=== PATIENT | male | born 1935 | race Caucasian/White ===

== ENCOUNTER 2019-01-17 06:20 | Inpatient (IN) ==
[2019-01-17 06:56] LABS: POC Blood Urea Nitrogen 79 mg/dl (8-23); POC CO2 18 mmol/L (22-30); POC Calcium, Ionized 1.11 mmol/L (1.16-1.32); POC Chloride 105 mmol/L (96-108); POC Creatinine 3.1 mg/dl (0.7-1.2); POC Glucose, Random 217 mg/dL (70-105); POC Sodium 134 mmol/L (133-145)
[2019-01-17] MEDS ORDERED: 0.9 % SODIUM CHLORIDE 500 ML IV ONE (07:19)
[2019-01-17] MEDS ORDERED: ACETAMINOPHEN 325 MG TABLET PO ONE (07:19)
[2019-01-17] MEDS ORDERED: methylPREDNISolone SOD SUCC 125 MG/2 ML VIAL IV ONE (07:22)
--- NOTE | 2019-01-17 07:27 | Emergency Department Note ---
Weakness HPI - General Chief complaint: Weakness Stated complaint: Generalized Weakness Time Seen by Provider: 01/17/19 07:07 Source: family Mode of arrival: wheelchair Limitations: no limitations - History of Present Illness MD Complaint: generalized weakness Onset (ago): day(s) Duration: constant Location: generalized Severity: moderate Improves with: rest Worsens with: movement Context: history of similar Associated symptoms: Reports: denies other symptoms, loss of appetite, myalgias, other (has fallen twice in the last 3 days.). Denies: fever/chills, headaches, nausea/vomiting, syncope - Related Data Home Medications Medication Instructions Recorded Confirmed Atenolol [Tenormin] 50 mg PO DAILY 01/18/17 11/26/18 Levothyroxine [Synthroid] 50 mcg PO DAILY 01/18/17 11/26/18 amLODIPine [Norvasc] 10 mg PO DAILY 01/18/17 11/26/18 cloNIDine HCL [Catapres] 0.1 mg PO DAILY 01/18/17 11/26/18 predniSONE [Prednisone] 10 mg PO DAILY 01/18/17 11/26/18 acetaminophen PO PRN 02/11/17 11/26/18 aspirin 81 mg tablet 81 mg PO QDAY 02/11/17 11/26/18 blood sugar diagnostic strips See Dose Instructions .ROUTE 02/11/17 11/26/18 .MEDSUPPLY hydrocodone 5 mg-acetaminophen 325 See Rx Instructions PO QDAY PRN 02/11/17 11/26/18 mg tablet tab pen needle, diabetic 32 gauge x See Dose Instructions .ROUTE 02/11/17 11/26/18 5/32" .MEDSUPPLY iron 18 mg tablet 18 mg PO QDAY 02/26/17 11/26/18 trandolapril 4 mg tablet 4 mg PO QDAY tab 06/04/17 11/26/18 insulin aspart U- 100 100 unit/mL 0.6 unit SUB-Q .COMPLEX ml 10/01/17 11/26/18 subcutaneous solution insulin glargine (U- 100) 100 8 unit SUB-Q HS ml 05/22/18 11/26/18 unit/mL subcutaneous solution [id number] tablet 1 tab PO QDAY 05/22/18 11/26/18 Previous Rx's Medication Instructions Recorded hydrochlorothiazide 25 mg tablet 25 mg PO QDAY #90 tab 05/25/18 magnesium 250 mg (as magnesium 250 mg PO QDAY #90 tab 12/22/18 oxide) tablet Allergies Allergy/AdvReac Type Severity Reaction Status Date / Time naproxen Allergy Unknown Skin Martino Verified 11/26/18 14:05 niacin Allergy Unknown Burning Verified 11/26/18 14:05 Skin Review of Systems Review of Systems: Patient denies headache. Does have chronic arthritis of. Has had a swelling in the right elbow with decreased range of motion, chronic arthritis which has worsened in the last week with development of increased swelling and erythema. Did fall on the right arm as well. Increased right elbow pain since then. The elbow has chronically been inflamed, he has had some chronic edema in the right upper extremity which has worsened just slightly. Also his left ankle seemed to be red and tender. This is also recent. He does see a shoe lay out planner, he is not sure whom it is. Lives by himself in [facility]. He called his [id number] yesterday and they went to pick him up last night. He's been eating less, having a difficult time taking care of himself. He normally drives a vehicle. Does his own shopping. Constitutional: Denies: fever Eyes: Denies: eye pain ENT ED: Denies: ear pain Cardiovascular: Denies: chest pain Past Medical History - Past Medical History Source: old records reviewed, obtained from family Medical history: Reports: arthritis, COPD, DM, hypertension Surgical history ED: Reports: non-contributory, orthopedic, other Family history: Reports: connective tissue disorde - Social History smoking status: Former smoker Alcohol use: Reports: Rarely Drug use: Reports: none Physical Exam Limitations: no limitations General appearance: alert, in no apparent distress, lethargic Head: atraumatic, normocephalic, normal inspection Eye: Present: normal appearance, PERRL, EOMI ENT: mucous membranes dry, TM's normal bilaterally, normal external ear exam, other (edentulous for upper and lower.) Neck: Present: normal inspection, trachea midline, other (decreased range of motion expected for age and condition of.). Absent: tenderness Chest: Present: normal inspection, symmetric chest wall rise. Absent: tenderness, rash, abscess Respiratory: Present: other (diminished breath sounds bilateral). Absent: respiratory distress Cardiovascular: Present: regular rate, normal rhythm, systolic murmur. Absent: JVD Abdominal: Present: soft, normal bowel sounds. Absent: distention, tenderness, guarding : Present: normal inspection Extremities: Present: joint swelling, other (2+ pitting edema to the right upper extremity from the level of the elbow on down. He has deformities of his fingers, 20 of range of motion of his elbow. Elbow feels warm to the touch.) Back: Present: normal inspection, full ROM. Absent: CVA tenderness (R), CVA tenderness (L), vertebral tenderness Neurological: Present: alert, oriented X3, CN II-XII intact. Absent: motor sensory deficit Psychiatric: Present: depressed, flat affect Skin: Present: warm, dry, erythema, pallor. Absent: cyanosis Course Vital Signs Temperature 98.3 F 01/17/19 06:20 Pulse Rate 78 01/17/19 06:20 Respiratory Rate 20 01/17/19 06:20 Blood Pressure 173/78 01/17/19 06:20 Pulse Oximetry (%) 99 01/17/19 06:20 Temperature 101.7 F H 01/17/19 08:07 Pulse Rate 57 L 01/17/19 08:51 Respiratory Rate 20 01/17/19 06:20 Blood Pressure 116/52 01/17/19 08:46 Pulse Oximetry (%) 92 01/17/19 08:51 Weakness - MDM Narrative Medical decision making narrative: Patient is being admitted at this point for generalized weakness, history of multiple falls the last several days. He has an acute flareup of arthritis in the right elbow, certainly elevated sedimentation rate and CRP, concern for osteo-in the right elbow. Spoke with Dr. Solares for hospital admission. He will consult with orthopedics Dr. Leo. In the meantime we will obtain CT scan of the right elbow. His x-rays of the ankle do not show any fracture. He also has arthritis flareup in his left ankle. This all could be flareup of his rheumatoid arthritis associated with dehydration. Chronic renal insufficiency, slightly worse by his dehydration. Generalized weakness secondary to the above diagnoses . - Lab Data Lab results reviewed: Yes I reviewed the patient's lab results. Result diagrams: 01/17/19 06:48 01/17/19 06:48 Lab Results 01/17/19 01/17/19 01/17/19 Range/Units 06:48 06:48 06:48 WBC 17.8 H (4.5-11.0) K/mcL RBC 3.25 L (4.50-5.90) M/mcL Hgb 10.0 L (13.5-16.5) g/dL Hct 31.2 L (41.0-55.0) % POC Hct 31.0 L (41.0-55.0) % MCV 95.8 (80.0-100.0) fL MCH 30.8 (26.0-34.0) pg MCHC 32.2 (31.0-36.0) g/dL RDW 16.2 H (11.5-14.5) % Plt Count 643 H (140-440) K/mcL MPV 9.7 (7.4-10.4) fL Gran % 93.1 H (38.0-78.0) % Lymph % (Auto) 4.5 L (15.5-49.0) % [place] % (Auto) 2.1 (1.0-12.0) % Eos % (Auto) 0.3 (0.0-7.0) % Baso % (Auto) 0 (0.0-2.0) % Gran # 16.6 H (1.8-8.0) K/mcL Lymph # (Auto) 0.8 L (1.5-4.8) K/mcL [place] # (Auto) 0.4 (0.1-0.9) K/mcL Eos # (Auto) 0 (0.0-0.7) K/mcL Baso # (Auto) 0 (0.0-0.3) K/mcL Differential Comment (()) ESR 112 H (0-15) mm/hr PT 14.4 (11.9-14.5) sec INR 1.1 (0.9-1.1) VBG Lactic Acid (0.5-2.0) mmol/L POC Sodium 134 (133-145) mmol/L Sodium (133-145) mmol/L POC Potassium 5.0 (3.3-5.1) mmol/L Potassium (3.3-5.1) mmol/L POC Chloride 105 (96-108) mmol/L Chloride (96-108) mmol/L Carbon Dioxide (22-30) mmol/L POC Total CO2 18 L (22-30) mmol/L Anion Gap (8-16) POC BUN 79 H (8-23) mg/dl BUN (8-23) mg/dl Creatinine (0.7-1.2) mg/dl POC Creatinine 3.1 H (0.7-1.2) mg/dl GFR Calculation Glucose (70-105) mg/dL POC Glucose 217 H (70-105) mg/dL Calcium (8.6-10.4) mg/dl POC WB Ioniz Calcium 1.11 L (1.16-1.32) mmol/L Total Bilirubin (0.0-1.0) mg/dL AST (0-37) U/l ALT (0-40) U/l Alkaline Phosphatase (39-117) U/L C-Reactive Protein (0.0-0.8) mg/dl Total Protein (5.9-8.4) gm/dL Albumin (3.2-5.2) gm/dL Globulin (2.2-3.7) gm/dL Albumin/Globulin Ratio (1.0-2.3) Urine Color Urine Appearance Urine pH (5.0-9.0) Ur Specific [place] (1.000-1.035) Urine Protein (NEG) mg/dL Urine Glucose (UA) (NEG) mg/dL Urine Ketones (NEG) mg/dL Urine Occult Blood (<0.03) mg/dL Urine Nitrate (NEG) Urine Bilirubin (NEG) mg/dL Urine Urobilinogen (NEG) mg/dL Ur Leukocyte Esterase (NEG) /uL Urine RBC (0-1) /hpf Urine WBC (0-4) /hpf Ur Squamous Epith Cells (0-4) /hpf Ur Transition Epith Cell (0-2) /hpf Urine Bacteria (0) /hpf Urine Mucus (0) /hpf Ur Culture Indicated? 01/17/19 01/17/19 01/17/19 Range/Units 06:48 07:09 07:54 WBC (4.5-11.0) K/mcL RBC (4.50-5.90) M/mcL Hgb (13.5-16.5) g/dL Hct (41.0-55.0) % POC Hct (41.0-55.0) % MCV (80.0-100.0) fL MCH (26.0-34.0) pg MCHC (31.0-36.0) g/dL RDW (11.5-14.5) % Plt Count (140-440) K/mcL MPV (7.4-10.4) fL Gran % (38.0-78.0) % Lymph % (Auto) (15.5-49.0) % [place] % (Auto) (1.0-12.0) % Eos % (Auto) (0.0-7.0) % Baso % (Auto) (0.0-2.0) % Gran # (1.8-8.0) K/mcL Lymph # (Auto) (1.5-4.8) K/mcL [place] # (Auto) (0.1-0.9) K/mcL Eos # (Auto) (0.0-0.7) K/mcL Baso # (Auto) (0.0-0.3) K/mcL Differential Comment (()) ESR (0-15) mm/hr PT (11.9-14.5) sec INR (0.9-1.1) VBG Lactic Acid 2.4 H (0.5-2.0) mmol/L POC Sodium (133-145) mmol/L Sodium 135 (133-145) mmol/L POC Potassium (3.3-5.1) mmol/L Potassium 5.0 (3.3-5.1) mmol/L POC Chloride (96-108) mmol/L Chloride 97 (96-108) mmol/L Carbon Dioxide 16 L (22-30) mmol/L POC Total CO2 (22-30) mmol/L Anion Gap 22.0 H (8-16) POC BUN (8-23) mg/dl BUN 82 H (8-23) mg/dl Creatinine 3.0 H (0.7-1.2) mg/dl POC Creatinine (0.7-1.2) mg/dl GFR Calculation 18 Glucose 218 H (70-105) mg/dL POC Glucose (70-105) mg/dL Calcium 8.8 (8.6-10.4) mg/dl POC WB Ioniz Calcium (1.16-1.32) mmol/L Total Bilirubin 0.3 (0.0-1.0) mg/dL AST 33 (0-37) U/l ALT 20 (0-40) U/l Alkaline Phosphatase 126 H (39-117) U/L C-Reactive Protein 43.4 H (0.0-0.8) mg/dl Total Protein 6.4 (5.9-8.4) gm/dL Albumin 2.9 L (3.2-5.2) gm/dL Globulin 3.5 (2.2-3.7) gm/dL Albumin/Globulin Ratio 0.8 L (1.0-2.3) Urine Color Yellow Urine Appearance Clear Urine pH 5.0 (5.0-9.0) Ur Specific [place] 1.016 (1.000-1.035) Urine Protein 30 A (NEG) mg/dL Urine Glucose (UA) Negative (NEG) mg/dL Urine Ketones Neg (NEG) mg/dL Urine Occult Blood Neg (<0.03) mg/dL Urine Nitrate Neg (NEG) Urine Bilirubin Neg (NEG) mg/dL Urine Urobilinogen Neg (NEG) mg/dL Ur Leukocyte Esterase Neg (NEG) /uL Urine RBC 1 (0-1) /hpf Urine WBC 3 (0-4) /hpf Ur Squamous Epith Cells 0 (0-4) /hpf Ur Transition Epith Cell < 1 (0-2) /hpf Urine Bacteria Few A (0) /hpf Urine Mucus Few (0) /hpf Ur Culture Indicated? No - Radiology Data Radiology results reviewed: Yes I reviewed the patient's radiology results. Disposition Pt seen by [facility]PA only: No Clinical Impression: Anemia in stage 4 chronic kidney disease, Joint pain, CKD (chronic kidney disease), stage IV, Degenerative joint disease, Acute arthritis, Dehydration Disposition: Xfer As Inpt ([facility]) Condition: Fair Referrals: Sandhya Francisco MD [Primary Care Provider] -
[2019-01-17] MEDS ORDERED: CELECOXIB 200 MG CAPSULE PO ONE (07:32)
[2019-01-17 07:42] LABS: Basophils # (Auto) 0 K/mcL (0.0-0.3); Basophils % (Auto) 0 % (0.0-2.0); Eosinophils # (Auto) 0 K/mcL (0.0-0.7); Eosinophils % (Auto) 0.3 % (0.0-7.0); Granulocytes % (Auto) 93.1 % (38.0-78.0); Hematocrit 31.2 % (41.0-55.0); Lymphocytes # (Auto) 0.8 K/mcL (1.5-4.8); Lymphocytes % (Auto) 4.5 % (15.5-49.0); Mean Cell Volume 95.8 fL (80.0-100.0); Mean Corpuscular HGB Conc 32.2 g/dL (31.0-36.0); Mean Platelet Volume 9.7 fL (7.4-10.4); Monocytes # (Auto) 0.4 K/mcL (0.1-0.9); Monocytes % (Auto) 2.1 % (1.0-12.0); Platelet Count 643 K/mcL (140-440); RBC 3.25 M/mcL (4.50-5.90); Red Cell Distribution Width 16.2 % (11.5-14.5); WBC 17.8 K/mcL (4.5-11.0)
[2019-01-17 08:02] LABS: INR 1.1 (0.9-1.1); Prothrombin Time 14.4 sec (11.9-14.5)
[2019-01-17 08:16] LABS: ALT/SGPT 20 U/l (0-40); AST/SGOT 33 U/l (0-37); Albumin 2.9 gm/dL (3.2-5.2); Albumin/Globulin Ratio 0.8 (1.0-2.3); Alkaline Phosphatase 126 U/L (39-117); Bilirubin,Total 0.3 mg/dL (0.0-1.0); Blood Urea Nitrogen 82 mg/dl (8-23); Calcium 8.8 mg/dl (8.6-10.4); Carbon Dioxide 16 mmol/L (22-30); Chloride 97 mmol/L (96-108); Globulin 3.5 gm/dL (2.2-3.7); Glomerular Filtration Rate 18; Glucose 218 mg/dL (70-105)
[2019-01-17 08:22] LABS: Erythrocyte Sedimentation Rate 112 mm/hr (0-15)
[2019-01-17 08:30] LABS: C-Reactive Protein 43.4 mg/dl (0.0-0.8)
[2019-01-17 08:43] LABS: Appearance,Urine CLEAR; Bacteria,Urine FEW /hpf (0); Bilirubin,Urine NEG (NEG); Color,Urine YELLOW; Culture Indicated,Urine NO; Glucose,Urine (UA) NEGATIVE (NEG); Ketones,Urine NEG (NEG); Leukocyte Esterase,Urine NEG /uL (NEG); Mucus,Urine FEW /hpf (0); Nitrate,Urine NEG (NEG); Protein,Urine 30 mg/dL (NEG); Specific Gravity,Urine 1.016 (1.000-1.035); Urine Blood NEG mg/dL (<0.03); Urine RBC 1 /hpf (0-1); Urine Squamous Epithelial Cell 0 /hpf (0-4); Urine Transitional Epi Cells < 1 /hpf (0-2); Urine WBC 3 /hpf (0-4); Urobilinogen,Urine NEG (NEG)
--- NOTE | 2019-01-17 11:37 | Internal Med History&Physical ---
Medical - H&P: [facility] Patient information: Note initiated : 01/17/19 at 11:32 am Service Date, if different from initiated Date: [] Patient: Bebeto Bunn a 83 y/o M admitted on for Generalized Weakness. Chief Complaint: [] Chief complaint: Falls and weakness History of present illness: Mr. Bunn is a 83 year old M with a history of chronic kidney disease, PMR/ ?RA on chronic prednisone who presents to the ER with onset of progressive weakness along with multiple falls that started 2 weeks ago. Patient since then has noticed increasing right elbow and left ankle pain and swelling along with redness. Patient has had progressive fatigue lethargic and unable to perform activities of daily living. He is accompanied to the ER due to increasing concerns within family about his gradual decline. His symptoms are associated with fever around 2 weeks ago at 101.8. He denies associated dysuria diarrhea but endorses to polyarthralgia and rash as involving left ankle and right elbow. He denies headache,, vision changes or unilateral weakness. He does endorse to falls to weakness and getting off balance. Initial work-up in the ER was consistent with elevated white count/inflammatory markers with CRP 43 and ESR 112, elevated white count 17.8, creatinine 3. CT scan right elbow was performed. Patient received a dose of Solu-Medrol At the time of evaluation patient is accompanied with multiple family members. He was able to endorse history as above. Family expressed concerns about his inability to take care of self. 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) Back pain (Chronic) Anxiety (Chronic) Limp (Chronic) Arthritis (Chronic) Joint pain (Chronic) Dizzy (Chronic) CKD (chronic kidney disease), stage IV (Chronic) Shingles (Chronic) Total body pain (Chronic) Hypothyroidism (Chronic) Hyperlipidemia (Chronic) Hypertension (Chronic) GERD (gastroesophageal reflux disease) (Chronic) Degenerative joint disease (Chronic) Osteoarthritis (Chronic) Encounter for long-term (current) use of other medications (Chronic) Hip pain, left (Chronic) Weight loss (Chronic) Polymyalgia rheumatica (Chronic) Anemia (Chronic) Arthralgia (Chronic) Fatigue (Chronic) Diabetes mellitus (Chronic) Surgical History History of elbow surgery (Chronic) right and left History of hip replacement (Chronic) Hx of toe surgery (Chronic) right great toe Family History Family/Other Colon cancer Stroke Social History marital status: occupational status: retired smoking status: Former smoker alcohol intake frequency: does not drink substance use type: does not use Medical - H&P: Meds Home Medications Medication Instructions Recorded Confirmed Type Atenolol [Tenormin] 50 mg PO BID 01/18/17 01/17/19 History Levothyroxine [Synthroid] 50 mcg PO DAILY 01/18/17 01/17/19 History amLODIPine [Norvasc] 10 mg PO DAILY 01/18/17 01/17/19 History cloNIDine HCL [Catapres] 0.1 mg PO BID 01/18/17 01/17/19 History predniSONE [Prednisone] 10 mg PO DAILY 01/18/17 01/17/19 History aspirin 81 mg tablet 81 mg PO QDAY 02/11/17 11/26/18 History blood sugar diagnostic strips See Dose Instructions .ROUTE 02/11/17 11/26/18 History .MEDSUPPLY pen needle, diabetic 32 gauge x See Dose Instructions .ROUTE 02/11/17 11/26/18 History 5/32" .MEDSUPPLY iron 18 mg tablet 18 mg PO QDAY 02/26/17 11/26/18 History trandolapril 4 mg tablet 4 mg PO BID tab 06/04/17 01/17/19 History insulin glargine (U- 100) 100 8 unit SUB-Q HS ml 05/22/18 01/17/19 History unit/mL subcutaneous solution srtdwkgvxejy-fdrksspw-vsnlpr tablet 1 tab PO QDAY 05/22/18 11/26/18 History hydrochlorothiazide 25 mg tablet 25 mg PO QDAY #90 tab 05/25/18 11/26/18 Rx magnesium 250 mg (as magnesium 250 mg PO QDAY #90 tab 12/22/18 01/17/19 Rx oxide) tablet Doxazosin [Cardura] 1 mg PO DAILY 01/17/19 01/17/19 History Insulin Aspart [Novolog] 100 unit SQ AC 01/17/19 01/17/19 History Oxaprozin [Daypro] 600 mg PO DAILY 01/17/19 01/17/19 History Allergies Allergy/AdvReac Type Severity Reaction Status Date / Time naproxen Allergy Unknown Skin Martino Verified 11/26/18 14:05 niacin Allergy Unknown Burning Verified 11/26/18 14:05 Skin Medical - H&P: Exam - Constitutional Vitals: Temp Pulse Resp BP Pulse Ox 98.0 F 53 L 18 134/54 95 01/17/19 09:16 01/17/19 10:31 01/17/19 10:31 01/17/19 10:31 01/17/19 10:31 General appearance: moderate distress Exam: Eye movement symmetrical Oral cavity dry No ear nose discharge head normocephalic Neck no lymphadenopathy S1-S2 regular rhythm Diminished breath sounds bases Abdomen soft nontender Lower extremity bilateral minimal edema with erythema and induration left ankle Right elbow swelling along with erythema and diminished range of motion Arthritic change small joints Skin otherwise no suspicious lesion Psych alert cooperative Neuro nonfocal Medical - H&P: Reslt - Labs CBC & Chem 7: 01/17/19 06:48 01/17/19 06:48 Labs: Short CBC 01/17/19 Range/Units 06:48 WBC 17.8 H (4.5-11.0) K/mcL Hgb 10.0 L (13.5-16.5) g/dL Hct 31.2 L (41.0-55.0) % Plt Count 643 H (140-440) K/mcL BMP 01/17/19 06:48 Sodium 135 Potassium 5.0 Chloride 97 Carbon Dioxide 16 L BUN 82 H Creatinine 3.0 H Glucose 218 H Calcium 8.8 Liver Function 01/17/19 Range/Units 06:48 Total Bilirubin 0.3 (0.0-1.0) mg/dL AST 33 (0-37) U/l ALT 20 (0-40) U/l Alkaline Phosphatase 126 H (39-117) U/L Albumin 2.9 L (3.2-5.2) gm/dL Urine 01/17/19 Range/Units 07:09 Urine Color Yellow Urine Appearance Clear Urine pH 5.0 (5.0-9.0) Ur Specific [place] 1.016 (1.000-1.035) Urine Protein 30 A (NEG) mg/dL Urine Glucose (UA) Negative (NEG) mg/dL Medical - H&P: A/P (1) Polyarthritis involving elbow Current visit: Yes Status: Acute * Acute arthritis rule out infectious versus inflammatory. Underlying history of PMR on chronic immunosuppression on prednisone. Orthopedic consult for right elbow effusion tap. Patient started on IV Solu-Medrol in ER. Start empiric antibiotic coverage. Pancultures, ID consult * Systemic inflammatory response syndrome-acute rheumatoid arthritis flare versus septic arthritis * History of chronic disease creatinine around 3. Avoid nephrotoxins and monitor renal function * Severe deconditioning with multiple falls and weakness-PT OT/nutrition support/case management according to SNF transfer * History of hypertension continue atenolol/clonidine * History rheumatoid arthritis continue prednisone at home dose * Hypothyroidism on thyroxine * DM type II continue basal prandial insulin * Full code * Prophylaxis heparin Plan * Inpatient admission * Start PO prednisone * Orthopedic/ID /rheumatology consult * Pre-existing well condition management as above * Arthrocentesis/antibiotic coverage
[2019-01-17] MEDS ORDERED: guaiFENesin/CODEINE 10 ML UDC PO PRN (11:54)
[2019-01-17] MEDS ORDERED: MAGNESIUM SULFATE 2 GM/50 ML BAG IV PRN (11:54)
[2019-01-17] MEDS ORDERED: VANCOMYCIN PER PHARMACY IV SCH (11:54)
[2019-01-17] MEDS ORDERED: MELATONIN 3 MG TABLET PO PRN (11:54)
[2019-01-17] MEDS ORDERED: ACETAMINOPHEN 1,000 MG/100 ML BOTTLE IV PRN (11:54)
[2019-01-17] MEDS ORDERED: ONDANSETRON 4 MG/2 ML VIAL IV PRN ×2 (11:54→23:00)
[2019-01-17] MEDS ORDERED: POTASSIUM CHLORIDE 20 MEQ PACKET PO PRN (11:54)
[2019-01-17] MEDS: 0.9 % SODIUM CHLORIDE 1,000 ML IV SCH ×2 (12:40→12:44)
[2019-01-17] MEDS: 0.9 % SODIUM CHLORIDE 10 ML SYRINGE IV SCH (12:45)
[2019-01-17] MEDS ORDERED: cefTRIAXone 2 GM in DEXTROSE 5% IN WATER 50 ML IV SCH (13:00)
--- NOTE | 2019-01-17 13:01 | XRay Report ---
CLINICAL INFORMATION: Trauma COMPARISON: None. FINDINGS: No fracture identified. There is minor spurring from the anterior talar neck. Small amount ossification of the Achilles and plantar tendon insertions on calcaneus appreciated. A few tiny metallic foreign bodies overlie the medial cuneiform - likely related to old trauma. Ankle mortise and talocalcaneal joints are normal in width and alignment without evidence of arthritis. Soft tissues are unremarkable. IMPRESSION: No fracture or other acute posttraumatic change. Minor chronic findings - as described Interpreted and Authenticated by: Ivan Garcia 01/17/19
--- NOTE | 2019-01-17 13:08 | XRay Report ---
CLINICAL INFORMATION: weakness COMPARISON: 08/01/2006 two-view chest x-ray FINDINGS: Heart size, mediastinum and pulmonary vessels are normal. There is minor bibasilar atelectasis. No effusion. Malunified old fractures of the posterior first through sixth ribs were not seen on the old 2006 chest x-ray. An old ununited fracture distal left clavicle with 1 cm superior displacement medial fragment is also new. IMPRESSION: No acute cardiac pulmonary disease - chronic findings as described Interpreted and Authenticated by: Ivan Garcia 01/17/19
--- NOTE | 2019-01-17 13:17 | XRay Report ---
CLINICAL INFORMATION: fall COMPARISON: None. FINDINGS: No fracture identified. There is marked elbow effusion with distention of the extrasynovial fat pads. Marked periarticular erosive changes seen within the humeral condyles, radial head and olecranon all supportive of septic arthritis. IMPRESSION: No evidence of fracture. Massive joint effusion with marked periarticular erosive changes compatible with septic arthritis. Follow-up fluoroscopic guided aspiration will be performed. Interpreted and Authenticated by: Ivan Garcia 01/17/19
--- NOTE | 2019-01-17 13:35 | Cat Scan Report ---
CLINICAL INFORMATION: elbow pain, redness and swelling COMPARISON: Plain films 01/17/2019 TECHNIQUE: 0.625 and helical slices were obtained from the mid humerus to the mid radius and ulna. Following reconstruction, 2.5 mm axial, sagittal core reformatted images were processed and reviewed in soft tissue and bone windows FINDINGS: A massive effusion in the elbow joint distends the capsule. There is marked erosive changes in the intra-articular humeral condyle, olecranon and radial head region findings most compatible with septic arthritis. There is no fracture no other a normalities. Moderate periarticular soft tissue swelling noted. IMPRESSION: Massive joint effusion with marked periarticular erosions patible with septic arthritis. Fluoroscopic guided aspiration to be performed. Interpreted and Authenticated by: Ivan Garcia 01/17/19
[2019-01-17] MEDS ORDERED: VANCOMYCIN 1,500 MG in 0.9 % SODIUM CHLORIDE 500 ML IV ONE (14:00)
[2019-01-17] MEDS: ACETAMINOPHEN 325 MG TABLET PO PRN (14:39)
--- NOTE | 2019-01-17 14:39 | XRay Report ---
CLINICAL INFORMATION: Right elbow, septic arthritis TECHNIQUE: Procedure and risks including possibility of bleeding and infection were explained to the patient. He understood and wished to proceed. With the patient seated and the right elbow on the fluoroscopy table,, the radiocapitellar region was fluoroscopically marked, prepped and locally anesthetized with 1% lidocaine using 25-gauge needle. An 18-gauge needle was placed under fluoroscopic guidance into the radiocapitellar portion of the elbow and approximately 10 cc of purulent fluid was aspirated and sent for Gram stain culture and sensitivity. The joint was then irrigated with 6 cc aliquots of normal saline. No apparent complication. IMPRESSION: Successful fluoroscopic guided aspiration of septic elbow joint yielding 10 cc of purulent fluid. Fluid was sent for Gram stain culture and sensitivity. No apparent complication. Interpreted and Authenticated by: Ivan Garcia 01/17/19
--- NOTE | 2019-01-17 14:42 | Consultation ---
DATE OF CONSULTATION: 01/17/2019 CONSULTATION NOTE DATE OF CONSULTATION: 01/17/2019 REASON FOR CONSULTATION: Rule out right septic elbow. PERSON CONSULTING: Dr. Omkar Golden. HISTORY OF PRESENT ILLNESS: The patient is an 83-year-old male who was brought in by the family to the ER today for frequent falls over the last 2 weeks along with progressive weakness. The patient reports that approximately 2 weeks ago, he had fallen with using a ladder and had resulted in an abrasion over his right lateral forearm and that subsequently his elbow became more painful. He has also had some fevers at home and some increasing pain of the left ankle that has actually improved over the last 2 days. Otherwise, he denies any shortness of breath or chest pain, any change in mental status and with good appetite. 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 PAST SURGICAL HISTORY: He has had prior surgery of his right and left elbow and reports on the right side he had a fistula developed and drained for a long time after the surgery. Total hip arthroplasty and surgery on his right great toe. ALLERGIES: NAPROXEN, NIACIN. MEDICATIONS: Atenolol, Synthroid, Norvasc, clonidine, prednisone, baby aspirin, insulin, hydrochlorothiazide, doxazosin, Daypro, iron. SOCIAL HISTORY: He is . He is a former smoker, but not currently using. His family is here locally. REVIEW OF SYSTEMS: Other than mentioned in HPI is negative. Ten-point is negative. PHYSICAL EXAMINATION: GENERAL: The patient is resting comfortably in bed, alert and oriented x3 in no acute distress. He is eating lunch. VITAL SIGNS: His heart rate is 57. His blood pressure is 135/60 with a pulse oximetry of 94% on room air. Respiratory rate is 12-20. Extremities: Examination his right upper extremity reveals he has a large eschar over the lateral forearm approximately 5 cm in length and 2 cm wide. There is no drainage around this lesion. It appears to be healing well; however, his elbow is significantly swollen approximately twice the size of contralateral side. He does have some erythema over the elbow joint itself extends from the medial aspect over posteriorly and around the lateral aspect of the joint itself. He has woody, pitting edema throughout this region down to the mid forearm. Do not appreciate any only notable fluctuance; however, his range of motion is approximately 20 to 30 degree arc and overall feels unstability. This is also painful. His hand is swollen as well. It appears to be from dependent edema; however, he can make a flat hand and a weak closed fist His wrist range of motion is without pain. Left ankle demonstrates minimal to no joint effusion. He has some erythema over the posterior aspect at the heel region, but none over the anterior aspect of his ankle. Passive range of motion is with minimal to no pain. Sensation, he has a dense neuropathy up to just below the level of the knee. Otherwise, the foot is warm and well perfused. LABORATORY DATA: He has a white count of 17.8 with a left shift, his hemoglobin is 10, hematocrit is 31 with platelet count of 643. His coags are normal. He has an elevated CRP of 43. His glucose is 218, his creatinine is 3. IMAGING: He has plain films of his right elbow and left ankle. Right elbow demonstrates near complete loss of the joint space and a joint effusion. There are no fractures noted. He also has a CT of his right elbow, this demonstrates the same. There is no loculated abscess in the subcutaneous tissue; however, has a large joint effusion and near complete destruction of the elbow joint itself. The right ankle, there are no fractures noted and still has well preserved joint. ASSESSMENT AND PLAN: Bebeto is an 83-year-old male with likely septic arthritis of his right elbow; however, difficult to aspirate. Will obtain a fluoro-guided joint aspirate by radiology and sent those off for cultures, Gram stain, cell count, differential, crystrals Did discuss with him that his joint his joint is severely arthritic with minimal joint space left which in a southern ute joint the goal of washing out septic arthritis is to preserve the cartilage. For him is would be more to decrease the bacteria load and allow for improved pain and resolution of symptoms. I do not think that his left ankle is infected as he has minimal pain and no pain with passive range of motion which has been improving over the last several days as well per him. This can be continued to be monitored for now. He did eat lunch as I was evaluating him. Thus, given the subacute nature of this, I would likely wait later on the afternoon to the evening for formal irrigation and debridement as long as these cultures come back consistent with this finding of infection, which I presume it will. DLW:stacia Job ID: [id number] Doc ID: [id number] Cristine Leo MD MTDD
[2019-01-17 15:51] LABS: Appearance,Synovial Fluid TURBID; Color,Synovial Fluid PINK; Nucleated Cells,Synovial Fld 37618 /cumm
[2019-01-17] MEDS: CEFEPIME 2 GM VIAL IV SCH (17:29)
[2019-01-17 17:44] LABS: Lymphocytes,Synovial Fluid 1 %; Neutrophils,Synovial Fluid 98 % (0-25); Other Cells,Synovial Fluid 1 %
[2019-01-17] MEDS ORDERED: DEXTROSE 31 GM ORAL.SUSP PO PRN (19:56)
[2019-01-17] MEDS ORDERED: DEXTROSE 50% 50 ML VIAL IV PRN (19:56)
[2019-01-17] MEDS ORDERED: INSULIN REGULAR, HUMAN 1 UNIT/0.01 ML UNIT ONE ×2 (20:08→23:46)
[2019-01-17] MEDS: INSULIN REGULAR, HUMAN 1 UNIT/0.01 ML UNIT IV ONE ×2 (20:11→20:12)
[2019-01-17] MEDS ORDERED: cloNIDine HCL 0.1 MG TABLET PO SCH (21:00)
[2019-01-17] MEDS ORDERED: LISINOPRIL 20 MG TABLET PO SCH (21:00)
[2019-01-17] MEDS ORDERED: ATENOLOL 50 MG TABLET PO SCH (21:00)
[2019-01-17] MEDS: INSULIN LISPRO 1 UNIT/0.01 ML UNIT SQ SCH (21:30)
[2019-01-17] MEDS ORDERED: ceFAZolin 2 GM in DEXTROSE 5% IN WATER 50 ML IV SCH (21:45)
[2019-01-17] MEDS ORDERED: ceFAZolin 1 GM VIAL ONE (22:10)
[2019-01-17] MEDS ORDERED: KETAMINE 100 MG/ML ML IV ONE (22:25)
[2019-01-17] MEDS ORDERED: GLYCOPYRROLATE 0.2 MG/ML VIAL IV ONE (22:25)
[2019-01-17] MEDS ORDERED: MIDAZOLAM 2 MG/2 ML VIAL IV ONE (22:25)
[2019-01-17] MEDS ORDERED: PROPOFOL 200 MG/20 ML VIAL IV ONE (22:25)
[2019-01-17] MEDS ORDERED: LIDOCAINE HCL/PF 100 MG/5 ML SYRINGE IV ONE (22:25)
[2019-01-17] MEDS ORDERED: ONDANSETRON 4 MG/2 ML VIAL IV ONE (22:25)
[2019-01-17] MEDS ORDERED: fentaNYL 100 MCG/2 ML VIAL IV ONE (22:25)
[2019-01-17] MEDS ORDERED: LACTATED RINGERS 1,000 ML IV SCH (23:00)
[2019-01-17] MEDS ORDERED: MEPERIDINE 25 MG/ML SYRINGE IV PRN (23:00)
[2019-01-17] MEDS ORDERED: fentaNYL 100 MCG/2 ML VIAL IV PRN (23:00)
[2019-01-17] MEDS ORDERED: IPRATROPIUM/ALBUTEROL 3 ML AMPUL.NEB NEB PRN (23:00)
[2019-01-17] MEDS ORDERED: VANCOMYCIN 1 GM VIAL TOPICAL SCH (23:20)
[2019-01-17] MEDS ORDERED: INSULIN REGULAR, HUMAN 1 UNIT/0.01 ML UNIT SQ ONE (23:40)
--- NOTE | 2019-01-17 23:41 | Brief Operative Note ---
Date of procedure: 01/17/19 Pre-op diagnosis: rigth septic elbow Post-op diagnosis: other (same with septic olecranon bursitis) Procedure: left elbow irrigation debridement, drainage of olecranon bursa, placement of drains. Grafts/Implants: Yes (1/4 didier drains x2) Anesthesia: GLMA Findings: mode purulence in the joint with near completion of the joint articular surface, pocket tracked posteriorly into olecranon bursa Complications: none Surgeon: Cristine Leo Estimated blood loss (cc): 5 Tourniquet Time (Minutes): 33 Specimens Removed/Pathology: other (elbow cultures along with bone biopsy of humerus) Condition: stable Disposition: ICU
[2019-01-18] MEDS: HEPARIN 5,000 UNIT/ML VIAL SQ SCH ×3 (01:25→20:52)
[2019-01-18] MEDS: SENNOSIDES/DOCUSATE SODIUM 1 TAB TABLET PO SCH ×2 (01:26→20:52)
[2019-01-18] MEDS: DOCUSATE SODIUM 100 MG CAPSULE PO SCH ×3 (01:26→20:51)
[2019-01-18] MEDS: 0.9 % SODIUM CHLORIDE 10 ML SYRINGE IV SCH ×5 (01:27→20:52)
[2019-01-18] MEDS: CYANOCOBALAMIN (VITAMIN B-12) 500 MCG TABLET PO SCH ×3 (01:27→20:51)
[2019-01-18] MEDS: INSULIN LISPRO 1 UNIT/0.01 ML UNIT SQ SCH ×5 (02:25→20:40)
[2019-01-18] MEDS ORDERED: HYDROmorphone 2 MG/ML VIAL IV PRN (02:38)
[2019-01-18] MEDS ORDERED: oxyCODONE HCL 5 MG TABLET PO ONE (02:49)
[2019-01-18 05:20] LABS: Hematocrit 24.9 % (41.0-55.0); Hemoglobin 7.9 g/dL (13.5-16.5); Mean Cell Volume 96.6 fL (80.0-100.0); Mean Corpuscular HGB Conc 31.9 g/dL (31.0-36.0); Mean Platelet Volume 9.6 fL (7.4-10.4); Platelet Count 588 K/mcL (140-440); RBC 2.57 M/mcL (4.50-5.90); Red Cell Distribution Width 16.6 % (11.5-14.5); WBC 21.3 K/mcL (4.5-11.0)
[2019-01-18 05:47] LABS: ALT/SGPT 11 U/l (0-40); AST/SGOT 13 U/l (0-37); Albumin 1.7 gm/dL (3.2-5.2); Albumin/Globulin Ratio 0.6 (1.0-2.3); Alkaline Phosphatase 81 U/L (39-117); Bilirubin,Direct < 0.2 mg/dL (0.0-0.3); Bilirubin,Total 0.2 mg/dL (0.0-1.0); Blood Urea Nitrogen 85 mg/dl (8-23); Calcium 7.4 mg/dl (8.6-10.4); Carbon Dioxide 19 mmol/L (22-30); Chloride 92 mmol/L (96-108); Globulin 2.8 gm/dL (2.2-3.7); Glomerular Filtration Rate 23; Glucose 272 mg/dL (70-105); Lactate Dehydrogenase 226 U/L (94-250); Phosphorous 5.8 mg/dL (2.7-4.5); Triglycerides 117 mg/dl (<150)
--- NOTE | 2019-01-18 07:20 | Orthopedic Progress Note ---
Subjective Patient information: Note initiated : 01/18/19 at 7:18 am Service Date, if different from initiated Date: [] Patient: Bebeto Bunn 83 y/o M admitted on 01/17/19 for Generalized Weakness. Chief Complaint: [] Interval history: No acute changes overnight. Reports some improvement in pain to the left ankle and right elbow. Objective Vital signs: Vital Signs Temp Pulse Pulse Pulse Resp BP BP 01/18/19 02:49 01/18/19 02:08 117/53 01/18/19 00:28 98.0 F 20 143/60 01/18/19 00:00 98.1 F 55 L 16 01/17/19 23:50 55 L 17 01/17/19 23:45 59 L 13 01/17/19 23:40 59 L 15 01/17/19 23:35 60 14 01/17/19 23:30 98.5 F 63 63 15 142/56 01/17/19 20:00 98.5 F 53 L 14 122/59 01/17/19 17:50 98.8 F 18 141/55 01/17/19 12:00 99.4 F H 18 118/52 01/17/19 11:54 99.4 F H 18 118/52 01/17/19 11:51 129/64 01/17/19 11:31 98.0 F 66 12 129/64 01/17/19 11:01 58 L 20 135/60 01/17/19 10:31 53 L 18 134/54 01/17/19 10:11 55 L 20 01/17/19 10:01 57 L 19 121/54 01/17/19 09:41 57 L 20 119/56 01/17/19 09:16 98.0 F 58 L 19 117/55 01/17/19 09:01 58 L 111/53 01/17/19 08:52 98.0 F 01/17/19 08:51 57 L 01/17/19 08:46 58 L 116/52 01/17/19 08:31 62 122/55 01/17/19 08:16 66 140/103 01/17/19 08:12 60 133/68 01/17/19 08:07 101.7 F H 01/17/19 07:26 101.7 F H 66 BP Pulse Ox 01/18/19 02:49 96 07/15/19 02:08 96 01/18/19 00:28 94 01/18/19 00:00 124/45 90 01/17/19 23:50 124/42 92 01/17/19 23:45 114/59 94 01/17/19 23:40 114/49 100 01/17/19 23:35 116/45 100 01/17/19 23:30 142/56 100 01/17/19 20:00 96 01/17/19 17:50 98 01/17/19 12:00 95 01/17/19 11:54 95 01/17/19 11:51 01/17/19 11:31 96 01/17/19 11:01 94 01/17/19 10:31 95 01/17/19 10:11 89 L 01/17/19 10:01 91 01/17/19 09:41 90 01/17/19 09:16 93 01/17/19 09:01 92 01/17/19 08:52 01/17/19 08:51 92 01/17/19 08:46 92 01/17/19 08:31 92 01/17/19 08:16 93 01/17/19 08:12 91 01/17/19 08:07 01/17/19 07:26 91 Intake and Output 01/17/19 01/18/19 01/18/19 21:59 05:59 13:59 Intake Total 783 1030 Output Total 600 10 175 Balance 183 1020 -175 Intake: IV 783 120 Sodium Chloride 0.9% 1,000 ml @ 283 0 50 mls/hr IV .Q20H [facility] Rx#: [id number] IV - Manual Only 910 Output: Void Amount 600 175 Estimated Blood Loss 10 Other: Urine Appearance Clear Clear Clear Urine Color Bright Yellow Bright Yellow Bright Yellow Urine Odor Normal Weight 146 lb 6.4 oz Intake & Output: Intake & Output 01/17/19 01/18/19 01/18/19 21:59 05:59 13:59 Intake Total 783 1030 Output Total 600 10 175 Balance 183 1020 -175 Weight 146 lb 6.4 oz Intake: IV 783 120 Sodium Chloride 0.9% 1,000 ml @ 283 0 50 mls/hr IV .Q20H [facility] Rx#: [id number] IV - Manual Only 910 Output: Void Amount 600 175 Estimated Blood Loss 10 Other: Urine Appearance Clear Clear Clear Urine Color Bright Yellow Bright Yellow Bright Yellow Urine Odor Normal Dressing: Yes splint in place Weight bearing status: non Additional Comments: left ankle: the erythema over posterior ankle improving. No significant pain with passive ROM of the ankle. skin intact, no significant swelling - Labs CBC & BMP: 01/18/19 03:30 01/18/19 03:30 Labs: Orthopedic Labs 01/17/19 06:48 PT 14.4 INR 1.1 01/18/19 01/17/19 03:30 06:48 Hgb 7.9 L 10.0 L Hct 24.9 L 31.2 L Assessment and Plan - Narrative A/P Narrative: POD 1 s/p right elbow I&D and drainage of olecranon bursa -- splint and dressing- leave in place for today, plan to change tomorrow. -- cx: bacteremia with gram pos cocci and elbow aspirate the same -- did biopsy distal humerus- pending ----- currently on IV abx --- would recommend ID consult -
[2019-01-18] MEDS: LEVOTHYROXINE 50 MCG TABLET PO SCH (07:58)
[2019-01-18 08:02] LABS: Anisocytosis 1+ (NONE SEEN); Band Neutrophils % 2 % (0-10); Monocytes % (Manual) 4 % (1-12); Platelet Estimate INCREASED (NORMAL); RBC Morphology ABNORM (NORMAL); Segmented Neutrophils % 94 % (38-78)
[2019-01-18] MEDS ORDERED: hydrALAZINE 20 MG/ML VIAL IV PRN (08:25)
--- NOTE | 2019-01-18 08:28 | Internal Med Progress Note ---
Medical - PN: Subj Patient information: Note initiated : 01/18/19 at 8:26 am Service Date, if different from initiated Date: [] Patient: Bebeto Bunn a 83 y/o M admitted on 01/17/19 for Generalized Weakness. Chief Complaint: [] Interval history: Mr. Bunn is a 83 year old M with a history of chronic kidney disease, PMR/ ?RA on chronic prednisone who presents to the ER with onset of progressive weakness along with multiple falls that started 2 weeks ago. Patient since then has noticed increasing right elbow and left ankle pain and swelling along with redness. Patient has had progressive fatigue lethargic and unable to perform activities of daily living. He is accompanied to the ER due to increasing co ncerns within family about his gradual decline. His symptoms are associated with fever around 2 weeks ago at 101.8. He denies associated dysuria diarrhea but endorses to polyarthralgia and rash as involving left ankle and right elbow. He denies headache,, vision changes or unilateral weakness. He does endorse to falls to weakness and getting off balance. Initial work-up in the ER was consistent with elevated white count/inflammatory markers with CRP 43 and ESR 112, elevated white count 17.8, creatinine 3. CT scan right elbow was performed. Patient received a dose of Solu-Medrol At the time of evaluation patient is accompanied with multiple family members. He was able to endorse history as above. Family expressed concerns about his inability to take care of self. 01/18 patient seen examined, labs reviewed no acute complaints overnight bradycardic, on beta teresa and clonidine, pt reports HR always low, no dizziness, cp or palpitations reported hold atenolol and clonidine for now and monitor. Right elbow, had pus on aspiration, taken to or yesterday, pt also has GPC bacteremia, which is isolated as strep, presently on vanco and cefepime, will review with ID and plan for deescalation of abx regime to [facility] echo to be done Low hb likely from post Pertinent ROS: Denies headache, dizziness Denies chest pain, palpitations Denies cough or shortness of breath Denies abdominal pain, nausea or vomiting. - Constitutional Vitals: Vital Signs Temp Pulse Resp BP Pulse Ox 97.3 F 55 L 18 114/60 99 01/18/19 07:49 01/18/19 00:00 01/18/19 07:49 01/18/19 07:49 01/18/19 07:49 Period Temp Pulse Resp BP Sys/Dupree Pulse Ox Last 24 Hr 97.3 F-99.4 F 53-66 12-20 111-143/42-64 89-100 Intake and Output 01/17/19 01/18/19 01/18/19 21:59 05:59 13:59 Intake Total 783 1030 Output Total 600 10 175 Balance 183 1020 -175 Weight 146 lb 6.4 oz Intake & Output: Intake & Output 01/17/19 01/18/19 01/18/19 21:59 05:59 13:59 Intake Total 783 1030 Output Total 600 10 175 Balance 183 1020 -175 Weight 146 lb 6.4 oz Intake: IV 783 120 Sodium Chloride 0.9% 1,000 ml @ 283 0 50 mls/hr IV .Q20H [facility] Rx#: [id number] IV - Manual Only 910 Output: Void Amount 600 175 Estimated Blood Loss 10 Other: Urine Appearance Clear Clear Clear Urine Color Bright Yellow Bright Yellow Bright Yellow Urine Odor Normal Exam: Constitutional; Afebrile, cooperative, alert, not in distress. Eyes- No icterus, , No periorbital swelling Ears- Ext ear normal, hearing normal to conversation. Neck- Midline trachea, supple Respiratory system: Air Entry equal on both sides, No crackles or wheezing, no rhonchi. CVS- Rate rhythm regular, S1,S2 heard, no gallop, no rub. 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 Medical - PN: Obj Da - Labs CBC & Chem 7: 01/18/19 03:30 01/18/19 03:30 Labs: Abnormal Lab Results 01/18/19 01/18/19 01/17/19 03:30 03:30 14:28 WBC 21.3 H RBC 2.57 L Hgb 7.9 L Hct 24.9 L POC Hct RDW 16.6 H Plt Count 588 H Gran % Lymph % (Auto) Gran # Lymph # (Auto) Seg Neutrophils % 94 H Platelet Estimate Increased A RBC Morphology Abnorm A Anisocytosis 1+ A ESR VBG Lactic Acid Sodium 128 L Chloride 92 L Carbon Dioxide 19 L POC Total CO2 Anion Gap 17.0 H POC BUN BUN 85 H Creatinine 2.5 H POC Creatinine Glucose 272 H POC Glucose Uric Acid 11.0 H Calcium 7.4 L POC WB Ioniz Calcium Phosphorus 5.8 H Alkaline Phosphatase C-Reactive Protein Total Protein 4.5 L Albumin 1.7 L Albumin/Globulin Ratio 0.6 L Urine Protein Urine Bacteria Synovial Neutrophils 98 H 01/17/19 01/17/19 01/17/19 07:54 07:09 06:48 WBC RBC Hgb Hct POC Hct RDW Plt Count Gran % Lymph % (Auto) Gran # Lymph # (Auto) Seg Neutrophils % Platelet Estimate RBC Morphology Anisocytosis ESR VBG Lactic Acid 2.4 H Sodium Chloride Carbon Dioxide 16 L POC Total CO2 Anion Gap 22.0 H POC BUN BUN 82 H Creatinine 3.0 H POC Creatinine Glucose 218 H POC Glucose Uric Acid Calcium POC WB Ioniz Calcium Phosphorus Alkaline Phosphatase 126 H C-Reactive Protein 43.4 H Total Protein Albumin 2.9 L Albumin/Globulin Ratio 0.8 L Urine Protein 30 A Urine Bacteria Few A Synovial Neutrophils 01/17/19 01/17/19 06:48 06:48 WBC 17.8 H RBC 3.25 L Hgb 10.0 L Hct 31.2 L POC Hct 31.0 L RDW 16.2 H Plt Count 643 H Gran % 93.1 H Lymph % (Auto) 4.5 L Gran # 16.6 H Lymph # (Auto) 0.8 L Seg Neutrophils % Platelet Estimate RBC Morphology Anisocytosis ESR 112 H VBG Lactic Acid Sodium Chloride Carbon Dioxide POC Total CO2 18 L Anion Gap POC BUN 79 H BUN Creatinine POC Creatinine 3.1 H Glucose POC Glucose 217 H Uric Acid Calcium POC WB Ioniz Calcium 1.11 L Phosphorus Alkaline Phosphatase C-Reactive Protein Total Protein Albumin Albumin/Globulin Ratio Urine Protein Urine Bacteria Synovial Neutrophils Meds: Medications Acetaminophen (Tylenol) 650 mg PO Q4-6HP PRN PRN Reason: PAIN/FEVER > 101 Last Admin: 01/17/19 14:39 Dose: 650 mg Documented by: Amlodipine Besylate (Norvasc) 10 mg PO DAILY [facility] Cefepime HCl (Maxipime) 2 gm IV Q24H [facility]; Protocol Last Admin: 01/17/19 17:29 Dose: 2 gm Documented by: Cyanocobalamin (Vitamin B-12) 1,000 mcg PO BID [facility] Stop: 01/22/19 09:01 Last Admin: 01/18/19 01:27 Dose: 1,000 mcg Documented by: Dextrose (Dextrose 50%) 0 ml IV UD PRN PRN Reason: Hypoglycemia Diagnostic Test (Pha) (Accu-Chek) 1 each FS ACHS [facility] Last Admin: 01/18/19 08:00 Dose: 1 each Documented by: Docusate Sodium (Colace) 100 mg PO BID [facility] Last Admin: 01/18/19 01:26 Dose: 100 mg Documented by: Doxazosin Mesylate (Cardura) 1 mg PO DAILY [facility] Folic Acid (Folic Acid) 1 mg PO DAILY [facility] Glucose (Insta-Glucose) 15 gm PO PRN PRN PRN Reason: Hypoglycemia Guaifenesin/Codeine Phosphate (Robitussin Ac) 10 ml PO Q4HP PRN PRN Reason: Cough Heparin Sodium (Porcine) (Heparin) 5,000 unit SQ Q12 [facility] Last Admin: 01/18/19 01:25 Dose: 5,000 unit Documented by: Hydralazine HCl (Apresoline) 10 mg IV Q4HP PRN PRN Reason: Hypertension Hydromorphone HCl (Dilaudid) 0.5 mg IV Q2HP PRN PRN Reason: PAIN LEVEL > 6 Magnesium Sulfate (Magnesium Sulfate) 2 gm in 50 mls @ 50 mls/hr IV UD PRN PRN Reason: MG = or < 1.7 Sodium Chloride (Sodium Chloride 0.9%) 1,000 mls @ 50 mls/hr IV .Q20H [facility] Stop: 01/19/19 23:53 Last Infusion: 01/18/19 00:30 Dose: 50 mls/hr Documented by: Sodium Chloride (Sodium Chloride 0.9%) 1,000 mls @ 20 mls/hr IV .Q24H [facility] Last Admin: 01/17/19 12:44 Dose: Not Given Documented by: Acetaminophen (Ofirmev) 1,000 mg in 100 mls @ 200 mls/hr IV Q6HP PRN PRN Reason: PAIN/FEVER > 101 Last Infusion: 01/18/19 01:52 Dose: Infused Documented by: Insulin Human Lispro (Humalog) 0 unit SQ [facility]; Protocol Last Admin: 01/18/19 08:02 Dose: 2 units Documented by: Iron Carb/Multivit/[employer] Professor/Folic Acid (Multivitamin W/Minerals) 1 tab PO DAILY [facility] Levothyroxine Sodium (Synthroid) 50 mcg PO QAMAC [facility] Last Admin: 01/18/19 07:58 Dose: 50 mcg Documented by: Melatonin (Melatonin 3mg Tablet) 3 mg PO HSP PRN PRN Reason: Insomnia Ondansetron HCl (Zofran) 4 mg IV Q4-6HP PRN PRN Reason: Nausea And Vomiting Oxycodone HCl (Roxicodone) 5 mg PO Q4HP PRN PRN Reason: PAIN LEVEL 3-6 Potassium Chloride (Klor-Con) 40 meq PO DAILYP PRN PRN Reason: K+ < 3.5 Prednisone (Prednisone) 10 mg PO [facility] Senna/Docusate Sodium (Senna Plus Tablet) 1 tab PO HS [facility] Last Admin: 01/18/19 01:26 Dose: 1 tab Documented by: Sodium Chloride (Saline Flush) 10 ml IV Q8 [facility] Last Admin: 01/18/19 05:29 Dose: 10 ml Documented by: Thiamine HCl (Vitamin B1) 100 mg PO DAILY [facility] Vancomycin HCl (Vancomycin Per Pharmacy) 1 order IV UD [facility]; Protocol Medical - PN: A/P - Time Spent With Patient Total time spent is greater than 50% in coordination of care (as documented) at patient's floor/unit and/or counseling patient: - Narrative A/P Narrative: A/P Septic Arthritis -Gram stain is GPC, chains and pairs, s/p washout 01/17, ortho following Streptococcus Bactermia -likely source elbow -IV antibiotics, -get echo, ID consult Rheumatoid arthritis/ PMR -on chronic immunosupressants, continue same for now, hemodynamically stable. Acute on Chronic REnal failure -Creat was 3.0 on admission, 2.5 today, likely around baseline, monitor Bracycardia -sinus, -hold beta teresa and clonidine, monitor, IV hydralazine prn, check thyroid status HTN -bp stable, hold atenonol and clonidine given low HR< monitor DM -SSI insulin for glucose control, anticipate improvement (pt got steroids which likely exacerbated hyperglycemia) Hypothyroidism -on synthroid, check tsh Deconditioning -Rehab, OT/PT DVT Hep sq Full code Carb consistent diet. Medical - PN: Qual - Stroke Symptom Onset Unknown: No - VTE Deep Vein Thrombosis/Pulmonary Embolism Present on Admission: No
[2019-01-18] MEDS: DOXAZOSIN 1 MG TABLET PO SCH (08:35)
[2019-01-18] MEDS: MULTIVIT,THER IRON,CA,FA & MIN 1 TABLET PO SCH (08:35)
[2019-01-18] MEDS: amLODIPine 10 MG TABLET PO SCH (08:36)
[2019-01-18] MEDS: THIAMINE 100 MG TABLET PO SCH (08:36)
[2019-01-18] MEDS: predniSONE 10 MG TABLET PO SCH (08:36)
[2019-01-18] MEDS: FOLIC ACID 1 MG TABLET PO SCH (08:36)
--- NOTE | 2019-01-18 08:50 | Operative Note ---
DATE OF OPERATION: 01/17/2019 PREOPERATIVE DIAGNOSIS: Right septic elbow. POSTOPERATIVE DIAGNOSES: 1. Right septic elbow. 2. Right septic olecranon bursitis. PROCEDURES PERFORMED: 1. Irrigation and debridement of right septic elbow. 2. Drainage of the right septic olecranon bursa. 3. Drain placement in both joint and bursa. SURGEON: Cristine Leo M.D. HEALTH EDUCATION ASSISTANT: None. ANESTHESIA: General via LMA. IV FLUIDS: 1 L lactated Ringer's. ESTIMATED BLOOD LOSS: Minimal. TOURNIQUET TIME: 33 minutes at 200 mmHg. ANTIBIOTICS: 2 grams Ancef with 500 mg of vancomycin powder into the wound. PATHOLOGY/LAB: Cultures of the right elbow along with bone biopsy of the distal humerus. INTRAOPERATIVE COMPLICATIONS: None apparent. IMPLANTS: Two quarter-inch Jose drains. INDICATIONS FOR PROCEDURE: The patient is an 83-year-old male who 2 weeks ago fell on a ladder resulting in a laceration of the lateral forearm and subsequently has developed increasing forearm pain, with increase falls and weakness. He was admitted to the hospital ICU for presumed infection. His blood cultures were positive for gram-positive cocci along with elbow aspiration positive for purulence. Given this we elected to proceed with irrigation and debridement of right septic elbow. He did have minimal motion or use and significant arthritic nature of that joint prior to this. DESCRIPTION OF PROCEDURE: The patient was seen in the preoperative holding area and site was verified and marked with the patient's input and he was taken back to the operating room where he underwent successful anesthesia via LMA. He was transferred supine to the operating room table. A padded tourniquet was placed about the proximal arm and placed on the arm board. His right upper extremity was prepped and draped in the usual sterile fashion. ChloraPrep prep and surgical time out was performed to verify patient identity, correct procedure being performed, correct extremity being operated on. Everybody was in agreement. We used gravity exsanguination and then tourniquet was inflated to 250 mmHg. Approximately 4 to 5 cm incision of a Jhonatan-type incision was made. Skin was sharply incised down to the extensor fascia. The Jhonatan interval was opened down to the joint and mode pus extruded from the joint. There was also a pocket that was posterior to this. This was tracked over the olecranon bursa. Thus, this was also developed and drained. The joint was opened. I did do a partial synovectomy and curetted the loose fragments from the joint. 3 liters of normal saline was irrigated through the joint along with the olecranon bursa area. At this point, we did create a semi-clean field and changed gloves. We placed 500 mg of vancomycin powder into the wounds. I placed a 1/4-inch [place] drain into the joint as well in the olecranon bursa so it can drain. The Jhonatan interval was closed with a 2-0 Monocryl in interrupted fashion, and then subcutaneous tissue closed with 4-0 Monocryl, and the skin was closed with 3-0 nylon leaving small portals for the Jose drain. The tourniquet was desufflated. The dressing was applied to include Xeroform, along with fluffs and Webril and a posterior splint with Flaquito wrap. The patient awoke from anesthesia and was transferred to PACU in stable condition. POSTOPERATIVE PLAN: The patient will be readmitted back to the floor and will continue IV antibiotics. DLBabs:joel Job ID: [id number] Doc ID: [id number] Cristine SKY
[2019-01-18] MEDS: CEFEPIME 2 GM VIAL IV SCH (09:30)
[2019-01-18 10:31] LABS: Thyroid Stimulating Hormone 1.38 uIU/ml (0.27-5.01)
[2019-01-18] MEDS: 0.9 % SODIUM CHLORIDE 1,000 ML IV SCH ×2 (12:29→17:29)
[2019-01-18] MEDS: oxyCODONE HCL 5 MG TABLET PO PRN (14:18)
--- NOTE | 2019-01-18 16:50 | Infectious Disease Consult ---
History of Present Illness Patient information: Note initiated : 01/18/19 at 4:16 pm Service Date, if different from initiated Date: [] Patient: Bebeto Bunn 83 y/o M admitted on 01/17/19 for Generalized Weakness. Chief Complaint: [] Consult date: 01/18/19 Requesting Physician: Omkar Golden Reason for Consult: Rt elbow septic arthritis with bacteremia Chief complaint: My elbow hurts and I had fever History of present illness: 83 year old man with PMHx of: - Stage 4 CKD - RA on chronic prednisone Patient was admitted on 01/17/19 with 2 week Hx of right elbow pain, redness and swelling. He also had weakness and fatigue accompanied with falls off and on around the time. He also endorsed having fever with chills around that time. He also hit his elbow during the falls. He was brought to hospital by his family members as he lives by himself in [place], [place]. ED: Vital signs notable for blood pressure of 173/78, temperature of 101.7 F, heart rate of 57 . WBC 17.8 , platelet count 643 , creatinine 3 , bicarb 16, CRP [address] elbow done showed: Massive joint effusion with marked periarticular erosions compatible with septic arthritis. Patient underwent blood cultures and aspiration of right elbow joint with joint fluid showing a cell count of 37,618 with 98% neutrophils. On 01/17/19 night, he underwent the following procedures: 1. Irrigation and debridement of right septic elbow. 2. Drainage of the right septic olecranon bursa. 3. Drain placement in both joint and bursa. Operative cultures were sent. Patient was started on IV vancomycin and IV ceftriaxone, which was expanded to IV vancomycin IV cefepime yesterday. At the time of visit today, patient has been afebrile, resting in his bed. He endorsed feeling better although still had elbow pain. He denied any nausea, vomiting, diarrhea. Patient confirmed the above history, denied any sick contacts. Does not have any pets Review of Systems All systems PM: reviewed and no additional remarkable complaints except as stated Past History Past family history: Patient lives by himself No sick contacts Past social history: Retired, former smoker, does not drink, does not inject any illicit drugs Medications and Allergies Home Medications Medication Instructions Recorded Confirmed Type Atenolol [Tenormin] 50 mg PO BID 01/18/17 01/17/19 History Levothyroxine [Synthroid] 50 mcg PO DAILY 01/18/17 01/17/19 History amLODIPine [Norvasc] 10 mg PO DAILY 01/18/17 01/17/19 History cloNIDine HCL [Catapres] 0.1 mg PO BID 01/18/17 01/17/19 History predniSONE [Prednisone] 10 mg PO DAILY 01/18/17 01/17/19 History aspirin 81 mg tablet 81 mg PO QDAY 02/11/17 01/17/19 History iron 18 mg tablet 18 mg PO QDAY 02/26/17 01/17/19 History insulin glargine (U- 100) 100 8 unit SUB-Q HS ml 05/22/18 01/17/19 History unit/mL subcutaneous solution eerktebvsmwt-zallstol-ezebad tablet 1 tab PO QDAY 05/22/18 01/17/19 History hydrochlorothiazide 25 mg tablet 25 mg PO QDAY #90 tab 05/25/18 01/17/19 Rx magnesium 250 mg (as magnesium 250 mg PO QDAY #90 tab 12/22/18 01/17/19 Rx oxide) tablet Doxazosin [Cardura] 1 mg PO DAILY 01/17/19 01/17/19 History Insulin Aspart [Novolog] 100 unit SQ AC 01/17/19 01/17/19 History LORazepam [Ativan] 0.5 mg PO BIDP PRN 01/17/19 01/17/19 History Oxaprozin [Daypro] 600 mg PO DAILY 01/17/19 01/17/19 History Allergies Allergy/AdvReac Type Severity Reaction Status Date / Time naproxen Allergy Mild Skin Martino Verified 01/17/19 12:11 niacin Allergy Mild Burning Verified 01/17/19 12:11 Skin Physical Examination Vital signs: Temp Pulse Resp BP Pulse Ox 36.7 C 53 L 16 111/58 96 01/18/19 16:00 01/18/19 00:20 01/18/19 16:00 01/18/19 16:00 01/18/19 16:00 General appearance: no acute distress Eyes pulmonary: nonicteric ENT: oropharynx moist, other (has some thrush) Auscultation: bilateral: clear (Has decreased breath sounds at bases) Cardiovascular: other (S1-S2 normal, has a 2 out of 6 systolic murmur over left second intercostal space) Gastrointestinal: normoactive bowel sounds, non-tender Right elbow is covered in dressing Results - Laboratory Findings CBC and BMP: 01/18/19 03:30 01/18/19 03:30 PT/INR, D-dimer PT 14.4 sec (11.9-14.5) 01/17/19 06:48 INR 1.1 (0.9-1.1) 01/17/19 06:48 Abnormal lab findings: Abnormal Labs 01/17/19 01/17/19 01/17/19 06:48 06:48 06:48 WBC 17.8 H RBC 3.25 L Hgb 10.0 L Hct 31.2 L POC Hct 31.0 L RDW 16.2 H Plt Count 643 H Gran % 93.1 H Lymph % (Auto) 4.5 L Gran # 16.6 H Lymph # (Auto) 0.8 L Seg Neutrophils % Platelet Estimate RBC Morphology Anisocytosis ESR 112 H VBG Lactic Acid Sodium Chloride Carbon Dioxide 16 L POC Total CO2 18 L Anion Gap 22.0 H POC BUN 79 H BUN 82 H Creatinine 3.0 H POC Creatinine 3.1 H Glucose 218 H POC Glucose 217 H Uric Acid Calcium POC WB Ioniz Calcium 1.11 L Phosphorus Alkaline Phosphatase 126 H C-Reactive Protein 43.4 H Total Protein Albumin 2.9 L Albumin/Globulin Ratio 0.8 L Urine Protein Urine Bacteria Synovial Neutrophils 01/17/19 01/17/19 01/17/19 07:09 07:54 14:28 WBC RBC Hgb Hct POC Hct RDW Plt Count Gran % Lymph % (Auto) Gran # Lymph # (Auto) Seg Neutrophils % Platelet Estimate RBC Morphology Anisocytosis ESR VBG Lactic Acid 2.4 H Sodium Chloride Carbon Dioxide POC Total CO2 Anion Gap POC BUN BUN Creatinine POC Creatinine Glucose POC Glucose Uric Acid Calcium POC WB Ioniz Calcium Phosphorus Alkaline Phosphatase C-Reactive Protein Total Protein Albumin Albumin/Globulin Ratio Urine Protein 30 A Urine Bacteria Few A Synovial Neutrophils 98 H 01/18/19 01/18/19 03:30 03:30 WBC 21.3 H RBC 2.57 L Hgb 7.9 L Hct 24.9 L POC Hct RDW 16.6 H Plt Count 588 H Gran % Lymph % (Auto) Gran # Lymph # (Auto) Seg Neutrophils % 94 H Platelet Estimate Increased A RBC Morphology Abnorm A Anisocytosis 1+ A ESR VBG Lactic Acid Sodium 128 L Chloride 92 L Carbon Dioxide 19 L POC Total CO2 Anion Gap 17.0 H POC BUN BUN 85 H Creatinine 2.5 H POC Creatinine Glucose 272 H POC Glucose Uric Acid 11.0 H Calcium 7.4 L POC WB Ioniz Calcium Phosphorus 5.8 H Alkaline Phosphatase C-Reactive Protein Total Protein 4.5 L Albumin 1.7 L Albumin/Globulin Ratio 0.6 L Urine Protein Urine Bacteria Synovial Neutrophils Microbiology: Microbiology 01/17/19 14:28 Synovial Fluid Gram Stain - Final 01/17/19 14:28 Synovial Fluid Body Fluid Culture - Preliminary Streptococcus (beta) gr. G 01/17/19 07:21 Urine - Clean Void Mid-Stream Urine Culture - Preliminary 01/17/19 07:54 Blood Blood Culture - Preliminary Streptococcus (beta) gr. G 01/18/19 00:41 Nose MRSA (PCR) - Final 01/17/19 08:02 Blood Blood Culture - Preliminary Gram positive cocci Assessment and Plan - Narrative A/P Narrative: A: 1. Rt elbow septic arthritis with Gp G Streptococcal bacteremia: - POD 1, s/p irrigation and debridement, Drainage of the right septic olecranon bursa - clinically improving - ESR 112, CRP 43.4 2. Sepsis: per SOFA score 3. Oral thrush Recommendations: - Stop IV Vanc and IV Cefepime - Start IV Ceftriaxone (first dose tomorrow) 2 gm q24 hrs [pt recieved Cefepime today] - Blood Cx every other day. Once neg for 48 hrs, consider PICC line placement with plan for minimum of 4 weeks of IV antibiotics - TTE report awaited. - await operative Cx - Nystatin swish and spit 2.5 ml qid for 7 days will follow Mohsen Calix MD Infectious diseases
[2019-01-18] MEDS: ACETAMINOPHEN 325 MG TABLET PO PRN (18:47)
[2019-01-18] MEDS: NYSTATIN 500,000 UNITS/5 ML ORAL.SUSP SSW SCH (20:51)
[2019-01-18] MEDS ORDERED: INSULIN GLARGINE, HUMAN 1 UNIT/0.01 ML SQ SCH (21:00)
[2019-01-19] MEDS: oxyCODONE HCL 5 MG TABLET PO PRN ×4 (00:32→20:37)
[2019-01-19] MEDS: 0.9 % SODIUM CHLORIDE 10 ML SYRINGE IV SCH ×3 (05:08→20:39)
[2019-01-19 05:28] LABS: Hematocrit 24.1 % (41.0-55.0); Hemoglobin 7.8 g/dL (13.5-16.5); Mean Cell Volume 95.4 fL (80.0-100.0); Mean Corpuscular HGB Conc 32.3 g/dL (31.0-36.0); Mean Platelet Volume 9.9 fL (7.4-10.4); Platelet Count 535 K/mcL (140-440); RBC 2.52 M/mcL (4.50-5.90); Red Cell Distribution Width 16.5 % (11.5-14.5); WBC 15.2 K/mcL (4.5-11.0)
[2019-01-19 06:06] LABS: ALT/SGPT 12 U/l (0-40); AST/SGOT 20 U/l (0-37); Albumin 2.1 gm/dL (3.2-5.2); Albumin/Globulin Ratio 0.6 (1.0-2.3); Alkaline Phosphatase 99 U/L (39-117); Bilirubin,Direct < 0.2 mg/dL (0.0-0.3); Bilirubin,Total < 0.2 mg/dL (0.0-1.0); Blood Urea Nitrogen 87 mg/dl (8-23); Carbon Dioxide 16 mmol/L (22-30); Chloride 103 mmol/L (96-108); Globulin 3.3 gm/dL (2.2-3.7); Glomerular Filtration Rate 21; Glucose 291 mg/dL (70-105); Lactate Dehydrogenase 260 U/L (94-250); Phosphorous 4.4 mg/dL (2.7-4.5); Triglycerides 271 mg/dl (<150); Uric Acid 10.5 mg/dL (2.5-8.0)
[2019-01-19 06:48] LABS: Anisocytosis 1+ (NONE SEEN); Band Neutrophils % 2 % (0-10); Lymphocytes % 3 % (15-49); Monocytes % (Manual) 6 % (1-12); Platelet Estimate INCREASED (NORMAL); RBC Morphology ABNORM (NORMAL); Segmented Neutrophils % 89 % (38-78)
[2019-01-19] MEDS: ACETAMINOPHEN 325 MG TABLET PO PRN (06:56)
[2019-01-19] MEDS: LEVOTHYROXINE 50 MCG TABLET PO SCH (07:21)
[2019-01-19] MEDS ORDERED: INSULIN LISPRO 1 UNIT/0.01 ML UNIT SQ SCH (07:31)
[2019-01-19] MEDS: DOCUSATE SODIUM 100 MG CAPSULE PO SCH ×2 (08:37→20:36)
[2019-01-19] MEDS: CYANOCOBALAMIN (VITAMIN B-12) 500 MCG TABLET PO SCH ×2 (08:37→20:36)
[2019-01-19] MEDS: MULTIVIT,THER IRON,CA,FA & MIN 1 TABLET PO SCH (08:37)
[2019-01-19] MEDS: THIAMINE 100 MG TABLET PO SCH (08:37)
[2019-01-19] MEDS: DOXAZOSIN 1 MG TABLET PO SCH (08:37)
[2019-01-19] MEDS: predniSONE 10 MG TABLET PO SCH (08:37)
[2019-01-19] MEDS: FOLIC ACID 1 MG TABLET PO SCH (08:37)
[2019-01-19] MEDS: amLODIPine 10 MG TABLET PO SCH (08:37)
[2019-01-19] MEDS: NYSTATIN 500,000 UNITS/5 ML ORAL.SUSP SSW SCH ×4 (08:37→20:34)
[2019-01-19] MEDS: HEPARIN 5,000 UNIT/ML VIAL SQ SCH ×2 (08:38→20:37)
[2019-01-19] MEDS ORDERED: cefTRIAXone 2 GM in DEXTROSE 5% IN WATER 50 ML IV SCH (09:00)
--- NOTE | 2019-01-19 09:55 | Internal Med Progress Note ---
Medical - PN: Subj Patient information: Note initiated : 01/19/19 at 9:51 am Service Date, if different from initiated Date: [] Patient: Bebeto Bunn a 83 y/o M admitted on 01/17/19 for Generalized Weakness. Chief Complaint: [] Interval history: Mr. Bunn is a 83 year old M with a history of chronic kidney disease, PMR/ ?RA on chronic prednisone who presents to the ER with onset of progressive weakness along with multiple falls that started 2 weeks ago. Patient since then has noticed increasing right elbow and left ankle pain and swelling along with redness. Patient has had progressive fatigue lethargic and unable to perform activities of daily living. He is accompanied to the ER due to increasing co ncerns within family about his gradual decline. His symptoms are associated with fever around 2 weeks ago at 101.8. He denies associated dysuria diarrhea but endorses to polyarthralgia and rash as involving left ankle and right elbow. He denies headache,, vision changes or unilateral weakness. He does endorse to falls to weakness and getting off balance. Initial work-up in the ER was consistent with elevated white count/inflammatory markers with CRP 43 and ESR 112, elevated white count 17.8, creatinine 3. CT scan right elbow was performed. Patient received a dose of Solu-Medrol At the time of evaluation patient is accompanied with multiple family members. He was able to endorse history as above. Family expressed concerns about his inability to take care of self. 01/18 patient seen examined, labs reviewed no acute complaints overnight bradycardic, on beta teresa and clonidine, pt reports HR always low, no dizziness, cp or palpitations reported hold atenolol and clonidine for now and monitor. Right elbow, had pus on aspiration, taken to or yesterday, pt also has GPC bacteremia, which is isolated as strep, presently on vanco and cefepime, will review with ID and plan for deescalation of abx regime to counts include [facility] echo to be done Low hb likely from post 01/19 Patient seen examined no acute issues, HR stable, but pt still in sinus bradycardia labs stable, K 5.2, hb stable Pt has no new complaints or concerns, tolerating po diet well. Pertinent ROS: Denies headache, dizziness Denies chest pain, palpitations Denies cough or shortness of breath Denies abdominal pain, nausea or vomiting. - Constitutional Vitals: Vital Signs Temp Pulse Resp BP Pulse Ox 99.0 F 47 L 18 104/58 91 01/19/19 09:03 01/18/19 18:30 01/19/19 09:03 01/19/19 09:03 01/19/19 09:03 Period Temp Pulse Resp BP Sys/Dupree Pulse Ox Last 24 Hr 97.4 F-99.9 F 47 16-20 97-120/53-60 91-99 Intake and Output 01/18/19 01/19/19 01/19/19 21:59 05:59 13:59 Intake Total 1177 220 300 Output Total 300 300 Balance 877 220 0 Weight 156 lb 11.2 oz Intake & Output: Intake & Output 01/18/19 01/19/19 01/19/19 21:59 05:59 13:59 Intake Total 1177 220 300 Output Total 300 300 Balance 877 220 0 Weight 156 lb 11.2 oz Intake: Nourishment/Supplement quantity 120 (ml) IV 717 Sodium Chloride 0.9% 1,000 ml @ 717 50 mls/hr IV .Q20H [facility] Rx#: [id number] Oral 340 220 300 Output: Void Amount 300 300 Other: Meal Dinner Breakfast Percent of Meal Consumed 100% 100% Feeding Ability Assist with Tray Set Up Assist with Tray Set Up Nourishment/Supplement name Nepro Urine Appearance Clear Urine Color Bright Yellow Dark Yellow Urine Odor Strong Exam: Constitutional; Afebrile, cooperative, alert, not in distress. Respiratory system: Air Entry equal on both sides, No crackles or wheezing, no rhonchi. CVS- Rate bradycardic rhythm regular, S1,S2 heard, no gallop, no rub. Abdomen- Soft nontender abdomen, no organomegaly, no tenderness, no guarding or rigidity, [employer]- AOOx3, moving all extremities, no gross focal deficit noted. Medical - PN: Obj Da - Labs CBC & Chem 7: 01/19/19 03:22 01/19/19 03:22 Labs: Abnormal Lab Results 01/19/19 01/19/19 01/19/19 03:22 03:22 03:22 WBC 15.2 H RBC 2.52 L Hgb 7.8 L Hct 24.1 L POC Hct RDW 16.5 H Plt Count 535 H Gran % Lymph % (Auto) Gran # Lymph # (Auto) Seg Neutrophils % 89 H Lymphocytes % 3 L Platelet Estimate Increased A RBC Morphology Abnorm A Anisocytosis 1+ A ESR VBG Lactic Acid Sodium Potassium 5.2 H Chloride Carbon Dioxide 16 L POC Total CO2 Anion Gap POC BUN BUN 87 H Creatinine 2.7 H POC Creatinine Glucose 291 H POC Glucose Uric Acid 10.5 H Calcium 8.0 L POC WB Ioniz Calcium Phosphorus Alkaline Phosphatase Lactate Dehydrogenase 260 H C-Reactive Protein 27.4 H Total Protein 5.4 L Albumin 2.1 L Albumin/Globulin Ratio 0.6 L Triglycerides 271 H Urine Protein Urine Bacteria Synovial Neutrophils 01/18/19 01/18/19 01/17/19 03:30 03:30 14:28 WBC 21.3 H RBC 2.57 L Hgb 7.9 L Hct 24.9 L POC Hct RDW 16.6 H Plt Count 588 H Gran % Lymph % (Auto) Gran # Lymph # (Auto) Seg Neutrophils % 94 H Lymphocytes % Platelet Estimate Increased A RBC Morphology Abnorm A Anisocytosis 1+ A ESR VBG Lactic Acid Sodium 128 L Potassium Chloride 92 L Carbon Dioxide 19 L POC Total CO2 Anion Gap 17.0 H POC BUN BUN 85 H Creatinine 2.5 H POC Creatinine Glucose 272 H POC Glucose Uric Acid 11.0 H Calcium 7.4 L POC WB Ioniz Calcium Phosphorus 5.8 H Alkaline Phosphatase Lactate Dehydrogenase C-Reactive Protein Total Protein 4.5 L Albumin 1.7 L Albumin/Globulin Ratio 0.6 L Triglycerides Urine Protein Urine Bacteria Synovial Neutrophils 98 H 01/17/19 01/17/19 01/17/19 07:54 07:09 06:48 WBC RBC Hgb Hct POC Hct RDW Plt Count Gran % Lymph % (Auto) Gran # Lymph # (Auto) Seg Neutrophils % Lymphocytes % Platelet Estimate RBC Morphology Anisocytosis ESR VBG Lactic Acid 2.4 H Sodium Potassium Chloride Carbon Dioxide 16 L POC Total CO2 Anion Gap 22.0 H POC BUN BUN 82 H Creatinine 3.0 H POC Creatinine Glucose 218 H POC Glucose Uric Acid Calcium POC WB Ioniz Calcium Phosphorus Alkaline Phosphatase 126 H Lactate Dehydrogenase C-Reactive Protein 43.4 H Total Protein Albumin 2.9 L Albumin/Globulin Ratio 0.8 L Triglycerides Urine Protein 30 A Urine Bacteria Few A Synovial Neutrophils 01/17/19 01/17/19 06:48 06:48 WBC 17.8 H RBC 3.25 L Hgb 10.0 L Hct 31.2 L POC Hct 31.0 L RDW 16.2 H Plt Count 643 H Gran % 93.1 H Lymph % (Auto) 4.5 L Gran # 16.6 H Lymph # (Auto) 0.8 L Seg Neutrophils % Lymphocytes % Platelet Estimate RBC Morphology Anisocytosis ESR 112 H VBG Lactic Acid Sodium Potassium Chloride Carbon Dioxide POC Total CO2 18 L Anion Gap POC BUN 79 H BUN Creatinine POC Creatinine 3.1 H Glucose POC Glucose 217 H Uric Acid Calcium POC WB Ioniz Calcium 1.11 L Phosphorus Alkaline Phosphatase Lactate Dehydrogenase C-Reactive Protein Total Protein Albumin Albumin/Globulin Ratio Triglycerides Urine Protein Urine Bacteria Synovial Neutrophils Meds: Medications Acetaminophen (Tylenol) 650 mg PO Q4-6HP PRN PRN Reason: PAIN/FEVER > 101 Last Admin: 01/19/19 06:56 Dose: 650 mg Documented by: Amlodipine Besylate (Norvasc) 10 mg PO DAILY [facility] Last Admin: 01/19/19 08:37 Dose: 10 mg Documented by: Cyanocobalamin (Vitamin B-12) 1,000 mcg PO BID [facility] Stop: 01/22/19 09:01 Last Admin: 01/19/19 08:37 Dose: 1,000 mcg Documented by: Dextrose (Dextrose 50%) 0 ml IV UD PRN PRN Reason: Hypoglycemia Diagnostic Test (Pha) (Accu-Chek) 1 each FS ACHS [facility] Last Admin: 01/19/19 08:00 Dose: 1 each Documented by: Docusate Sodium (Colace) 100 mg PO BID [facility] Last Admin: 01/19/19 08:37 Dose: 100 mg Documented by: Doxazosin Mesylate (Cardura) 1 mg PO DAILY [facility] Last Admin: 01/19/19 08:37 Dose: 1 mg Documented by: Folic Acid (Folic Acid) 1 mg PO DAILY [facility] Last Admin: 01/19/19 08:37 Dose: 1 mg Documented by: Glucose (Insta-Glucose) 15 gm PO PRN PRN PRN Reason: Hypoglycemia Guaifenesin/Codeine Phosphate (Robitussin Ac) 10 ml PO Q4HP PRN PRN Reason: Cough Heparin Sodium (Porcine) (Heparin) 5,000 unit SQ Q12 [facility] Last Admin: 01/19/19 08:38 Dose: 5,000 unit Documented by: Hydralazine HCl (Apresoline) 10 mg IV Q4HP PRN PRN Reason: Hypertension Hydromorphone HCl (Dilaudid) 0.5 mg IV Q2HP PRN PRN Reason: PAIN LEVEL > 6 Magnesium Sulfate (Magnesium Sulfate) 2 gm in 50 mls @ 50 mls/hr IV UD PRN PRN Reason: MG = or < 1.7 Sodium Chloride (Sodium Chloride 0.9%) 1,000 mls @ 50 mls/hr IV .Q20H [facility] Stop: 01/19/19 23:53 Last Admin: 01/18/19 17:29 Dose: 50 mls/hr Documented by: Sodium Chloride (Sodium Chloride 0.9%) 1,000 mls @ 20 mls/hr IV .Q24H [facility] Last Admin: 01/18/19 12:29 Dose: Not Given Documented by: Acetaminophen (Ofirmev) 1,000 mg in 100 mls @ 200 mls/hr IV Q6HP PRN PRN Reason: PAIN/FEVER > 101 Last Infusion: 01/18/19 01:52 Dose: Infused Documented by: Ceftriaxone Sodium 2 gm/ (Dextrose) 50 mls @ 100 mls/hr IV DAILY [facility]; Protocol Last Admin: 01/19/19 09:18 Dose: 100 mls/hr Documented by: Insulin Glargine (Lantus) 10 unit SQ HS [facility] Last Admin: 01/18/19 20:41 Dose: 10 units Documented by: Insulin Human Lispro (Humalog) 0 unit SQ ACHS [facility]; Protocol Last Admin: 01/19/19 08:38 Dose: 8 units Documented by: Iron Carb/Multivit/Tap Puller/Folic Acid (Multivitamin W/Minerals) 1 tab PO DAILY [facility] Last Admin: 01/19/19 08:37 Dose: 1 tab Documented by: Levothyroxine Sodium (Synthroid) 50 mcg PO QAMAC [facility] Last Admin: 01/19/19 07:21 Dose: 50 mcg Documented by: Melatonin (Melatonin 3mg Tablet) 3 mg PO HSP PRN PRN Reason: Insomnia Nystatin (Nystatin) 500,000 units SSW QID [facility] Last Admin: 01/19/19 08:37 Dose: 500,000 units Documented by: Ondansetron HCl (Zofran) 4 mg IV Q4-6HP PRN PRN Reason: Nausea And Vomiting Oxycodone HCl (Roxicodone) 5 mg PO Q4HP PRN PRN Reason: PAIN LEVEL 3-6 Last Admin: 01/19/19 06:56 Dose: 5 mg Documented by: Prednisone (Prednisone) 10 mg PO [facility] Last Admin: 01/19/19 08:37 Dose: 10 mg Documented by: Senna/Docusate Sodium (Senna Plus Tablet) 1 tab PO HS [facility] Last Admin: 01/18/19 20:52 Dose: 1 tab Documented by: Sodium Chloride (Saline Flush) 10 ml IV Q8 [facility] Last Admin: 01/19/19 05:08 Dose: 10 ml Documented by: Thiamine HCl (Vitamin B1) 100 mg PO DAILY [facility] Last Admin: 01/19/19 08:37 Dose: 100 mg Documented by: Medical - PN: A/P - Time Spent With Patient Total time spent is greater than 50% in coordination of care (as documented) at patient's floor/unit and/or counseling patient: - Narrative A/P Narrative: A/P Septic Arthritis -Group G streptococcus -on IV rocephin, ID following. Streptococcus Bactermia, group G streptococcus -likely source elbow -IV antibiotics, -echo result pending, -picc line once bactermia clears Rheumatoid arthritis/ PMR -on chronic immunosupressants, continue same for now, hemodynamically stable. Acute on Chronic REnal failure -Creat was 3.0 on admission, 2.7, bun is 87, bicarb 16, phos 4.4 Metabolic acidosis -likely from renal failure, bicarb 16 -start oral bicarbonate Hyperkalemia -mild K 5.2, monitor, Bicarb should help Bracycardia -sinus, -hold beta teresa and clonidine, monitor, IV hydralazine prn, chr issue it seems, -tsh wnl, HTN -bp stable, hold atenonol and clonidine given low HR< monitor DM -SSI insulin for glucose control, added lantus qhs 10 units anticipate improvement (pt got steroids which likely exacerbated hyperglycemia) Hypothyroidism -on synthroid, Deconditioning -Rehab, OT/PT DVT Hep sq Full code Carb consistent diet. Medical - PN: Qual - Stroke Symptom Onset Unknown: No - VTE Deep Vein Thrombosis/Pulmonary Embolism Present on Admission: No
[2019-01-19] MEDS ORDERED: SODIUM BICARBONATE 650 MG TABLET PO SCH (10:00)
[2019-01-19] MEDS ORDERED: guaiFENesin/CODEINE 10 ML UDC PO PRN (10:01)
[2019-01-19] MEDS ORDERED: hydrALAZINE 20 MG/ML VIAL IV PRN (10:01)
[2019-01-19] MEDS ORDERED: DEXTROSE 50% 50 ML VIAL IV PRN (10:01)
[2019-01-19] MEDS ORDERED: DEXTROSE 31 GM ORAL.SUSP PO PRN (10:01)
[2019-01-19] MEDS ORDERED: ACETAMINOPHEN 1,000 MG/100 ML BOTTLE IV PRN (10:01)
[2019-01-19] MEDS ORDERED: ONDANSETRON 4 MG/2 ML VIAL IV PRN (10:01)
[2019-01-19] MEDS ORDERED: MAGNESIUM SULFATE 2 GM/50 ML BAG IV PRN (10:01)
[2019-01-19] MEDS ORDERED: 0.9 % SODIUM CHLORIDE 1,000 ML IV SCH ×2 (10:01)
[2019-01-19] MEDS: 0.9 % SODIUM CHLORIDE 1,000 ML IV SCH (10:45)
[2019-01-19] MEDS: INSULIN LISPRO 1 UNIT/0.01 ML UNIT SQ SCH ×4 (10:46→20:52)
--- NOTE | 2019-01-19 12:03 | Orthopedic Progress Note ---
Subjective Patient information: Note initiated : 01/19/19 at 12:01 pm Service Date, if different from initiated Date: [] Patient: Bebeto Bunn 83 y/o M admitted on 01/17/19 for Generalized Weakness. Chief Complaint: [] Principal diagnosis: bacteremia, septic right elbow, septic olecranon bursitis Interval history: No acute issues in past 24 hrs, pain in elbow and and foot improving. Objective Vital signs: Vital Signs Temp Pulse Pulse Resp BP BP Pulse Ox 01/19/19 11:46 98.3 F 52 L 18 131/52 92 01/19/19 11:42 92 01/19/19 09:06 104/58 01/19/19 09:03 99.0 F 18 104/58 91 01/19/19 04:00 99.9 F H 20 120/53 93 01/19/19 03:30 99.1 F H 20 120/53 93 01/19/19 00:29 99.1 F H 20 120/60 92 01/18/19 18:40 98.9 F 20 97/54 94 01/18/19 18:30 47 L 94 01/18/19 16:09 111/58 92 01/18/19 16:00 98.1 F 16 111/58 96 01/18/19 12:20 113/57 95 01/18/19 12:16 97.4 F 18 113/57 98 Intake and Output 01/18/19 01/19/19 01/19/19 21:59 05:59 13:59 Intake Total 5766 349 1218 Output Total 300 300 Balance 877 220 776 Intake: Nourishment/Supplement quantity 120 (ml) IV 717 776 Sodium Chloride 0.9% 1,000 ml @ 717 776 50 mls/hr IV .Q20H [facility] Rx#: [id number] Oral 340 220 300 Output: Void Amount 300 300 Other: Meal Dinner Breakfast Percent of Meal Consumed 100% 100% Feeding Ability Assist with Tray Set Up Assist with Tray Set Up Nourishment/Supplement name Nepro Urine Appearance Clear Urine Color Bright Yellow Dark Yellow Urine Odor Strong Weight 156 lb 11.2 oz Intake & Output: Intake & Output 01/18/19 01/19/19 01/19/19 21:59 05:59 13:59 Intake Total 0300 696 6964 Output Total 300 300 Balance 877 220 776 Weight 156 lb 11.2 oz Intake: Nourishment/Supplement quantity 120 (ml) IV 717 776 Sodium Chloride 0.9% 1,000 ml @ 717 776 50 mls/hr IV .Q20H [facility] Rx#: [id number] Oral 340 220 300 Output: Void Amount 300 300 Other: Meal Dinner Breakfast Percent of Meal Consumed 100% 100% Feeding Ability Assist with Tray Set Up Assist with Tray Set Up Nourishment/Supplement name Nepro Urine Appearance Clear Urine Color Bright Yellow Dark Yellow Urine Odor Strong Incision clean and dry: No (draining primarily sanguinous fluid at this point, dressing saturated.) Dressing: Yes splint in place Weight bearing status: non Extremities exam IM: Yes Foot pink and warm - Labs CBC & BMP: 01/19/19 03:22 01/19/19 03:22 Labs: Orthopedic Labs 01/17/19 06:48 PT 14.4 INR 1.1 01/19/19 01/18/19 01/17/19 03:22 03:30 06:48 Hgb 7.8 L 7.9 L 10.0 L Hct 24.1 L 24.9 L 31.2 L Assessment and Plan - Narrative A/P Narrative: POD 2 s/p right elbow I&D and drainage of olecranon bursa -- splint and dressing - removed. has fair amount of drainage, didier still intact with current drainage sanguinous in nature. will likely d/c drain tomorrow. -- cx: blood and elbow aspirate strep b -- ID following
--- NOTE | 2019-01-19 13:18 | Surgical Pathology Report ---
HISTOLOGY SPECIMEN MICROSCOPIC DIAGNOSIS BONE, RIGHT DISTAL HUMERUS, BIOPSY: -- PORTIONS OF BONE AND FIBROVASCULAR TISSUE WITH NO DIAGNOSTIC ALTERATIONS. -- NO OSTEOMYELITIS IDENTIFIED. (RLF:tiffany) CLINICAL HISTORY Right elbow infection. PROCEDURAL IMPRESSION Rule out osteomyelitis. GROSS DESCRIPTION Received fresh labeled distal humerus bone biopsy, are three biswas tissue fragments from less than 0.1 to 0.4 cm. Entirely submitted - one cassette. No decalcification. (LANDONB:tiffany) Electronically Signed by: Sarah Neumann M.D.
--- NOTE | 2019-01-19 18:38 | Infectious Disease Prog Note ---
Subjective Patient information: Note initiated : 01/19/19 at 6:09 pm Service Date, if different from initiated Date: [] Patient: Bebeto Bunn 83 y/o M admitted on 01/17/19 for Generalized Weakness. Chief Complaint: [] Principal diagnosis: bacteremia, septic right elbow, septic olecranon bursitis Interval history: Pt feels better. No fever, chills, n/v, diarrhea. Endorses left elbow pain, able to move his fingers. Objective Objective Narrative: ao x 3, in nad no thrush chest cta s1 s2 normal, 2/6 systolic murmur at Lt 2nd ICS bs ++ n ttd 1+ edema in lower legs - Vital Signs Vital signs: Vital Signs Temp Pulse Pulse Resp BP BP BP 01/19/19 17:40 36.9 C 52 L 20 132/61 01/19/19 14:10 52 L 20 119/50 01/19/19 11:46 36.8 C 52 L 18 131/52 01/19/19 11:42 01/19/19 09:06 104/58 01/19/19 09:03 37.2 C 18 104/58 01/19/19 04:00 37.7 C H 20 120/53 01/19/19 03:30 37.3 C H 20 120/53 01/19/19 00:29 37.3 C H 20 120/60 01/18/19 18:40 37.2 C 20 97/54 01/18/19 18:30 47 L Pulse Ox 01/19/19 17:40 93 01/19/19 14:10 90 01/19/19 11:46 92 01/19/19 11:42 92 01/19/19 09:06 01/19/19 09:03 91 01/19/19 04:00 93 01/19/19 03:30 93 01/19/19 00:29 92 01/18/19 18:40 94 01/18/19 18:30 94 Intake and Output 01/19/19 01/19/19 01/19/19 05:59 13:59 21:59 Intake Total 220 1226 480 Output Total 300 550 Balance 220 926 -70 Intake: IV 926 Sodium Chloride 0.9% 1,000 ml @ 776 50 mls/hr IV .Q20H [facility] Rx#: [id number] Oral 220 300 480 Output: Void Amount 300 550 Other: Meal Breakfast Percent of Meal Consumed 100% Feeding Ability Assist with Tray Set Up Urine Appearance Clear Urine Color Dark Yellow Dark Yellow Urine Odor Normal Intake & Output: Intake & Output 01/19/19 01/19/19 01/19/19 05:59 13:59 21:59 Intake Total 220 1226 480 Output Total 300 550 Balance 220 926 -70 Intake: IV 926 Sodium Chloride 0.9% 1,000 ml @ 776 50 mls/hr IV .Q20H [facility] Rx#: [id number] Oral 220 300 480 Output: Void Amount 300 550 Other: Meal Breakfast Percent of Meal Consumed 100% Feeding Ability Assist with Tray Set Up Urine Appearance Clear Urine Color Dark Yellow Dark Yellow Urine Odor Normal - Lab 01/19/19 03:22 01/19/19 03:22 Most recent lab results Calcium 8.0 mg/dl (8.6-10.4) L 01/19/19 03:22 Phosphorus 4.4 mg/dL (2.7-4.5) 01/19/19 03:22 Magnesium 2.0 mg/dL (1.6-2.5) 01/19/19 03:22 Microbiology 01/17/19 23:02 Elbow - Right Anaerobic Culture - Preliminary 01/17/19 23:02 Elbow - Right Gram Stain - Final 01/17/19 23:02 Elbow - Right Wound Culture - Preliminary 01/17/19 14:28 Synovial Fluid Gram Stain - Final 01/17/19 14:28 Synovial Fluid Body Fluid Culture - Final Streptococcus (beta) gr. G 01/17/19 07:21 Urine - Clean Void Mid-Stream Urine Culture - Final 01/17/19 07:54 Blood Blood Culture - Final Streptococcus (beta) gr. G 01/18/19 09:11 Blood Blood Culture - Preliminary 01/18/19 09:06 Blood Blood Culture - Preliminary 01/18/19 00:41 Nose MRSA (PCR) - Final 01/17/19 08:02 Blood Blood Culture - Preliminary Gram positive cocci Medications Active Medications: Acetaminophen (Tylenol) 650 mg PO Q4-6HP PRN PRN Reason: PAIN/FEVER > 101 Amlodipine Besylate (Norvasc) 10 mg PO DAILY [facility] Cyanocobalamin (Vitamin B-12) 1,000 mcg PO BID [facility] Stop: 01/22/19 09:01 Dextrose (Dextrose 50%) 0 ml IV UD PRN PRN Reason: Hypoglycemia Diagnostic Test (Pha) (Accu-Chek) 1 each FS ACHS [facility] Last Admin: 01/19/19 17:49 Dose: 1 each Documented by: Admin: 01/19/19 12:51 Dose: 1 each Documented by: JAMES Docusate Sodium (Colace) 100 mg PO BID [facility] Doxazosin Mesylate (Cardura) 1 mg PO DAILY [facility] Folic Acid (Folic Acid) 1 mg PO DAILY [facility] Glucose (Insta-Glucose) 15 gm PO PRN PRN PRN Reason: Hypoglycemia Guaifenesin/Codeine Phosphate (Robitussin Ac) 10 ml PO Q4HP PRN PRN Reason: Cough Heparin Sodium (Porcine) (Heparin) 5,000 unit SQ Q12 [facility] Hydralazine HCl (Apresoline) 10 mg IV Q4HP PRN PRN Reason: Hypertension Hydromorphone HCl (Dilaudid) 0.5 mg IV Q2HP PRN PRN Reason: PAIN LEVEL > 6 Ceftriaxone Sodium 2 gm/ (Dextrose) 50 mls @ 100 mls/hr IV DAILY [facility]; Protocol Magnesium Sulfate (Magnesium Sulfate) 2 gm in 50 mls @ 50 mls/hr IV UD PRN PRN Reason: MG = or < 1.7 Acetaminophen (Ofirmev) 1,000 mg in 100 mls @ 200 mls/hr IV Q6HP PRN PRN Reason: PAIN/FEVER > 101 Last Infusion: 01/19/19 13:42 Dose: 0 mls/hr Documented by: Admin: 01/19/19 12:56 Dose: 200 mls/hr Documented by: JAMES Insulin Glargine (Lantus) 10 unit SQ HS [facility] Insulin Human Lispro (Humalog) 0 unit SQ ACHS [facility]; Protocol Last Admin: 01/19/19 17:50 Dose: 12 units Documented by: Admin: 01/19/19 12:56 Dose: 8 units Documented by: JAMES Iron Carb/Multivit/[employer] Room Service/Folic Acid (Multivitamin W/Minerals) 1 tab PO DAILY [facility] Levothyroxine Sodium (Synthroid) 50 mcg PO QAMAC [facility] Melatonin (Melatonin 3mg Tablet) 3 mg PO HSP PRN PRN Reason: Insomnia Nystatin (Nystatin) 500,000 units SSW QID [facility] Last Admin: 01/19/19 17:50 Dose: 500,000 units Documented by: [email or web address] Admin: 01/19/19 14:11 Dose: 500,000 units Documented by: [email or web address] Ondansetron HCl (Zofran) 4 mg IV Q4-6HP PRN PRN Reason: Nausea And Vomiting Oxycodone HCl (Roxicodone) 5 mg PO Q4HP PRN PRN Reason: PAIN LEVEL 3-6 Last Admin: 01/19/19 12:48 Dose: 5 mg Documented by: [email or web address] Prednisone (Prednisone) 10 mg PO [facility] Senna/Docusate Sodium (Senna Plus Tablet) 1 tab PO HS [facility] Sodium Bicarbonate (Sodium Bicarbonate) 1,300 mg PO BID [facility] Sodium Chloride (Saline Flush) 10 ml IV Q8 [facility] Last Admin: 01/19/19 14:12 Dose: 10 ml Documented by: [email or web address] Thiamine HCl (Vitamin B1) 100 mg PO DAILY [facility] Assessment and Plan - Narrative A/P Narrative: A: 1. Gp G Streptococcal Rt elbow septic arthritis and Gp G Streptococcal bacteremia: - POD 2, s/p irrigation and debridement, Drainage of the right septic olecranon bursa - clinically improving - ESR 112, CRP 43.4 - TTE neg for IE 2. Sepsis: per SOFA score 3. Oral thrush Recommendations: - Continue IV Ceftriaxone 2 gm q24 hrs - If blood Cx negative until today, consider PICC line placement tomorrow. - anticipate minimum of 4 weeks of IV antibiotics - Nystatin swish and spit 2.5 ml qid for 7 days, day 2/7 will follow Mohsen Calix MD Infectious diseases
[2019-01-19] MEDS: SODIUM BICARBONATE 650 MG TABLET PO SCH (20:36)
[2019-01-19] MEDS ORDERED: MELATONIN 3 MG TABLET PO PRN (21:00)
[2019-01-19] MEDS ORDERED: INSULIN GLARGINE, HUMAN 1 UNIT/0.01 ML SQ SCH (21:00)
[2019-01-19] MEDS ORDERED: SENNOSIDES/DOCUSATE SODIUM 1 TAB TABLET PO SCH (21:00)
[2019-01-19] MEDS: HYDROmorphone 2 MG/ML VIAL IV PRN (23:05)
[2019-01-20] MEDS: oxyCODONE HCL 5 MG TABLET PO PRN ×4 (02:01→21:07)
[2019-01-20] MEDS: 0.9 % SODIUM CHLORIDE 10 ML SYRINGE IV SCH ×3 (04:49→21:11)
[2019-01-20] MEDS: HYDROmorphone 2 MG/ML VIAL IV PRN (05:44)
[2019-01-20 05:50] LABS: Hematocrit 24.4 % (41.0-55.0); Mean Cell Volume 94.8 fL (80.0-100.0); Mean Corpuscular HGB Conc 32.7 g/dL (31.0-36.0); Platelet Count 565 K/mcL (140-440); RBC 2.58 M/mcL (4.50-5.90); Red Cell Distribution Width 15.9 % (11.5-14.5); WBC 11.6 K/mcL (4.5-11.0)
[2019-01-20 05:54] LABS: ALT/SGPT 15 U/l (0-40); AST/SGOT 30 U/l (0-37); Albumin 2.3 gm/dL (3.2-5.2); Albumin/Globulin Ratio 0.7 (1.0-2.3); Alkaline Phosphatase 100 U/L (39-117); Bilirubin,Direct < 0.2 mg/dL (0.0-0.3); Bilirubin,Total < 0.2 mg/dL (0.0-1.0); Blood Urea Nitrogen 86 mg/dl (8-23); Calcium 8.3 mg/dl (8.6-10.4); Carbon Dioxide 19 mmol/L (22-30); Chloride 104 mmol/L (96-108); Globulin 3.5 gm/dL (2.2-3.7); Glomerular Filtration Rate 23; Glucose 138 mg/dL (70-105); Lactate Dehydrogenase 272 U/L (94-250); Phosphorous 3.4 mg/dL (2.7-4.5); Triglycerides 188 mg/dl (<150); Uric Acid 10.4 mg/dL (2.5-8.0)
[2019-01-20 06:27] LABS: Band Neutrophils % 5 % (0-10); Lymphocytes % 3 % (15-49); Monocytes % (Manual) 12 % (1-12); Platelet Estimate NORMAL (NORMAL); RBC Morphology NORMAL (NORMAL); Segmented Neutrophils % 80 % (38-78)
[2019-01-20] MEDS: LEVOTHYROXINE 50 MCG TABLET PO SCH (07:34)
[2019-01-20] MEDS: INSULIN LISPRO 1 UNIT/0.01 ML UNIT SQ SCH ×4 (07:48→21:05)
[2019-01-20] MEDS: predniSONE 10 MG TABLET PO SCH (07:48)
[2019-01-20] MEDS ORDERED: cefTRIAXone 2 GM VIAL ONE (08:44)
[2019-01-20] MEDS: NYSTATIN 500,000 UNITS/5 ML ORAL.SUSP SSW SCH ×4 (08:49→21:04)
[2019-01-20] MEDS: amLODIPine 10 MG TABLET PO SCH (08:49)
[2019-01-20] MEDS: CYANOCOBALAMIN (VITAMIN B-12) 500 MCG TABLET PO SCH ×2 (08:49→21:09)
[2019-01-20] MEDS: THIAMINE 100 MG TABLET PO SCH (08:49)
[2019-01-20] MEDS: DOXAZOSIN 1 MG TABLET PO SCH (08:49)
[2019-01-20] MEDS: MULTIVIT,THER IRON,CA,FA & MIN 1 TABLET PO SCH (08:49)
[2019-01-20] MEDS: HEPARIN 5,000 UNIT/ML VIAL SQ SCH ×2 (08:49→21:06)
[2019-01-20] MEDS: DOCUSATE SODIUM 100 MG CAPSULE PO SCH ×2 (08:49→21:09)
[2019-01-20] MEDS: SODIUM BICARBONATE 650 MG TABLET PO SCH ×2 (08:49→21:08)
[2019-01-20] MEDS: FOLIC ACID 1 MG TABLET PO SCH (08:49)
[2019-01-20] MEDS: cefTRIAXone 2 GM in DEXTROSE 5% IN WATER 50 ML IV SCH (10:52)
[2019-01-20] MEDS ORDERED: POLYETHYLENE GLYCOL 3350 17 GM PACKET PO ONE (11:28)
--- NOTE | 2019-01-20 11:30 | Internal Med Progress Note ---
Medical - PN: Subj Patient information: Note initiated : 01/20/19 at 11:27 am Service Date, if different from initiated Date: [] Patient: Bebeto Bunn a 83 y/o M admitted on 01/17/19 for Generalized Weakness. Chief Complaint: [] Interval history: Mr. Bunn is a 83 year old M with a history of chronic kidney disease, PMR/ ?RA on chronic prednisone who presents to the ER with onset of progressive weakness along with multiple falls that started 2 weeks ago. Patient since then has noticed increasing right elbow and left ankle pain and swelling along with redness. Patient has had progressive fatigue lethargic and unable to perform activities of daily living. He is accompanied to the ER due to increasing c oncerns within family about his gradual decline. His symptoms are associated with fever around 2 weeks ago at 101.8. He denies associated dysuria diarrhea but endorses to polyarthralgia and rash as involving left ankle and right elbow. He denies headache,, vision changes or unilateral weakness. He does endorse to falls to weakness and getting off balance. Initial work-up in the ER was consistent with elevated white count/inflammatory markers with CRP 43 and ESR 112, elevated white count 17.8, creatinine 3. CT scan right elbow was performed. Patient received a dose of Solu-Medrol At the time of evaluation patient is accompanied with multiple family members. He was able to endorse history as above. Family expressed concerns about his inability to take care of self. 01/18 patient seen examined, labs reviewed no acute complaints overnight bradycardic, on beta teresa and clonidine, pt reports HR always low, no dizziness, cp or palpitations reported hold atenolol and clonidine for now and monitor. Right elbow, had pus on aspiration, taken to or yesterday, pt also has GPC bacte remia, which is isolated as strep, presently on vanco and cefepime, will review with ID and plan for deescalation of abx regime to [facility] echo to be done Low hb likely from post 01/19 Patient seen examined no acute issues, HR stable, but pt still in sinus bradycardia labs stable, K 5.2, hb stable Pt has no new complaints or concerns, tolerating po diet well. 01/20 Patient seen and examined, no acute overnight events patient is comfortable in bed. Does admit to having some constipation He denies any other acute issues. Labs stable hemoglobin stable creatinine is 2.5 potassium is 5.0 bicarbonate improved to 19 Pertinent ROS: Denies headache, dizziness Denies chest pain, palpitations Denies cough or shortness of breath Denies abdominal pain, nausea or vomiting. - Constitutional Vitals: Vital Signs Temp Pulse Resp BP Pulse Ox 98.3 F 58 L 16 121/66 94 01/20/19 07:00 01/20/19 07:00 01/20/19 07:00 01/20/19 07:00 01/20/19 07:00 Period Temp Pulse Resp BP Sys/Dupree Pulse Ox Last 24 Hr 98.3 F-98.6 F 52-59 16-20 119-132/50-66 90-95 Intake and Output 01/19/19 01/20/19 01/20/19 21:59 05:59 13:59 Intake Total 720 120 Output Total 900 650 400 Balance -180 -530 -400 Weight 160 lb 3.2 oz Intake & Output: Intake & Output 01/19/19 01/20/19 01/20/19 21:59 05:59 13:59 Intake Total 720 120 Output Total 900 650 400 Balance -180 -530 -400 Weight 160 lb 3.2 oz Intake: Oral 720 120 Output: Void Amount 900 650 400 Other: Urine Appearance Clear Clear Urine Color Bright Yellow Pale Urine Odor Normal Normal Exam: Constitutional; Afebrile, cooperative, alert, not in distress. Respiratory system: Air Entry equal on both sides, No crackles or wheezing, no rhonchi. CVS- Rate rhythm regular, S1,S2 heard, no gallop, no rub. Abdomen- Soft nontender abdomen, no organomegaly, no tenderness, no guarding or rigidity, [employer]- AOOx3, moving all extremities, no gross focal deficit noted. Medical - PN: Obj Da - Labs CBC & Chem 7: 01/20/19 04:21 01/20/19 04:21 Labs: Abnormal Lab Results 01/20/19 01/20/19 01/19/19 04:21 04:21 03:22 WBC 11.6 H RBC 2.58 L Hgb 8.0 L Hct 24.4 L RDW 15.9 H Plt Count 565 H Seg Neutrophils % 80 H Lymphocytes % 3 L Platelet Estimate RBC Morphology Anisocytosis Sodium Potassium Chloride Carbon Dioxide 19 L Anion Gap BUN 86 H Creatinine 2.5 H Glucose 138 H Uric Acid 10.4 H Calcium 8.3 L Phosphorus Lactate Dehydrogenase 272 H C-Reactive Protein 27.4 H Total Protein 5.8 L Albumin 2.3 L Albumin/Globulin Ratio 0.7 L Triglycerides 188 H Synovial Neutrophils 01/19/19 01/19/19 01/18/19 03:22 03:22 03:30 WBC 15.2 H RBC 2.52 L Hgb 7.8 L Hct 24.1 L RDW 16.5 H Plt Count 535 H Seg Neutrophils % 89 H Lymphocytes % 3 L Platelet Estimate Increased A RBC Morphology Abnorm A Anisocytosis 1+ A Sodium 128 L Potassium 5.2 H Chloride 92 L Carbon Dioxide 16 L 19 L Anion Gap 17.0 H BUN 87 H 85 H Creatinine 2.7 H 2.5 H Glucose 291 H 272 H Uric Acid 10.5 H 11.0 H Calcium 8.0 L 7.4 L Phosphorus 5.8 H Lactate Dehydrogenase 260 H C-Reactive Protein Total Protein 5.4 L 4.5 L Albumin 2.1 L 1.7 L Albumin/Globulin Ratio 0.6 L 0.6 L Triglycerides 271 H Synovial Neutrophils 01/18/19 01/17/19 03:30 14:28 WBC 21.3 H RBC 2.57 L Hgb 7.9 L Hct 24.9 L RDW 16.6 H Plt Count 588 H Seg Neutrophils % 94 H Lymphocytes % Platelet Estimate Increased A RBC Morphology Abnorm A Anisocytosis 1+ A Sodium Potassium Chloride Carbon Dioxide Anion Gap BUN Creatinine Glucose Uric Acid Calcium Phosphorus Lactate Dehydrogenase C-Reactive Protein Total Protein Albumin Albumin/Globulin Ratio Triglycerides Synovial Neutrophils 98 H Meds: Medications Acetaminophen (Tylenol) 650 mg PO Q4-6HP PRN PRN Reason: PAIN/FEVER > 101 Amlodipine Besylate (Norvasc) 10 mg PO DAILY [facility] Last Admin: 01/20/19 08:49 Dose: 10 mg Documented by: Cyanocobalamin (Vitamin B-12) 1,000 mcg PO BID [facility] Stop: 01/22/19 09:01 Last Admin: 01/20/19 08:49 Dose: 1,000 mcg Documented by: Dextrose (Dextrose 50%) 0 ml IV UD PRN PRN Reason: Hypoglycemia Diagnostic Test (Pha) (Accu-Chek) 1 each FS ACHS [facility] Last Admin: 01/20/19 11:00 Dose: 1 each Documented by: Docusate Sodium (Colace) 100 mg PO BID [facility] Last Admin: 01/20/19 08:49 Dose: 100 mg Documented by: Doxazosin Mesylate (Cardura) 1 mg PO DAILY [facility] Last Admin: 01/20/19 08:49 Dose: 1 mg Documented by: Folic Acid (Folic Acid) 1 mg PO DAILY [facility] Last Admin: 01/20/19 08:49 Dose: 1 mg Documented by: Glucose (Insta-Glucose) 15 gm PO PRN PRN PRN Reason: Hypoglycemia Guaifenesin/Codeine Phosphate (Robitussin Ac) 10 ml PO Q4HP PRN PRN Reason: Cough Heparin Sodium (Porcine) (Heparin) 5,000 unit SQ Q12 [facility] Last Admin: 01/20/19 08:49 Dose: 5,000 unit Documented by: Hydralazine HCl (Apresoline) 10 mg IV Q4HP PRN PRN Reason: Hypertension Hydromorphone HCl (Dilaudid) 0.5 mg IV Q2HP PRN PRN Reason: PAIN LEVEL > 6 Last Admin: 01/20/19 05:44 Dose: 0.5 mg Documented by: Ceftriaxone Sodium 2 gm/ (Dextrose) 50 mls @ 100 mls/hr IV DAILY [facility]; Protocol Last Admin: 01/20/19 10:52 Dose: 100 mls/hr Documented by: Magnesium Sulfate (Magnesium Sulfate) 2 gm in 50 mls @ 50 mls/hr IV UD PRN PRN Reason: MG = or < 1.7 Acetaminophen (Ofirmev) 1,000 mg in 100 mls @ 200 mls/hr IV Q6HP PRN PRN Reason: PAIN/FEVER > 101 Last Infusion: 01/19/19 13:42 Dose: Infused Documented by: Insulin Glargine (Lantus) 10 unit SQ HS [facility] Last Admin: 01/19/19 20:53 Dose: 10 unit Documented by: Insulin Human Lispro (Humalog) 0 unit SQ ACHS [facility]; Protocol Last Admin: 01/20/19 11:22 Dose: 8 units Documented by: Iron Carb/Multivit/Flooring Machine Feeder/Folic Acid (Multivitamin W/Minerals) 1 tab PO DAILY [facility] Last Admin: 01/20/19 08:49 Dose: 1 tab Documented by: Levothyroxine Sodium (Synthroid) 50 mcg PO QAMAC [facility] Last Admin: 01/20/19 07:34 Dose: 50 mcg Documented by: Melatonin (Melatonin 3mg Tablet) 3 mg PO HSP PRN PRN Reason: Insomnia Last Admin: 01/19/19 20:35 Dose: 3 mg Documented by: Nystatin (Nystatin) 500,000 units SSW QID [facility] Last Admin: 01/20/19 08:49 Dose: 500,000 units Documented by: Ondansetron HCl (Zofran) 4 mg IV Q4-6HP PRN PRN Reason: Nausea And Vomiting Oxycodone HCl (Roxicodone) 5 mg PO Q4HP PRN PRN Reason: PAIN LEVEL 3-6 Last Admin: 01/20/19 07:48 Dose: 5 mg Documented by: Prednisone (Prednisone) 10 mg PO [facility] Last Admin: 01/20/19 07:48 Dose: 10 mg Documented by: Senna/Docusate Sodium (Senna Plus Tablet) 1 tab PO HS [facility] Last Admin: 01/19/19 20:35 Dose: 1 tab Documented by: Sodium Bicarbonate (Sodium Bicarbonate) 1,300 mg PO BID [facility] Last Admin: 01/20/19 08:49 Dose: 1,300 mg Documented by: Sodium Chloride (Saline Flush) 10 ml IV Q8 [facility] Last Admin: 01/20/19 04:49 Dose: Not Given Documented by: Thiamine HCl (Vitamin B1) 100 mg PO DAILY [facility] Last Admin: 01/20/19 08:49 Dose: 100 mg Documented by: Medical - PN: A/P - Time Spent With Patient Total time spent is greater than 50% in coordination of care (as documented) at patient's floor/unit and/or counseling patient: - Narrative A/P Narrative: A/P Septic Arthritis -Group G streptococcus -on IV rocephin, s/p washout, drains still in place -ortho following. Streptococcus Bactermia, group G streptococcus -likely source elbow -echo result pending, -picc line once bactermia clears -total 4 weeks rocephin planned Rheumatoid arthritis/ PMR -on chronic immunosuppressants, continue same for now, hemodynamically stable. Acute on Chronic REnal failure -Creat 2.5, stable, Metabolic acidosis -likely from renal failure, bicarb 19 -start oral bicarbonate Hyperkalemia -mild K 5.0, monitor, Bicarb should help, stable. Bracycardia -sinus, -hold beta teresa and clonidine, monitor, IV hydralazine prn, chr issue it seems, -tsh wnl, constipation -increase dose of senna to 2 qhs, miralax x 1 today may be contributing to high K HTN -bp stable, hold atenonol and clonidine given low HR< monitor, will avoid its use for now given bp has remained stable DM -SSI insulin for glucose control, added lantus qhs 10 units anticipate improvement (pt got steroids which likely exacerbated hyperglycemia) Hypothyroidism -on synthroid, Deconditioning -Rehab, OT/PT DVT Hep sq Full code Carb consistent diet. Medical - PN: Qual - Stroke Symptom Onset Unknown: No - VTE Deep Vein Thrombosis/Pulmonary Embolism Present on Admission: No
[2019-01-20] MEDS: ACETAMINOPHEN 325 MG TABLET PO PRN ×2 (13:37→21:08)
--- NOTE | 2019-01-20 15:38 | Infectious Disease Prog Note ---
Subjective Patient information: Note initiated : 01/20/19 at 3:35 pm Service Date, if different from initiated Date: [] Patient: Bebeto Bunn 83 y/o M admitted on 01/17/19 for Generalized Weakness. Chief Complaint: [] Principal diagnosis: bacteremia, septic right elbow, septic olecranon bursitis Pertinent ROS: Pt is doing well. Denied any symptoms except for right elbow pain. Shared plans for IV antibiotics for 4 weeks and OP follow up in ID clinic. Also spoke with family member about side-effects of IV Ceftriaxone. Objective Objective Narrative: ao x 3, in nad no thrush chest has some basilar crackles, rest clear s1 s2 normal, 2/6 systolic murmur at Lt 2nd ICS bs ++, nttd pitting edema in right hand, both feet - Vital Signs Vital signs: Vital Signs Temp Pulse Resp BP BP Pulse Ox 01/20/19 11:00 36.9 C 56 L 18 117/62 94 01/20/19 07:00 36.8 C 58 L 16 121/66 94 01/20/19 03:00 37.0 C 59 L 16 127/66 95 01/19/19 23:00 37.0 C 54 L 18 121/61 92 01/19/19 19:07 37.0 C 59 L 16 127/66 95 01/19/19 17:40 36.9 C 52 L 20 132/61 93 Intake and Output 01/20/19 01/20/19 01/20/19 05:59 13:59 21:59 Intake Total 120 50 120 Output Total 650 775 Balance -530 -927 120 Intake: IV 50 Rocephin 2 gm In Dextrose 5% in 50 Water 50 ml @ 100 mls/hr IV DAILY [facility] Rx#:[id number] Oral 120 120 Output: Void Amount 650 775 Other: Meal Lunch Percent of Meal Consumed 100% Urine Appearance Clear Urine Color Pale Urine Odor Normal Weight 72.665 kg Patient Weight 01/21/19 05:59 Weight 72.665 kg Intake & Output: Intake & Output 01/20/19 01/20/19 01/20/19 05:59 13:59 21:59 Intake Total 120 50 120 Output Total 650 775 Balance -530 720 120 Weight 72.665 kg Intake: IV 50 Rocephin 2 gm In Dextrose 5% in 50 Water 50 ml @ 100 mls/hr IV DAILY [facility] Rx#:[id number] Oral 120 120 Output: Void Amount 650 775 Other: Meal Lunch Percent of Meal Consumed 100% Urine Appearance Clear Urine Color Pale Urine Odor Normal - Lab 01/20/19 04:21 01/20/19 04:21 Most recent lab results Calcium 8.3 mg/dl (8.6-10.4) L 01/20/19 04:21 Phosphorus 3.4 mg/dL (2.7-4.5) 01/20/19 04:21 Magnesium 2.0 mg/dL (1.6-2.5) 01/20/19 04:21 Microbiology 01/17/19 23:02 Elbow - Right Anaerobic Culture - Preliminary 01/17/19 23:02 Elbow - Right Gram Stain - Final 01/17/19 23:02 Elbow - Right Wound Culture - Preliminary 01/18/19 09:11 Blood Blood Culture - Preliminary 01/18/19 09:06 Blood Blood Culture - Preliminary 01/17/19 14:28 Synovial Fluid Gram Stain - Final 01/17/19 14:28 Synovial Fluid Body Fluid Culture - Final Streptococcus (beta) gr. G 01/17/19 07:21 Urine - Clean Void Mid-Stream Urine Culture - Final 01/17/19 07:54 Blood Blood Culture - Final Streptococcus (beta) gr. G 01/18/19 00:41 Nose MRSA (PCR) - Final 01/17/19 08:02 Blood Blood Culture - Preliminary Gram positive cocci Medications Active Medications: Acetaminophen (Tylenol) 650 mg PO Q4-6HP PRN PRN Reason: PAIN/FEVER > 101 Last Admin: 01/20/19 13:37 Dose: 650 mg Documented by: LCOURTRIGCheryl Amlodipine Besylate (Norvasc) 10 mg PO DAILY [facility] Last Admin: 01/20/19 08:49 Dose: 10 mg Documented by: BEKAH Cyanocobalamin (Vitamin B-12) 1,000 mcg PO BID [facility] Stop: 01/22/19 09:01 Last Admin: 01/20/19 08:49 Dose: 1,000 mcg Documented by: Admin: 01/19/19 20:36 Dose: 1,000 mcg Documented by: LILLYWHEE Dextrose (Dextrose 50%) 0 ml IV UD PRN PRN Reason: Hypoglycemia Diagnostic Test (Pha) (Accu-Chek) 1 each FS ACHS [facility] Last Admin: 01/20/19 11:00 Dose: 1 each Documented by: Admin: 01/20/19 07:34 Dose: 1 each Documented by: Admin: 01/19/19 20:45 Dose: 1 each Documented by: Admin: 01/19/19 17:49 Dose: 1 each Documented by: Admin: 01/19/19 12:51 Dose: 1 each Documented by: JAMES Docusate Sodium (Colace) 100 mg PO BID [facility] Last Admin: 01/20/19 08:49 Dose: 100 mg Documented by: Admin: 01/19/19 20:36 Dose: 100 mg Documented by: DAMIAN Doxazosin Mesylate (Cardura) 1 mg PO DAILY [facility] Last Admin: 01/20/19 08:49 Dose: 1 mg Documented by: BEKAH Folic Acid (Folic Acid) 1 mg PO DAILY [facility] Last Admin: 01/20/19 08:49 Dose: 1 mg Documented by: BEKAH Glucose (Insta-Glucose) 15 gm PO PRN PRN PRN Reason: Hypoglycemia Guaifenesin/Codeine Phosphate (Robitussin Ac) 10 ml PO Q4HP PRN PRN Reason: Cough Heparin Sodium (Porcine) (Heparin) 5,000 unit SQ Q12 [facility] Last Admin: 01/20/19 08:49 Dose: 5,000 unit Documented by: Admin: 01/19/19 20:37 Dose: 5,000 unit Documented by: DAMIAN Hydralazine HCl (Apresoline) 10 mg IV Q4HP PRN PRN Reason: Hypertension Hydromorphone HCl (Dilaudid) 0.5 mg IV Q2HP PRN PRN Reason: PAIN LEVEL > 6 Last Admin: 01/20/19 05:44 Dose: 0.5 mg Documented by: Admin: 01/19/19 23:05 Dose: 0.5 mg Documented by: DAMIAN Ceftriaxone Sodium 2 gm/ (Dextrose) 50 mls @ 100 mls/hr IV DAILY [facility]; Protocol Last Infusion: 01/20/19 12:21 Dose: 0 mls/hr Documented by: Admin: 01/20/19 10:52 Dose: 100 mls/hr Documented by: BEKAH Magnesium Sulfate (Magnesium Sulfate) 2 gm in 50 mls @ 50 mls/hr IV UD PRN PRN Reason: MG = or < 1.7 Acetaminophen (Ofirmev) 1,000 mg in 100 mls @ 200 mls/hr IV Q6HP PRN PRN Reason: PAIN/FEVER > 101 Last Infusion: 01/19/19 13:42 Dose: 0 mls/hr Documented by: Admin: 01/19/19 12:56 Dose: 200 mls/hr Documented by: JAMES Insulin Glargine (Lantus) 16 unit SQ HS [facility] Insulin Human Lispro (Humalog) 0 unit SQ ACHS [facility]; Protocol Iron Carb/Multivit/[place]/Folic Acid (Multivitamin W/Minerals) 1 tab PO DAILY [facility] Last Admin: 01/20/19 08:49 Dose: 1 tab Documented by: BEKAH Levothyroxine Sodium (Synthroid) 50 mcg PO QAMAC [facility] Last Admin: 01/20/19 07:34 Dose: 50 mcg Documented by: BEKAH Melatonin (Melatonin 3mg Tablet) 3 mg PO HSP PRN PRN Reason: Insomnia Last Admin: 01/19/19 20:35 Dose: 3 mg Documented by: DAMIAN Nystatin (Nystatin) 500,000 units SSW QID [facility] Last Admin: 01/20/19 08:49 Dose: 500,000 units Documented by: Admin: 01/19/19 20:34 Dose: 500,000 units Documented by: Admin: 01/19/19 17:50 Dose: 500,000 units Documented by: Admin: 01/19/19 14:11 Dose: 500,000 units Documented by: JAMES Ondansetron HCl (Zofran) 4 mg IV Q4-6HP PRN PRN Reason: Nausea And Vomiting Oxycodone HCl (Roxicodone) 5 mg PO Q4HP PRN PRN Reason: PAIN LEVEL 3-6 Last Admin: 01/20/19 13:38 Dose: 5 mg Documented by: Admin: 01/20/19 07:48 Dose: 5 mg Documented by: Admin: 01/20/19 02:01 Dose: 5 mg Documented by: Admin: 01/19/19 20:37 Dose: 5 mg Documented by: Admin: 01/19/19 12:48 Dose: 5 mg Documented by: [email or web address] Prednisone (Prednisone) 10 mg PO [facility] Last Admin: 01/20/19 07:48 Dose: 10 mg Documented by: BEKAH Senna/Docusate Sodium (Senna Plus Tablet) 2 tab PO [facility] Sodium Bicarbonate (Sodium Bicarbonate) 1,300 mg PO BID [facility] Last Admin: 01/20/19 08:49 Dose: 1,300 mg Documented by: Admin: 01/19/19 20:36 Dose: 1,300 mg Documented by: DAMIAN Sodium Chloride (Saline Flush) 10 ml IV Q8 [facility] Last Admin: 01/20/19 04:49 Dose: Not Given Documented by: DAMIAN Non-Admin Reason: Patient Asleep Admin: 01/19/19 20:39 Dose: 10 ml Documented by: Admin: 01/19/19 14:12 Dose: 10 ml Documented by: JAMES Thiamine HCl (Vitamin B1) 100 mg PO DAILY [facility] Last Admin: 01/20/19 08:49 Dose: 100 mg Documented by: BEKAH Assessment and Plan - Narrative A/P Narrative: A: 1. Gp G Streptococcal Rt elbow septic arthritis and Gp G Streptococcal bacteremia: blood Cx neg since 01/18/19 - POD 3, s/p irrigation and debridement, Drainage of the right septic olecranon bursa - clinically improving - ESR 112, CRP 43.4 - TTE neg for IE 2. Sepsis: per SOFA score 3. Oral thrush Recommendations: - Continue IV Ceftriaxone 2 gm q24 hrs for 4 weeks with stop date of 02/14/19 - consider mid-line placement - F/u labs: Weekly CBC, BMP Every other week ESR and CRP - ID clinic s/u scheduled for: 02/10/19 at 8 am - Nystatin swish and spit 2.5 ml qid for 7 days, day 3/7 - pt counseled to elevate his right hand and both feet, for help with postural drainage will sign off. Mohsen Calix MD Infectious diseases
--- NOTE | 2019-01-20 20:12 | Orthopedic Progress Note ---
Subjective Patient information: Note initiated : 01/20/19 at 8:09 pm Service Date, if different from initiated Date: [] Patient: Bebeto Bunn 83 y/o M admitted on 01/17/19 for Generalized Weakness. Chief Complaint: [] Principal diagnosis: bacteremia, septic right elbow, septic olecranon bursitis Interval history: no new events today. currently reports improve right elbow and left ankle pain. Objective Vital signs: Vital Signs Temp Pulse Resp BP BP Pulse Ox 01/20/19 15:00 98.7 F 52 L 18 122/60 94 01/20/19 11:00 98.5 F 56 L 18 117/62 94 01/20/19 07:00 98.3 F 58 L 16 121/66 94 01/20/19 03:00 98.6 F 59 L 16 127/66 95 01/19/19 23:00 98.6 F 54 L 18 121/61 92 Intake and Output 01/20/19 01/20/19 01/20/19 05:59 13:59 21:59 Intake Total 771 79 7242 Output Total 650 775 Balance -530 -725 1080 Intake: IV 50 Rocephin 2 gm In Dextrose 5% in 50 Water 50 ml @ 100 mls/hr IV DAILY [facility] Rx#:[id number] Oral 120 1080 Output: Void Amount 650 775 Other: Meal Dinner Percent of Meal Consumed 100% Feeding Ability Assist with Tray Set Up Urine Appearance Clear Urine Color Pale Urine Odor Normal Weight 160 lb 3.2 oz Patient Weight 01/21/19 05:59 Weight 160 lb 3.2 oz Intake & Output: Intake & Output 01/20/19 01/20/19 01/20/19 05:59 13:59 21:59 Intake Total 355 91 5700 Output Total 650 775 Balance -530 -725 1080 Weight 160 lb 3.2 oz Intake: IV 50 Rocephin 2 gm In Dextrose 5% in 50 Water 50 ml @ 100 mls/hr IV DAILY [facility] Rx#:[id number] Oral 120 1080 Output: Void Amount 650 775 Other: Meal Dinner Percent of Meal Consumed 100% Feeding Ability Assist with Tray Set Up Urine Appearance Clear Urine Color Pale Urine Odor Normal Dressing: Yes splint in place Additional Comments: splint removed, purulent drainage primarily from olecranon bursa drain, significant improvement in overall swelling/edema throughout. erythema resolving. - Labs CBC & BMP: 01/20/19 04:21 01/20/19 04:21 Labs: Orthopedic Labs 01/17/19 06:48 PT 14.4 INR 1.1 01/20/19 01/19/19 01/18/19 04:21 03:22 03:30 Hgb 8.0 L 7.8 L 7.9 L Hct 24.4 L 24.1 L 24.9 L 01/17/19 06:48 Hgb 10.0 L Hct 31.2 L Assessment and Plan - Narrative A/P Narrative: POD 3 s/p right elbow I&D and drainage of olecranon bursa -- splint and dressing - removed. continues to drain with purulence from olecranon bursa primarily. will leave drains in for another day. -- cx: blood and elbow aspirate strep b -- bone bx: negative for osteo. -- ID following
[2019-01-20] MEDS ORDERED: INSULIN GLARGINE, HUMAN 1 UNIT/0.01 ML SQ SCH (21:00)
[2019-01-20] MEDS: SENNOSIDES/DOCUSATE SODIUM 1 TAB TABLET PO SCH (21:09)
[2019-01-21] MEDS: ACETAMINOPHEN 325 MG TABLET PO PRN ×3 (02:39→16:43)
[2019-01-21] MEDS: oxyCODONE HCL 5 MG TABLET PO PRN ×3 (02:39→16:44)
[2019-01-21] MEDS: 0.9 % SODIUM CHLORIDE 10 ML SYRINGE IV SCH ×4 (05:21→21:36)
[2019-01-21 05:28] LABS: Hematocrit 25.2 % (41.0-55.0); Hemoglobin 8.1 g/dL (13.5-16.5); Mean Cell Volume 94.7 fL (80.0-100.0); Mean Corpuscular HGB Conc 32.2 g/dL (31.0-36.0); Mean Platelet Volume 9.9 fL (7.4-10.4); Platelet Count 544 K/mcL (140-440); RBC 2.66 M/mcL (4.50-5.90); Red Cell Distribution Width 15.8 % (11.5-14.5); WBC 10.1 K/mcL (4.5-11.0)
[2019-01-21 05:51] LABS: ALT/SGPT 17 U/l (0-40); AST/SGOT 28 U/l (0-37); Albumin 2.3 gm/dL (3.2-5.2); Albumin/Globulin Ratio 0.7 (1.0-2.3); Alkaline Phosphatase 96 U/L (39-117); Bilirubin,Direct < 0.2 mg/dL (0.0-0.3); Bilirubin,Total 0.2 mg/dL (0.0-1.0); Blood Urea Nitrogen 79 mg/dl (8-23); Calcium 8.2 mg/dl (8.6-10.4); Carbon Dioxide 22 mmol/L (22-30); Chloride 108 mmol/L (96-108); Globulin 3.4 gm/dL (2.2-3.7); Glomerular Filtration Rate 24; Glucose 171 mg/dL (70-105); Lactate Dehydrogenase 315 U/L (94-250); Triglycerides 126 mg/dl (<150); Uric Acid 9.9 mg/dL (2.5-8.0)
[2019-01-21 06:29] LABS: Band Neutrophils % 2 % (0-10); Lymphocytes % 7 % (15-49); Metamyelocytes % 2 % (0-0); Monocytes % (Manual) 14 % (1-12); Platelet Estimate INCREASED (NORMAL); RBC Fragments FEW (NONE SEEN); RBC Morphology ABNORM (NORMAL); Segmented Neutrophils % 75 % (38-78)
[2019-01-21] MEDS: LEVOTHYROXINE 50 MCG TABLET PO SCH (07:18)
[2019-01-21] MEDS: predniSONE 10 MG TABLET PO SCH (07:53)
[2019-01-21] MEDS: INSULIN LISPRO 1 UNIT/0.01 ML UNIT SQ SCH ×4 (07:53→21:34)
[2019-01-21] MEDS ORDERED: LORazepam 0.5 MG TABLET PO PRN (08:26)
--- NOTE | 2019-01-21 08:30 | Internal Med Progress Note ---
Medical - PN: Subj Patient information: Note initiated : 01/21/19 at 8:27 am Service Date, if different from initiated Date: [] Patient: Bebeto Bunn a 83 y/o M admitted on 01/17/19 for Generalized Weakness. Chief Complaint: [] Interval history: Mr. Bunn is a 83 year old M with a history of chronic kidney disease, PMR/ ?RA on chronic prednisone who presents to the ER with onset of progressive weakness along with multiple falls that started 2 weeks ago. Patient since then has noticed increasing right elbow and left ankle pain and swelling along with redness. Patient has had progressive fatigue lethargic and unable to perform activities of daily living. He is accompanied to the ER due to increasing co ncerns within family about his gradual decline. His symptoms are associated with fever around 2 weeks ago at 101.8. He denies associated dysuria diarrhea but endorses to polyarthralgia and rash as involving left ankle and right elbow. He denies headache,, vision changes or unilateral weakness. He does endorse to falls to weakness and getting off balance. Initial work-up in the ER was consistent with elevated white count/inflammatory markers with CRP 43 and ESR 112, elevated white count 17.8, creatinine 3. CT scan right elbow was performed. Patient received a dose of Solu-Medrol At the time of evaluation patient is accompanied with multiple family members. He was able to endorse history as above. Family expressed concerns about his inability to take care of self. 01/18 patient seen examined, labs reviewed no acute complaints overnight bradycardic, on beta teresa and clonidine, pt reports HR always low, no dizziness, cp or palpitations reported hold atenolol and clonidine for now and monitor. Right elbow, had pus on aspiration, taken to or yesterday, pt also has GPC bacteremia, which is isolated as strep, presently on vanco and cefepime, will review with ID and plan for deescalation of abx regime [facility] to be done Low hb likely from post 01/19 Patient seen examined no acute issues, HR stable, but pt still in sinus bradycardia labs stable, K 5.2, hb stable Pt has no new complaints or concerns, tolerating po diet well. 01/20 Patient seen and examined, no acute overnight events patient is comfortable in bed. Does admit to having some constipation He denies any other acute issues. Labs stable hemoglobin stable creatinine is 2.5 potassium is 5.0 bicarbonate improved to 01/21 Patient seen examined, no acute issues, tolerating po diet well, sitting comfortably in bed, labs stable BP now trending up, resume hctz, drains still in place, still has some purulent discharge Pertinent ROS: Denies headache, dizziness Denies chest pain, palpitations Denies cough or shortness of breath Denies abdominal pain, nausea or vomiting. - Constitutional Vitals: Vital Signs Temp Pulse Resp BP Pulse Ox 97.8 F 63 16 148/72 94 01/21/19 07:00 01/21/19 07:00 01/21/19 07:00 01/21/19 07:00 01/21/19 07:00 Period Temp Pulse Resp BP Sys/Dupree Pulse Ox Last 24 Hr 97.8 F-98.7 F 52-69 16-18 117-148/60-80 94-95 Intake and Output 01/20/19 01/21/19 01/21/19 21:59 05:59 13:59 Intake Total 1330 400 Output Total 650 500 Balance 680 -100 Weight 158 lb 8 oz Intake & Output: Intake & Output 01/20/19 01/21/19 01/21/19 21:59 05:59 13:59 Intake Total 1330 400 Output Total 650 500 Balance 680 -100 Weight 158 lb 8 oz Intake: Oral 1330 400 Output: Void Amount 650 500 Other: Meal Dinner Percent of Meal Consumed 100% Feeding Ability Assist with Tray Set Up Urine Appearance Clear Clear Urine Color Bright Yellow Bright Yellow Urine Odor Normal Normal # Bowel Movements 0 Exam: Constitutional; Afebrile, cooperative, alert, not in distress. Respiratory system: Air Entry equal on both sides, No crackles or wheezing, no rhonchi. CVS- Rate rhythm regular, S1,S2 heard, no gallop, no rub. Abdomen- Soft nontender abdomen, no organomegaly, no tenderness, no guarding or rigidity, [employer]- AOOx3, moving all extremities, no gross focal deficit noted. Medical - PN: Obj Da - Labs CBC & Chem 7: 01/21/19 04:25 01/21/19 04:25 Labs: Abnormal Lab Results 01/21/19 01/21/19 01/20/19 04:25 04:25 04:21 WBC RBC 2.66 L Hgb 8.1 L Hct 25.2 L RDW 15.8 H Plt Count 544 H Seg Neutrophils % Lymphocytes % 7 L Monocytes % (Manual) 14 H Metamyelocytes % 2 H Platelet Estimate Increased A RBC Morphology Abnorm A Anisocytosis RBC Fragments Few A Potassium Carbon Dioxide 19 L BUN 79 H 86 H Creatinine 2.4 H 2.5 H Glucose 171 H 138 H Uric Acid 9.9 H 10.4 H Calcium 8.2 L 8.3 L Lactate Dehydrogenase 315 H 272 H C-Reactive Protein Total Protein 5.7 L 5.8 L Albumin 2.3 L 2.3 L Albumin/Globulin Ratio 0.7 L 0.7 L Triglycerides 188 H 01/20/19 01/19/19 01/19/19 04:21 03:22 03:22 WBC 11.6 H RBC 2.58 L Hgb 8.0 L Hct 24.4 L RDW 15.9 H Plt Count 565 H Seg Neutrophils % 80 H Lymphocytes % 3 L Monocytes % (Manual) Metamyelocytes % Platelet Estimate RBC Morphology Anisocytosis RBC Fragments Potassium 5.2 H Carbon Dioxide 16 L BUN 87 H Creatinine 2.7 H Glucose 291 H Uric Acid 10.5 H Calcium 8.0 L Lactate Dehydrogenase 260 H C-Reactive Protein 27.4 H Total Protein 5.4 L Albumin 2.1 L Albumin/Globulin Ratio 0.6 L Triglycerides 271 H 01/19/19 03:22 WBC 15.2 H RBC 2.52 L Hgb 7.8 L Hct 24.1 L RDW 16.5 H Plt Count 535 H Seg Neutrophils % 89 H Lymphocytes % 3 L Monocytes % (Manual) Metamyelocytes % Platelet Estimate Increased A RBC Morphology Abnorm A Anisocytosis 1+ A RBC Fragments Potassium Carbon Dioxide BUN Creatinine Glucose Uric Acid Calcium Lactate Dehydrogenase C-Reactive Protein Total Protein Albumin Albumin/Globulin Ratio Triglycerides Meds: Medications Acetaminophen (Tylenol) 650 mg PO Q4-6HP PRN PRN Reason: PAIN/FEVER > 101 Last Admin: 01/21/19 02:39 Dose: 650 mg Documented by: Amlodipine Besylate (Norvasc) 10 mg PO DAILY [facility] Last Admin: 01/20/19 08:49 Dose: 10 mg Documented by: Cyanocobalamin (Vitamin B-12) 1,000 mcg PO BID [facility] Stop: 01/22/19 09:01 Last Admin: 01/20/19 21:09 Dose: 1,000 mcg Documented by: Dextrose (Dextrose 50%) 0 ml IV UD PRN PRN Reason: Hypoglycemia Diagnostic Test (Pha) (Accu-Chek) 1 each FS ACHS [facility] Last Admin: 01/21/19 07:16 Dose: 1 each Documented by: Docusate Sodium (Colace) 100 mg PO BID [facility] Last Admin: 01/20/19 21:09 Dose: 100 mg Documented by: Doxazosin Mesylate (Cardura) 1 mg PO DAILY [facility] Last Admin: 01/20/19 08:49 Dose: 1 mg Documented by: Folic Acid (Folic Acid) 1 mg PO DAILY [facility] Last Admin: 01/20/19 08:49 Dose: 1 mg Documented by: Glucose (Insta-Glucose) 15 gm PO PRN PRN PRN Reason: Hypoglycemia Guaifenesin/Codeine Phosphate (Robitussin Ac) 10 ml PO Q4HP PRN PRN Reason: Cough Heparin Sodium (Porcine) (Heparin) 5,000 unit SQ Q12 [facility] Last Admin: 01/20/19 21:06 Dose: 5,000 unit Documented by: Hydralazine HCl (Apresoline) 10 mg IV Q4HP PRN PRN Reason: Hypertension Hydromorphone HCl (Dilaudid) 0.5 mg IV Q2HP PRN PRN Reason: PAIN LEVEL > 6 Last Admin: 01/20/19 05:44 Dose: 0.5 mg Documented by: Ceftriaxone Sodium 2 gm/ (Dextrose) 50 mls @ 100 mls/hr IV DAILY [facility]; Protocol Last Infusion: 01/20/19 12:21 Dose: Infused Documented by: Magnesium Sulfate (Magnesium Sulfate) 2 gm in 50 mls @ 50 mls/hr IV UD PRN PRN Reason: MG = or < 1.7 Acetaminophen (Ofirmev) 1,000 mg in 100 mls @ 200 mls/hr IV Q6HP PRN PRN Reason: PAIN/FEVER > 101 Last Infusion: 01/19/19 13:42 Dose: Infused Documented by: Insulin Glargine (Lantus) 16 unit SQ [facility] Last Admin: 01/20/19 21:05 Dose: 16 unit Documented by: Insulin Human Lispro (Humalog) 0 unit SQ [facility]; Protocol Last Admin: 01/21/19 07:53 Dose: 3 units Documented by: Iron Carb/Multivit/[place]/Folic Acid (Multivitamin W/Minerals) 1 tab PO DAILY [facility] Last Admin: 01/20/19 08:49 Dose: 1 tab Documented by: Levothyroxine [facility]) [facility] Admin: 01/21/19 07:18 Dose: 50 mcg Documented by: Melatonin (Melatonin 3mg Tablet) 3 mg PO HSP PRN PRN Reason: Insomnia Last Admin: 01/19/19 20:35 Dose: 3 mg Documented by: Nystatin (Nystatin) 500,000 units SSW QID [facility] Last Admin: 01/20/19 21:04 Dose: 500,000 units Documented by: Ondansetron HCl (Zofran) 4 mg IV Q4-6HP PRN PRN Reason: Nausea And Vomiting Oxycodone HCl (Roxicodone) 5 mg PO Q4HP PRN PRN Reason: PAIN LEVEL 3-6 Last Admin: 01/21/19 02:39 Dose: 5 mg Documented by: Prednisone (Prednisone) 10 mg PO [facility] Last Admin: 01/21/19 07:53 Dose: 10 mg Documented by: Senna/Docusate Sodium (Senna Plus Tablet) 2 tab PO HS [facility] Last Admin: 01/20/19 21:09 Dose: 2 tab Documented by: Sodium Bicarbonate (Sodium Bicarbonate) 1,300 mg PO BID [facility] Last Admin: 01/20/19 21:08 Dose: 1,300 mg Documented by: Sodium Chloride (Saline Flush) 10 ml IV Q8 [facility] Last Admin: 01/21/19 05:21 Dose: Not Given Documented by: Thiamine HCl (Vitamin B1) 100 mg PO DAILY [facility] Last Admin: 01/20/19 08:49 Dose: 100 mg Documented by: Medical - PN: A/P - Time Spent With Patient Total time spent is greater than 50% in coordination of care (as documented) at patient's floor/unit and/or counseling patient: - Narrative A/P Narrative: A/P Septic Arthritis -Group G streptococcus -on IV rocephin, s/p washout, drains still in place, with purulent discharge -ortho following. Streptococcus Bactermia, group G streptococcus -likely source elbow -echo does not show endocarditis, -picc line once bactermia clears -total 4 weeks rocephin planned Rheumatoid arthritis/ PMR -on chronic immunosuppressants, continue same for now, hemodynamically stable. Acute on Chronic REnal failure -Creat 2.4, stable, Metabolic acidosis -likely from renal failure, bicarb 21 -started oral bicarbonate Hyperkalemia -mild K 5.0, monitor, Bicarb should help, stable. -hctz added for bp control, should also help lower K Bradycardia -sinus, -hold beta teresa and clonidine, monitor, IV hydralazine prn, chr issue it seems, -tsh wnl, constipation -increase dose of senna to 2 qhs, miralax x 1 today may be contributing to high K HTN -bp stable, hold atenonol and clonidine given low HR< monitor, HCTZ resumed DM -SSI insulin for glucose control, (pt got steroids which likely exacerbated hyperglycemia) -glucose control improved but still not at goal, increase dose of lantus to 20units qhs Hypothyroidism -on synthroid, Deconditioning -Rehab, OT/PT DVT Hep sq Full code Carb consistent diet. Medical - PN: Qual - Stroke Symptom Onset Unknown: No - VTE Deep Vein Thrombosis/Pulmonary Embolism Present on Admission: No
[2019-01-21] MEDS ORDERED: [UNRECOGNIZED DRUG - OTHER] PO SCH (09:00)
[2019-01-21] MEDS: ASPIRIN 81 MG TAB.CHEW PO SCH (09:30)
[2019-01-21] MEDS: HYDROCHLOROTHIAZIDE 25 MG TABLET PO SCH (09:30)
[2019-01-21] MEDS: DOCUSATE SODIUM 100 MG CAPSULE PO SCH ×2 (09:30→21:33)
[2019-01-21] MEDS: amLODIPine 10 MG TABLET PO SCH (09:30)
[2019-01-21] MEDS: MULTIVIT,THER IRON,CA,FA & MIN 1 TABLET PO SCH (09:31)
[2019-01-21] MEDS: DOXAZOSIN 1 MG TABLET PO SCH (09:31)
[2019-01-21] MEDS: CYANOCOBALAMIN (VITAMIN B-12) 500 MCG TABLET PO SCH ×2 (09:31→21:33)
[2019-01-21] MEDS: FOLIC ACID 1 MG TABLET PO SCH (09:31)
[2019-01-21] MEDS: THIAMINE 100 MG TABLET PO SCH (09:31)
[2019-01-21] MEDS: SODIUM BICARBONATE 650 MG TABLET PO SCH ×2 (09:31→21:33)
[2019-01-21] MEDS: MAGNESIUM OXIDE 400 MG TABLET PO SCH (09:31)
[2019-01-21] MEDS: HEPARIN 5,000 UNIT/ML VIAL SQ SCH ×2 (09:32→21:34)
[2019-01-21] MEDS: cefTRIAXone 2 GM in DEXTROSE 5% IN WATER 50 ML IV SCH (09:32)
[2019-01-21] MEDS: NYSTATIN 500,000 UNITS/5 ML ORAL.SUSP SSW SCH ×4 (09:32→23:30)
--- NOTE | 2019-01-21 16:42 | Orthopedic Progress Note ---
Subjective Patient information: Note initiated : 01/21/19 at 4:39 pm Service Date, if different from initiated Date: [] Patient: Bebeto Bunn 83 y/o M admitted on 01/17/19 for Generalized Weakness. Chief Complaint: [] Principal diagnosis: bacteremia, septic right elbow, septic olecranon bursitis Interval history: No acute events through last 24 hrs. Pain about the same as yesterday. Objective Vital signs: Vital Signs Temp Pulse Resp BP BP Pulse Ox 01/21/19 15:00 98.5 F 59 L 16 138/73 93 01/21/19 11:00 98.0 F 57 L 16 135/70 94 01/21/19 07:00 97.8 F 63 16 148/72 94 01/21/19 02:36 98.4 F 68 16 148/80 95 01/20/19 22:50 98.2 F 69 16 136/73 95 01/20/19 19:09 98.4 F 67 16 118/68 95 Intake and Output 01/21/19 01/21/19 01/21/19 05:59 13:59 21:59 Intake Total 400 50 Output Total 500 300 400 Balance -100 -300 -350 Intake: IV 50 Rocephin 2 gm In Dextrose 5% in 50 Water 50 ml @ 100 mls/hr IV DAILY [facility] Rx#:[id number] Oral 400 Output: Void Amount 500 300 400 Other: Meal Lunch Percent of Meal Consumed 100% Urine Appearance Clear Clear Urine Color Bright Yellow Pale Urine Odor Normal # Bowel Movements 0 Intake & Output: Intake & Output 01/21/19 01/21/19 01/21/19 05:59 13:59 21:59 Intake Total 400 50 Output Total 500 300 400 Balance -100 -300 -350 Intake: IV 50 Rocephin 2 gm In Dextrose 5% in 50 Water 50 ml @ 100 mls/hr IV DAILY [facility] Rx#:[id number] Oral 400 Output: Void Amount 500 300 400 Other: Meal Lunch Percent of Meal Consumed 100% Urine Appearance Clear Clear Urine Color Bright Yellow Pale Urine Odor Normal # Bowel Movements 0 Incision clean and dry: No Additional Comments: splint and dressing removed. drainage less purulent and mostly seroussanguinous fluid. Swelling/edema improved. Has woody tissue over the olecranon extending distally. - Labs CBC & BMP: 01/21/19 04:25 01/21/19 04:25 Labs: Orthopedic Labs 01/17/19 06:48 PT 14.4 INR 1.1 01/21/19 01/20/19 01/19/19 04:25 04:21 03:22 Hgb 8.1 L 8.0 L 7.8 L Hct 25.2 L 24.4 L 24.1 L 01/18/19 01/17/19 03:30 06:48 Hgb 7.9 L 10.0 L Hct 24.9 L 31.2 L Assessment and Plan - Narrative A/P Narrative: POD 4 s/p right elbow I&D and drainage of olecranon bursa -- splint and dressing - removed. d/c'd the drains. no flucuance noted. will do dry dressing with vita only. -- cx: blood and elbow aspirate strep b -- bone bx: negative for osteo. -- WBC decreased to normal today. -- ID following -- will continue to monitor with dressing changes, likely will drain for several more days before drain sites close
[2019-01-21] MEDS: SENNOSIDES/DOCUSATE SODIUM 1 TAB TABLET PO SCH (21:33)
[2019-01-21] MEDS: INSULIN GLARGINE, HUMAN 1 UNIT/0.01 ML SQ SCH (21:35)
[2019-01-22] MEDS: oxyCODONE HCL 5 MG TABLET PO PRN ×2 (00:29→17:27)
[2019-01-22] MEDS: ACETAMINOPHEN 325 MG TABLET PO PRN (00:29)
[2019-01-22] MEDS: HYDROmorphone 2 MG/ML VIAL IV PRN ×2 (01:32→07:23)
[2019-01-22] MEDS: 0.9 % SODIUM CHLORIDE 10 ML SYRINGE IV SCH ×5 (05:15→22:25)
[2019-01-22 05:23] LABS: Hematocrit 24.3 % (41.0-55.0); Hemoglobin 7.9 g/dL (13.5-16.5); Mean Cell Volume 94.9 fL (80.0-100.0); Mean Corpuscular HGB Conc 32.5 g/dL (31.0-36.0); Platelet Count 561 K/mcL (140-440); RBC 2.56 M/mcL (4.50-5.90); Red Cell Distribution Width 15.5 % (11.5-14.5); WBC 11.4 K/mcL (4.5-11.0)
[2019-01-22 05:48] LABS: ALT/SGPT 16 U/l (0-40); AST/SGOT 26 U/l (0-37); Albumin 2.2 gm/dL (3.2-5.2); Albumin/Globulin Ratio 0.6 (1.0-2.3); Alkaline Phosphatase 89 U/L (39-117); Bilirubin,Direct < 0.2 mg/dL (0.0-0.3); Bilirubin,Total 0.2 mg/dL (0.0-1.0); Blood Urea Nitrogen 76 mg/dl (8-23); Calcium 8.5 mg/dl (8.6-10.4); Carbon Dioxide 23 mmol/L (22-30); Chloride 106 mmol/L (96-108); Globulin 3.6 gm/dL (2.2-3.7); Glomerular Filtration Rate 28; Glucose 74 mg/dL (70-105); Lactate Dehydrogenase 263 U/L (94-250); Phosphorous 2.9 mg/dL (2.7-4.5); Triglycerides 93 mg/dl (<150); Uric Acid 8.9 mg/dL (2.5-8.0)
[2019-01-22] MEDS: INSULIN LISPRO 1 UNIT/0.01 ML UNIT SQ SCH ×4 (07:33→21:31)
[2019-01-22 07:41] LABS: Eosinophils % (Manual) 3 % (0-7); Lymphocytes % 6 % (15-49); Metamyelocytes % 2 % (0-0); Monocytes % (Manual) 7 % (1-12); Myelocytes % 1 % (0-0); Platelet Estimate INCREASED (NORMAL); RBC Morphology NORMAL (NORMAL); Segmented Neutrophils % 81 % (38-78)
[2019-01-22] MEDS: LEVOTHYROXINE 50 MCG TABLET PO SCH (07:44)
[2019-01-22] MEDS: predniSONE 10 MG TABLET PO SCH (07:44)
[2019-01-22] MEDS: CYANOCOBALAMIN (VITAMIN B-12) 500 MCG TABLET PO SCH (08:12)
[2019-01-22] MEDS: SODIUM BICARBONATE 650 MG TABLET PO SCH ×2 (08:12→21:17)
[2019-01-22] MEDS: HYDROCHLOROTHIAZIDE 25 MG TABLET PO SCH (08:12)
[2019-01-22] MEDS: DOXAZOSIN 1 MG TABLET PO SCH (08:13)
[2019-01-22] MEDS: ASPIRIN 81 MG TAB.CHEW PO SCH (08:13)
[2019-01-22] MEDS: FOLIC ACID 1 MG TABLET PO SCH (08:13)
[2019-01-22] MEDS: amLODIPine 10 MG TABLET PO SCH (08:13)
[2019-01-22] MEDS: THIAMINE 100 MG TABLET PO SCH (08:13)
[2019-01-22] MEDS: DOCUSATE SODIUM 100 MG CAPSULE PO SCH ×2 (08:13→21:16)
[2019-01-22] MEDS: MULTIVIT,THER IRON,CA,FA & MIN 1 TABLET PO SCH (08:13)
[2019-01-22] MEDS: NYSTATIN 500,000 UNITS/5 ML ORAL.SUSP SSW SCH ×4 (08:14→21:17)
[2019-01-22] MEDS: HEPARIN 5,000 UNIT/ML VIAL SQ SCH ×2 (08:14→21:16)
[2019-01-22] MEDS: MAGNESIUM OXIDE 400 MG TABLET PO SCH (08:14)
[2019-01-22] MEDS: cefTRIAXone 2 GM in DEXTROSE 5% IN WATER 50 ML IV SCH (09:04)
--- NOTE | 2019-01-22 09:19 | Orthopedic Progress Note ---
Subjective Patient information: Note initiated : 01/22/19 at 9:15 am Service Date, if different from initiated Date: [] Patient: Bebeto Bunn 83 y/o M admitted on 01/17/19 for Generalized Weakness. Chief Complaint: [] Principal diagnosis: bacteremia, septic right elbow, septic olecranon bursitis Interval history: does state that his elbow and ankle are still painful but the ankle feels a bit more painful this AM. No chest pain/dizziness/shortness of breath. Objective Vital signs: Vital Signs Temp Pulse Resp BP BP Pulse Ox 01/22/19 07:57 57 L 01/22/19 06:48 98.3 F 57 L 16 112/66 92 01/22/19 03:26 98.4 F 58 L 20 107/70 93 01/22/19 01:31 53 L 102/52 91 01/21/19 23:20 98.1 F 61 20 98/63 94 01/21/19 18:51 98.7 F 62 20 97/57 100 01/21/19 15:00 98.5 F 59 L 16 138/73 93 01/21/19 11:00 98.0 F 57 L 16 135/70 94 Intake and Output 01/21/19 01/22/19 01/22/19 21:59 05:59 13:59 Intake Total 410 200 360 Output Total 800 425 Balance -390 -225 360 Intake: IV 50 Rocephin 2 gm In Dextrose 5% in 50 Water 50 ml @ 100 mls/hr IV DAILY [facility] Rx#:[id number] Oral 360 200 360 Output: Void Amount 800 425 Other: Meal Dinner Breakfast Percent of Meal Consumed 75% 100% Feeding Ability Independent Independent Urine Appearance Clear Urine Color Bright Yellow Bright Yellow Urine Odor Normal Normal # Voids 1 Weight 159 lb Intake & Output: Intake & Output 01/21/19 01/22/19 01/22/19 21:59 05:59 13:59 Intake Total 410 200 360 Output Total 800 425 Balance -390 -225 360 Weight 159 lb Intake: IV 50 Rocephin 2 gm In Dextrose 5% in 50 Water 50 ml @ 100 mls/hr IV DAILY [facility] Rx#:[id number] Oral 360 200 360 Output: Void Amount 800 425 Other: Meal Dinner Breakfast Percent of Meal Consumed 75% 100% Feeding Ability Independent Independent Urine Appearance Clear Urine Color Bright Yellow Bright Yellow Urine Odor Normal Normal # Voids 1 Additional Comments: right elbow dressing removed. No fluctuance about the elbow, has fair amount of woody tissue with pitting edema in the forearm region. Hand has baseline swelling. minimal erthema about the elbow. the drainage is more clear serous fluid this AM. Right ankle: more erythematous posteriorly and some increased pain with ankle plantarflexion/dorsiflexion. the posterior dependent edema is woody. the anterior aspect of the ankle does not appear to have significant erythema. - Labs CBC & BMP: 01/22/19 04:26 01/22/19 04:26 Labs: Orthopedic Labs 01/17/19 06:48 PT 14.4 INR 1.1 01/22/19 01/21/19 01/20/19 04:26 04:25 04:21 Hgb 7.9 L 8.1 L 8.0 L Hct 24.3 L 25.2 L 24.4 L 01/19/19 01/18/19 01/17/19 03:22 03:30 06:48 Hgb 7.8 L 7.9 L 10.0 L Hct 24.1 L 24.9 L 31.2 L Assessment and Plan - Narrative A/P Narrative: POD 5 s/p right elbow I&D and drainage of olecranon bursa -- dressing removed, drainage is less and more serous. No mode purulence and no purulence expressed from the wound. clinically improving. ----- change dressing q24 hours and assess for any change in drainage -- Left ankle: increased pain per patient. Aspirated and fluid is minimal and appears normal synovial fluid. No mode purulence as was in the elbow. will send for cell count with differential, cx, gram stam, crystals but likely not enough for all studies as not quite 1ml. Will do cell count with differential if possible. -- cx: blood and elbow aspirate strep b -- bone bx: negative for osteo. -- WBC slightly elevated today. -- ID following -- will continue to monitor with dressing changes, likely will drain for several more days before drain sites close
--- NOTE | 2019-01-22 09:52 | Internal Med Progress Note ---
Medical - PN: Subj Patient information: Note initiated : 01/22/19 at 9:49 am Service Date, if different from initiated Date: [] Patient: Bebeto Bunn a 83 y/o M admitted on 01/17/19 for Generalized Weakness. Chief Complaint: [] Interval history: Mr. Bunn is a 83 year old M with a history of chronic kidney disease, PMR/ ?RA on chronic prednisone who presents to the ER with onset of progressive weakness along with multiple falls that started 2 weeks ago. Patient since then has noticed increasing right elbow and left ankle pain and swelling along with redness. Patient has had progressive fatigue lethargic and unable to perform activities of daily living. He is accompanied to the ER due to increasing co ncerns within family about his gradual decline. His symptoms are associated with fever around 2 weeks ago at 101.8. He denies associated dysuria diarrhea but endorses to polyarthralgia and rash as involving left ankle and right elbow. He denies headache,, vision changes or unilateral weakness. He does endorse to falls to weakness and getting off balance. Initial work-up in the ER was consistent with elevated white count/inflammatory markers with CRP 43 and ESR 112, elevated white count 17.8, creatinine 3. CT scan right elbow was performed. Patient received a dose of Solu-Medrol At the time of evaluation patient is accompanied with multiple family members. He was able to endorse history as above. Family expressed concerns about his inability to take care of self. 01/18 patient seen examined, labs reviewed no acute complaints overnight bradycardic, on beta teresa and clonidine, pt reports HR always low, no dizziness, cp or palpitations reported hold atenolol and clonidine for now and monitor. Right elbow, had pus on aspiration, taken to or yesterday, pt also has GPC bacteremia, which is isolated as strep, presently on vanco and cefepime, will review with ID and plan for deescalation of abx regime [facility] echo to be done Low hb likely from post 01/19 Patient seen examined no acute issues, HR stable, but pt still in sinus bradycardia labs stable, K 5.2, hb stable Pt has no new complaints or concerns, tolerating po diet well. 01/20 Patient seen and examined, no acute overnight events patient is comfortable in bed. Does admit to having some constipation He denies any other acute issues. Labs stable hemoglobin stable creatinine is 2.5 potassium is 5.0 bicarbonate improved to 01/21 Patient seen examined, no acute issues, tolerating po diet well, sitting comfortably in bed, labs stable BP now trending up, resume hctz, drains still in place, still has some purulent discharge 01/22 Patient seen and examined, no acute complaints or concerns, he still has pain in his left ankle slightly worse today than before. White blood cell count is up. Orthopedics evaluated the ankle, did an aspiration which only aspirated synovial fluid which has been sent for analysis Patient will continue on Rocephin Labs otherwise stable except for slight worsening of leukocytosis Pertinent ROS: Denies headache, dizziness Denies chest pain, palpitations Denies cough or shortness of breath Denies abdominal pain, nausea or vomiting. - Constitutional Vitals: Vital Signs Temp Pulse Resp BP Pulse Ox 98.3 F 57 L 16 112/66 92 01/22/19 06:48 01/22/19 07:57 01/22/19 06:48 01/22/19 06:48 01/22/19 06:48 Period Temp Pulse Resp BP Sys/Dupree Pulse Ox Last 24 Hr 98.0 F-98.7 F 53-62 16-20 97-138/52-73 91-100 Intake and Output 01/21/19 01/22/19 01/22/19 21:59 05:59 13:59 Intake Total 410 200 360 Output Total 800 425 Balance -390 -225 360 Weight 159 lb Intake & Output: Intake & Output 01/21/19 01/22/19 01/22/19 21:59 05:59 13:59 Intake Total 410 200 360 Output Total 800 425 Balance -390 -225 360 Weight 159 lb Intake: IV 50 Rocephin 2 gm In Dextrose 5% in 50 Water 50 ml @ 100 mls/hr IV DAILY [facility] Rx#:[id number] Oral 360 200 360 Output: Void Amount 800 425 Other: Meal Dinner Breakfast Percent of Meal Consumed 75% 100% Feeding Ability Independent Independent Urine Appearance Clear Urine Color Bright Yellow Bright Yellow Urine Odor Normal Normal # Voids 1 Exam: Constitutional; Afebrile, cooperative, alert, not in distress. Respiratory system: Air Entry equal on both sides, No crackles or wheezing, no rhonchi. CVS- Rate rhythm regular, S1,S2 heard, no gallop, no rub. Abdomen- Soft nontender abdomen, no organomegaly, no tenderness, no guarding or rigidity, [employer]- AOOx3, moving all extremities, no gross focal deficit noted. left ankle has erythema, on the post aspect, but no significant effusion clinically Medical - PN: Obj Da - Labs CBC & Chem 7: 01/22/19 04:26 01/22/19 04:26 Labs: Abnormal Lab Results 01/22/19 01/22/19 01/21/19 04:26 04:26 04:25 WBC 11.4 H RBC 2.56 L Hgb 7.9 L Hct 24.3 L RDW 15.5 H Plt Count 561 H Seg Neutrophils % 81 H Lymphocytes % 6 L Monocytes % (Manual) Metamyelocytes % 2 H Myelocytes % 1 H Platelet Estimate Increased A RBC Morphology RBC Fragments Carbon Dioxide BUN 76 H 79 H Creatinine 2.1 H 2.4 H Glucose 171 H Uric Acid 8.9 H 9.9 H Calcium 8.5 L 8.2 L Lactate Dehydrogenase 263 H 315 H Total Protein 5.8 L 5.7 L Albumin 2.2 L 2.3 L Albumin/Globulin Ratio 0.6 L 0.7 L Triglycerides 01/21/19 01/20/19 01/20/19 04:25 04:21 04:21 WBC 11.6 H RBC 2.66 L 2.58 L Hgb 8.1 L 8.0 L Hct 25.2 L 24.4 L RDW 15.8 H 15.9 H Plt Count 544 H 565 H Seg Neutrophils % 80 H Lymphocytes % 7 L 3 L Monocytes % (Manual) 14 H Metamyelocytes % 2 H Myelocytes % Platelet Estimate Increased A RBC Morphology Abnorm A RBC Fragments Few A Carbon Dioxide 19 L BUN 86 H Creatinine 2.5 H Glucose 138 H Uric Acid 10.4 H Calcium 8.3 L Lactate Dehydrogenase 272 H Total Protein 5.8 L Albumin 2.3 L Albumin/Globulin Ratio 0.7 L Triglycerides 188 H Meds: Medications Acetaminophen (Tylenol) 650 mg PO Q4-6HP PRN PRN Reason: PAIN/FEVER > 101 Last Admin: 01/22/19 00:29 Dose: 650 mg Documented by: Amlodipine Besylate (Norvasc) 10 mg PO DAILY [facility] Last Admin: 01/22/19 08:13 Dose: 10 mg Documented by: Aspirin (Aspirin) 81 mg PO DAILY [facility] Last Admin: 01/22/19 08:13 Dose: 81 mg Documented by: Dextrose (Dextrose 50%) 0 ml IV UD PRN PRN Reason: Hypoglycemia Diagnostic Test (Pha) (Accu-Chek) 1 each FS ACHS [facility] Last Admin: 01/22/19 07:31 Dose: 1 each Documented by: Docusate Sodium (Colace) 100 mg PO BID [facility] Last Admin: 01/22/19 08:13 Dose: 100 mg Documented by: Doxazosin Mesylate (Cardura) 1 mg PO DAILY [facility] Last Admin: 01/22/19 08:13 Dose: 1 mg Documented by: Folic Acid (Folic Acid) 1 mg PO DAILY [facility] Last Admin: 01/22/19 08:13 Dose: 1 mg Documented by: Glucose (Insta-Glucose) 15 gm PO PRN PRN PRN Reason: Hypoglycemia Guaifenesin/Codeine Phosphate (Robitussin Ac) 10 ml PO Q4HP PRN PRN Reason: Cough Heparin Sodium (Porcine) (Heparin) 5,000 unit SQ Q12 [facility] Last Admin: 01/22/19 08:14 Dose: 5,000 unit Documented by: Heparin Sodium (Porcine) (Heparin Flush) 2 ml IV Q12 [facility] Last Admin: 01/22/19 09:44 Dose: 2 ml Documented by: Hydralazine HCl (Apresoline) 10 mg IV Q4HP PRN PRN Reason: Hypertension Hydrochlorothiazide (Oretic) 25 mg PO QDAY [facility] Last Admin: 01/22/19 08:12 Dose: 25 mg Documented by: Hydromorphone HCl (Dilaudid) 0.5 mg IV Q2HP PRN PRN Reason: PAIN LEVEL > 6 Last Admin: 01/22/19 07:23 Dose: 0.5 mg Documented by: Ceftriaxone Sodium 2 gm/ (Dextrose) 50 mls @ 100 mls/hr IV DAILY [facility]; Protocol Last Admin: 01/22/19 09:04 Dose: 100 mls/hr Documented by: Magnesium Sulfate (Magnesium Sulfate) 2 gm in 50 mls @ 50 mls/hr IV UD PRN PRN Reason: MG = or < 1.7 Acetaminophen (Ofirmev) 1,000 mg in 100 mls @ 200 mls/hr IV Q6HP PRN PRN Reason: PAIN/FEVER > 101 Last Infusion: 01/19/19 13:42 Dose: Infused Documented by: Insulin Glargine (Lantus) 20 unit SQ [facility] Last Admin: 01/21/19 21:35 Dose: 20 units Documented by: Insulin Human Lispro (Humalog) 0 unit SQ [facility]; Protocol Last Admin: 01/22/19 07:33 Dose: Not Given Documented by: Iron Carb/Multivit/[place]/Folic Acid (Multivitamin W/Minerals) 1 tab PO DAILY [facility] Last Admin: 01/22/19 08:13 Dose: 1 tab Documented by: Levothyroxine Sodium (Synthroid) 50 mcg PO [facility] Last Admin: 01/22/19 07:44 Dose: 50 mcg Documented by: Lorazepam (Ativan) 0.5 mg PO BIDP PRN PRN Reason: Anxiety Magnesium Oxide (Magnesium Oxide) 400 mg PO DAILY [facility] Last Admin: 01/22/19 08:14 Dose: 400 mg Documented by: Melatonin (Melatonin 3mg Tablet) 3 mg PO HSP PRN PRN Reason: Insomnia Last Admin: 01/19/19 20:35 Dose: 3 mg Documented by: Nystatin (Nystatin) 500,000 units SSW QID [facility] Last Admin: 01/22/19 08:14 Dose: 500,000 units Documented by: Ondansetron HCl (Zofran) 4 mg IV Q4-6HP PRN PRN Reason: Nausea And Vomiting Oxycodone HCl (Roxicodone) 5 mg PO Q4HP PRN PRN Reason: PAIN LEVEL 3-6 Last Admin: 01/22/19 00:29 Dose: 5 mg Documented by: Prednisone (Prednisone) 10 mg PO [facility] Last Admin: 01/22/19 07:44 Dose: 10 mg Documented by: Senna/Docusate Sodium (Senna Plus Tablet) 2 tab PO [facility] Last Admin: 01/21/19 21:33 Dose: 2 tab Documented by: Sodium Bicarbonate (Sodium Bicarbonate) 1,300 mg PO BID [facility] Last Admin: 01/22/19 08:12 Dose: 1,300 mg Documented by: Sodium Chloride (Saline Flush) 10 ml IV Q8 [facility] Last Admin: 01/22/19 05:15 Dose: 10 ml Documented by: Sodium Chloride (Saline Flush) 10 ml IV Q12 [facility] Last Admin: 01/22/19 09:05 Dose: 10 ml Documented by: Thiamine HCl (Vitamin B1) 100 mg PO DAILY [facility] Last Admin: 01/22/19 08:13 Dose: 100 mg Documented by: Medical - PN: A/P - Time Spent With Patient Total time spent is greater than 50% in coordination of care (as documented) at patient's floor/unit and/or counseling patient: - Narrative A/P Narrative: A/P Septic Arthritis -Group G streptococcus -on IV rocephin, s/p washout, drains still in place, with purulent discharge -ortho following. Ankle pain -reactive vs infectious -aspirated, await results, unlikely that a new organism would be causing septic arthritis at this time Streptococcus Bactermia, group G streptococcus -likely source elbow -echo does not show endocarditis, -midline placed yesterday, -total 4 weeks rocephin planned Rheumatoid arthritis/ PMR -on chronic immunosuppressants, continue same for now, hemodynamically stable. Acute on Chronic REnal failure -Creat 2.1, stable, Metabolic acidosis -likely from renal failure, bicarb 23 -started oral bicarbonate, will cut down dose from 1300bid to 650bid and monitor. Hyperkalemia -resolved -hctz added for bp control, should also help lower K Bradycardia -sinus, -hold beta teresa and clonidine, monitor, IV hydralazine prn, chr issue it seems, -tsh wnl, constipation -increase dose of senna to 2 qhs, miralax x 1 today may be contributing to high K HTN -bp stable, hold atenonol and clonidine given low HR< monitor, HCTZ resumed DM -SSI insulin for glucose control, (pt got steroids which likely exacerbated hyperglycemia) -glucose control improved, at lantus to 20units qhs -glucose this AM at goal, will monitor for now. Hypothyroidism -on synthroid, Deconditioning -Rehab, OT/PT DVT Hep sq Full code Carb consistent diet. Medical - PN: Qual - Stroke Symptom Onset Unknown: No - VTE Deep Vein Thrombosis/Pulmonary Embolism Present on Admission: No
[2019-01-22 10:16] LABS: Appearance,Synovial Fluid HAZY; Color,Synovial Fluid PINK
[2019-01-22 11:03] LABS: Lymphocytes,Synovial Fluid 25 %; Neutrophils,Synovial Fluid 8 % (0-25); Nucleated Cells,Synovial Fld 21 /cumm; Other Cells,Synovial Fluid 67 %
--- NOTE | 2019-01-22 13:04 | Orthopedic Procedure Note ---
Date of procedure: Note initiated : 01/22/19 at 12:58 pm Service Date, if different from initiated Date: [] Pre-op diagnosis: left ankle pain Post-op diagnosis: same Procedure: left ankle aspirated Findings: 1ml of synovial fluid, no purulence Grafts/Implants: none Anesthesia: none Surgeon: Cristine Leo Pathology: other (synovial fluid) Description of procedure: discussed with the patient my concerned with increased ankle pain this AM want to ensure the joint itself is not involved. Discussed the procedure with him and how it would help me to determine if the infection is in the joint. He did wish to proceed with aspirating the left ankle- verbal consent obtained. The area was prepped with betadine just medial to the tibialis anterior at the level of the joint with the help of US, aspirated 1ml of synovial fluid which appear normal. The ankle was cleaned and a dry dressing applied. Patient tolerated t his well without complications. Fluid was sent to lab. Condition: stable Disposition: no change
[2019-01-22] MEDS: SENNOSIDES/DOCUSATE SODIUM 1 TAB TABLET PO SCH (21:16)
[2019-01-22] MEDS: INSULIN GLARGINE, HUMAN 1 UNIT/0.01 ML SQ SCH (21:30)
[2019-01-23] MEDS: oxyCODONE HCL 5 MG TABLET PO PRN ×5 (01:05→21:56)
[2019-01-23] MEDS: HYDROmorphone 2 MG/ML VIAL IV PRN (01:46)
[2019-01-23 05:30] LABS: Hematocrit 25.4 % (41.0-55.0); Hemoglobin 8.4 g/dL (13.5-16.5); Mean Cell Volume 94.7 fL (80.0-100.0); Mean Platelet Volume 9.7 fL (7.4-10.4); Platelet Count 566 K/mcL (140-440); RBC 2.68 M/mcL (4.50-5.90); Red Cell Distribution Width 15.6 % (11.5-14.5); WBC 12.9 K/mcL (4.5-11.0)
[2019-01-23 05:50] LABS: ALT/SGPT 17 U/l (0-40); AST/SGOT 29 U/l (0-37); Albumin 2.2 gm/dL (3.2-5.2); Albumin/Globulin Ratio 0.6 (1.0-2.3); Alkaline Phosphatase 87 U/L (39-117); Bilirubin,Direct < 0.2 mg/dL (0.0-0.3); Bilirubin,Total 0.2 mg/dL (0.0-1.0); Blood Urea Nitrogen 69 mg/dl (8-23); Calcium 8.6 mg/dl (8.6-10.4); Carbon Dioxide 24 mmol/L (22-30); Chloride 105 mmol/L (96-108); Globulin 3.8 gm/dL (2.2-3.7); Glomerular Filtration Rate 28; Glucose 49 mg/dL (70-105); Lactate Dehydrogenase 269 U/L (94-250); Phosphorous 3.1 mg/dL (2.7-4.5); Triglycerides 90 mg/dl (<150); Uric Acid 8.3 mg/dL (2.5-8.0)
[2019-01-23 06:17] LABS: Lymphocytes % 7 % (15-49); Monocytes % (Manual) 9 % (1-12); Platelet Estimate INCREASED (NORMAL); RBC Morphology NORMAL (NORMAL); Segmented Neutrophils % 84 % (38-78)
[2019-01-23] MEDS: 0.9 % SODIUM CHLORIDE 10 ML SYRINGE IV SCH ×5 (06:37→23:14)
[2019-01-23] MEDS: LEVOTHYROXINE 50 MCG TABLET PO SCH (07:23)
[2019-01-23] MEDS: INSULIN LISPRO 1 UNIT/0.01 ML UNIT SQ SCH ×4 (07:27→22:17)
[2019-01-23] MEDS ORDERED: SODIUM POLYSTYRENE SULFONATE 15 GM/60 ML SUSPENSION PO ONE (08:51)
[2019-01-23] MEDS: predniSONE 10 MG TABLET PO SCH (09:37)
[2019-01-23] MEDS: ASPIRIN 81 MG TAB.CHEW PO SCH (09:37)
[2019-01-23] MEDS: amLODIPine 10 MG TABLET PO SCH (09:37)
[2019-01-23] MEDS: DOXAZOSIN 1 MG TABLET PO SCH (09:37)
[2019-01-23] MEDS: MAGNESIUM OXIDE 400 MG TABLET PO SCH (09:37)
[2019-01-23] MEDS: FOLIC ACID 1 MG TABLET PO SCH (09:38)
[2019-01-23] MEDS: NYSTATIN 500,000 UNITS/5 ML ORAL.SUSP SSW SCH ×4 (09:38→21:55)
[2019-01-23] MEDS: MULTIVIT,THER IRON,CA,FA & MIN 1 TABLET PO SCH (09:38)
[2019-01-23] MEDS: SODIUM BICARBONATE 650 MG TABLET PO SCH (09:38)
[2019-01-23] MEDS: DOCUSATE SODIUM 100 MG CAPSULE PO SCH ×2 (09:38→21:55)
[2019-01-23] MEDS: THIAMINE 100 MG TABLET PO SCH (09:38)
[2019-01-23] MEDS: cefTRIAXone 2 GM in DEXTROSE 5% IN WATER 50 ML IV SCH (09:39)
[2019-01-23] MEDS: HEPARIN 5,000 UNIT/ML VIAL SQ SCH ×2 (09:39→21:55)
--- NOTE | 2019-01-23 09:45 | XRay Report ---
CLINICAL INFORMATION: leucocytosis COMPARISON: 01/17/2019 FINDINGS: Cardiomediastinal silhouette and pulmonary vessels are unremarkable. Minor bibasilar atelectasis noted - no mode infiltrates or effusions. Malunified old left rib fractures seen as before IMPRESSION: Minor bibasilar atelectasis Interpreted and Authenticated by: Ivan Garcia 01/23/19
[2019-01-23] MEDS ORDERED: VANCOMYCIN PER PHARMACY IV SCH (11:40)
--- NOTE | 2019-01-23 11:53 | Internal Med Progress Note ---
Medical - PN: Subj Patient information: Note initiated : 01/23/19 at 11:50 am Service Date, if different from initiated Date: [] Patient: Bebeto Bunn a 83 y/o M admitted on 01/17/19 for Generalized Weakness. Chief Complaint: [] Interval history: Mr. Bunn is a 83 year old M with a history of chronic kidney disease, PMR/ ?RA on chronic prednisone who presents to the ER with onset of progressive weakness along with multiple falls that started 2 weeks ago. Patient since then has noticed increasing right elbow and left ankle pain and swelling along with redness. Patient has had progressive fatigue lethargic and unable to perform activities of daily living. He is accompanied to the ER due to increasing c oncerns within family about his gradual decline. His symptoms are associated with fever around 2 weeks ago at 101.8. He denies associated dysuria diarrhea but endorses to polyarthralgia and rash as involving left ankle and right elbow. He denies headache,, vision changes or unilateral weakness. He does endorse to falls to weakness and getting off balance. Initial work-up in the ER was consistent with elevated white count/inflammatory markers with CRP 43 and ESR 112, elevated white count 17.8, creatinine 3. CT scan right elbow was performed. Patient received a dose of Solu-Medrol At the time of evaluation patient is accompanied with multiple family members. He was able to endorse history as above. Family expressed concerns about his inability to take care of self. 01/18 patient seen examined, labs reviewed no acute complaints overnight bradycardic, on beta teresa and clonidine, pt reports HR always low, no dizziness, cp or palpitations reported hold atenolol and clonidine for now and monitor. Right elbow, had pus on aspiration, taken to or yesterday, pt also has GPC bacte remia, which is isolated as strep, presently on vanco and cefepime, will review with ID and plan for deescalation of abx regime to replaced by [facility] echo to be done Low hb likely from post 01/19 Patient seen examined no acute issues, HR stable, but pt still in sinus bradycardia labs stable, K 5.2, hb stable Pt has no new complaints or concerns, tolerating po diet well. 01/20 Patient seen and examined, no acute overnight events patient is comfortable in bed. Does admit to having some constipation He denies any other acute issues. Labs stable hemoglobin stable creatinine is 2.5 potassium is 5.0 bicarbonate improved to 01/21 Patient seen examined, no acute issues, tolerating po diet well, sitting comfortably in bed, labs stable BP now trending up, resume hctz, drains still in place, still has some purulent discharge 01/22 Patient seen and examined, no acute complaints or concerns, he still has pain in his left ankle slightly worse today than before. White blood cell count is up. Orthopedics evaluated the ankle, did an aspiration which only aspirated synovial fluid which has been sent for analysis Patient will continue on Rocephin Labs otherwise stable except for slight worsening of leukocytosis 01/23 Patient seen and examined, no acute overnight events tolerating p.o. diet well. He still has pain in his left lower extremity around the posterior aspect of his ankle, so worsening over the last 2 to 3 days. His white blood cell count is also trending upward Aspiration was done of the left ankle which is negative for an acute infection Erythema is increasing, there is now a blister formation at the left lower extremity I will add vancomycin to the patient's regimen Patient does not have any cough or any abdominal pain he is still constipated, chest x-ray shows atelectasis Pertinent ROS: Denies headache, dizziness Denies chest pain, palpitations Denies cough or shortness of breath Denies abdominal pain, nausea or vomiting. - Constitutional Vitals: Vital Signs Temp Pulse Resp BP Pulse Ox 98.6 F 66 20 120/64 94 01/23/19 08:07 01/23/19 04:41 01/23/19 08:07 01/23/19 08:07 01/23/19 08:07 Period Temp Pulse Resp BP Sys/Dupree Pulse Ox Last 24 Hr 98.6 F-99.5 F 66-71 18-20 98-148/64-79 91-97 Intake and Output 01/22/19 01/23/19 01/23/19 21:59 05:59 13:59 Intake Total 600 290 330 Output Total 1000 450 225 Balance -400 -160 105 Weight 153 lb Intake & Output: Intake & Output 01/22/19 01/23/19 01/23/19 21:59 05:59 13:59 Intake Total 600 290 330 Output Total 1000 450 225 Balance -400 -160 105 Weight 153 lb Intake: Nourishment/Supplement quantity 120 (ml) IV 50 Rocephin 2 gm In Dextrose 5% in 50 Water 50 ml @ 100 mls/hr IV DAILY [facility] Rx#:[id number] Oral 480 290 280 Output: Void Amount 1000 450 225 Other: Meal Breakfast Percent of Meal Consumed 50% 75% Feeding Ability Assist with Tray Set Up Nourishment/Supplement name Leon with carb steady Urine Appearance Clear Urine Color Dark Yellow Urine Odor Normal Exam: Constitutional; Afebrile, cooperative, alert, not in distress. Respiratory system: Air Entry equal on both sides, No crackles or wheezing, no rhonchi. CVS- Rate rhythm regular, S1,S2 heard, no gallop, no rub. Abdomen- Soft nontender abdomen, no organomegaly, no tenderness, no guarding or rigidity, [employer]- AOOx3, moving all extremities, no gross focal deficit noted. Left lower extremity- pain, redness, now blister formation of 2x2 cms, Medical - PN: Obj Da - Labs CBC & Chem 7: 01/23/19 04:41 01/23/19 04:38 Labs: Abnormal Lab Results 01/23/19 01/23/19 01/22/19 04:41 04:38 04:26 WBC 12.9 H RBC 2.68 L Hgb 8.4 L Hct 25.4 L RDW 15.6 H Plt Count 566 H Seg Neutrophils % 84 H Lymphocytes % 7 L Monocytes % (Manual) Metamyelocytes % Myelocytes % Platelet Estimate Increased A RBC Morphology RBC Fragments Potassium 5.4 H BUN 69 H 76 H Creatinine 2.1 H 2.1 H Glucose 49 L Uric Acid 8.3 H 8.9 H Calcium 8.5 L Lactate Dehydrogenase 269 H 263 H Total Protein 5.8 L Albumin 2.2 L 2.2 L Globulin 3.8 H Albumin/Globulin Ratio 0.6 L 0.6 L 01/22/19 01/21/19 01/21/19 04:26 04:25 04:25 WBC 11.4 H RBC 2.56 L 2.66 L Hgb 7.9 L 8.1 L Hct 24.3 L 25.2 L RDW 15.5 H 15.8 H Plt Count 561 H 544 H Seg Neutrophils % 81 H Lymphocytes % 6 L 7 L Monocytes % (Manual) 14 H Metamyelocytes % 2 H 2 H Myelocytes % 1 H Platelet Estimate Increased A Increased A RBC Morphology Abnorm A RBC Fragments Few A Potassium BUN 79 H Creatinine 2.4 H Glucose 171 H Uric Acid 9.9 H Calcium 8.2 L Lactate Dehydrogenase 315 H Total Protein 5.7 L Albumin 2.3 L Globulin Albumin/Globulin Ratio 0.7 L Meds: Medications Acetaminophen (Tylenol) 650 mg PO Q4-6HP PRN PRN Reason: PAIN/FEVER > 101 Last Admin: 01/22/19 00:29 Dose: 650 mg Documented by: Amlodipine Besylate (Norvasc) 10 mg PO DAILY [facility] Last Admin: 01/23/19 09:37 Dose: 10 mg Documented by: Aspirin (Aspirin) 81 mg PO DAILY [facility] Last Admin: 01/23/19 09:37 Dose: 81 mg Documented by: Dextrose (Dextrose 50%) 0 ml IV UD PRN PRN Reason: Hypoglycemia Diagnostic Test (Pha) (Accu-Chek) 1 each FS ACHS [facility] Last Admin: 01/23/19 11:14 Dose: 1 each Documented by: Docusate Sodium (Colace) 100 mg PO BID [facility] Last Admin: 01/23/19 09:38 Dose: 100 mg Documented by: Doxazosin Mesylate (Cardura) 1 mg PO DAILY [facility] Last Admin: 01/23/19 09:37 Dose: 1 mg Documented by: Folic Acid (Folic Acid) 1 mg PO DAILY [facility] Last Admin: 01/23/19 09:38 Dose: 1 mg Documented by: Glucose (Insta-Glucose) 15 gm PO PRN PRN PRN Reason: Hypoglycemia Guaifenesin/Codeine Phosphate (Robitussin Ac) 10 ml PO Q4HP PRN PRN Reason: Cough Heparin Sodium (Porcine) (Heparin) 5,000 unit SQ Q12 [facility] Last Admin: 01/23/19 09:39 Dose: 5,000 unit Documented by: Heparin Sodium (Porcine) (Heparin Flush) 2 ml IV Q12 [facility] Last Admin: 01/23/19 09:38 Dose: 2 ml Documented by: Hydralazine HCl (Apresoline) 10 mg IV Q4HP PRN PRN Reason: Hypertension Hydromorphone HCl (Dilaudid) 0.5 mg IV Q2HP PRN PRN Reason: PAIN LEVEL > 6 Last Admin: 01/23/19 01:46 Dose: 0.5 mg Documented by: Ceftriaxone Sodium 2 gm/ (Dextrose) 50 mls @ 100 mls/hr IV DAILY [facility]; Protocol Last Admin: 01/23/19 09:39 Dose: 100 mls/hr Documented by: Magnesium Sulfate (Magnesium Sulfate) 2 gm in 50 mls @ 50 mls/hr IV UD PRN PRN Reason: MG = or < 1.7 Acetaminophen (Ofirmev) 1,000 mg in 100 mls @ 200 mls/hr IV Q6HP PRN PRN Reason: PAIN/FEVER > 101 Last Infusion: 01/19/19 13:42 Dose: Infused Documented by: Insulin Glargine (Lantus) 12 unit SQ [facility] Insulin Human Lispro (Humalog) 0 unit SQ [facility]; Protocol Last Admin: 01/23/19 07:27 Dose: Not Given Documented by: Iron Carb/Multivit/[place]/Folic Acid (Multivitamin W/Minerals) 1 tab PO DAILY [facility] Last Admin: 01/23/19 09:38 Dose: 1 tab Documented by: Levothyroxine [facility] ([facility]throid) [facility] Last Admin: 01/23/19 07:23 Dose: 50 mcg Documented by: Lorazepam (Ativan) 0.5 mg PO BIDP PRN PRN Reason: Anxiety Magnesium Oxide (Magnesium Oxide) 400 mg PO DAILY [facility] Last Admin: 01/23/19 09:37 Dose: 400 mg Documented by: Melatonin (Melatonin 3mg Tablet) 3 mg PO HSP PRN PRN Reason: Insomnia Last Admin: 01/19/19 20:35 Dose: 3 mg Documented by: Nystatin (Nystatin) 500,000 units SSW QID [facility] Last Admin: 01/23/19 09:38 Dose: 500,000 units Documented by: Ondansetron HCl (Zofran) 4 mg IV Q4-6HP PRN PRN Reason: Nausea And Vomiting Oxycodone HCl (Roxicodone) 5 mg PO Q4HP PRN PRN Reason: PAIN LEVEL 3-6 Last Admin: 01/23/19 11:10 Dose: 5 mg Documented by: Prednisone (Prednisone) 10 mg PO QAC [facility] Last Admin: 01/23/19 09:37 Dose: 10 mg Documented by: Senna/Docusate Sodium (Senna Plus Tablet) 2 tab PO [facility] Last Admin: 01/22/19 21:16 Dose: 2 tab Documented by: Sodium Bicarbonate (Sodium Bicarbonate) 650 mg PO BID [facility] Last Admin: 01/23/19 09:38 Dose: 650 mg Documented by: Sodium Chloride (Saline Flush) 10 ml IV Q8 [facility] Last Admin: 01/23/19 06:37 Dose: 10 ml Documented by: Sodium Chloride (Saline Flush) 10 ml IV Q12 [facility] Last Admin: 01/23/19 09:38 Dose: 10 ml Documented by: Thiamine HCl (Vitamin B1) 100 mg PO DAILY [facility] Last Admin: 01/23/19 09:38 Dose: 100 mg Documented by: Vancomycin HCl (Vancomycin Per Pharmacy) 1 order IV ONCE ONE; Protocol Stop: 01/23/19 11:41 Medical - PN: A/P - Time Spent With Patient Total time spent is greater than 50% in coordination of care (as documented) at patient's floor/unit and/or counseling patient: - Narrative A/P Narrative: A/P Septic Arthritis -Group G streptococcus -on IV rocephin, s/p washout, drains still in place, with purulent discharge -ortho following. Left lower extremity Cellulitis -Ankle aspiration negative -skin changes clearly suggestive of cellulitis -given pt is already on rocephin and still have this infection, inflammation which is causing significant distress, I will add vancomycin and see how this responds. Streptococcus Bactermia, group G streptococcus -likely source elbow -echo does not show endocarditis, -midline placed. -total 4 weeks rocephin planned Rheumatoid arthritis/ PMR -on chronic immunosuppressants, continue same for now, hemodynamically stable. Acute on Chronic REnal failure -Creat 2.1, stable, Metabolic acidosis -likely from renal failure, bicarb 26 -will stop bicarb and see how pt responds. Hyperkalemia -resolved -hctz added for bp control, should also help lower K Bradycardia -sinus, -hold beta teresa and clonidine, monitor, IV hydralazine prn, chr issue it seems, -tsh wnl, constipation -increase dose of senna to 2 qhs, miralax x 1 today may be contributing to high K -give kayexalate, -enema today Hyperkalemia -likely from constipatino -kayexalate given, enema today, monitor HTN -bp stable, hold atenonol and clonidine given low HR< monitor, HCTZ resumed -bradycardia has resolved after cessation of beta teresa, clonidine therapy, and blood pressure is well controlled. DM -SSI insulin for glucose control, (pt got steroids which likely exacerbated hyperglycemia) -glucose this AM on basic was low, cut back lantus to 12 units qhs Hypothyroidism -on synthroid, Deconditioning -Rehab, OT/PT DVT Hep sq Full code Carb consistent diet. Medical - PN: Qual - Stroke Symptom Onset Unknown: No - VTE Deep Vein Thrombosis/Pulmonary Embolism Present on Admission: No
[2019-01-23] MEDS: VANCOMYCIN 1,000 MG in 0.9 % SODIUM CHLORIDE 250 ML IV SCH (13:50)
--- NOTE | 2019-01-23 18:46 | Orthopedic Progress Note ---
Subjective Patient information: Note initiated : 01/23/19 at 6:42 pm Service Date, if different from initiated Date: [] Patient: Bebeto Bunn 83 y/o M admitted on 01/17/19 for Generalized Weakness. Chief Complaint: [] Principal diagnosis: bacteremia, septic right elbow, septic olecranon bursitis Interval history: No acute events overnight, wbc elevated today, ankle aspirate negative for infection. continues to complain of left ankle pain and right elbow. Objective Vital signs: Vital Signs Temp Pulse Resp BP BP BP Pulse Ox 01/23/19 16:36 98.2 F 81 20 144/78 92 01/23/19 12:40 98.7 F 70 24 H 148/79 94 01/23/19 08:07 98.6 F 20 120/64 94 01/23/19 04:41 99.4 F H 66 20 124/64 91 01/23/19 01:00 99.5 F H 69 18 148/79 93 01/22/19 19:42 98.6 F 71 18 119/65 93 Intake and Output 01/23/19 01/23/19 01/23/19 05:59 13:59 21:59 Intake Total 290 330 50 Output Total 450 525 Balance -160 -195 50 Intake: IV 50 50 Rocephin 2 gm In Dextrose 5% in 50 50 Water 50 ml @ 100 mls/hr IV DAILY [facility] Rx#:[id number] Oral 290 280 Output: Void Amount 450 525 Other: Meal Lunch Lunch Percent of Meal Consumed 50% 75% Feeding Ability Independent Assist with Tray Set Up Stool Size Moderate Stool Color Brown Stool Consistency Soft Loose # of times incontinent of 1 Bowels Intake & Output: Intake & Output 01/23/19 01/23/19 01/23/19 05:59 13:59 21:59 Intake Total 290 330 50 Output Total 450 525 Balance -160 -195 50 Intake: IV 50 50 Rocephin 2 gm In Dextrose 5% in 50 50 Water 50 ml @ 100 mls/hr IV DAILY [facility] Rx#:[id number] Oral 290 280 Output: Void Amount 450 525 Other: Meal Lunch Lunch Percent of Meal Consumed 50% 75% Feeding Ability Independent Assist with Tray Set Up Stool Size Moderate Stool Color Brown Stool Consistency Soft Loose # of times incontinent of 1 Bowels Incision: Yes healing Incision clean and dry: Yes Dressing: Yes clean, Yes dry Weight bearing status: as tolerated Additional Comments: right elbow dressing removed, significant improvement in erythema and swelling less than 1/4 of what is was initially Dressing with minimal serous drainage on it. the woody consistency of the tissue is resolving. However distal to the dressing of the forearm does have swelling extending into the hand. left ankle- increasing erythema posteriorly and has heel pressure ulcer along with small serous blister proximal proximal to this about 2 cm. skin very tender to the touch. - Labs CBC & BMP: 01/23/19 04:41 01/23/19 04:38 Labs: Orthopedic Labs 01/17/19 06:48 PT 14.4 INR 1.1 01/23/19 01/22/19 01/21/19 04:41 04:26 04:25 Hgb 8.4 L 7.9 L 8.1 L Hct 25.4 L 24.3 L 25.2 L 01/20/19 01/19/19 01/18/19 04:21 03:22 03:30 Hgb 8.0 L 7.8 L 7.9 L Hct 24.4 L 24.1 L 24.9 L 01/17/19 06:48 Hgb 10.0 L Hct 31.2 L Assessment and Plan - Narrative A/P Narrative: POD 6 s/p right elbow I&D and drainage of olecranon bursa -- dressing removed- elbow continues to improve and do not think this is the source of his rising white count. No plans as of now for repeat I&D. changed dressing and wound benefit from compression glove and sleeve for the arm. Will see if one available on Friday as currently not able to locate. -- Left ankle: increased pain per patient. - ankle aspirate negative for infection. Hospitalist added vancomycin for cellulitis ------ monitor for response.
[2019-01-23] MEDS ORDERED: INSULIN GLARGINE, HUMAN 1 UNIT/0.01 ML SQ SCH (21:00)
[2019-01-23] MEDS: SENNOSIDES/DOCUSATE SODIUM 1 TAB TABLET PO SCH (21:55)
[2019-01-24] MEDS: oxyCODONE HCL 5 MG TABLET PO PRN ×4 (02:19→20:37)
[2019-01-24 05:23] LABS: Hematocrit 23.3 % (41.0-55.0); Hemoglobin 7.6 g/dL (13.5-16.5); Mean Cell Volume 95.1 fL (80.0-100.0); Mean Corpuscular HGB Conc 32.6 g/dL (31.0-36.0); Platelet Count 492 K/mcL (140-440); RBC 2.45 M/mcL (4.50-5.90); Red Cell Distribution Width 15.4 % (11.5-14.5); WBC 9.5 K/mcL (4.5-11.0)
[2019-01-24 05:48] LABS: ALT/SGPT 20 U/l (0-40); AST/SGOT 32 U/l (0-37); Albumin 2.1 gm/dL (3.2-5.2); Albumin/Globulin Ratio 0.6 (1.0-2.3); Alkaline Phosphatase 82 U/L (39-117); Bilirubin,Direct < 0.2 mg/dL (0.0-0.3); Bilirubin,Total 0.2 mg/dL (0.0-1.0); Blood Urea Nitrogen 68 mg/dl (8-23); Calcium 8.5 mg/dl (8.6-10.4); Carbon Dioxide 25 mmol/L (22-30); Chloride 108 mmol/L (96-108); Globulin 3.8 gm/dL (2.2-3.7); Glomerular Filtration Rate 30; Glucose 46 mg/dL (70-105); Lactate Dehydrogenase 257 U/L (94-250); Phosphorous 3.7 mg/dL (2.7-4.5); Triglycerides 67 mg/dl (<150); Uric Acid 7.9 mg/dL (2.5-8.0)
[2019-01-24] MEDS: 0.9 % SODIUM CHLORIDE 10 ML SYRINGE IV SCH ×5 (06:12→20:38)
[2019-01-24 06:17] LABS: Anisocytosis 1+ (NONE SEEN); Band Neutrophils % 4 % (0-10); Eosinophils % (Manual) 1 % (0-7); Lymphocytes % 5 % (15-49); Metamyelocytes % 2 % (0-0); Monocytes % (Manual) 16 % (1-12); Platelet Estimate INCREASED (NORMAL); RBC Morphology ABNORM (NORMAL); Rouleaux PRESENT (NONE SEEN); Segmented Neutrophils % 72 % (38-78)
[2019-01-24] MEDS: INSULIN LISPRO 1 UNIT/0.01 ML UNIT SQ SCH ×4 (07:53→21:03)
[2019-01-24] MEDS: predniSONE 10 MG TABLET PO SCH (07:57)
[2019-01-24] MEDS: LEVOTHYROXINE 50 MCG TABLET PO SCH (07:57)
[2019-01-24] MEDS ORDERED: SODIUM POLYSTYRENE SULFONATE 15 GM/60 ML SUSPENSION PO ONE ×2 (08:39→14:49)
[2019-01-24] MEDS ORDERED: 0.9 % SODIUM CHLORIDE 1,000 ML IV SCH (09:00)
[2019-01-24] MEDS: cefTRIAXone 2 GM in DEXTROSE 5% IN WATER 50 ML IV SCH (09:04)
[2019-01-24] MEDS: DOXAZOSIN 1 MG TABLET PO SCH (09:05)
[2019-01-24] MEDS: HYDROCHLOROTHIAZIDE 25 MG TABLET PO SCH (09:05)
[2019-01-24] MEDS: FOLIC ACID 1 MG TABLET PO SCH (09:05)
[2019-01-24] MEDS: DOCUSATE SODIUM 100 MG CAPSULE PO SCH ×2 (09:06→20:36)
[2019-01-24] MEDS: NYSTATIN 500,000 UNITS/5 ML ORAL.SUSP SSW SCH ×4 (09:06→20:36)
[2019-01-24] MEDS: THIAMINE 100 MG TABLET PO SCH (09:06)
[2019-01-24] MEDS: amLODIPine 10 MG TABLET PO SCH (09:06)
[2019-01-24] MEDS: MULTIVIT,THER IRON,CA,FA & MIN 1 TABLET PO SCH (09:06)
[2019-01-24] MEDS: ASPIRIN 81 MG TAB.CHEW PO SCH (09:06)
[2019-01-24] MEDS: HEPARIN 5,000 UNIT/ML VIAL SQ SCH ×2 (09:06→20:37)
[2019-01-24] MEDS: MAGNESIUM OXIDE 400 MG TABLET PO SCH (09:06)
--- NOTE | 2019-01-24 10:52 | Internal Med Progress Note ---
Medical - PN: Subj Patient information: Note initiated : 01/24/19 at 10:42 am Service Date, if different from initiated Date: [] Patient: Bebeto Bunn a 83 y/o M admitted on 01/17/19 for Generalized Weakness. Chief Complaint: [] Interval history: Mr. Bunn is a 83 year old M with a history of chronic kidney disease, PMR/ ?RA on chronic prednisone who presents to the ER with onset of progressive weakness along with multiple falls that started 2 weeks ago. Patient since then has noticed increasing right elbow and left ankle pain and swelling along with redness. Patient has had progressive fatigue lethargic and unable to perform activities of daily living. He is accompanied to the ER due to increasing c oncerns within family about his gradual decline. His symptoms are associated with fever around 2 weeks ago at 101.8. He denies associated dysuria diarrhea but endorses to polyarthralgia and rash as involving left ankle and right elbow. He denies headache,, vision changes or unilateral weakness. He does endorse to falls to weakness and getting off balance. Initial work-up in the ER was consistent with elevated white count/inflammatory markers with CRP 43 and ESR 112, elevated white count 17.8, creatinine 3. CT scan right elbow was performed. Patient received a dose of Solu-Medrol At the time of evaluation patient is accompanied with multiple family members. He was able to endorse history as above. Family expressed concerns about his inability to take care of self. 01/18 patient seen examined, labs reviewed no acute complaints overnight bradycardic, on beta teresa and clonidine, pt reports HR always low, no dizziness, cp or palpitations reported hold atenolol and clonidine for now and monitor. Right elbow, had pus on aspiration, taken to or yesterday, pt also has GPC bacte remia, which is isolated as strep, presently on vanco and cefepime, will review with ID and plan for deescalation of abx regime to [facility] echo to be done Low hb likely from post 01/19 Patient seen examined no acute issues, HR stable, but pt still in sinus bradycardia labs stable, K 5.2, hb stable Pt has no new complaints or concerns, tolerating po diet well. 01/20 Patient seen and examined, no acute overnight events patient is comfortable in bed. Does admit to having some constipation He denies any other acute issues. Labs stable hemoglobin stable creatinine is 2.5 potassium is 5.0 bicarbonate improved to 01/21 Patient seen examined, no acute issues, tolerating po diet well, sitting comfortably in bed, labs stable BP now trending up, resume hctz, drains still in place, still has some purulent discharge 01/22 Patient seen and examined, no acute complaints or concerns, he still has pain in his left ankle slightly worse today than before. White blood cell count is up. Orthopedics evaluated the ankle, did an aspiration which only aspirated synovial fluid which has been sent for analysis Patient will continue on Rocephin Labs otherwise stable except for slight worsening of leukocytosis 01/23 Patient seen and examined, no acute overnight events tolerating p.o. diet well. He still has pain in his left lower extremity around the posterior aspect of his ankle, so worsening over the last 2 to 3 days. His white blood cell count is also trending upward Aspiration was done of the left ankle which is negative for an acute infection Erythema is increasing, there is now a blister formation at the left lower extremity I will add vancomycin to the patient's regimen Patient does not have any cough or any abdominal pain he is still constipated, chest x-ray shows atelectasis 01/24 Patient seen and examined, no acute overnight events. His left leg is still sore but slight improvement since yesterday. WBC count is not trending down. Hemoglobin slightly low but no indication for transfusion yet. Patient otherwise feels good. 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 The patient has had elevated and borderline high potassium for a long time Pertinent ROS: Denies headache, dizziness Denies chest pain, palpitations Denies cough or shortness of breath Denies abdominal pain, nausea or vomiting. - Constitutional Vitals: Vital Signs Temp Pulse Resp BP Pulse Ox 98.6 F 57 L 16 129/66 92 01/24/19 07:01 01/24/19 07:01 01/24/19 07:01 01/24/19 07:01 01/24/19 07:01 Period Temp Pulse Resp BP Sys/Dupree Pulse Ox Last 24 Hr 98.2 F-99.5 F 55-81 16-24 127-148/66-79 90-94 Intake and Output 01/23/19 01/24/19 01/24/19 21:59 05:59 13:59 Intake Total 50 200 120 Output Total 450 750 Balance -400 -550 120 Weight 155 lb Intake & Output: Intake & Output 01/23/19 01/24/19 01/24/19 21:59 05:59 13:59 Intake Total 50 200 120 Output Total 450 750 Balance -400 -550 120 Weight 155 lb Intake: IV 50 Rocephin 2 gm In Dextrose 5% in 50 Water 50 ml @ 100 mls/hr IV DAILY [facility] Rx#:[id number] Oral 200 120 Output: Void Amount 450 750 Other: Meal Lunch Percent of Meal Consumed 75% Feeding Ability Assist with Tray Set Up Urine Color Dark Yellow Stool Size Moderate Stool Color Brown Stool Consistency Soft Loose # of times incontinent of 1 Bowels Exam: Constitutional; Afebrile, cooperative, alert, not in distress. Eyes- No icterus, , No periorbital swelling Ears- Ext ear normal, hearing normal to conversation. Neck- Midline trachea, supple Respiratory system: Air Entry equal on both sides, No crackles or wheezing, no rhonchi. CVS- Rate rhythm regular, S1,S2 heard, no gallop, no rub. Abdomen- Soft nontender abdomen, no organomegaly, no tenderness, no guarding or rigidity, [employer]- AOOx3, moving all extremities, no gross focal deficit noted. left ankle, redness improved, swelling improved, chain tender to touch Medical - PN: Obj Da - Labs CBC & Chem 7: 01/24/19 04:07 01/24/19 04:07 Labs: Abnormal Lab Results 01/24/19 01/24/19 01/23/19 04:07 04:07 04:41 WBC 12.9 H RBC 2.45 L 2.68 L Hgb 7.6 L 8.4 L Hct 23.3 L 25.4 L RDW 15.4 H 15.6 H Plt Count 492 H 566 H Seg Neutrophils % 84 H Lymphocytes % 5 L 7 L Monocytes % (Manual) 16 H Metamyelocytes % 2 H Myelocytes % Platelet Estimate Increased A Increased A RBC Morphology Abnorm A Anisocytosis 1+ A Rouleaux Present A Potassium 5.6 H BUN 68 H Creatinine 2.0 H Glucose 46 L Uric Acid Calcium 8.5 L Lactate Dehydrogenase 257 H Total Protein Albumin 2.1 L Globulin 3.8 H Albumin/Globulin Ratio 0.6 L 01/23/19 01/22/19 01/22/19 04:38 04:26 04:26 WBC 11.4 H RBC 2.56 L Hgb 7.9 L Hct 24.3 L RDW 15.5 H Plt Count 561 H Seg Neutrophils % 81 H Lymphocytes % 6 L Monocytes % (Manual) Metamyelocytes % 2 H Myelocytes % 1 H Platelet Estimate Increased A RBC Morphology Anisocytosis Rouleaux Potassium 5.4 H BUN 69 H 76 H Creatinine 2.1 H 2.1 H Glucose 49 L Uric Acid 8.3 H 8.9 H Calcium 8.5 L Lactate Dehydrogenase 269 H 263 H Total Protein 5.8 L Albumin 2.2 L 2.2 L Globulin 3.8 H Albumin/Globulin Ratio 0.6 L 0.6 L Meds: Medications Acetaminophen (Tylenol) 650 mg PO Q4-6HP PRN PRN Reason: PAIN/FEVER > 101 Last Admin: 01/22/19 00:29 Dose: 650 mg Documented by: Amlodipine Besylate (Norvasc) 10 mg PO DAILY [facility] Last Admin: 01/24/19 09:06 Dose: 10 mg Documented by: Aspirin (Aspirin) 81 mg PO DAILY [facility] Last Admin: 01/24/19 09:06 Dose: 81 mg Documented by: Dextrose (Dextrose 50%) 0 ml IV UD PRN PRN Reason: Hypoglycemia Diagnostic Test (Pha) (Accu-Chek) 1 each FS ACHS [facility] Last Admin: 01/24/19 07:52 Dose: 1 each Documented by: Docusate Sodium (Colace) 100 mg PO BID [facility] Last Admin: 01/24/19 09:06 Dose: 100 mg Documented by: Doxazosin Mesylate (Cardura) 1 mg PO DAILY [facility] Last Admin: 01/24/19 09:05 Dose: 1 mg Documented by: Folic Acid (Folic Acid) 1 mg PO DAILY [facility] Last Admin: 01/24/19 09:05 Dose: 1 mg Documented by: Glucose (Insta-Glucose) 15 gm PO PRN PRN PRN Reason: Hypoglycemia Guaifenesin/Codeine Phosphate (Robitussin Ac) 10 ml PO Q4HP PRN PRN Reason: Cough Heparin Sodium (Porcine) (Heparin) 5,000 unit SQ Q12 [facility] Last Admin: 01/24/19 09:06 Dose: 5,000 unit Documented by: Heparin Sodium (Porcine) (Heparin Flush) 2 ml IV Q12 [facility] Last Admin: 01/24/19 09:05 Dose: 2 ml Documented by: Hydrochlorothiazide (Oretic) 25 mg PO DAILY [facility] Last Admin: 01/24/19 09:05 Dose: 25 mg Documented by: Hydromorphone HCl (Dilaudid) 0.5 mg IV Q2HP PRN PRN Reason: PAIN LEVEL > 6 Last Admin: 01/23/19 01:46 Dose: 0.5 mg Documented by: Ceftriaxone Sodium 2 gm/ (Dextrose) 50 mls @ 100 mls/hr IV DAILY [facility]; Protocol Last Admin: 01/24/19 09:04 Dose: 100 mls/hr Documented by: Vancomycin HCl 1,000 mg/ (Sodium Chloride) 250 mls @ 250 mls/hr IV Q24H [facility] Last Admin: 01/23/19 13:50 Dose: 250 mls/hr Documented by: Sodium Chloride (Sodium Chloride 0.9%) 1,000 mls @ 125 mls/hr IV .Q8H [facility] Stop: 01/24/19 16:59 Last Admin: 01/24/19 09:13 Dose: 125 mls/hr Documented by: Insulin Glargine (Lantus) 8 unit SQ HS [facility] Insulin Human Lispro (Humalog) 0 unit SQ ACHS [facility]; Protocol Iron Carb/Multivit/Biomedical Specialist/Folic Acid (Multivitamin W/Minerals) 1 tab PO DAILY [facility] Last Admin: 01/24/19 09:06 Dose: 1 tab Documented by: Levothyroxine Sodium (Synthroid) 50 mcg PO QAMAC [facility] Last Admin: 01/24/19 07:57 Dose: 50 mcg Documented by: Lorazepam (Ativan) 0.5 mg PO BIDP PRN PRN Reason: Anxiety Magnesium Oxide (Magnesium Oxide) 400 mg PO DAILY [facility] Last Admin: 01/24/19 09:06 Dose: 400 mg Documented by: Melatonin (Melatonin 3mg Tablet) 3 mg PO HSP PRN PRN Reason: Insomnia Last Admin: 01/19/19 20:35 Dose: 3 mg Documented by: Nystatin (Nystatin) 500,000 units SSW QID [facility] Last Admin: 01/24/19 09:06 Dose: 500,000 units Documented by: Ondansetron HCl (Zofran) 4 mg IV Q4-6HP PRN PRN Reason: Nausea And Vomiting Oxycodone HCl (Roxicodone) 5 mg PO Q4HP PRN PRN Reason: PAIN LEVEL 3-6 Last Admin: 01/24/19 06:11 Dose: 5 mg Documented by: Prednisone (Prednisone) 10 mg PO QAC [facility] Last Admin: 01/24/19 07:57 Dose: 10 mg Documented by: Senna/Docusate Sodium (Senna Plus Tablet) 2 tab PO HS [facility] Last Admin: 01/23/19 21:55 Dose: 2 tab Documented by: Sodium Chloride (Saline Flush) 10 ml IV Q8 [facility] Last Admin: 01/24/19 06:12 Dose: 10 ml Documented by: Sodium Chloride (Saline Flush) 10 ml IV Q12 [facility] Last Admin: 01/24/19 09:07 Dose: 10 ml Documented by: Thiamine HCl (Vitamin B1) 100 mg PO DAILY [facility] Last Admin: 01/24/19 09:06 Dose: 100 mg Documented by: Vancomycin HCl (Vancomycin Per Pharmacy) 1 order IV UD [facility]; Protocol Medical - PN: A/P - Time Spent With Patient Total time spent is greater than 50% in coordination of care (as documented) at patient's floor/unit and/or counseling patient: - Narrative A/P Narrative: A/P Septic Arthritis -Group G streptococcus -on IV rocephin, s/p washout, drains still in place, with purulent discharge -ortho following. Left lower extremity Cellulitis -Ankle aspiration negative -skin changes clearly suggestive of cellulitis -given pt is already on rocephin and still have this infection, inflammation which is causing significant distress, I will add vancomycin and see how this responds. -clinically some improvement after addition of vancomycin Streptococcus Bactermia, group G streptococcus -likely source elbow -echo does not show endocarditis, -midline placed. -total 4 weeks rocephin planned Rheumatoid arthritis/ PMR -on chronic immunosuppressants, continue same for now, hemodynamically stable. Acute on Chronic REnal failure -Creat 2.1, stable, Metabolic acidosis -likely from renal failure, bicarb 26 -will stop bicarb and see how pt responds. 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 constipation -responded to enema -kayexalate again today should help HTN -bp stable, hold atenonol and clonidine given low HR< monitor, HCTZ resumed -bradycardia has resolved after cessation of beta teresa, clonidine therapy, and blood pressure is well controlled. DM -SSI insulin for glucose control, (pt got steroids which likely exacerbated hyperglycemia) -glucose this AM on basic was low, latus to c ut back further to 8, low scale ssi now, (was high) Hypothyroidism -on synthroid, Deconditioning -Rehab, OT/PT DVT Hep sq Full code Carb consistent diet. Medical - PN: Qual - Stroke Symptom Onset Unknown: No - VTE Deep Vein Thrombosis/Pulmonary Embolism Present on Admission: No
[2019-01-24] MEDS: VANCOMYCIN 1,000 MG in 0.9 % SODIUM CHLORIDE 250 ML IV SCH (11:30)
[2019-01-24 14:26] LABS: POC Blood Urea Nitrogen 63 mg/dl (8-23); POC CO2 27 mmol/L (22-30); POC Calcium, Ionized 1.12 mmol/L (1.16-1.32); POC Chloride 103 mmol/L (96-108); POC Creatinine 2.2 mg/dl (0.7-1.2); POC Glucose, Random 215 mg/dL (70-105); POC Potassium 5.7 mmol/L (3.3-5.1); POC Sodium 139 mmol/L (133-145)
[2019-01-24] MEDS ORDERED: FUROSEMIDE 40 MG/4 ML VIAL IV ONE (14:44)
[2019-01-24] MEDS ORDERED: DEXTROSE 50% 50 ML VIAL IV ONE (14:44)
[2019-01-24] MEDS ORDERED: INSULIN REGULAR, HUMAN 1 UNIT/0.01 ML UNIT IV ONE (14:44)
[2019-01-24] MEDS ORDERED: 0.9 % SODIUM CHLORIDE 1,000 ML IV ONE (14:44)
[2019-01-24] MEDS ORDERED: DEXTROSE 50% 50 ML SYRINGE IV ONE (16:00)
[2019-01-24] MEDS: SENNOSIDES/DOCUSATE SODIUM 1 TAB TABLET PO SCH (20:36)
[2019-01-24] MEDS ORDERED: INSULIN GLARGINE, HUMAN 1 UNIT/0.01 ML SQ SCH (21:00)
[2019-01-24 21:42] LABS: POC Blood Urea Nitrogen 56 mg/dl (8-23); POC CO2 25 mmol/L (22-30); POC Calcium, Ionized 1.03 mmol/L (1.16-1.32); POC Chloride 105 mmol/L (96-108); POC Creatinine 2.2 mg/dl (0.7-1.2); POC Glucose, Random 252 mg/dL (70-105); POC Potassium 4.8 mmol/L (3.3-5.1); POC Sodium 140 mmol/L (133-145)
[2019-01-25] MEDS: oxyCODONE HCL 5 MG TABLET PO PRN ×4 (01:15→19:44)
[2019-01-25] MEDS: ACETAMINOPHEN 325 MG TABLET PO PRN ×3 (02:16→19:44)
[2019-01-25 06:04] LABS: Hemoglobin 7.2 g/dL (13.5-16.5); Mean Cell Volume 92.8 fL (80.0-100.0); Mean Corpuscular HGB Conc 32.7 g/dL (31.0-36.0); Mean Platelet Volume 9.9 fL (7.4-10.4); Platelet Count 459 K/mcL (140-440); RBC 2.37 M/mcL (4.50-5.90); Red Cell Distribution Width 14.7 % (11.5-14.5); WBC 8.6 K/mcL (4.5-11.0)
[2019-01-25 06:39] LABS: ALT/SGPT 21 U/l (0-40); AST/SGOT 30 U/l (0-37); Albumin 2.2 gm/dL (3.2-5.2); Albumin/Globulin Ratio 0.7 (1.0-2.3); Alkaline Phosphatase 83 U/L (39-117); Bilirubin,Direct < 0.2 mg/dL (0.0-0.3); Bilirubin,Total 0.2 mg/dL (0.0-1.0); Blood Urea Nitrogen 60 mg/dl (8-23); Calcium 7.7 mg/dl (8.6-10.4); Carbon Dioxide 26 mmol/L (22-30); Chloride 105 mmol/L (96-108); Globulin 3.3 gm/dL (2.2-3.7); Glomerular Filtration Rate 28; Glucose 136 mg/dL (70-105); Lactate Dehydrogenase 299 U/L (94-250); Phosphorous 3.9 mg/dL (2.7-4.5); Triglycerides 79 mg/dl (<150)
[2019-01-25 06:46] LABS: Band Neutrophils % 3 % (0-10); Eosinophils % (Manual) 1 % (0-7); Lymphocytes % 10 % (15-49); Metamyelocytes % 2 % (0-0); Monocytes % (Manual) 11 % (1-12); Platelet Estimate INCREASED (NORMAL); RBC Morphology NORMAL (NORMAL); Segmented Neutrophils % 73 % (38-78); Toxic Granulation 1+ (NONE SEEN)
[2019-01-25] MEDS: LEVOTHYROXINE 50 MCG TABLET PO SCH (07:25)
[2019-01-25] MEDS: INSULIN LISPRO 1 UNIT/0.01 ML UNIT SQ SCH ×4 (07:25→21:14)
[2019-01-25] MEDS: 0.9 % SODIUM CHLORIDE 10 ML SYRINGE IV SCH ×4 (07:29→21:14)
[2019-01-25] MEDS ORDERED: 0.9 % SODIUM CHLORIDE 250 ML IV SCH (07:45)
[2019-01-25] MEDS: cefTRIAXone 2 GM in DEXTROSE 5% IN WATER 50 ML IV SCH (08:58)
[2019-01-25] MEDS: ASPIRIN 81 MG TAB.CHEW PO SCH (08:59)
[2019-01-25] MEDS: DOXAZOSIN 1 MG TABLET PO SCH (09:00)
[2019-01-25] MEDS: predniSONE 10 MG TABLET PO SCH (09:00)
[2019-01-25] MEDS: NYSTATIN 500,000 UNITS/5 ML ORAL.SUSP SSW SCH ×4 (09:00→21:13)
[2019-01-25] MEDS: FOLIC ACID 1 MG TABLET PO SCH (09:00)
[2019-01-25] MEDS: HYDROCHLOROTHIAZIDE 25 MG TABLET PO SCH (09:00)
[2019-01-25] MEDS: DOCUSATE SODIUM 100 MG CAPSULE PO SCH ×2 (09:00→21:13)
[2019-01-25] MEDS: MULTIVIT,THER IRON,CA,FA & MIN 1 TABLET PO SCH (09:00)
[2019-01-25] MEDS: amLODIPine 10 MG TABLET PO SCH (09:00)
[2019-01-25] MEDS: THIAMINE 100 MG TABLET PO SCH (09:00)
[2019-01-25] MEDS: MAGNESIUM OXIDE 400 MG TABLET PO SCH (09:01)
[2019-01-25] MEDS: HEPARIN 5,000 UNIT/ML VIAL SQ SCH ×2 (09:02→21:13)
[2019-01-25] MEDS: VANCOMYCIN 1,000 MG in 0.9 % SODIUM CHLORIDE 250 ML IV SCH (12:54)
--- NOTE | 2019-01-25 12:59 | Internal Med Progress Note ---
Medical - PN: Subj Patient information: Note initiated : 01/25/19 at 12:55 pm Service Date, if different from initiated Date: [] Patient: Bebeto Bunn a 83 y/o M admitted on 01/17/19 for Generalized Weakness. Chief Complaint: [] Interval history: Mr. Bunn is a 83 year old M with a history of chronic kidney disease, PMR/ ?RA on chronic prednisone who presents to the ER with onset of progressive weakness along with multiple falls that started 2 weeks ago. Patient since then has noticed increasing right elbow and left ankle pain and swelling along with redness. Patient has had progressive fatigue lethargic and unable to perform activities of daily living. He is accompanied to the ER due to increasing c oncerns within family about his gradual decline. His symptoms are associated with fever around 2 weeks ago at 101.8. He denies associated dysuria diarrhea but endorses to polyarthralgia and rash as involving left ankle and right elbow. He denies headache,, vision changes or unilateral weakness. He does endorse to falls to weakness and getting off balance. Initial work-up in the ER was consistent with elevated white count/inflammatory markers with CRP 43 and ESR 112, elevated white count 17.8, creatinine 3. CT scan right elbow was performed. Patient received a dose of Solu-Medrol At the time of evaluation patient is accompanied with multiple family members. He was able to endorse history as above. Family expressed concerns about his inability to take care of self. 01/18 patient seen examined, labs reviewed no acute complaints overnight bradycardic, on beta teresa and clonidine, pt reports HR always low, no dizziness, cp or palpitations reported hold atenolol and clonidine for now and monitor. Right elbow, had pus on aspiration, taken to or yesterday, pt also has GPC bacte remia, which is isolated as strep, presently on vanco and cefepime, will review with ID and plan for deescalation of abx regime to [facility] echo to be done Low hb likely from post 01/19 Patient seen examined no acute issues, HR stable, but pt still in sinus bradycardia labs stable, K 5.2, hb stable Pt has no new complaints or concerns, tolerating po diet well. 01/20 Patient seen and examined, no acute overnight events patient is comfortable in bed. Does admit to having some constipation He denies any other acute issues. Labs stable hemoglobin stable creatinine is 2.5 potassium is 5.0 bicarbonate improved to 19 01/21 Patient seen examined, no acute issues, tolerating po diet well, sitting comfortably in bed, labs stable BP now trending up, resume hctz, drains still in place, still has some purulent discharge 01/22 Patient seen and examined, no acute complaints or concerns, he still has pain in his left ankle slightly worse today than before. White blood cell count is up. Orthopedics evaluated the ankle, did an aspiration which only aspirated synovial fluid which has been sent for analysis Patient will continue on Rocephin Labs otherwise stable except for slight worsening of leukocytosis 01/23 Patient seen and examined, no acute overnight events tolerating p.o. diet well. He still has pain in his left lower extremity around the posterior aspect of his ankle, so worsening over the last 2 to 3 days. His white blood cell count is also trending upward Aspiration was done of the left ankle which is negative for an acute infection Erythema is increasing, there is now a blister formation at the left lower extremity I will add vancomycin to the patient's regimen Patient does not have any cough or any abdominal pain he is still constipated, chest x-ray shows atelectasis 01/24 Patient seen and examined, no acute overnight events. His left leg is still sore but slight improvement since yesterday. WBC count is not trending down. Hemoglobin slightly low but no indication for transfusion yet. Patient otherwise feels good. 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 The patient has had elevated and borderline high potassium for a long time 01/25 Patient seen and examined, no acute overnight events. Pain in the left leg is still persistent, erythema is better, white blood cell count is improved. Hemoglobin is at 7.2 at this time I will transfuse him with 2 units. Patient otherwise has no complaints or concerns he did have a large bowel movement last night, potassium is back to normal Pertinent ROS: Denies headache, dizziness Denies chest pain, palpitations Denies cough or shortness of breath Denies abdominal pain, nausea or vomiting. - Constitutional Vitals: Vital Signs Temp Pulse Resp BP Pulse Ox 98.3 F 68 16 137/69 91 01/25/19 12:01 01/25/19 12:01 01/25/19 12:01 01/25/19 12:01 01/25/19 12:01 Period Temp Pulse Resp BP Sys/Dupree Pulse Ox Last 24 Hr 97.9 F-98.6 F 59-71 16-20 119-187/59-83 90-95 Intake and Output 01/24/19 01/25/19 01/25/19 21:59 05:59 13:59 Intake Total 480 450 300 Output Total 1025 550 700 Balance -545 -100 -400 Weight 157 lb Intake & Output: Intake & Output 01/24/19 01/25/19 01/25/19 21:59 05:59 13:59 Intake Total 480 450 300 Output Total 1025 550 700 Balance -545 -100 -400 Weight 157 lb Intake: IV 300 Vancomycin 1,000 mg In Sodium 250 Chloride 0.9% 250 ml @ 250 mls/ hr IV Q24H [facility] Rx#:[id number] Rocephin 2 gm In Dextrose 5% in 50 Water 50 ml @ 100 mls/hr IV DAILY [facility] Rx#:[id number] Oral 480 450 Output: Void Amount 1025 550 700 Other: Meal Dinner HS Snack (pears) Percent of Meal Consumed 100% 100% Urine Appearance Clear Clear Urine Color Bright Yellow Pale Urine Odor Normal Normal Stool Size Large Stool Color Brown Stool Consistency Loose # Bowel Movements 1 Exam: Constitutional; Afebrile, cooperative, alert, not in distress. Respiratory system: Air Entry equal on both sides, No crackles or wheezing, no rhonchi. CVS- Rate rhythm regular, S1,S2 heard, no gallop, no rub. Abdomen- Soft nontender abdomen, no organomegaly, no tenderness, no guarding or rigidity, [employer]- AOOx3, moving all extremities, no gross focal deficit noted. Left lower extremity, erythema and tenderness at the region of the Achilles tendon Medical - PN: Obj Da - Labs CBC & Chem 7: 01/25/19 03:57 01/25/19 03:57 Labs: Abnormal Lab Results 01/25/19 01/25/19 01/24/19 03:57 03:57 21:33 WBC RBC 2.37 L Hgb 7.2 L Hct 22.0 L POC Hct 23.0 L RDW 14.7 H Plt Count 459 H Seg Neutrophils % Lymphocytes % 10 L Monocytes % (Manual) Metamyelocytes % 2 H WBC Morphology Abnorm A Toxic Granulation 1+ A Platelet Estimate Increased A RBC Morphology Anisocytosis Rouleaux POC Potassium Potassium POC BUN 56 H BUN 60 H Creatinine 2.1 H POC Creatinine 2.2 H Glucose 136 H POC Glucose 252 H Uric Acid Calcium 7.7 L POC WB Ioniz Calcium 1.03 L Lactate Dehydrogenase 299 H Total Protein 5.5 L Albumin 2.2 L Globulin Albumin/Globulin Ratio 0.7 L 01/24/19 01/24/19 01/24/19 14:15 04:07 04:07 WBC RBC 2.45 L Hgb 7.6 L Hct 23.3 L POC Hct 24.0 L RDW 15.4 H Plt Count 492 H Seg Neutrophils % Lymphocytes % 5 L Monocytes % (Manual) 16 H Metamyelocytes % 2 H WBC Morphology Toxic Granulation Platelet Estimate Increased A RBC Morphology Abnorm A Anisocytosis 1+ A Rouleaux Present A POC Potassium 5.7 H Potassium 5.6 H POC BUN 63 H BUN 68 H Creatinine 2.0 H POC Creatinine 2.2 H Glucose 46 L POC Glucose 215 H Uric Acid Calcium 8.5 L POC WB Ioniz Calcium 1.12 L Lactate Dehydrogenase 257 H Total Protein Albumin 2.1 L Globulin 3.8 H Albumin/Globulin Ratio 0.6 L 01/23/19 01/23/19 04:41 04:38 WBC 12.9 H RBC 2.68 L Hgb 8.4 L Hct 25.4 L POC Hct RDW 15.6 H Plt Count 566 H Seg Neutrophils % 84 H Lymphocytes % 7 L Monocytes % (Manual) Metamyelocytes % WBC Morphology Toxic Granulation Platelet Estimate Increased A RBC Morphology Anisocytosis Rouleaux POC Potassium Potassium 5.4 H POC BUN BUN 69 H Creatinine 2.1 H POC Creatinine Glucose 49 L POC Glucose Uric Acid 8.3 H Calcium POC WB Ioniz Calcium Lactate Dehydrogenase 269 H Total Protein Albumin 2.2 L Globulin 3.8 H Albumin/Globulin Ratio 0.6 L Meds: Medications Acetaminophen (Tylenol) 650 mg PO Q4-6HP PRN PRN Reason: PAIN/FEVER > 101 Last Admin: 01/25/19 10:44 Dose: 650 mg Documented by: Amlodipine Besylate (Norvasc) 10 mg PO DAILY [facility] Last Admin: 01/25/19 09:00 Dose: 10 mg Documented by: Aspirin (Aspirin) 81 mg PO DAILY [facility] Last Admin: 01/25/19 08:59 Dose: 81 mg Documented by: Dextrose (Dextrose 50%) 0 ml IV UD PRN PRN Reason: Hypoglycemia Diagnostic Test (Pha) (Accu-Chek) 1 each FS ACHS [facility] Last Admin: 01/25/19 11:26 Dose: 1 each Documented by: Docusate Sodium (Colace) 100 mg PO BID [facility] Last Admin: 01/25/19 09:00 Dose: 100 mg Documented by: Doxazosin Mesylate (Cardura) 1 mg PO DAILY [facility] Last Admin: 01/25/19 09:00 Dose: 1 mg Documented by: Folic Acid (Folic Acid) 1 mg PO DAILY [facility] Last Admin: 01/25/19 09:00 Dose: 1 mg Documented by: Glucose (Insta-Glucose) 15 gm PO PRN PRN PRN Reason: Hypoglycemia Guaifenesin/Codeine Phosphate (Robitussin Ac) 10 ml PO Q4HP PRN PRN Reason: Cough Heparin Sodium (Porcine) (Heparin) 5,000 unit SQ Q12 [facility] Last Admin: 01/25/19 09:02 Dose: 5,000 unit Documented by: Heparin Sodium (Porcine) (Heparin Flush) 2 ml IV Q12 [facility] Last Admin: 01/25/19 09:00 Dose: 2 ml Documented by: Hydrochlorothiazide (Oretic) 25 mg PO DAILY [facility] Last Admin: 01/25/19 09:00 Dose: 25 mg Documented by: Hydromorphone HCl (Dilaudid) 0.5 mg IV Q2HP PRN PRN Reason: PAIN LEVEL > 6 Last Admin: 01/23/19 01:46 Dose: 0.5 mg Documented by: Ceftriaxone Sodium 2 gm/ (Dextrose) 50 mls @ 100 mls/hr IV DAILY [facility]; Protocol Last Admin: 01/25/19 08:58 Dose: 100 mls/hr Documented by: Sodium Chloride (Sodium Chloride 0.9%) 250 mls @ 20 mls/hr IV .[id number] [facility] Stop: 01/25/19 20:14 Insulin Glargine (Lantus) 8 unit SQ HS [facility] Last Admin: 01/24/19 21:04 Dose: 8 units Documented by: Insulin Human Lispro (Humalog) 0 unit SQ ACHS [facility]; Protocol Last Admin: 01/25/19 11:46 Dose: 4 units Documented by: Iron Carb/Multivit/Estill/Folic Acid (Multivitamin W/Minerals) 1 tab PO DAILY [facility] Last Admin: 01/25/19 09:00 Dose: 1 tab Documented by: [facility]othyroxine [facility] ([facility]throid) [facility] Last Admin: 01/25/19 07:25 Dose: 50 mcg Documented by: Lorazepam (Ativan) 0.5 mg PO BIDP PRN PRN Reason: Anxiety Last Admin: 01/25/19 02:16 Dose: 0.5 mg Documented by: Magnesium Oxide (Magnesium Oxide) 400 mg PO DAILY [facility] Last Admin: 01/25/19 09:01 Dose: 400 mg Documented by: Melatonin (Melatonin 3mg Tablet) 3 mg PO HSP PRN PRN Reason: Insomnia Last Admin: 01/19/19 20:35 Dose: 3 mg Documented by: Nystatin (Nystatin) 500,000 units SSW QID [facility] Last Admin: 01/25/19 09:00 Dose: 500,000 units Documented by: Ondansetron HCl (Zofran) 4 mg IV Q4-6HP PRN PRN Reason: Nausea And Vomiting Oxycodone HCl (Roxicodone) 5 mg PO Q4HP PRN PRN Reason: PAIN LEVEL 3-6 Last Admin: 01/25/19 10:44 Dose: 5 mg Documented by: Prednisone (Prednisone) 10 mg PO [facility] Last Admin: 01/25/19 09:00 Dose: 10 mg Documented by: Senna/Docusate Sodium (Senna Plus Tablet) 2 tab PO HS [facility] Last Admin: 01/24/19 20:36 Dose: 2 tab Documented by: Sodium Chloride (Saline Flush) 10 ml IV Q8 [facility] Last Admin: 01/25/19 07:29 Dose: 10 ml Documented by: Sodium Chloride (Saline Flush) 10 ml IV Q12 [facility] Last Admin: 01/25/19 09:00 Dose: 10 ml Documented by: Thiamine HCl (Vitamin B1) 100 mg PO DAILY [facility] Last Admin: 01/25/19 09:00 Dose: 100 mg Documented by: Vancomycin HCl (Vancomycin Per Pharmacy) 1 order IV [facility]; Protocol Medical - PN: A/P - Time Spent With Patient Total time spent is greater than 50% in coordination of care (as documented) at patient's floor/unit and/or counseling patient: - Narrative A/P Narrative: A/P Septic Arthritis -Group G streptococcus -on IV rocephin, s/p washout, drains removed, elbow looks good as per Ortho -ortho following. Left lower extremity Cellulitis -Ankle aspiration negative -skin changes clearly suggestive of cellulitis -given pt is already on rocephin and still have this infection, inflammation which is causing significant distress, I will add vancomycin and see how this responds, pt still has pain, but erythema improved, will monitor, get MR of the ankle to r/o any fluid collection. -consider adding broader gram neg coverage if patient clinically worsens or does not improve. Streptococcus Bactermia, group G streptococcus -likely source elbow -echo does not show endocarditis, -midline placed. -total 4 weeks rocephin planned Rheumatoid arthritis/ PMR -on chronic immunosuppressants, continue same for now, hemodynamically stable. Acute on Chronic REnal failure -Creat 2.1, stable, Metabolic acidosis -likely from renal failure, bicarb 26 -will stop bicarb and see how pt responds. 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 DM -SSI insulin for glucose control, (pt got steroids which likely exacerbated hyperglycemia) -glucose levels are creeping back up again, I will use Lantus at 12 units as well as medium range sliding scale insulin Hypothyroidism -on synthroid, Deconditioning -Rehab, OT/PT DVT Hep sq Full code Carb consistent diet. Medical - PN: Qual - Stroke Symptom Onset Unknown: No - VTE Deep Vein Thrombosis/Pulmonary Embolism Present on Admission: No
--- NOTE | 2019-01-25 16:58 | Magnetic Resonance Report ---
History: Left ankle pain after a fall with cellulitis and tendinitis TECHNIQUE: Multiplanar imaging was performed using multiple pulse sequences in multiple projections. The patient was unable to remain motionless during this study due to her back pain. Short acquisition times are used in an attempt to minimize the motion artifact. FINDINGS: There is mild to moderate subcutaneous edema/cellulitis around the ankle and hindfoot. There is no evidence of a hematoma, mass or abscess. No joint effusion is present. There is no bone marrow edema, osteomyelitis or fracture. The ankle joint space is normal in width and alignment and there is no spur formation. There is trace amount of fluid in the tendon sheath surrounding the peroneus longus and brevis tendons. The underlying tendons appear intact. Tendons along the anterior and medial side of the ankle appear normal. IMPRESSION: Edema/cellulitis surrounding the ankle and hindfoot Low-grade tenosynovitis of the peroneus longus and brevis tendons Interpreted and Authenticated by: Prabhu Mosqueda 01/25/19
[2019-01-25] MEDS: SENNOSIDES/DOCUSATE SODIUM 1 TAB TABLET PO SCH (21:13)
[2019-01-25] MEDS: INSULIN GLARGINE, HUMAN 1 UNIT/0.01 ML SQ SCH (21:15)
--- NOTE | 2019-01-25 22:16 | Infectious Disease Prog Note ---
Subjective Patient information: Note initiated : 01/25/19 at 10:14 pm Service Date, if different from initiated Date: [] Patient: Bebeto Bunn 83 y/o M admitted on 01/17/19 for Generalized Weakness. Chief Complaint: [] Principal diagnosis: bacteremia, septic right elbow, septic olecranon bursitis Interval history: Pt doing well. Called by primary team for concerns of developing right lower leg cellulitis over the weekend. Pt feels better after IV Vanc was added. Denies any fever, chills, n/v, diarrhea, pain in lower extremity. Per nursing, the swelling is getting better compared to over the weekend. Objective Objective Narrative: ao x 3, in nad no thrush left arm midline site: non tender, wrapped in dressing chest has decreased BS at bases, rest clear s1 s2 normal non tender belly Rt leg: lower leg has some redness on posterior aspect, no blisters, redness +, minimally tender Rt heel: pressure sore present, collapsed blister, with some clotted blood. No active drainage Rt foot: appears fine except for pupuric lesion at tip of the great toe, non tender [chronic when referred to patient] - Vital Signs Vital signs: Vital Signs Temp Pulse Resp BP BP Pulse Ox 01/25/19 19:22 36.6 C 70 22 150/75 93 01/25/19 17:21 37.1 C 59 L 18 173/75 93 01/25/19 17:11 36.8 C 54 L 18 153/74 93 01/25/19 16:06 37.2 C 66 16 156/77 92 01/25/19 12:01 36.8 C 68 16 137/69 91 01/25/19 06:46 36.8 C 68 16 128/74 95 01/25/19 04:57 36.8 C 59 L 19 150/79 93 01/25/19 00:40 36.9 C 71 20 136/70 93 Intake and Output 01/25/19 01/25/19 01/26/19 13:59 21:59 05:59 Intake Total 745 410 Output Total 700 925 Balance 45 -515 Intake: IV 300 50 Vancomycin 1,000 mg In Sodium 250 Chloride 0.9% 250 ml @ 250 mls/ hr IV Q24H [facility] Rx#:[id number] Rocephin 2 gm In Dextrose 5% in 50 50 Water 50 ml @ 100 mls/hr IV DAILY [facility] Rx#:[id number] Oral 120 360 Blood Product 325 Output: Void Amount 700 925 Other: Meal Lunch Percent of Meal Consumed 75% Feeding Ability Assist with Tray Set Up Urine Appearance Clear Clear Urine Color Pale Pale Urine Odor Normal Normal Weight 71.214 kg 71.214 kg Patient Weight 01/26/19 05:59 Weight 71.214 kg Intake & Output: Intake & Output 01/25/19 01/25/19 01/26/19 13:59 21:59 05:59 Intake Total 745 410 Output Total 700 925 Balance 45 -515 Weight 71.214 kg 71.214 kg Intake: IV 300 50 Vancomycin 1,000 mg In Sodium 250 Chloride 0.9% 250 ml @ 250 mls/ hr IV Q24H [facility] Rx#:[id number] Rocephin 2 gm In Dextrose 5% in 50 50 Water 50 ml @ 100 mls/hr IV DAILY [facility] Rx#:[id number] Oral 120 360 Blood Product 325 Output: Void Amount 700 925 Other: Meal Lunch Percent of Meal Consumed 75% Feeding Ability Assist with Tray Set Up Urine Appearance Clear Clear Urine Color Pale Pale Urine Odor Normal Normal - Lab 01/25/19 03:57 01/25/19 03:57 Most recent lab results Calcium 7.7 mg/dl (8.6-10.4) L 01/25/19 03:57 Phosphorus 3.9 mg/dL (2.7-4.5) 01/25/19 03:57 Magnesium 1.8 mg/dL (1.6-2.5) 01/25/19 03:57 Microbiology 01/17/19 23:02 Elbow - Right Gram Stain - Final 01/17/19 23:02 Elbow - Right Anaerobic Culture - Final 01/17/19 23:02 Elbow - Right Gram Stain - Final 01/17/19 23:02 Elbow - Right Wound Culture - Final Streptococcus (beta) gr. G 01/22/19 09:15 Synovial Fluid - Ankle Gram Stain - Final 01/22/19 09:15 Synovial Fluid - Ankle Body Fluid Culture - Final 01/18/19 09:11 Blood Blood Culture - Final 01/18/19 09:06 Blood Blood Culture - Final 01/17/19 08:02 Blood Blood Culture - Final Streptococcus (beta) gr. G 01/17/19 14:28 Synovial Fluid Gram Stain - Final 01/17/19 14:28 Synovial Fluid Body Fluid Culture - Final Streptococcus (beta) gr. G 01/17/19 07:21 Urine - Clean Void Mid-Stream Urine Culture - Final 01/17/19 07:54 Blood Blood Culture - Final Streptococcus (beta) gr. G 01/18/19 00:41 Nose MRSA (PCR) - Final Medications Active Medications: Acetaminophen (Tylenol) 650 mg PO Q4-6HP PRN PRN Reason: PAIN/FEVER > 101 Last Admin: 01/25/19 19:44 Dose: 650 mg Documented by: Admin: 01/25/19 10:44 Dose: 650 mg Documented by: Admin: 01/25/19 02:16 Dose: 650 mg Documented by: Admin: 01/22/19 00:29 Dose: 650 mg Documented by: Admin: 01/21/19 16:43 Dose: 650 mg Documented by: Admin: 01/21/19 09:31 Dose: 650 mg Documented by: Admin: 01/21/19 02:39 Dose: 650 mg Documented by: Admin: 01/20/19 21:08 Dose: 650 mg Documented by: Admin: 01/20/19 13:37 Dose: 650 mg Documented by: NEGRO Amlodipine Besylate (Norvasc) 10 mg PO DAILY [facility] Last Admin: 01/25/19 09:00 Dose: 10 mg Documented by: Admin: 01/24/19 09:06 Dose: 10 mg Documented by: Admin: 01/23/19 09:37 Dose: 10 mg Documented by: Admin: 01/22/19 08:13 Dose: 10 mg Documented by: Admin: 01/21/19 09:30 Dose: 10 mg Documented by: Admin: 01/20/19 08:49 Dose: 10 mg Documented by: BEKAH Aspirin (Aspirin) 81 mg PO DAILY [facility] Last Admin: 01/25/19 08:59 Dose: 81 mg Documented by: Admin: 01/24/19 09:06 Dose: 81 mg Documented by: Admin: 01/23/19 09:37 Dose: 81 mg Documented by: Admin: 01/22/19 08:13 Dose: 81 mg Documented by: Admin: 01/21/19 09:30 Dose: 81 mg Documented by: BEKAH Dextrose (Dextrose 50%) 0 ml IV UD PRN PRN Reason: Hypoglycemia Diagnostic Test (Pha) (Accu-Chek) 1 each FS ACHS [facility] Last Admin: 01/25/19 21:03 Dose: 1 each Documented by: Admin: 01/25/19 16:56 Dose: 1 each Documented by: Admin: 01/25/19 11:26 Dose: 1 each Documented by: Admin: 01/25/19 06:57 Dose: 1 each Documented by: Admin: 01/24/19 20:54 Dose: 1 each Documented by: Admin: 01/24/19 16:59 Dose: 1 each Documented by: Admin: 01/24/19 11:31 Dose: 1 each Documented by: Admin: 01/24/19 07:52 Dose: 1 each Documented by: Admin: 01/23/19 22:12 Dose: 1 each Documented by: Admin: 01/23/19 16:34 Dose: 1 each Documented by: Admin: 01/23/19 11:14 Dose: 1 each Documented by: Admin: 01/23/19 07:59 Dose: 1 each Documented by: Admin: 01/23/19 07:23 Dose: 1 each Documented by: Admin: 01/22/19 21:15 Dose: 1 each Documented by: Admin: 01/22/19 17:18 Dose: 1 each Documented by: Admin: 01/22/19 14:05 Dose: 1 each Documented by: Admin: 01/22/19 07:31 Dose: 1 each Documented by: Admin: 01/21/19 21:10 Dose: 1 each Documented by: Admin: 01/21/19 16:45 Dose: 1 each Documented by: Admin: 01/21/19 11:43 Dose: 1 each Documented by: Admin: 01/21/19 07:16 Dose: 1 each Documented by: Admin: 01/20/19 21:04 Dose: 1 each Documented by: Admin: 01/20/19 16:34 Dose: 1 each Documented by: Admin: 01/20/19 11:00 Dose: 1 each Documented by: Admin: 01/20/19 07:34 Dose: 1 each Documented by: Admin: 01/19/19 20:45 Dose: 1 each Documented by: Admin: 01/19/19 17:49 Dose: 1 each Documented by: Admin: 01/19/19 12:51 Dose: 1 each Documented by: JAMES Docusate Sodium (Colace) 100 mg PO BID [facility] Last Admin: 01/25/19 21:13 Dose: 100 mg Documented by: Admin: 01/25/19 09:00 Dose: 100 mg Documented by: Admin: 01/24/19 20:36 Dose: 100 mg Documented by: Admin: 01/24/19 09:06 Dose: 100 mg Documented by: Admin: 01/23/19 21:55 Dose: 100 mg Documented by: Admin: 01/23/19 09:38 Dose: 100 mg Documented by: Admin: 01/22/19 21:16 Dose: 100 mg Documented by: Admin: 01/22/19 08:13 Dose: 100 mg Documented by: Admin: 01/21/19 21:33 Dose: 100 mg Documented by: Admin: 01/21/19 09:30 Dose: 100 mg Documented by: Admin: 01/20/19 21:09 Dose: 100 mg Documented by: Admin: 01/20/19 08:49 Dose: 100 mg Documented by: Admin: 01/19/19 20:36 Dose: 100 mg Documented by: DAMIAN Doxazosin Mesylate (Cardura) 1 mg PO DAILY [facility] Last Admin: 01/25/19 09:00 Dose: 1 mg Documented by: Admin: 01/24/19 09:05 Dose: 1 mg Documented by: Admin: 01/23/19 09:37 Dose: 1 mg Documented by: Admin: 01/22/19 08:13 Dose: 1 mg Documented by: Admin: 01/21/19 09:31 Dose: 1 mg Documented by: Admin: 01/20/19 08:49 Dose: 1 mg Documented by: BEKAH Folic Acid (Folic Acid) 1 mg PO DAILY [facility] Admin: 01/25/19 09:00 Dose: 1 mg Documented by: Admin: 01/24/19 09:05 Dose: 1 mg Documented by: Admin: 01/23/19 09:38 Dose: 1 mg Documented by: Admin: 01/22/19 08:13 Dose: 1 mg Documented by: Admin: 01/21/19 09:31 Dose: 1 mg Documented by: Admin: 01/20/19 08:49 Dose: 1 mg Documented by: BEKAH Glucose (Insta-Glucose) 15 gm PO PRN PRN PRN Reason: Hypoglycemia Guaifenesin/Codeine Phosphate (Robitussin Ac) 10 ml PO Q4HP PRN PRN Reason: Cough Heparin Sodium (Porcine) (Heparin) 5,000 unit SQ Q12 [facility] Admin: 01/25/19 21:13 Dose: 5,000 unit Documented by: Admin: 01/25/19 09:02 Dose: 5,000 unit Documented by: Admin: 01/24/19 20:37 Dose: 5,000 unit Documented by: Admin: 01/24/19 09:06 Dose: 5,000 unit Documented by: Admin: 01/23/19 21:55 Dose: 5,000 unit Documented by: Admin: 01/23/19 09:39 Dose: 5,000 unit Documented by: Admin: 01/22/19 21:16 Dose: 5,000 unit Documented by: Admin: 01/22/19 08:14 Dose: 5,000 unit Documented by: Admin: 01/21/19 21:34 Dose: 5,000 unit Documented by: Admin: 01/21/19 09:32 Dose: 5,000 unit Documented by: Admin: 01/20/19 21:06 Dose: 5,000 unit Documented by: Admin: 01/20/19 08:49 Dose: 5,000 unit Documented by: Admin: 01/19/19 20:37 Dose: 5,000 unit Documented by: DAMIAN Heparin Sodium (Porcine) (Heparin Flush) 2 ml IV Q12 [facility] Last Admin: 01/25/19 21:13 Dose: 2 ml Documented by: Admin: 01/25/19 09:00 Dose: 2 ml Documented by: Admin: 01/24/19 20:37 Dose: 2 ml Documented by: Admin: 01/24/19 09:05 Dose: 2 ml Documented by: Admin: 01/23/19 21:55 Dose: 2 ml Documented by: Admin: 01/23/19 09:38 Dose: 2 ml Documented by: Admin: 01/22/19 22:24 Dose: 2 ml Documented by: Admin: 01/22/19 09:44 Dose: 2 ml Documented by: Admin: 01/21/19 21:34 Dose: 2 ml Documented by: GEORGES Comments: x2 Hydrochlorothiazide (Oretic) 25 mg PO DAILY [facility] Last Admin: 01/25/19 09:00 Dose: 25 mg Documented by: Admin: 01/24/19 09:05 Dose: 25 mg Documented by: NEGRO Hydromorphone HCl (Dilaudid) 0.5 mg IV Q2HP PRN PRN Reason: PAIN LEVEL > 6 Last Admin: 01/23/19 01:46 Dose: 0.5 mg Documented by: Admin: 01/22/19 07:23 Dose: 0.5 mg Documented by: Admin: 01/22/19 01:32 Dose: 0.5 mg Documented by: Admin: 01/20/19 05:44 Dose: 0.5 mg Documented by: Admin: 01/19/19 23:05 Dose: 0.5 mg Documented by: DAMIAN Ceftriaxone Sodium 2 gm/ (Dextrose) 50 mls @ 100 mls/hr IV DAILY [facility]; Protocol Last Infusion: 01/25/19 16:58 Dose: 0 mls/hr Documented by: Admin: 01/25/19 08:58 Dose: 100 mls/hr Documented by: Infusion: 01/25/19 06:22 Dose: 0 mls/hr Documented by: Admin: 01/24/19 09:04 Dose: 100 mls/hr Documented by: Infusion: 01/23/19 17:58 Dose: 0 mls/hr Documented by: Admin: 01/23/19 09:39 Dose: 100 mls/hr Documented by: Infusion: 01/23/19 07:02 Dose: 0 mls/hr Documented by: Admin: 01/22/19 09:04 Dose: 100 mls/hr Documented by: Infusion: 01/21/19 15:53 Dose: 0 mls/hr Documented by: Admin: 01/21/19 09:32 Dose: 100 mls/hr Documented by: Infusion: 01/20/19 12:21 Dose: 0 mls/hr Documented by: Admin: 01/20/19 10:52 Dose: 100 mls/hr Documented by: BEKAH Insulin Glargine (Lantus) 12 unit SQ HS [facility] Last Admin: 01/25/19 21:15 Dose: 12 unit Documented by: DAMIAN Insulin Human Lispro (Humalog) 0 unit SQ ACHS [facility]; Protocol Last Admin: 01/25/19 21:14 Dose: 8 units Documented by: Admin: 01/25/19 17:20 Dose: 8 units Documented by: BEKHA Iron Carb/Multivit/Henry/Folic Acid (Multivitamin W/Minerals) 1 tab PO DAILY [facility] Last Admin: 01/25/19 09:00 Dose: 1 tab Documented by: Admin: 01/24/19 09:06 Dose: 1 tab Documented by: Admin: 01/23/19 09:38 Dose: 1 tab Documented by: Admin: 01/22/19 08:13 Dose: 1 tab Documented by: Admin: 01/21/19 09:31 Dose: 1 tab Documented by: Admin: 01/20/19 08:49 Dose: 1 tab Documented by: BEKAH Levothyroxine Sodium (Synthroid) 50 mcg PO QAMAC [facility] Last Admin: 01/25/19 07:25 Dose: 50 mcg Documented by: Admin: 01/24/19 07:57 Dose: 50 mcg Documented by: Admin: 01/23/19 07:23 Dose: 50 mcg Documented by: Admin: 01/22/19 07:44 Dose: 50 mcg Documented by: Admin: 01/21/19 07:18 Dose: 50 mcg Documented by: Admin: 01/20/19 07:34 Dose: 50 mcg Documented by: BEKAH Lorazepam (Ativan) 0.5 mg PO BIDP PRN PRN Reason: Anxiety Last Admin: 01/25/19 02:16 Dose: 0.5 mg Documented by: MINERVA Magnesium Oxide (Magnesium Oxide) 400 mg PO DAILY [facility] Last Admin: 01/25/19 09:01 Dose: 400 mg Documented by: Admin: 01/24/19 09:06 Dose: 400 mg Documented by: Admin: 01/23/19 09:37 Dose: 400 mg Documented by: Admin: 01/22/19 08:14 Dose: 400 mg Documented by: Admin: 01/21/19 09:31 Dose: 400 mg Documented by: BEKAH Melatonin (Melatonin 3mg Tablet) 3 mg PO HSP PRN PRN Reason: Insomnia Last Admin: 01/19/19 20:35 Dose: 3 mg Documented by: DAMIAN Nystatin (Nystatin) 500,000 units SSW QID [facility] Last Admin: 01/25/19 21:13 Dose: 500,000 units Documented by: Admin: 01/25/19 18:16 Dose: 500,000 units Documented by: Admin: 01/25/19 14:25 Dose: Not Given Documented by: BEKAH Non-Admin Reason: Patient Refused Admin: 01/25/19 09:00 Dose: 500,000 units Documented by: Admin: 01/24/19 20:36 Dose: 500,000 units Documented by: Admin: 01/24/19 18:10 Dose: 500,000 units Documented by: Admin: 01/24/19 15:03 Dose: Not Given Documented by: NEGRO Non-Admin Reason: Patient sleeping, very exausted. Admin: 01/24/19 09:06 Dose: 500,000 units Documented by: Admin: 01/23/19 21:55 Dose: 500,000 units Documented by: Admin: 01/23/19 16:54 Dose: 500,000 units Documented by: Admin: 01/23/19 14:59 Dose: 500,000 units Documented by: Admin: 01/23/19 09:38 Dose: 500,000 units Documented by: Admin: 01/22/19 21:17 Dose: 500,000 units Documented by: Admin: 01/22/19 17:16 Dose: 500,000 units Documented by: Admin: 01/22/19 14:02 Dose: 500,000 units Documented by: Admin: 01/22/19 08:14 Dose: 500,000 units Documented by: Admin: 01/21/19 23:30 Dose: 500,000 units Documented by: Admin: 01/21/19 19:28 Dose: 500,000 units Documented by: Admin: 01/21/19 13:20 Dose: 500,000 units Documented by: Admin: 01/21/19 09:32 Dose: 500,000 units Documented by: Admin: 01/20/19 21:04 Dose: 500,000 units Documented by: Admin: 01/20/19 16:38 Dose: Not Given Documented by: BEKAH Non-Admin Reason: 1300 dose given at 1638 Admin: 01/20/19 16:38 Dose: 500,000 units Documented by: Admin: 01/20/19 08:49 Dose: 500,000 units Documented by: Admin: 01/19/19 20:34 Dose: 500,000 units Documented by: Admin: 01/19/19 17:50 Dose: 500,000 units Documented by: [email or web address] Admin: 01/19/19 14:11 Dose: 500,000 units Documented by: [email or web address] Ondansetron HCl (Zofran) 4 mg IV Q4-6HP PRN PRN Reason: Nausea And Vomiting Oxycodone HCl (Roxicodone) 5 mg PO Q4HP PRN PRN Reason: PAIN LEVEL 3-6 Last Admin: 01/25/19 19:44 Dose: 5 mg Documented by: Admin: 01/25/19 15:39 Dose: 5 mg Documented by: Admin: 01/25/19 10:44 Dose: 5 mg Documented by: Admin: 01/25/19 01:15 Dose: 5 mg Documented by: Admin: 01/24/19 20:37 Dose: 5 mg Documented by: Admin: 01/24/19 11:30 Dose: 5 mg Documented by: Admin: 01/24/19 06:11 Dose: 5 mg Documented by: Admin: 01/24/19 02:19 Dose: 5 mg Documented by: Admin: 01/23/19 21:56 Dose: 5 mg Documented by: Admin: 01/23/19 16:30 Dose: 5 mg Documented by: Admin: 01/23/19 11:10 Dose: 5 mg Documented by: Admin: 01/23/19 06:37 Dose: 5 mg Documented by: Admin: 01/23/19 01:05 Dose: 5 mg Documented by: Admin: 01/22/19 17:27 Dose: 5 mg Documented by: Admin: 01/22/19 00:29 Dose: 5 mg Documented by: Admin: 01/21/19 16:44 Dose: 5 mg Documented by: Admin: 01/21/19 09:32 Dose: 5 mg Documented by: Admin: 01/21/19 02:39 Dose: 5 mg Documented by: Admin: 01/20/19 21:07 Dose: 5 mg Documented by: Admin: 01/20/19 13:38 Dose: 5 mg Documented by: Admin: 01/20/19 07:48 Dose: 5 mg Documented by: Admin: 01/20/19 02:01 Dose: 5 mg Documented by: Admin: 01/19/19 20:37 Dose: 5 mg Documented by: Admin: 01/19/19 12:48 Dose: 5 mg Documented by: [email or web address] Prednisone (Prednisone) 10 mg PO [facility] Last Admin: 01/25/19 09:00 Dose: 10 mg Documented by: Admin: 01/24/19 07:57 Dose: 10 mg Documented by: Admin: 01/23/19 09:37 Dose: 10 mg Documented by: Admin: 01/22/19 07:44 Dose: 10 mg Documented by: Admin: 01/21/19 07:53 Dose: 10 mg Documented by: Admin: 01/20/19 07:48 Dose: 10 mg Documented by: BEKAH Senna/Docusate Sodium (Senna Plus Tablet) 2 tab PO MID [facility] Last Admin: 01/25/19 21:13 Dose: 2 tab Documented by: Admin: 01/24/19 20:36 Dose: 2 tab Documented by: Admin: 01/23/19 21:55 Dose: 2 tab Documented by: Admin: 01/22/19 21:16 Dose: 2 tab Documented by: Admin: 01/21/19 21:33 Dose: 2 tab Documented by: Admin: 01/20/19 21:09 Dose: 2 tab Documented by: DAMIAN Sodium Chloride (Saline Flush) 10 ml IV Q8 [facility] Last Admin: 01/25/19 21:14 Dose: 10 ml Documented by: Admin: 01/25/19 14:26 Dose: Not Given Documented by: BEKAH Non-Admin Reason: midline IV in place Admin: 01/25/19 07:29 Dose: 10 ml Documented by: Admin: 01/24/19 20:38 Dose: 10 ml Documented by: Admin: 01/24/19 15:03 Dose: Not Given Documented by: NEGRO Non-Admin Reason: Continuous IV Admin: 01/24/19 06:12 Dose: 10 ml Documented by: Admin: 01/23/19 22:11 Dose: 10 ml Documented by: Admin: 01/23/19 15:02 Dose: 10 ml Documented by: Admin: 01/23/19 06:37 Dose: 10 ml Documented by: Admin: 01/22/19 22:25 Dose: 10 ml Documented by: Admin: 01/22/19 14:13 Dose: 10 ml Documented by: Admin: 01/22/19 05:15 Dose: 10 ml Documented by: Admin: 01/21/19 21:35 Dose: 10 ml Documented by: Admin: 01/21/19 13:21 Dose: 10 ml Documented by: Admin: 01/21/19 05:21 Dose: Not Given Documented by: DAMIAN Non-Admin Reason: Patient Asleep Admin: 01/20/19 21:11 Dose: 10 ml Documented by: Admin: 01/20/19 16:37 Dose: 10 ml Documented by: Admin: 01/20/19 04:49 Dose: Not Given Documented by: KAPILEE Non-Admin Reason: Patient Asleep Admin: 01/19/19 20:39 Dose: 10 ml Documented by: Admin: 01/19/19 14:12 Dose: 10 ml Documented by: JMAES Sodium Chloride (Saline Flush) 10 ml IV Q12 [facility] Last Admin: 01/25/19 09:00 Dose: 10 ml Documented by: Admin: 01/24/19 20:38 Dose: 10 ml Documented by: Admin: 01/24/19 09:07 Dose: 10 ml Documented by: Admin: 01/23/19 23:14 Dose: Not Given Documented by: MINERVA Non-Admin Reason: Duplicate Admin: 01/23/19 09:38 Dose: 10 ml Documented by: Admin: 01/22/19 22:25 Dose: 10 ml Documented by: Admin: 01/22/19 09:05 Dose: 10 ml Documented by: Admin: 01/21/19 21:36 Dose: 10 ml Documented by: GEORGES Thiamine HCl (Vitamin B1) 100 mg PO DAILY [facility] Last Admin: 01/25/19 09:00 Dose: 100 mg Documented by: Admin: 01/24/19 09:06 Dose: 100 mg Documented by: [email or web address] Admin: 01/23/19 09:38 Dose: 100 mg Documented by: Admin: 01/22/19 08:13 Dose: 100 mg Documented by: [email or web address] Admin: 01/21/19 09:31 Dose: 100 mg Documented by: Admin: 01/20/19 08:49 Dose: 100 mg Documented by: BEKAH Vancomycin HCl (Vancomycin Per Pharmacy) 1 order IV UD [facility]; Protocol Assessment and Plan - Narrative A/P Narrative: A: 1. 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 Oral thrush: resolved 3. Rt heel pressure sore with underlying inflammation of skin and soft tissues - MRI s/o edema surrounding the ankle and hindfoot, no osteomyelitis. Recommendations: - Continue IV Ceftriaxone 2 gm q24 hrs for 4 weeks with stop date of 02/14/19 - agree with IV Vanc per pharmacy assisted dosing. Check levels daily (as pt in hospital and has CKD) to prevent nephrotoxicity. Target serum level: 10-20 A 7 day course would be reasonable for cellulitis (based on current assessment). - If pt gets discharged; F/u labs: Weekly CBC, BMP Every other week ESR and CRP - ID clinic s/u scheduled for: 02/10/19 at 8 am - pt counseled to elevate his right hand and both feet, for help with postural drainage - consider Pressure Relieving Heel Protector boots for pressure sore prevention Please call for any questions. Mohsen Calix MD Infectious diseases
[2019-01-26] MEDS: oxyCODONE HCL 5 MG TABLET PO PRN ×5 (00:40→21:15)
[2019-01-26] MEDS: ACETAMINOPHEN 325 MG TABLET PO PRN (00:42)
[2019-01-26] MEDS: 0.9 % SODIUM CHLORIDE 10 ML SYRINGE IV SCH ×6 (01:04→22:17)
[2019-01-26] MEDS: HYDROmorphone 2 MG/ML VIAL IV PRN ×2 (02:12→07:18)
[2019-01-26 06:49] LABS: Basophils # (Auto) 0 K/mcL (0.0-0.3); Basophils % (Auto) 0.5 % (0.0-2.0); Eosinophils # (Auto) 0.2 K/mcL (0.0-0.7); Eosinophils % (Auto) 2.7 % (0.0-7.0); Granulocytes % (Auto) 75.7 % (38.0-78.0); Hematocrit 25.4 % (41.0-55.0); Hemoglobin 8.4 g/dL (13.5-16.5); Lymphocytes # (Auto) 0.8 K/mcL (1.5-4.8); Lymphocytes % (Auto) 9.1 % (15.5-49.0); Mean Cell Volume 94.2 fL (80.0-100.0); Mean Corpuscular HGB Conc 33.1 g/dL (31.0-36.0); Monocytes # (Auto) 1.1 K/mcL (0.1-0.9); Platelet Count 376 K/mcL (140-440); RBC 2.69 M/mcL (4.50-5.90); Red Cell Distribution Width 15.6 % (11.5-14.5); WBC 9.3 K/mcL (4.5-11.0)
[2019-01-26 06:50] LABS: ALT/SGPT 17 U/l (0-40); AST/SGOT 22 U/l (0-37); Albumin/Globulin Ratio 0.6 (1.0-2.3); Alkaline Phosphatase 74 U/L (39-117); Bilirubin,Direct < 0.2 mg/dL (0.0-0.3); Bilirubin,Total 0.2 mg/dL (0.0-1.0); Blood Urea Nitrogen 67 mg/dl (8-23); Calcium 8.1 mg/dl (8.6-10.4); Carbon Dioxide 29 mmol/L (22-30); Chloride 105 mmol/L (96-108); Globulin 3.3 gm/dL (2.2-3.7); Glomerular Filtration Rate 28; Glucose 104 mg/dL (70-105); Lactate Dehydrogenase 222 U/L (94-250); Phosphorous 4.2 mg/dL (2.7-4.5); Triglycerides 85 mg/dl (<150); Uric Acid 6.5 mg/dL (2.5-8.0); Vancomycin,Random 15.9 ug/mL
[2019-01-26] MEDS: predniSONE 10 MG TABLET PO SCH (07:17)
[2019-01-26] MEDS: LEVOTHYROXINE 50 MCG TABLET PO SCH (07:17)
[2019-01-26] MEDS: INSULIN LISPRO 1 UNIT/0.01 ML UNIT SQ SCH ×4 (07:23→21:33)
[2019-01-26] MEDS ORDERED: VANCOMYCIN 500 MG in 0.9 % SODIUM CHLORIDE 100 ML IV ONE (09:00)
[2019-01-26] MEDS ORDERED: cefTRIAXone 2 GM VIAL ONE (09:06)
[2019-01-26] MEDS: DOXAZOSIN 1 MG TABLET PO SCH (09:13)
[2019-01-26] MEDS: MAGNESIUM OXIDE 400 MG TABLET PO SCH (09:14)
[2019-01-26] MEDS: THIAMINE 100 MG TABLET PO SCH (09:14)
[2019-01-26] MEDS: DOCUSATE SODIUM 100 MG CAPSULE PO SCH ×2 (09:14→21:15)
[2019-01-26] MEDS: FOLIC ACID 1 MG TABLET PO SCH (09:14)
[2019-01-26] MEDS: ASPIRIN 81 MG TAB.CHEW PO SCH (09:14)
[2019-01-26] MEDS: amLODIPine 10 MG TABLET PO SCH (09:14)
[2019-01-26] MEDS: HYDROCHLOROTHIAZIDE 25 MG TABLET PO SCH (09:14)
[2019-01-26] MEDS: MULTIVIT,THER IRON,CA,FA & MIN 1 TABLET PO SCH (09:14)
[2019-01-26] MEDS: HEPARIN 5,000 UNIT/ML VIAL SQ SCH ×2 (09:14→21:17)
[2019-01-26] MEDS: NYSTATIN 500,000 UNITS/5 ML ORAL.SUSP SSW SCH ×4 (09:15→21:15)
[2019-01-26] MEDS: cefTRIAXone 2 GM in DEXTROSE 5% IN WATER 50 ML IV SCH (09:15)
--- NOTE | 2019-01-26 10:23 | Internal Med Progress Note ---
Medical - PN: Subj Patient information: Note initiated : 01/26/19 at 10:20 am Service Date, if different from initiated Date: [] Patient: Bebeto Bunn a 83 y/o M admitted on 01/17/19 for Generalized Weakness. Chief Complaint: [] Interval history: Mr. Bunn is a 83 year old M with a history of chronic kidney disease, PMR/ ?RA on chronic prednisone who presents to the ER with onset of progressive weakness along with multiple falls that started 2 weeks ago. Patient since then has noticed increasing right elbow and left ankle pain and swelling along with redness. Patient has had progressive fatigue lethargic and unable to perform activities of daily living. He is accompanied to the ER due to increasing c oncerns within family about his gradual decline. His symptoms are associated with fever around 2 weeks ago at 101.8. He denies associated dysuria diarrhea but endorses to polyarthralgia and rash as involving left ankle and right elbow. He denies headache,, vision changes or unilateral weakness. He does endorse to falls to weakness and getting off balance. Initial work-up in the ER was consistent with elevated white count/inflammatory markers with CRP 43 and ESR 112, elevated white count 17.8, creatinine 3. CT scan right elbow was performed. Patient received a dose of Solu-Medrol At the time of evaluation patient is accompanied with multiple family members. He was able to endorse history as above. Family expressed concerns about his inability to take care of self. 01/18 patient seen examined, labs reviewed no acute complaints overnight bradycardic, on beta teresa and clonidine, pt reports HR always low, no dizziness, cp or palpitations reported hold atenolol and clonidine for now and monitor. Right elbow, had pus on aspiration, taken to or yesterday, pt also has GPC bacte remia, which is isolated as strep, presently on vanco and cefepime, will review with ID and plan for deescalation of abx regime to [facility] echo to be done Low hb likely from post 01/19 Patient seen examined no acute issues, HR stable, but pt still in sinus bradycardia labs stable, K 5.2, hb stable Pt has no new complaints or concerns, tolerating po diet well. 01/20 Patient seen and examined, no acute overnight events patient is comfortable in bed. Does admit to having some constipation He denies any other acute issues. Labs stable hemoglobin stable creatinine is 2.5 potassium is 5.0 bicarbonate improved to 19 01/21 Patient seen examined, no acute issues, tolerating po diet well, sitting comfortably in bed, labs stable BP now trending up, resume hctz, drains still in place, still has some purulent discharge 01/22 Patient seen and examined, no acute complaints or concerns, he still has pain in his left ankle slightly worse today than before. White blood cell count is up. Orthopedics evaluated the ankle, did an aspiration which only aspirated synovial fluid which has been sent for analysis Patient will continue on Rocephin Labs otherwise stable except for slight worsening of leukocytosis 01/23 Patient seen and examined, no acute overnight events tolerating p.o. diet well. He still has pain in his left lower extremity around the posterior aspect of his ankle, so worsening over the last 2 to 3 days. His white blood cell count is also trending upward Aspiration was done of the left ankle which is negative for an acute infection Erythema is increasing, there is now a blister formation at the left lower extremity I will add vancomycin to the patient's regimen Patient does not have any cough or any abdominal pain he is still constipated, chest x-ray shows atelectasis 01/24 Patient seen and examined, no acute overnight events. His left leg is still sore but slight improvement since yesterday. WBC count is not trending down. Hemoglobin slightly low but no indication for transfusion yet. Patient otherwise feels good. 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 The patient has had elevated and borderline high potassium for a long time 01/25 Patient seen and examined, no acute overnight events. Pain in the left leg is still persistent, erythema is better, white blood cell count is improved. Hemoglobin is at 7.2 at this time I will transfuse him with 2 units. Patient otherwise has no complaints or concerns he did have a large bowel movement last night, potassium is back to normal 01/26 Patient seen and examined, hemoglobin is more than 8 now. Has no new complaints or concerns. Left lower extremity erythema continues to improve, tenderness is better. Patient still has chronic pain which bothers him and limits his ambulation. Will increase a dose of oral oxycodone and cut back on IV pain medications. Labs are otherwise stable MRI of the ankle was done which is negative for any infection in the joint but does show cellulitis as well as possible tendinitis patient is responding well to antibiotic regimen for now Pertinent ROS: Denies headache, dizziness Denies chest pain, palpitations Denies cough or shortness of breath Denies abdominal pain, nausea or vomiting. - Constitutional Vitals: Vital Signs Temp Pulse Resp BP Pulse Ox 98.0 F 67 22 153/76 93 01/26/19 08:11 01/26/19 08:11 01/26/19 08:11 01/26/19 08:11 01/26/19 08:11 Period Temp Pulse Resp BP Sys/Dupree Pulse Ox Last 24 Hr 97.8 F-99 F 54-70 16-22 137-173/69-78 91-94 Intake and Output 01/25/19 01/26/19 01/26/19 21:59 05:59 13:59 Intake Total 410 336 300 Output Total 925 450 350 Balance -515 -114 -50 Weight 157 lb Intake & Output: Intake & Output 01/25/19 01/26/19 01/26/19 21:59 05:59 13:59 Intake Total 410 336 300 Output Total 925 450 350 Balance -515 -114 -50 Weight 157 lb Intake: Nourishment/Supplement quantity 120 (ml) IV 50 Rocephin 2 gm In Dextrose 5% in 50 Water 50 ml @ 100 mls/hr IV DAILY [facility] Rx#:[id number] Oral 360 336 180 Output: Void Amount 925 450 350 Other: Meal Breakfast Percent of Meal Consumed 100% Feeding Ability Assist with Tray Set Up Nourishment/Supplement name Leon Quintero Urine Appearance Clear Clear Urine Color Bright Yellow Bright Yellow Urine Odor Normal Normal Stool Consistency Loose Exam: Constitutional; Afebrile, cooperative, alert, not in distress. Respiratory system: Air Entry equal on both sides, No crackles or wheezing, no rhonchi. CVS- Rate rhythm regular, S1,S2 heard, no gallop, no rub. Abdomen- Soft nontender abdomen, no organomegaly, no tenderness, no guarding or rigidity, SEAM FELLER- AOOx3, moving all extremities, no gross focal deficit noted. Medical - PN: Obj Da - Labs CBC & Chem 7: 01/26/19 04:00 01/26/19 04:00 Labs: Abnormal Lab Results 01/26/19 01/26/19 01/25/19 04:00 04:00 03:57 RBC 2.69 L Hgb 8.4 L Hct 25.4 L POC Hct RDW 15.6 H Plt Count Lymph % (Auto) 9.1 L Lymph # (Auto) 0.8 L [place] # (Auto) 1.1 H Lymphocytes % Monocytes % (Manual) Metamyelocytes % WBC Morphology Toxic Granulation Platelet Estimate RBC Morphology Anisocytosis Rouleaux POC Potassium Potassium POC BUN BUN 67 H 60 H Creatinine 2.1 H 2.1 H POC Creatinine Glucose 136 H POC Glucose Calcium 8.1 L 7.7 L POC WB Ioniz Calcium Lactate Dehydrogenase 299 H Total Protein 5.3 L 5.5 L Albumin 2.0 L 2.2 L Globulin Albumin/Globulin Ratio 0.6 L 0.7 L 01/25/19 01/24/19 01/24/19 03:57 21:33 14:15 RBC 2.37 L Hgb 7.2 L Hct 22.0 L POC Hct 23.0 L 24.0 L RDW 14.7 H Plt Count 459 H Lymph % (Auto) Lymph # (Auto) Cam[place] # (Auto) Lymphocytes % 10 L Monocytes % (Manual) Metamyelocytes % 2 H WBC Morphology Abnorm A Toxic Granulation 1+ A Platelet Estimate Increased A RBC Morphology Anisocytosis Rouleaux POC Potassium 5.7 H Potassium POC BUN 56 H 63 H BUN Creatinine POC Creatinine 2.2 H 2.2 H Glucose POC Glucose 252 H 215 H Calcium POC WB Ioniz Calcium 1.03 L 1.12 L Lactate Dehydrogenase Total Protein Albumin Globulin Albumin/Globulin Ratio 01/24/19 01/24/19 04:07 04:07 RBC 2.45 L Hgb 7.6 L Hct 23.3 L POC Hct RDW 15.4 H Plt Count 492 H Lymph % (Auto) Lymph # (Auto) [place] # (Auto) Lymphocytes % 5 L Monocytes % (Manual) 16 H Metamyelocytes % 2 H WBC Morphology Toxic Granulation Platelet Estimate Increased A RBC Morphology Abnorm A Anisocytosis 1+ A Rouleaux Present A POC Potassium Potassium 5.6 H POC BUN BUN 68 H Creatinine 2.0 H POC Creatinine Glucose 46 L POC Glucose Calcium 8.5 L POC WB Ioniz Calcium Lactate Dehydrogenase 257 H Total Protein Albumin 2.1 L Globulin 3.8 H Albumin/Globulin Ratio 0.6 L Meds: Medications Acetaminophen (Tylenol) 1,000 mg PO TID [facility] Amlodipine Besylate (Norvasc) 10 mg PO DAILY [facility] Last Admin: 01/26/19 09:14 Dose: 10 mg Documented by: Aspirin (Aspirin) 81 mg PO DAILY [facility] Last Admin: 01/26/19 09:14 Dose: 81 mg Documented by: Dextrose (Dextrose 50%) 0 ml IV UD PRN PRN Reason: Hypoglycemia Diagnostic Test (Pha) (Accu-Chek) 1 each FS ACHS [facility] Last Admin: 01/26/19 07:23 Dose: 1 each Documented by: Docusate Sodium (Colace) 100 mg PO BID [facility] Last Admin: 01/26/19 09:14 Dose: 100 mg Documented by: Doxazosin Mesylate (Cardura) 1 mg PO DAILY [facility] Last Admin: 01/26/19 09:13 Dose: 1 mg Documented by: Folic Acid (Folic Acid) 1 mg PO DAILY [facility] Last Admin: 01/26/19 09:14 Dose: 1 mg Documented by: Glucose (Insta-Glucose) 15 gm PO PRN PRN PRN Reason: Hypoglycemia Guaifenesin/Codeine Phosphate (Robitussin Ac) 10 ml PO Q4HP PRN PRN Reason: Cough Heparin Sodium (Porcine) (Heparin) 5,000 unit SQ Q12 [facility] Last Admin: 01/26/19 09:14 Dose: 5,000 unit Documented by: Heparin Sodium (Porcine) (Heparin Flush) 2 ml IV Q12 [facility] Last Admin: 01/26/19 09:14 Dose: 2 ml Documented by: Hydrochlorothiazide (Oretic) 25 mg PO DAILY [facility] Last Admin: 01/26/19 09:14 Dose: 25 mg Documented by: Ceftriaxone Sodium 2 gm/ (Dextrose) 50 mls @ 100 mls/hr IV DAILY [facility]; Protocol Last Admin: 01/26/19 09:15 Dose: 100 mls/hr Documented by: Insulin Glargine (Lantus) 12 unit SQ HS [facility] Last Admin: 01/25/19 21:15 Dose: 12 unit Documented by: Insulin Human Lispro (Humalog) 0 unit SQ ACHS [facility]; Protocol Last Admin: 01/26/19 07:23 Dose: Not Given Documented by: Iron Carb/Multivit/[employer]icist [employer]/Folic Acid (Multivitamin W/Minerals) 1 tab PO DAILY [facility] Last Admin: 01/26/19 09:14 Dose: 1 tab Documented by: Levothyroxine Sodium (Synthroid) 50 mcg PO QAMAC [facility] Last Admin: 01/26/19 07:17 Dose: 50 mcg Documented by: Lorazepam (Ativan) 0.5 mg PO BIDP PRN PRN Reason: Anxiety Last Admin: 01/25/19 02:16 Dose: 0.5 mg Documented by: Magnesium Oxide (Magnesium Oxide) 400 mg PO DAILY [facility] Last Admin: 01/26/19 09:14 Dose: 400 mg Documented by: Melatonin (Melatonin 3mg Tablet) 3 mg PO HSP PRN PRN Reason: Insomnia Last Admin: 01/19/19 20:35 Dose: 3 mg Documented by: Nystatin (Nystatin) 500,000 units SSW QID [facility] Last Admin: 01/26/19 09:15 Dose: 500,000 units Documented by: Ondansetron HCl (Zofran) 4 mg IV Q4-6HP PRN PRN Reason: Nausea And Vomiting Oxycodone HCl (Roxicodone) 5 - 10 mg PO Q4HP PRN PRN Reason: Pain Prednisone (Prednisone) 10 mg PO [facility] Last Admin: 01/26/19 07:17 Dose: 10 mg Documented by: Senna/Docusate Sodium (Senna Plus Tablet) 2 tab PO HS [facility] Last Admin: 01/25/19 21:13 Dose: 2 tab Documented by: Sodium Chloride (Saline Flush) 10 ml IV Q8 [facility] Last Admin: 01/26/19 05:54 Dose: Not Given Documented by: Sodium Chloride (Saline Flush) 10 ml IV Q12 [facility] Last Admin: 01/26/19 09:16 Dose: Not Given Documented by: Thiamine HCl (Vitamin B1) 100 mg PO DAILY [facility] Last Admin: 01/26/19 09:14 Dose: 100 mg Documented by: Vancomycin HCl (Vancomycin Per Pharmacy) 1 order IV UD [facility]; Protocol Medical - PN: A/P - Time Spent With Patient Total time spent is greater than 50% in coordination of care (as documented) at patient's floor/unit and/or counseling patient: - Narrative A/P Narrative: A/P Septic Arthritis -Group G streptococcus -on IV rocephin, s/p washout, drains removed, elbow looks good as per Ortho Left lower extremity Cellulitis/ tendinitis -Ankle aspiration negative -skin changes clearly suggestive of cellulitis -On IV vancomycin, on day 3 today with improvement in symptoms. Will continue same. Streptococcus Bactermia, group G streptococcus -likely source elbow -echo does not show endocarditis, -midline placed. -total 4 weeks rocephin planned Rheumatoid arthritis/ PMR -on chronic immunosuppressants, continue same for now, hemodynamically stable. 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 constipation -responded to enema HTN -bp stable, hold atenonol and clonidine given low HR< monitor, HCTZ resumed -bradycardia has resolved after cessation of beta teresa, clonidine therapy, and blood pressure is well controlled. DM -SSI insulin for glucose control, (pt got steroids which likely exacerbated hyperglycemia) -glucose levels seem better, present regime of lantus 12 units, ssi moderate scale. Hypothyroidism -on synthroid, Deconditioning -Rehab, OT/PT DVT Hep sq Full code Carb consistent diet. Medical - PN: Qual - Stroke Symptom Onset Unknown: No - VTE Deep Vein Thrombosis/Pulmonary Embolism Present on Admission: No
--- NOTE | 2019-01-26 13:05 | Orthopedic Progress Note ---
Subjective Patient information: Note initiated : 01/26/19 at 1:03 pm Service Date, if different from initiated Date: [] Patient: Bebeto Bunn 83 y/o M admitted on 01/17/19 for Generalized Weakness. Chief Complaint: [] Principal diagnosis: bacteremia, septic right elbow, septic olecranon bursitis Interval history: MRI left ankle negative for fluid collection/osteo, 2 units PRBCs yesterday, nomalized white count, afebrile, no new complaints. Objective Vital signs: Vital Signs Temp Pulse Resp BP BP Pulse Ox 01/26/19 12:13 98.6 F 65 22 143/74 92 01/26/19 08:11 98.0 F 67 22 153/76 93 01/26/19 03:13 98.4 F 70 22 143/74 94 01/25/19 23:33 98.1 F 62 22 155/78 91 01/25/19 19:22 97.8 F 70 22 150/75 93 01/25/19 17:21 98.8 F 59 L 18 173/75 93 01/25/19 17:11 98.3 F 54 L 18 153/74 93 01/25/19 16:06 99 F 66 16 156/77 92 Intake and Output 01/25/19 01/26/19 01/26/19 21:59 05:59 13:59 Intake Total 410 336 350 Output Total 925 450 800 Balance -515 -114 -450 Intake: Nourishment/Supplement quantity 120 (ml) IV 50 50 Rocephin 2 gm In Dextrose 5% in 50 50 Water 50 ml @ 100 mls/hr IV DAILY [facility] Rx#:[id number] Oral 360 336 180 Output: Void Amount 925 450 800 Other: Meal Breakfast Percent of Meal Consumed 100% Feeding Ability Assist with Tray Set Up Nourishment/Supplement name Kekequang Kayraul Urine Appearance Clear Clear Clear Urine Color Bright Yellow Bright Yellow Straw Urine Odor Normal Normal Stool Consistency Loose Weight 157 lb Intake & Output: Intake & Output 01/25/19 01/26/19 01/26/19 21:59 05:59 13:59 Intake Total 410 336 350 Output Total 925 450 800 Balance -515 -114 -450 Weight 157 lb Intake: Nourishment/Supplement quantity 120 (ml) IV 50 50 Rocephin 2 gm In Dextrose 5% in 50 50 Water 50 ml @ 100 mls/hr IV DAILY [facility] Rx#:[id number] Oral 360 336 180 Output: Void Amount 925 450 800 Other: Meal Breakfast Percent of Meal Consumed 100% Feeding Ability Assist with Tray Set Up Nourishment/Supplement name Leon Quintero Urine Appearance Clear Clear Clear Urine Color Bright Yellow Bright Yellow Straw Urine Odor Normal Normal Stool Consistency Loose Incision: Yes healing, Yes clean and dry Incision clean and dry: Yes Dressing: Yes intact Weight bearing status: as tolerated Additional Comments: resolved edema throughout elbow/forearm and most of hand but not digits- dependent edema. no flucuance about the elbow. No erythema - Labs CBC & BMP: 01/26/19 04:00 01/26/19 04:00 Labs: Orthopedic Labs 01/17/19 06:48 PT 14.4 INR 1.1 01/26/19 01/25/19 01/24/19 04:00 03:57 04:07 Hgb 8.4 L 7.2 L 7.6 L Hct 25.4 L 22.0 L 23.3 L 01/23/19 01/22/19 01/21/19 04:41 04:26 04:25 Hgb 8.4 L 7.9 L 8.1 L Hct 25.4 L 24.3 L 25.2 L 01/20/19 01/19/19 01/18/19 04:21 03:22 03:30 Hgb 8.0 L 7.8 L 7.9 L Hct 24.4 L 24.1 L 24.9 L 01/17/19 06:48 Hgb 10.0 L Hct 31.2 L Assessment and Plan - Narrative A/P Narrative: POD s/p right elbow I&D and drainage of olecranon bursa -- dressing removed and looks essentially resolved of all edema, no erythema. incision is healing without drainage. ---- on IV abx, normalized wbc -- Left ankle- cellulitis with negative MRI for osteo, neg joint aspirate. -- likely will remove sutures on Friday
[2019-01-26] MEDS: ACETAMINOPHEN 325 MG TABLET PO SCH ×2 (14:33→21:16)
[2019-01-26] MEDS: SENNOSIDES/DOCUSATE SODIUM 1 TAB TABLET PO SCH (21:15)
[2019-01-26] MEDS: INSULIN GLARGINE, HUMAN 1 UNIT/0.01 ML SQ SCH (21:33)
[2019-01-27] MEDS: 0.9 % SODIUM CHLORIDE 10 ML SYRINGE IV SCH ×7 (02:32→20:59)
[2019-01-27] MEDS ORDERED: 0.9 % SODIUM CHLORIDE 500 ML IV ONE (03:44)
[2019-01-27] MEDS ORDERED: NALOXONE HCL 0.4 MG/ML VIAL IV PRN (03:44)
[2019-01-27] MEDS ORDERED: LACTATED RINGERS 1,000 ML IV ONE (04:08)
[2019-01-27] MEDS ORDERED: ONDANSETRON 4 MG/2 ML VIAL IV ONE (04:18)
[2019-01-27] MEDS ORDERED: ESOMEPRAZOLE 40 MG VIAL IV ONE (04:19)
[2019-01-27] MEDS ORDERED: ESOMEPRAZOLE 40 MG VIAL IV SCH ×3 (04:30→17:30)
[2019-01-27 05:01] LABS: Basophils # (Auto) 0.2 K/mcL (0.0-0.3); Basophils % (Auto) 1.2 % (0.0-2.0); Eosinophils # (Auto) 0.5 K/mcL (0.0-0.7); Eosinophils % (Auto) 3.3 % (0.0-7.0); Granulocytes % (Auto) 70.3 % (38.0-78.0); Hematocrit 22.4 % (41.0-55.0); Hemoglobin 7.1 g/dL (13.5-16.5); Lymphocytes # (Auto) 2.3 K/mcL (1.5-4.8); Lymphocytes % (Auto) 16.7 % (15.5-49.0); Mean Cell Volume 95.2 fL (80.0-100.0); Mean Corpuscular HGB Conc 31.8 g/dL (31.0-36.0); Mean Platelet Volume 10.6 fL (7.4-10.4); Monocytes # (Auto) 1.2 K/mcL (0.1-0.9); Monocytes % (Auto) 8.5 % (1.0-12.0); Platelet Count 369 K/mcL (140-440); RBC 2.35 M/mcL (4.50-5.90); Red Cell Distribution Width 15.6 % (11.5-14.5); WBC 13.8 K/mcL (4.5-11.0)
[2019-01-27] MEDS ORDERED: PIPERACILLIN SODIUM/TAZOBACTAM 2.25 GM in DEXTROSE 5% IN WATER 50 ML IV SCH (05:15)
[2019-01-27] MEDS ORDERED: 0.9 % SODIUM CHLORIDE 250 ML IV SCH ×3 (05:15→23:45)
[2019-01-27] MEDS ORDERED: NITROGLYCERIN 0.4 MG TAB.SUBL SL ONE ×2 (05:17)
[2019-01-27] MEDS ORDERED: LORazepam 0.5 MG TABLET PO PRN (05:20)
[2019-01-27] MEDS ORDERED: VANCOMYCIN PER PHARMACY IV SCH (05:20)
[2019-01-27] MEDS ORDERED: guaiFENesin/CODEINE 10 ML UDC PO PRN (05:20)
[2019-01-27] MEDS ORDERED: oxyCODONE HCL 5 MG TABLET PO PRN (05:20)
[2019-01-27] MEDS ORDERED: ONDANSETRON 4 MG/2 ML VIAL IV PRN (05:20)
[2019-01-27] MEDS ORDERED: DEXTROSE 31 GM ORAL.SUSP PO PRN (05:20)
[2019-01-27] MEDS ORDERED: DEXTROSE 50% 50 ML VIAL IV PRN (05:20)
[2019-01-27] MEDS ORDERED: MELATONIN 3 MG TABLET PO PRN (05:20)
[2019-01-27 05:22] LABS: Vancomycin,Random 16.4 ug/mL
[2019-01-27 05:23] LABS: ALT/SGPT 15 U/l (0-40); AST/SGOT 18 U/l (0-37); Albumin 2.1 gm/dL (3.2-5.2); Albumin/Globulin Ratio 0.7 (1.0-2.3); Alkaline Phosphatase 71 U/L (39-117); Bilirubin,Direct < 0.2 mg/dL (0.0-0.3); Bilirubin,Total 0.2 mg/dL (0.0-1.0); Blood Urea Nitrogen 80 mg/dl (8-23); Calcium 8.6 mg/dl (8.6-10.4); Carbon Dioxide 26 mmol/L (22-30); Chloride 104 mmol/L (96-108); Globulin 3.2 gm/dL (2.2-3.7); Glomerular Filtration Rate 30; Glucose 140 mg/dL (70-105); Lactate Dehydrogenase 206 U/L (94-250); Phosphorous 4.2 mg/dL (2.7-4.5); Triglycerides 94 mg/dl (<150); Uric Acid 6.2 mg/dL (2.5-8.0)
[2019-01-27] MEDS: ESOMEPRAZOLE 40 MG VIAL IV SCH ×3 (05:59→19:13)
[2019-01-27] MEDS: LACTATED RINGERS 1,000 ML IV SCH ×3 (06:15→19:00)
[2019-01-27 06:19] LABS: INR 1.1 (0.9-1.1); Prothrombin Time 14.2 sec (11.9-14.5)
--- NOTE | 2019-01-27 06:49 | Internal Med Progress Note ---
Medical - PN: Subj Patient information: Note initiated : 01/27/19 at 6:45 am Service Date, if different from initiated Date: [] Patient: Bebeto Bunn a 83 y/o M admitted on 01/17/19 for Generalized Weakness. Chief Complaint: [] Interval history: Mr. Bunn is a 83 year old M with a history of chronic kidney disease, PMR/ ?RA on chronic prednisone who presents to the ER with onset of progressive weakness along with multiple falls that started 2 weeks ago. Patient since then has noticed increasing right elbow and left ankle pain and swelling along with redness. Patient has had progressive fatigue lethargic and unable to perform activities of daily living. He is accompanied to the ER due to increasing co ncerns within family about his gradual decline. His symptoms are associated with fever around 2 weeks ago at 101.8. He denies associated dysuria diarrhea but endorses to polyarthralgia and rash as involving left ankle and right elbow. He denies headache,, vision changes or unilateral weakness. He does endorse to falls to weakness and getting off balance. Initial work-up in the ER was consistent with elevated white count/inflammatory markers with CRP 43 and ESR 112, elevated white count 17.8, creatinine 3. CT scan right elbow was performed. Patient received a dose of Solu-Medrol At the time of evaluation patient is accompanied with multiple family members. He was able to endorse history as above. Family expressed concerns about his inability to take care of self. 01/18 patient seen examined, labs reviewed no acute complaints overnight bradycardic, on beta teresa and clonidine, pt reports HR always low, no dizziness, cp or palpitations reported hold atenolol and clonidine for now and monitor. Right elbow, had pus on aspiration, taken to or yesterday, pt also has GPC bacteremia, which is isolated as strep, presently on vanco and cefepime, will review with ID and plan for deescalation of abx regime to [facility] echo to be done Low hb likely from post 01/19 Patient seen examined no acute issues, HR stable, but pt still in sinus bradycardia labs stable, K 5.2, hb stable Pt has no new complaints or concerns, tolerating po diet well. 01/20 Patient seen and examined, no acute overnight events patient is comfortable in bed. Does admit to having some constipation He denies any other acute issues. Labs stable hemoglobin stable creatinine is 2.5 potassium is 5.0 bicarbonate improved to 19 01/21 Patient seen examined, no acute issues, tolerating po diet well, sitting comfortably in bed, labs stable BP now trending up, resume hctz, drains still in place, still has some purulent discharge 01/22 Patient seen and examined, no acute complaints or concerns, he still has pain in his left ankle slightly worse today than before. White blood cell count is up. Orthopedics evaluated the ankle, did an aspiration which only aspirated synovial fluid which has been sent for analysis Patient will continue on Rocephin Labs otherwise stable except for slight worsening of leukocytosis 01/23 Patient seen and examined, no acute overnight events tolerating p.o. diet well. He still has pain in his left lower extremity around the posterior aspect of his ankle, so worsening over the last 2 to 3 days. His white blood cell count is also trending upward Aspiration was done of the left ankle which is negative for an acute infection Erythema is increasing, there is now a blister formation at the left lower extremity I will add vancomycin to the patient's regimen Patient does not have any cough or any abdominal pain he is still constipated, chest x-ray shows atelectasis 01/24 Patient seen and examined, no acute overnight events. His left leg is still sore but slight improvement since yesterday. WBC count is not trending down. Hemoglobin slightly low but no indication for transfusion yet. Patient otherwise feels good. 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 The patient has had elevated and borderline high potassium for a long time 01/25 Patient seen and examined, no acute overnight events. Pain in the left leg is still persistent, erythema is better, white blood cell count is improved. Hemoglobin is at 7.2 at this time I will transfuse him with 2 units. Patient otherwise has no complaints or concerns he did have a large bowel m ovement last night, potassium is back to normal 01/26 Patient seen and examined, hemoglobin is more than 8 now. Has no new complaints or concerns. Left lower extremity erythema continues to improve, tenderness is better. Patient still has chronic pain which bothers him and limits his ambulation. Will increase a dose of oral oxycodone and cut back on IV pain medications. Labs are otherwise stable MRI of the ankle was done which is negative for any infection in the joint but does show cellulitis as well as possible tendinitis patient is responding well to antibiotic regimen for now 01/27 Pt seen examined, this AM pt was noted to not feel well The patient called the nurse to reposition himself, but afte that, had a brief episode of passing out, not feeling well and pale, blood pressure was low, he had epigastric distress and noted that he felt nausea His blood pressure was borderline low, labs done, ekg, abg and lactic acid drawn, IV bolus x 500ml given Pt was evaluated, was in bed, did not appear at baseline, bp was 114/54 HR 58 chr sinus bradycardia Labs show hb of 7.1, wbc 14K ABG showed 7.41/44/113, Lac 1.4 Trop 0.08, NO acute ekg changes Pt moved to [facility] status, plan to give ntg, transfuse [address] chest abdomen pelvis done, without contrast shows gastic distention, duodenal inflammation, and possile aspiration pna, I am paged GI doc agent contract clerk and am yet to hear from him will start pt on IV PPI broaden abx to zosyn, d/c rocephin. Pertinent ROS: Denies headache, present dizziness. Denies chest pain, palpitations Denies cough or shortness of breath notes has epigastric distentino, some nausea, feels like has heart burn.. - Constitutional Vitals: Vital Signs Temp Pulse Resp BP Pulse Ox 97.4 F 59 L 24 H 123/56 96 01/27/19 04:40 01/27/19 04:40 01/27/19 04:40 01/27/19 04:40 01/27/19 04:40 Period Temp Pulse Resp BP Sys/Dupree Pulse Ox Last 24 Hr 97.4 F-98.6 F 59-87 18- 123-153/56-77 92-96 Intake and Output 01/26/19 01/27/19 01/27/19 21:59 05:59 13:59 Intake Total 880 200 Output Total 525 575 Balance 355 -375 Weight 155 lb Intake & Output: Intake & Output 01/26/19 01/27/19 01/27/19 21:59 05:59 13:59 Intake Total 880 200 Output Total 525 575 Balance 355 -375 Weight 155 lb Intake: Nourishment/Supplement quantity 120 (ml) Oral 760 200 Output: Void Amount 525 575 Other: Meal Dinner Percent of Meal Consumed 100% Feeding Ability Independent Nourishment/Supplement name nepro Urine Appearance Clear Clear Urine Color Bright Yellow Bright Yellow Urine Odor Normal Normal Exam: Constitutional; Afebrile, cooperative, drowsy, not in distress. Eyes- No icterus, , No periorbital swelling Ears- Ext ear normal, hearing normal to conversation. Neck- Midline trachea, supple Respiratory system: Air Entry equal on both sides, No crackles or wheezing, no rhonchi. CVS- Rate rhythm regular, S1,S2 heard, no gallop, no rub. systolic murmur, Abdomen- Soft nontender abdomen, no organomegaly, no tenderness, no guarding or rigidity, RECREATION THERAPY AIDE- AOOx3, moving all extremities, no gross focal deficit noted. Medical - PN: Obj Da - Labs CBC & Chem 7: 01/27/19 03:50 01/27/19 03:50 Labs: Abnormal Lab Results 01/27/19 01/27/19 01/27/19 03:50 03:50 03:50 WBC 13.8 H RBC 2.35 L Hgb 7.1 L Hct 22.4 L POC Hct RDW 15.6 H Plt Count MPV 10.6 H Lymph % (Auto) Gran # 9.7 H Lymph # (Auto) Dade # (Auto) 1.2 H Lymphocytes % Metamyelocytes % WBC Morphology Toxic Granulation Platelet Estimate POC Potassium POC BUN BUN 80 H Creatinine 2.0 H POC Creatinine Glucose 140 H POC Glucose Calcium POC WB Ioniz Calcium Lactate Dehydrogenase Troponin T 0.08 H* Total Protein 5.3 L Albumin 2.1 L Albumin/Globulin Ratio 0.7 L 01/26/19 01/26/19 01/25/19 04:00 04:00 03:57 WBC RBC 2.69 L Hgb 8.4 L Hct 25.4 L POC Hct RDW 15.6 H Plt Count MPV Lymph % (Auto) 9.1 L Gran # Lymph # (Auto) 0.8 L Dade # (Auto) 1.1 H Lymphocytes % Metamyelocytes % WBC Morphology Toxic Granulation Platelet Estimate POC Potassium POC BUN BUN 67 H 60 H Creatinine 2.1 H 2.1 H POC Creatinine Glucose 136 H POC Glucose Calcium 8.1 L 7.7 L POC WB Ioniz Calcium Lactate Dehydrogenase 299 H Troponin T Total Protein 5.3 L 5.5 L Albumin 2.0 L 2.2 L Albumin/Globulin Ratio 0.6 L 0.7 L 01/25/19 01/24/19 01/24/19 03:57 21:33 14:15 WBC RBC 2.37 L Hgb 7.2 L Hct 22.0 L POC Hct 23.0 L 24.0 L RDW 14.7 H Plt Count 459 H MPV Lymph % (Auto) Gran # Lymph # (Auto) Dade # (Auto) Lymphocytes % 10 L Metamyelocytes % 2 H WBC Morphology Abnorm A Toxic Granulation 1+ A Platelet Estimate Increased A POC Potassium 5.7 H POC BUN 56 H 63 H BUN Creatinine POC Creatinine 2.2 H 2.2 H Glucose POC Glucose 252 H 215 H Calcium POC WB Ioniz Calcium 1.03 L 1.12 L Lactate Dehydrogenase Troponin T Total Protein Albumin Albumin/Globulin Ratio Meds: Medications Acetaminophen (Tylenol) 1,000 mg PO TID [facility] Aspirin (Aspirin) 81 mg PO DAILY [facility] Dextrose (Dextrose 50%) 0 ml IV UD PRN PRN Reason: Hypoglycemia Diagnostic Test (Pha) (Accu-Chek) 1 each FS ACHS [facility] Docusate Sodium (Colace) 100 mg PO BID [facility] Doxazosin Mesylate (Cardura) 1 mg PO DAILY [facility] Esomeprazole Magnesium (Nexium) 40 mg IV ONCE [facility] Last Admin: 01/27/19 05:59 Dose: Not Given Documented by: Esomeprazole Magnesium (Nexium) 40 mg IV BIDAC [facility] Esomeprazole Magnesium (Nexium) 40 mg IV ONCE [facility] Folic Acid (Folic Acid) 1 mg PO DAILY [facility] Glucose (Insta-Glucose) 15 gm PO PRN PRN PRN Reason: Hypoglycemia Guaifenesin/Codeine Phosphate (Robitussin Ac) 10 ml PO Q4HP PRN PRN Reason: Cough Heparin Sodium (Porcine) (Heparin) 5,000 unit SQ Q12 [facility] Heparin Sodium (Porcine) (Heparin Flush) 2 ml IV Q12 [facility] Sodium Chloride (Sodium Chloride 0.9%) 250 mls @ 20 mls/hr IV .[id number] [facility] Stop: 01/27/19 17:44 Last Admin: 01/27/19 06:40 Dose: 20 mls/hr Documented by: Piperacillin Sod/Tazobactam (Sod 2.25 gm/ Dextrose) 50 mls @ 100 mls/hr IV Q8H [facility]; Protocol Lactated Ringer's (Lactated Ringers) 1,000 mls @ 150 mls/hr IV .[id number] [facility] Stop: 01/28/19 01:59 Last Admin: 01/27/19 06:15 Dose: 150 mls/hr Documented by: Insulin Glargine (Lantus) 12 unit SQ HS [facility] Insulin Human Lispro (Humalog) 0 unit SQ ACHS [facility]; Protocol Iron Carb/Multivit/Inclusion Paraeducator/Folic Acid (Multivitamin W/Minerals) 1 tab PO DAILY [facility] Levothyroxine Sodium (Synthroid) 50 mcg PO QAMAC [facility] Lorazepam (Ativan) 0.5 mg PO BIDP PRN PRN Reason: Anxiety Magnesium Oxide (Magnesium Oxide) 400 mg PO DAILY [facility] Melatonin (Melatonin 3mg Tablet) 3 mg PO HSP PRN PRN Reason: Insomnia Nystatin (Nystatin) 500,000 units SSW QID [facility] Ondansetron HCl (Zofran) 4 mg IV Q4-6HP PRN PRN Reason: Nausea And Vomiting Oxycodone HCl (Roxicodone) 5 - 10 mg PO Q4HP PRN PRN Reason: Pain Prednisone (Prednisone) 10 mg PO QAMCC [facility] Senna/Docusate Sodium (Senna Plus Tablet) 2 tab PO HS [facility] Sodium Chloride (Saline Flush) 10 ml IV Q8 [facility] Last Admin: 01/27/19 05:59 Dose: Not Given Documented by: Sodium Chloride (Saline Flush) 10 ml IV Q12 [facility] Thiamine HCl (Vitamin B1) 100 mg PO DAILY [facility] Vancomycin HCl (Vancomycin Per Pharmacy) 1 order IV [facility] [place]; Protocol Medical - PN: A/P - Time Spent With Patient Total time spent is greater than 50% in coordination of care (as documented) at patient's floor/unit and/or counseling patient: - Narrative A/P Narrative: A/P Acute GI bleed -possible gi bleed -CT shows duodenitis -Pt high risk given steroid, asa use, not on ppi at baseilne -start on IV PPI -Hb is 7.1, transfuse 2 units, Consult GI, -NG placed, bright red.//bloody fluid aspirated Septic Arthritis -Group G streptococcus -on IV rocephin, s/p washout, drains removed, elbow looks good as per Ortho -on IV zosyn now for possible aspiration Left lower extremity Cellulitis/ tendinitis -Ankle aspiration negative -skin changes clearly suggestive of cellulitis -On IV vancomycin, on day 4/10 today with improvement in symptoms. Will continue same. Streptococcus Bacteremia, group G streptococcus -likely source elbow -echo does not show endocarditis, -midline placed. -total 4 weeks abx planned, initially with rocephin, presently on zosyn. Rheumatoid arthritis/ PMR -on chronic immunosuppressants, continue same for now, hemodynamically stable. 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 constipation -responded to enema HTN -bp stable, hold atenonol and clonidine given low HR< monitor, HCTZ resumed -bradycardia has resolved after cessation of beta teresa, clonidine therapy, and blood pressure is well controlled. -Hold amlodipine and hctz, given low bp, secondary to gi bleed. DM -SSI insulin for glucose control, (pt got steroids which likely exacerbated hyperglycemia) -glucose levels seem better, present regime of lantus 12 units, ssi moderate scale. Hypothyroidism -on synthroid, Deconditioning -Rehab, OT/PT DVT Hep sq Full code Carb consistent diet./NPO for now Medical - PN: Qual - Stroke Symptom Onset Unknown: No - VTE Deep Vein Thrombosis/Pulmonary Embolism Present on Admission: No
--- NOTE | 2019-01-27 07:41 | XRay Report ---
HISTORY: Nasogastric tube insertion FINDINGS: There is a nasogastric tube looped in the fundus of the stomach. The tip is pointing towards the gastroesophageal junction. There is normal amount of air in the stomach and small bowel. No gross free intra-abdominal air seen on this supine image. IMPRESSION: Well-positioned nasogastric tube. The ICU was called with the results Interpreted and Authenticated by: Prabhu Mosqueda 01/27/19
--- NOTE | 2019-01-27 07:53 | Cat Scan Report ---
History: Generalized weakness, elevated white blood cell count and recent infection in the elbow technique: The patient was imaged without oral or intravenous contrast scanning from the thoracic inlet to the symphysis pubis. Sagittal and coronal reformats were created along with axial MIPS images of the chest. The radiation exposure was limited using dose reduction technology. Sensitivity of this examination is limited without the use of IV or oral contrast. FINDINGS: CHEST: There are peripheral infiltrates in both lower lobes with air bronchograms. There is mild involvement in the inferior segment lingula and medially in the right middle lobe. There is relative sparing of the upper lobes. There is a trace amount pleural fluid on the right side. No abnormally enlarged lymph nodes are detected in the mediastinum or osbaldo. The proximal esophagus is mildly distended with fluid and ingested material. Distal esophagus is normal caliber. There is no hiatus hernia. The heart is normal in size and contour. A moderate amount of calcified plaque is present in the coronary arteries and aortic arch. Abdomen and pelvis: The liver and spleen appear normal in size and homogeneous. The gallbladder is normal with no stones or thickening of the wall. The bile ducts are nondilated. There is atrophy of the pancreas. There are few calcifications in the head of the pancreas which may be related to prior episode of pancreatitis. There is no evidence of acute pancreatitis. There are couple cysts in the kidneys. The largest is located medially in the upper pole the left kidney. It measures 3.9 cm. There is no kidney stone or hydronephrosis. The stomach is somewhat distended with large amount of fluid. The duodenum is dilated and the penn are thickened. The duodenal 5.8 cm diameter and the wall is 9 mm in thickness. This transitions to normal caliber bowel at the ligament of Treitz. Around this point the small bowel appears normal. There is normal amount stool in the colon and there is no evidence of diverticulitis or appendicitis. There are a few noninflamed diverticula in the sigmoid colon. There is moderate amount calcified plaque in normal caliber abdominal aorta and iliac arteries. There is ectasia of both common iliac arteries. Urinary bladder is largely obscured by beam hardening artifact created by bilateral middle hip prosthesis. The prostate cannot be visualized due to the artifact. Patient has several old compression fractures in the thoracic and lumbar spine. There is a moderate compression fracture at T9 with milder compression fractures at T8, T12 and L2. 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 IMPRESSION: Bibasilar pulmonary infiltrates which could be aspiration, pneumonia or atelectasis Abnormally dilated duodenum with thickened wall. This may be due to peptic ulcer disease or duodenitis. No evidence of abscess or mass within the chest abdomen or pelvis Distended esophagus which may be due to reflux or poor esophageal motility Interpreted and Authenticated by: Prabhu Mosqueda 01/27/19
[2019-01-27] MEDS ORDERED: HYDROCHLOROTHIAZIDE 25 MG TABLET PO SCH (09:00)
[2019-01-27] MEDS ORDERED: DOXAZOSIN 1 MG TABLET PO SCH (09:00)
[2019-01-27] MEDS ORDERED: ASPIRIN 81 MG TAB.CHEW PO SCH (09:00)
[2019-01-27] MEDS: VANCOMYCIN 500 MG in 0.9 % SODIUM CHLORIDE 100 ML IV SCH (10:00)
[2019-01-27] MEDS: INSULIN LISPRO 1 UNIT/0.01 ML UNIT SQ SCH ×4 (11:02→20:13)
[2019-01-27] MEDS: LEVOTHYROXINE 50 MCG TABLET PO SCH (11:03)
[2019-01-27] MEDS: predniSONE 10 MG TABLET PO SCH (11:03)
[2019-01-27] MEDS: DOCUSATE SODIUM 100 MG CAPSULE PO SCH ×2 (11:04→20:12)
[2019-01-27] MEDS: MAGNESIUM OXIDE 400 MG TABLET PO SCH (11:05)
[2019-01-27] MEDS: HEPARIN 5,000 UNIT/ML VIAL SQ SCH ×2 (11:05→20:14)
[2019-01-27] MEDS: FOLIC ACID 1 MG TABLET PO SCH (11:05)
[2019-01-27] MEDS: MULTIVIT,THER IRON,CA,FA & MIN 1 TABLET PO SCH (11:06)
[2019-01-27] MEDS: THIAMINE 100 MG TABLET PO SCH (11:07)
[2019-01-27] MEDS: NYSTATIN 500,000 UNITS/5 ML ORAL.SUSP SSW SCH ×4 (11:07→20:13)
[2019-01-27] MEDS: ACETAMINOPHEN 325 MG TABLET PO SCH ×3 (11:07→20:14)
[2019-01-27] MEDS ORDERED: ACETAMINOPHEN 650 MG/65 ML BOTTLE IV PRN (13:13)
[2019-01-27] MEDS: PIPERACILLIN SODIUM/TAZOBACTAM 2.25 GM in DEXTROSE 5% IN WATER 50 ML IV SCH ×2 (13:56→22:14)
[2019-01-27] MEDS ORDERED: EPINEPHrine 1 MG/ML AMPUL IJ ONE (14:27)
[2019-01-27] MEDS ORDERED: PROPOFOL 200 MG/20 ML VIAL IV SCH (14:30)
[2019-01-27] MEDS ORDERED: MIDAZOLAM 2 MG/2 ML VIAL IV SCH (14:30)
[2019-01-27] MEDS ORDERED: MIDAZOLAM 2 MG/2 ML VIAL ONE (17:43)
[2019-01-27] MEDS ORDERED: PROPOFOL 20 ML IV ONE (17:43)
[2019-01-27 17:45] LABS: Hematocrit 27.8 % (41.0-55.0); Hemoglobin 9.2 g/dL (13.5-16.5)
[2019-01-27] MEDS ORDERED: INSULIN GLARGINE, HUMAN 1 UNIT/0.01 ML SQ SCH ×2 (21:00)
[2019-01-27] MEDS ORDERED: SENNOSIDES/DOCUSATE SODIUM 1 TAB TABLET PO SCH (21:00)
[2019-01-27] MEDS ORDERED: 0.9 % SODIUM CHLORIDE 1,000 ML IV ONE (23:53)
[2019-01-28 00:46] LABS: Basophils # (Auto) 0 K/mcL (0.0-0.3); Basophils % (Auto) 0.3 % (0.0-2.0); Eosinophils # (Auto) 0.2 K/mcL (0.0-0.7); Eosinophils % (Auto) 1.6 % (0.0-7.0); Hematocrit 20.7 % (41.0-55.0); Hemoglobin 6.8 g/dL (13.5-16.5); Lymphocytes # (Auto) 1.5 K/mcL (1.5-4.8); Lymphocytes % (Auto) 11.5 % (15.5-49.0); Mean Corpuscular HGB Conc 32.7 g/dL (31.0-36.0); Monocytes # (Auto) 1.1 K/mcL (0.1-0.9); Monocytes % (Auto) 8.6 % (1.0-12.0); Platelet Count 246 K/mcL (140-440); RBC 2.28 M/mcL (4.50-5.90); Red Cell Distribution Width 17.7 % (11.5-14.5); WBC 12.9 K/mcL (4.5-11.0)
[2019-01-28 01:21] LABS: ALT/SGPT 11 U/l (0-40); AST/SGOT 18 U/l (0-37); Albumin 1.6 gm/dL (3.2-5.2); Albumin/Globulin Ratio 0.6 (1.0-2.3); Alkaline Phosphatase 60 U/L (39-117); Bilirubin,Total 0.2 mg/dL (0.0-1.0); Blood Urea Nitrogen 84 mg/dl (8-23); Calcium 7.9 mg/dl (8.6-10.4); Carbon Dioxide 26 mmol/L (22-30); Chloride 103 mmol/L (96-108); Globulin 2.7 gm/dL (2.2-3.7); Glomerular Filtration Rate 30; Glucose 152 mg/dL (70-105)
[2019-01-28] MEDS: 0.9 % SODIUM CHLORIDE 10 ML SYRINGE IV SCH ×2 (05:29→09:11)
[2019-01-28] MEDS: PIPERACILLIN SODIUM/TAZOBACTAM 2.25 GM in DEXTROSE 5% IN WATER 50 ML IV SCH (05:29)
[2019-01-28 07:21] LABS: Basophils # (Auto) 0.1 K/mcL (0.0-0.3); Basophils % (Auto) 0.5 % (0.0-2.0); Eosinophils # (Auto) 0.1 K/mcL (0.0-0.7); Granulocytes % (Auto) 82.9 % (38.0-78.0); Hematocrit 26.3 % (41.0-55.0); Hemoglobin 8.8 g/dL (13.5-16.5); Lymphocytes # (Auto) 0.9 K/mcL (1.5-4.8); Mean Cell Volume 89.4 fL (80.0-100.0); Mean Corpuscular HGB Conc 33.5 g/dL (31.0-36.0); Mean Platelet Volume 10.4 fL (7.4-10.4); Monocytes # (Auto) 1.1 K/mcL (0.1-0.9); Monocytes % (Auto) 8.6 % (1.0-12.0); Platelet Count 180 K/mcL (140-440); RBC 2.94 M/mcL (4.50-5.90); WBC 12.7 K/mcL (4.5-11.0)
--- NOTE | 2019-01-28 07:25 | Operative Note ---
DATE OF OPERATION: 01/27/2019 PREPROCEDURE DIAGNOSIS: Upper GI bleed secondary to gastric or duodenal ulcer. POSTPROCEDURE DIAGNOSES: Upper GI bleed secondary to duodenal ulcers. PROCEDURE: Esophagogastroduodenoscopy with control of bleeding. INSTRUMENT USED: Olympus YENI [id number] endoscope. SPECIMENS OBTAINED: Biopsies from antrum to check for Helicobacter, both by histopathology and CLOtest. CLOtest RESULTS: Negative INDICATIONS: The patient is an 83-year-old gentleman whose primary care physician is Dr. Sandhya Francisco. The patient does have some arthritis and other medical problems. He does take some medications that could precipitate ulcer formation. He has had a bone biopsy in the right distal humerus. There was some fibrovascular tissue with no diagnostic alterations. There was no osteomyelitis identified. The patient did have the arm bandaged. He did have a drop in his hemoglobin. He was given some blood in transfusion. Hemoglobin dropped again. He did drop I believe to the 6 or 7 gram range and then after transfusion was brought up to the 9 gram range. He did have some blood return when an NG tube was placed. Endoscopy is indicated because of the bleeding. He seemed to be hemodynamically stable. Blood pressure was good. INFORMED CONSENT: Time of informed consent was [id number].The procedure was reviewed with the patient. The patient had no further questions and accepts the risks and benefits thereof. One of the risks that were discussed included . Additional risks that were also discussed included bleeding, reaction to medication, possible perforation and possible need for surgery. IV MEDICATIONS USED: Versed 1 mg and propofol 200, a total of 6 mL of hypertonic saline/epinephrine mixture were used. FINDINGS: ESOPHAGUS: Proximal, mid and distal esophagus normal. EG JUNCTION: This was around 40 cm. There was some erythema and edema noted. There was a slight stricture noted. No dilation was accomplished. STOMACH: Cardia, fundus, body and antrum visualized. Mucosa appeared normal. There was some old blood on the mucosa. There were other stomach contents. No active bleeding site was found in the stomach. Biopsies were taken for histopathology and CLOtest from the antrum. PYLORUS: Normal. DUODENUM: At the junction of the bulb and descending limb of the duodenum, there was a superficial ulcer about 1 to 1.25 cm in size. This did have some bleeding sites. These were injected with hypertonic saline/epinephrine mixture. There was one site that continued to bleed. A clip, I believe from Olympus, was placed on this. No further bleeding was noted. Nearby, a little distal to this ulcer there was about a 4 or 5 mm ulcer. This did have a bleeding site. This was treated with hypertonic saline/epinephrine mixture and a clip was placed on this. After taking the biopsies from the antrum this area was reinspected once again. There was no further bleeding noted. The clips seemed to be controlling the bleeding well. The descending limb of the duodenum beyond these ulcers appeared normal. RECOMMENDATIONS: Continue PPI medication IV and then p.o. I have no objections to sips of water or ice chips tonight. If he is doing well in the morning with no signs or symptoms of continued significant bleeding, a liquid diet can be tolerated. In about 3 months, the patient should have a repeat EGD to check status of healing. I do not believe this procedure has to be done in the hospital. If the patient prefers the hospital, that would be fine. However, he did not have symptoms to cause him to seek medical attention for the ulcers until such time as they bled. SEDATION TIME: 18:15 to 18:50. Please refer to the preprocedure nurse's notes, procedure flowsheet, procedure record, and post-procedure assessment for details of the sedation including the pre-, intra-, and post-service work. CRD:yesica Job ID: [id number] Doc ID: [id number] [facility]
[2019-01-28] MEDS: predniSONE 10 MG TABLET PO SCH (07:39)
[2019-01-28] MEDS: ESOMEPRAZOLE 40 MG VIAL IV SCH (07:39)
[2019-01-28] MEDS: LEVOTHYROXINE 50 MCG TABLET PO SCH (07:41)
[2019-01-28 07:52] LABS: ALT/SGPT 10 U/l (0-40); AST/SGOT 16 U/l (0-37); Albumin 1.7 gm/dL (3.2-5.2); Albumin/Globulin Ratio 0.8 (1.0-2.3); Alkaline Phosphatase 56 U/L (39-117); Bilirubin,Direct < 0.2 mg/dL (0.0-0.3); Bilirubin,Total 0.3 mg/dL (0.0-1.0); Blood Urea Nitrogen 84 mg/dl (8-23); Calcium 7.5 mg/dl (8.6-10.4); Carbon Dioxide 26 mmol/L (22-30); Chloride 104 mmol/L (96-108); Globulin 2.1 gm/dL (2.2-3.7); Glomerular Filtration Rate 28; Glucose 181 mg/dL (70-105); Lactate Dehydrogenase 216 U/L (94-250); Phosphorous 4.7 mg/dL (2.7-4.5); Triglycerides 151 mg/dl (<150); Uric Acid 5.8 mg/dL (2.5-8.0)
[2019-01-28] MEDS: INSULIN LISPRO 1 UNIT/0.01 ML UNIT SQ SCH (07:53)
[2019-01-28] MEDS ORDERED: SODIUM POLYSTYRENE SULFONATE 15 GM/60 ML SUSPENSION PO ONE (07:57)
[2019-01-28] MEDS ORDERED: MAGNESIUM SULFATE 2 GM/50 ML BAG IV ONE (07:57)
[2019-01-28] MEDS ORDERED: INSULIN REGULAR, HUMAN 1 UNIT/0.01 ML UNIT IV ONE (07:57)
[2019-01-28] MEDS ORDERED: FUROSEMIDE 40 MG/4 ML VIAL IV ONE (07:58)
[2019-01-28] MEDS ORDERED: DEXTROSE 50% 50 ML VIAL IV ONE (07:58)
[2019-01-28] MEDS ORDERED: 0.9 % SODIUM CHLORIDE 500 ML IV ONE (07:58)
[2019-01-28] MEDS ORDERED: DEXTROSE 50% 50 ML SYRINGE IV ONE (08:45)
[2019-01-28] MEDS: HEPARIN 5,000 UNIT/ML VIAL SQ SCH (09:07)
[2019-01-28] MEDS: NYSTATIN 500,000 UNITS/5 ML ORAL.SUSP SSW SCH (09:08)
[2019-01-28] MEDS: FOLIC ACID 1 MG TABLET PO SCH (09:08)
[2019-01-28] MEDS: MULTIVIT,THER IRON,CA,FA & MIN 1 TABLET PO SCH (09:08)
[2019-01-28] MEDS: THIAMINE 100 MG TABLET PO SCH (09:09)
[2019-01-28] MEDS: DOCUSATE SODIUM 100 MG CAPSULE PO SCH (09:09)
[2019-01-28] MEDS: MAGNESIUM OXIDE 400 MG TABLET PO SCH (09:09)
[2019-01-28] MEDS: VANCOMYCIN 500 MG in 0.9 % SODIUM CHLORIDE 100 ML IV SCH (09:10)
[2019-01-28] MEDS: ACETAMINOPHEN 325 MG TABLET PO SCH (09:12)
[2019-01-28] MEDS ORDERED: VANCOMYCIN PER PHARMACY IV SCH (09:34)
[2019-01-28] MEDS ORDERED: MELATONIN 3 MG TABLET PO PRN (09:34)
[2019-01-28] MEDS ORDERED: guaiFENesin/CODEINE 10 ML UDC PO PRN (09:34)
[2019-01-28] MEDS ORDERED: ONDANSETRON 4 MG/2 ML VIAL IV PRN (09:34)
[2019-01-28] MEDS ORDERED: oxyCODONE HCL 5 MG TABLET PO PRN (09:34)
[2019-01-28] MEDS ORDERED: DEXTROSE 50% 50 ML VIAL IV PRN (09:34)
[2019-01-28] MEDS ORDERED: 0.9 % SODIUM CHLORIDE 250 ML IV SCH (09:34)
[2019-01-28] MEDS ORDERED: DEXTROSE 31 GM ORAL.SUSP PO PRN (09:34)
[2019-01-28] MEDS ORDERED: LORazepam 0.5 MG TABLET PO PRN (09:34)
[2019-01-28] MEDS ORDERED: ACETAMINOPHEN 650 MG/65 ML BOTTLE IV PRN (09:34)
[2019-01-28] MEDS ORDERED: FLEETS ADULT ENEMA PR ONE (09:39)
--- NOTE | 2019-01-28 10:17 | Internal Med Progress Note ---
Medical - PN: Subj Patient information: Note initiated : 01/28/19 at 10:14 am Service Date, if different from initiated Date: [] Patient: Bebeto Bunn a 83 y/o M admitted on 01/17/19 for Generalized Weakness. Chief Complaint: [] Interval history: Mr. Bunn is a 83 year old M with a history of chronic kidney disease, PMR/ ?RA on chronic prednisone who presents to the ER with onset of progressive weakness along with multiple falls that started 2 weeks ago. Patient since then has noticed increasing right elbow and left ankle pain and swelling along with redness. Patient has had progressive fatigue lethargic and unable to perform activities of daily living. He is accompanied to the ER due to increasing c oncerns within family about his gradual decline. His symptoms are associated with fever around 2 weeks ago at 101.8. He denies associated dysuria diarrhea but endorses to polyarthralgia and rash as involving left ankle and right elbow. He denies headache,, vision changes or unilateral weakness. He does endorse to falls to weakness and getting off balance. Initial work-up in the ER was consistent with elevated white count/inflammatory markers with CRP 43 and ESR 112, elevated white count 17.8, creatinine 3. CT scan right elbow was performed. Patient received a dose of Solu-Medrol At the time of evaluation patient is accompanied with multiple family members. He was able to endorse history as above. Family expressed concerns about his inability to take care of self. 01/18 patient seen examined, labs reviewed no acute complaints overnight bradycardic, on beta teresa and clonidine, pt reports HR always low, no dizziness, cp or palpitations reported hold atenolol and clonidine for now and monitor. Right elbow, had pus on aspiration, taken to or yesterday, pt also has GPC bacte remia, which is isolated as strep, presently on vanco and cefepime, will review with ID and plan for deescalation of abx regime to [facility] echo to be done Low hb likely from post 01/19 Patient seen examined no acute issues, HR stable, but pt still in sinus bradycardia labs stable, K 5.2, hb stable Pt has no new complaints or concerns, tolerating po diet well. 01/20 Patient seen and examined, no acute overnight events patient is comfortable in bed. Does admit to having some constipation He denies any other acute issues. Labs stable hemoglobin stable creatinine is 2.5 potassium is 5.0 bicarbonate improved to 19 01/21 Patient seen examined, no acute issues, tolerating po diet well, sitting comfortably in bed, labs stable BP now trending up, resume hctz, drains still in place, still has some purulent discharge 01/22 Patient seen and examined, no acute complaints or concerns, he still has pain in his left ankle slightly worse today than before. White blood cell count is up. Orthopedics evaluated the ankle, did an aspiration which only aspirated synovial fluid which has been sent for analysis Patient will continue on Rocephin Labs otherwise stable except for slight worsening of leukocytosis 01/23 Patient seen and examined, no acute overnight events tolerating p.o. diet well. He still has pain in his left lower extremity around the posterior aspect of his ankle, so worsening over the last 2 to 3 days. His white blood cell count is also trending upward Aspiration was done of the left ankle which is negative for an acute infection Erythema is increasing, there is now a blister formation at the left lower extremity I will add vancomycin to the patient's regimen Patient does not have any cough or any abdominal pain he is still constipated, chest x-ray shows atelectasis 01/24 Patient seen and examined, no acute overnight events. His left leg is still sore but slight improvement since yesterday. WBC count is not trending down. Hemoglobin slightly low but no indication for transfusion yet. Patient otherwise feels good. 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 The patient has had elevated and borderline high potassium for a long time 01/25 Patient seen and examined, no acute overnight events. Pain in the left leg is still persistent, erythema is better, white blood cell count is improved. Hemoglobin is at 7.2 at this time I will transfuse him with 2 units. Patient otherwise has no complaints or concerns he did have a large bowel movement last night, potassium is back to normal 01/26 Patient seen and examined, hemoglobin is more than 8 now. Has no new complaints or concerns. Left lower extremity erythema continues to improve, tenderness is better. Patient still has chronic pain which bothers him and limits his ambulation. Will increase a dose of oral oxycodone and cut back on IV pain medications. Labs are otherwise stable MRI of the ankle was done which is negative for any infection in the joint but does show cellulitis as well as possible tendinitis patient is responding well to antibiotic regimen for now 01/27 Pt seen examined, this AM pt was noted to not feel well The patient called the nurse to reposition himself, but afte that, had a brief episode of passing out, not feeling well and pale, blood pressure was low, he had epigastric distress and noted that he felt nausea His blood pressure was borderline low, labs done, ekg, abg and lactic acid drawn, IV bolus x 500ml given Pt was evaluated, was in bed, did not appear at baseline, bp was 114/54 HR 58 chr sinus bradycardia Labs show hb of 7.1, wbc 14K ABG showed 7.41/44/113, Lac 1.4 Trop 0.08, NO acute ekg changes Pt moved to Tele status, plan to give ntg, transfuse [address] chest abdomen pelvis done, without contrast shows gastic distention, duodenal inflammation, and possile aspiration pna, I am paged GI doc administrative liaison and am yet to hear from him will start pt on IV PPI broaden abx to zosyn, d/c rocephin. 01/28 Patient seen and examined, overnight events noted. Patient became briefly hypotensive last night, responded to IV fluids repeat CBC was showing a hemoglobin of 6.8 transfused 2 units. Patient is tired this morning otherwise has no complaints Labs show stable WBC count hemoglobin of 8.8 this morning troponin was 0.09 sl ight worsening from previous repeat EKG done last night did not show any acute changes. Patient is transferred to PCU status given his persistent hemodynamic instability Patient had an upper endoscopy done yesterday, 2 clips were placed patient remains on IV PPI Pertinent ROS: Denies headache, dizziness Denies chest pain, palpitations Denies cough or shortness of breath Denies abdominal pain, nausea or vomiting. - Constitutional Vitals: Vital Signs Temp Pulse Resp BP Pulse Ox 97.0 F 68 15 123/62 95 01/28/19 06:48 01/28/19 06:01 01/28/19 06:48 01/28/19 06:48 01/28/19 08:00 Period Temp Pulse Resp BP Sys/Dupree Pulse Ox Last 24 Hr 97.0 F-99.0 F 61-91 12-43 74-171/42-80 92-100 Intake and Output 01/27/19 01/28/19 01/28/19 21:59 05:59 13:59 Intake Total 1103 2416 65 Output Total 1325 200 400 Balance -222 2216 -335 Weight 157 lb 9.6 oz Intake & Output: Intake & Output 01/27/19 01/28/19 01/28/19 21:59 05:59 13:59 Intake Total 1103 2416 65 Output Total 1325 200 400 Balance -222 2216 -335 Weight 157 lb 9.6 oz Intake: IV 1103 1552 65 Sodium Chloride 0.9% 1,000 ml @ 500 Wide Open IV B[facility] ONE Rx#: [id number] Sodium Chloride 0.9% 250 ml @ 2 20 mls/hr IV .[id number] [facility] Rx#: [id number] Lactated Ringers 1,000 ml @ 150 965 mls/hr IV .[id number] [facility] Rx#: [id number] Zosyn 2.25 gm In Dextrose 5% in 38 50 Water 50 ml @ 100 mls/hr IV Q8H [facility] Rx#:[id number] Oral 200 Blood Product 664 Output: Gastric Drainage 250 Left Nare 250 Urine Catheter Amount 200 Void Amount 875 200 400 Other: Urine Appearance Clear Urine Color Bright Yellow Exam: Constitutional; Afebrile, cooperative not in distress, thin frail individual Eyes- No icterus, , No periorbital swelling Ears- Ext ear normal, hearing normal to conversation. Neck- Midline trachea, supple Respiratory system: Air Entry equal on both sides, No crackles or wheezing, no rhonchi. CVS- Rate rhythm regular, S1,S2 heard, no gallop, no rub. Abdomen- Soft nontender abdomen, no organomegaly, no tenderness, no guarding or rigidity, S[employer]- AOOx3, moving all extremities, no gross focal deficit noted. Medical - PN: Obj Da - Labs CBC & Chem 7: 01/28/19 04:40 01/28/19 04:40 Labs: Abnormal Lab Results 01/28/19 01/28/19 01/28/19 04:40 04:40 00:00 WBC 12.7 H RBC 2.94 L Hgb 8.8 L Hct 26.3 L RDW 16.0 H MPV Gran % 82.9 H Lymph % (Auto) 7.0 L Gran # 10.5 H Lymph # (Auto) 0.9 L [place] # (Auto) 1.1 H Potassium 5.7 H BUN 84 H Creatinine 2.1 H Glucose 181 H Calcium 7.5 L Phosphorus 4.7 H Troponin T 0.09 H* Total Protein 3.8 L Albumin 1.7 L Globulin 2.1 L Albumin/Globulin Ratio 0.8 L Triglycerides 151 H 01/28/19 01/28/19 01/27/19 00:00 00:00 14:38 WBC 12.9 H RBC 2.28 L Hgb 6.8 L* 9.2 L Hct 20.7 L* 27.8 L RDW 17.7 H MPV Gran % Lymph % (Auto) 11.5 L Gran # 10.1 H Lymph # (Auto) [place] # (Auto) 1.1 H Potassium 5.4 H BUN 84 H Creatinine 2.0 H Glucose 152 H Calcium 7.9 L Phosphorus Troponin T Total Protein 4.3 L Albumin 1.6 L Globulin Albumin/Globulin Ratio 0.6 L Triglycerides 01/27/19 01/27/19 01/27/19 03:50 03:50 03:50 WBC 13.8 H RBC 2.35 L Hgb 7.1 L Hct 22.4 L RDW 15.6 H MPV 10.6 H Gran % Lymph % (Auto) Gran # 9.7 H Lymph # (Auto) [place] # (Auto) 1.2 H Potassium BUN 80 H Creatinine 2.0 H Glucose 140 H Calcium Phosphorus Troponin T 0.08 H* Total Protein 5.3 L Albumin 2.1 L Globulin Albumin/Globulin Ratio 0.7 L Triglycerides 01/26/19 01/26/19 04:00 04:00 WBC RBC 2.69 L Hgb 8.4 L Hct 25.4 L RDW 15.6 H MPV Gran % Lymph % (Auto) 9.1 L Gran # Lymph # (Auto) 0.8 L [place] # (Auto) 1.1 H Potassium BUN 67 H Creatinine 2.1 H Glucose Calcium 8.1 L Phosphorus Troponin T Total Protein 5.3 L Albumin 2.0 L Globulin Albumin/Globulin Ratio 0.6 L Triglycerides Meds: Medications Acetaminophen (Tylenol) 1,000 mg PO TID [facility] Dextrose (Dextrose 50%) 0 ml IV UD PRN PRN Reason: Hypoglycemia Diagnostic Test (Pha) (Accu-Chek) 1 each FS ACHS [facility] Docusate Sodium (Colace) 100 mg PO BID [facility] Esomeprazole Magnesium (Nexium) 40 mg IV BIDAC [facility] Folic Acid (Folic Acid) 1 mg PO DAILY [facility] Glucose (Insta-Glucose) 15 gm PO PRN PRN PRN Reason: Hypoglycemia Guaifenesin/Codeine Phosphate (Robitussin Ac) 10 ml PO Q4HP PRN PRN Reason: Cough Heparin Sodium (Porcine) (Heparin) 5,000 unit SQ Q12 [facility] Heparin Sodium (Porcine) (Heparin Flush) 2 ml IV Q12 [facility] Sodium Chloride (Sodium Chloride 0.9%) 250 mls @ 20 mls/hr IV .[id number] [facility] Stop: 01/28/19 12:14 Acetaminophen (Ofirmev) 650 mg in 65 mls @ 130 mls/hr IV Q6HP PRN PRN Reason: PAIN/FEVER > 101 Piperacillin Sod/Tazobactam (Sod 2.25 gm/ Dextrose) 50 mls @ 100 mls/hr IV Q8H [facility]; Protocol Vancomycin HCl 500 mg/ Sodium (Chloride) 100 mls @ 100 mls/hr IV DAILY [facility] Insulin Glargine (Lantus) 5 unit SQ HS [facility] Insulin Human Lispro (Humalog) 0 unit SQ ACHS [facility]; Protocol Iron Carb/Multivit/[place]/Folic Acid (Multivitamin W/Minerals) 1 tab PO DAILY [facility] Levothyroxine Sodium (Synthroid) 50 mcg PO QAMAC [facility] Lorazepam (Ativan) 0.5 mg PO BIDP PRN PRN Reason: Anxiety Magnesium Oxide (Magnesium Oxide) 400 mg PO DAILY [facility] Melatonin (Melatonin 3mg Tablet) 3 mg PO HSP PRN PRN Reason: Insomnia Nystatin (Nystatin) 500,000 units SSW QID [facility] Ondansetron HCl (Zofran) 4 mg IV Q4-6HP PRN PRN Reason: Nausea And Vomiting Oxycodone HCl (Roxicodone) 5 - 10 mg PO Q4HP PRN PRN Reason: Pain Prednisone (Prednisone) 10 mg PO QAMCC [facility] Senna/Docusate Sodium (Senna Plus Tablet) 2 tab PO HS [facility] Sodium Chloride (Saline Flush) 10 ml IV Q8 [facility] Sodium Chloride (Saline Flush) 10 ml IV Q12 [facility] Thiamine HCl (Vitamin B1) 100 mg PO DAILY [facility] Vancomycin HCl (Vancomycin Per Pharmacy) 1 order IV UD [facility]; Protocol Medical - PN: A/P - Time Spent With Patient Total time spent is greater than 50% in coordination of care (as documented) at patient's floor/unit and/or counseling patient: - Narrative A/P Narrative: A/P Acute GI bleed -Noted on upper endoscopy -On IV PPI, -recurrent bleed leading to low hb overniht, vs slow oozing throughout the day -trend hb q6hrs for now -if continues to drop will benefit from a repeat upper EGD Septic Arthritis -Group G streptococcus -on IV rocephin, s/p washout, drains removed, elbow looks good as per Ortho -on IV zosyn now for possible aspiration Left lower extremity Cellulitis/ tendinitis -Ankle aspiration negative, skin changes clearly suggestive of cellulitis -On IV vancomycin, on day 5/10 today with improvement in symptoms. Will continue same. Streptococcus Bacteremia, group G streptococcus -likely source elbow, echo does not show endocarditis, -midline placed, total 4 weeks abx planned, initially with rocephin, presently on zosyn. Rheumatoid arthritis/ PMR -on chronic immunosuppressants, continue same for now, hemodynamically stable. -on oxycodone for pain management, continue same, titrate dose, d/c IV dilaudid Acute on Chronic REnal failure -Creat 2.1, stable, Metabolic acidosis (resolved) -likely from renal failure -off bicarb supplements, pt bicarb is stable Hyperkalemia(resolved) -K is back up now, likely from ongoing increased K load from upper gi bleed -treat with kayexalate, insulin and lasix, -trend potassium, if remains an issue will have to consult nephrology Bradycardia -sinus, Heart rate much better now given cessation of beta teresa/clonidine therapy -hold beta teresa and clonidine, monitor, IV hydralazine prn, chr issue it seems, -tsh wnl, Anemia, acute blood loss 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 constipation -responded to enema HTN -bp stable, hold atenonol and clonidine given low HR< monitor, HCTZ resumed -bradycardia has resolved after cessation of beta teresa, clonidine therapy, and blood pressure is well controlled. -Hold amlodipine and hctz, given low bp, secondary to gi bleed. DM -SSI insulin for glucose control, (pt got steroids which likely exacerbated hyperglycemia) -glucose levels seem better, present regime of lantus 12 units, ssi moderate scale. Hypothyroidism -on synthroid, Deconditioning -Rehab, OT/PT DVT Hep sq Full code Carb consistent diet./NPO for now Medical - PN: Qual - Stroke Symptom Onset Unknown: No - VTE Deep Vein Thrombosis/Pulmonary Embolism Present on Admission: No
[2019-01-28 11:09] LABS: Basophils # (Auto) 0.1 K/mcL (0.0-0.3); Basophils % (Auto) 0.4 % (0.0-2.0); Eosinophils # (Auto) 0.2 K/mcL (0.0-0.7); Eosinophils % (Auto) 1.4 % (0.0-7.0); Granulocytes % (Auto) 84.9 % (38.0-78.0); Hematocrit 21.9 % (41.0-55.0); Hemoglobin 7.3 g/dL (13.5-16.5); Lymphocytes # (Auto) 0.8 K/mcL (1.5-4.8); Lymphocytes % (Auto) 6.3 % (15.5-49.0); Mean Corpuscular HGB Conc 33.2 g/dL (31.0-36.0); Mean Platelet Volume 9.9 fL (7.4-10.4); Monocytes # (Auto) 0.9 K/mcL (0.1-0.9); Platelet Count 177 K/mcL (140-440); RBC 2.46 M/mcL (4.50-5.90); Red Cell Distribution Width 15.9 % (11.5-14.5); WBC 12.8 K/mcL (4.5-11.0)
[2019-01-28] MEDS ORDERED: INSULIN LISPRO 1 UNIT/0.01 ML UNIT SQ SCH (11:30)
[2019-01-28 11:31] LABS: Blood Urea Nitrogen 96 mg/dl (8-23); Calcium 7.5 mg/dl (8.6-10.4); Carbon Dioxide 25 mmol/L (22-30); Chloride 104 mmol/L (96-108); Glomerular Filtration Rate 25; Glucose 171 mg/dL (70-105)
--- NOTE | 2019-01-28 12:02 | Transfer Summary ---
Transfer Discharge Sum: Prov Patient information: Note initiated : 01/28/19 at 12:00 pm Service Date, if different from initiated Date: [] Patient: Bebeto Bunn 83 y/o M admitted on 01/17/19 for Generalized Weakness. Chief Complaint: [] Date of admission: 01/17/19 11:45 Discharge Date: 01/28/19 Primary care physician: Sandhya Francisco Consults: 01/17/19 15:13 Consult to Infectious Disease [CONS] Routine Comment: Consulting Provider: Mohsen Calix Reason For Exam: Physician to Consult Consult to Physician [CONS] Routine Comment: Consulting Provider: Cristine Leo Reason For Exam: Physician to Consult 01/18/19 11:12 Consult to Physician [CONS] Routine Comment: Consulting Provider: Omkar Golden Reason For Exam: Physician to Consult 01/27/19 07:00 Consult to Physician [CONS] Routine Comment: Consulting Provider: Sreekanth Riggins Reason For Exam: Physician to Consult Discharging clinician: Patrice Barnard Receiving physician/facility: Dr Jaxon Casiano Transfer Discharge Sum: Med - Medications Active and Home Medications: Home Medications Atenolol [Tenormin] 50 mg PO BID 01/18/17 [History Confirmed 01/17/19] Levothyroxine [Synthroid] 50 mcg PO DAILY 01/18/17 [History Confirmed 01/17/19] amLODIPine [Norvasc] 10 mg PO DAILY 01/18/17 [History Confirmed 01/17/19] cloNIDine HCL [Catapres] 0.1 mg PO BID 01/18/17 [History Confirmed 01/17/19] predniSONE [Prednisone] 10 mg PO DAILY 01/18/17 [History Confirmed 01/17/19] aspirin 81 mg tablet 81 mg PO QDAY 02/11/17 [History Confirmed 01/17/19] iron 18 mg tablet 18 mg PO QDAY 02/26/17 [History Confirmed 01/17/19] insulin glargine (U- 100) 100 unit/mL subcutaneous solution 8 unit SUB-Q HS ml 05/22/18 [History Confirmed 01/17/19] qfbonhzvwpqw-ggxqwnvo-kcngkv tablet 1 tab PO QDAY 05/22/18 [History Confirmed 01/17/19] hydrochlorothiazide 25 mg tablet 25 mg PO QDAY #90 tab 05/25/18 [Rx Confirmed 01/17/19] magnesium 250 mg (as magnesium oxide) tablet 250 mg PO QDAY #90 tab 12/22/18 [Rx Confirmed 01/17/19] Doxazosin [Cardura] 1 mg PO DAILY 01/17/19 [History Confirmed 01/17/19] Insulin Aspart [Novolog] 100 unit SQ AC 01/17/19 [History Confirmed 01/17/19] LORazepam [Ativan] 0.5 mg PO BIDP PRN 01/17/19 [History Confirmed 01/17/19] Oxaprozin [Daypro] 600 mg PO DAILY 01/17/19 [History Confirmed 01/17/19] Active Medications Acetaminophen (Tylenol) 1,000 mg PO TID MEEK Dextrose (Dextrose 50%) 0 ml IV UD PRN PRN Reason: Hypoglycemia Diagnostic Test (Pha) (Accu-Chek) 1 each FS ACHS [facility] Last Admin: 01/28/19 11:33 Dose: 1 each Documented by: Docusate Sodium (Colace) 100 mg PO BID MEEK Esomeprazole Magnesium (Nexium) 40 mg IV BIDAC [facility] Folic Acid (Folic Acid) 1 mg PO DAILY [facility] Glucose (Insta-Glucose) 15 gm PO PRN PRN PRN Reason: Hypoglycemia Guaifenesin/Codeine Phosphate (Robitussin Ac) 10 ml PO Q4HP PRN PRN Reason: Cough Heparin Sodium (Porcine) (Heparin) 5,000 unit SQ Q12 [facility]EEK Heparin Sodium (Porcine) (Heparin Flush) 2 ml IV Q12 [facility] Sodium Chloride (Sodium Chloride 0.9%) 250 mls @ 20 mls/hr IV .[id number] [facility] Stop: 01/28/19 12:14 Acetaminophen (Ofirmev) 650 mg in 65 mls @ 130 mls/hr IV Q6HP PRN PRN Reason: PAIN/FEVER > 101 Piperacillin Sod/Tazobactam (Sod 2.25 gm/ Dextrose) 50 mls @ 100 mls/hr IV Q8H [facility]; Protocol Vancomycin HCl 500 mg/ Sodium (Chloride) 100 mls @ 100 mls/hr IV DAILY [facility] Insulin Glargine (Lantus) 5 unit SQ HS [facility] Insulin Human Lispro (Humalog) 0 unit SQ ACHS [facility]; Protocol Last Admin: 01/28/19 11:34 Dose: Not Given Documented by: Iron Carb/Multivit/Bagley/Folic Acid (Multivitamin W/Minerals) 1 tab PO DAILY [facility] Levothyroxine Sodium (Synthroid) 50 mcg PO QAMAC [facility] Lorazepam (Ativan) 0.5 mg PO BIDP PRN PRN Reason: Anxiety Magnesium Oxide (Magnesium Oxide) 400 mg PO DAILY [facility] Melatonin (Melatonin 3mg Tablet) 3 mg PO HSP PRN PRN Reason: Insomnia Nystatin (Nystatin) 500,000 units SSW QID [facility] Ondansetron HCl (Zofran) 4 mg IV Q4-6HP PRN PRN Reason: Nausea And Vomiting Last Admin: 01/28/19 11:31 Dose: 4 mg Documented by: Oxycodone HCl (Roxicodone) 5 - 10 mg PO Q4HP PRN PRN Reason: Pain Last Admin: 01/28/19 11:19 Dose: 10 mg Documented by: Prednisone (Prednisone) 10 mg PO QAC [facility] Senna/Docusate Sodium (Senna Plus Tablet) 2 tab PO HS [facility] Sodium Chloride (Saline Flush) 10 ml IV Q8 [facility] Sodium Chloride (Saline Flush) 10 ml IV Q12 [facility] Thiamine HCl (Vitamin B1) 100 mg PO DAILY [facility] Vancomycin HCl (Vancomycin Per Pharmacy) 1 order IV UD [facility]; Protocol Transfer Discharge Sum: Hosp Hospital course: Mr. Bunn is a 83 year old M with a history of chronic kidney disease, PMR/ ?RA on chronic prednisone who presents to the ER with onset of progressive weakness along with multiple falls that started 2 weeks ago. Patient since then has noticed increasing right elbow and left ankle pain and swelling along with redness. Patient has had progressive fatigue lethargic and unable to perform activities of daily living. He is accompanied to the ER due to increasing concerns within family about his gradual decline. His symptoms are associated with fever around 2 weeks ago at 101.8. He denies associated dysuria diarrhea but endorses to polyarthralgia and rash as involving left ankle and right elbow. He denies headache,, vision changes or unilateral weakness. He does endorse to falls to weakness and getting off balance. Initial work-up in the ER was consistent with elevated white count/inflammatory markers with CRP 43 and ESR 112, elevated white count 17.8, creatinine 3. CT scan right elbow was performed. Patient received a dose of Solu-Medrol At the time of evaluation patient is accompanied with multiple family members. He was able to endorse history as above. Family expressed concerns about his inability to take care of self. 01/18 patient seen examined, labs reviewed no acute complaints overnight bradycardic, on beta teresa and clonidine, pt reports HR always low, no dizziness, cp or palpitations reported hold atenolol and clonidine for now and monitor. Right elbow, had pus on aspiration, taken to or yesterday, pt also has GPC jordan teremia, which is isolated as strep, presently on vanco and cefepime, will review with ID and plan for deescalation of abx regime to critical access hospital echo to be done Low hb likely from post 01/19 Patient seen examined no acute issues, HR stable, but pt still in sinus bradycardia labs stable, K 5.2, hb stable Pt has no new complaints or concerns, tolerating po diet well. 01/20 Patient seen and examined, no acute overnight events patient is comfortable in bed. Does admit to having some constipation He denies any other acute issues. Labs stable hemoglobin stable creatinine is 2.5 potassium is 5.0 bicarbonate improved to 19 01/21 Patient seen examined, no acute issues, tolerating po diet well, sitting comfortably in bed, labs stable BP now trending up, resume hctz, drains still in place, still has some purulent discharge 01/22 Patient seen and examined, no acute complaints or concerns, he still has pain in his left ankle slightly worse today than before. White blood cell count is up. Orthopedics evaluated the ankle, did an aspiration which only aspirated synovial fluid which has been sent for analysis Patient will continue on Rocephin Labs otherwise stable except for slight worsening of leukocytosis 01/23 Patient seen and examined, no acute overnight events tolerating p.o. diet well. He still has pain in his left lower extremity around the posterior aspect of his ankle, so worsening over the last 2 to 3 days. His white blood cell count is also trending upward Aspiration was done of the left ankle which is negative for an acute infection Erythema is increasing, there is now a blister formation at the left lower extremity I will add vancomycin to the patient's regimen Patient does not have any cough or any abdominal pain he is still constipated, chest x-ray shows atelectasis 01/24 Patient seen and examined, no acute overnight events. His left leg is still sore but slight improvement since yesterday. WBC count is not trending down. Hemoglobin slightly low but no indication for transfusion yet. Patient otherwise feels good. 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 The patient has had elevated and borderline high potassium for a long time 01/25 Patient seen and examined, no acute overnight events. Pain in the left leg is still persistent, erythema is better, white blood cell count is improved. Hemoglobin is at 7.2 at this time I will transfuse him with 2 units. Patient otherwise has no complaints or concerns he did have a large bowel movement last night, potassium is back to normal 01/26 Patient seen and examined, hemoglobin is more than 8 now. Has no new complaints or concerns. Left lower extremity erythema continues to improve, tenderness is better. Patient still has chronic pain which bothers him and limits his ambulation. Will increase a dose of oral oxycodone and cut back on IV pain medications. Labs are otherwise stable MRI of the ankle was done which is negative for any infection in the joint but does show cellulitis as well as possible tendinitis patient is responding well to antibiotic regimen for now 01/27 Pt seen examined, this AM pt was noted to not feel well The patient called the nurse to reposition himself, but afte that, had a brief episode of passing out, not feeling well and pale, blood pressure was low, he had epigastric distress and noted that he felt nausea His blood pressure was borderline low, labs done, ekg, abg and lactic acid drawn, IV bolus x 500ml given Pt was evaluated, was in bed, did not appear at baseline, bp was 114/54 HR 58 chr sinus bradycardia Labs show hb of 7.1, wbc 14K ABG showed 7.41/44/113, Lac 1.4 Trop 0.08, NO acute ekg changes Pt moved to Tele status, plan to give ntg, transfuse [address] chest abdomen pelvis done, without contrast shows gastic distention, duodenal inflammation, and possile aspiration pna, I am paged GI doc electronic assembler and am yet to hear from him will start pt on IV PPI broaden abx to zosyn, d/c rocephin. 01/28 Patient seen and examined, overnight events noted. Patient became briefly hypotensive last night, responded to IV fluids repeat CBC was showing a hemoglobin of 6.8 transfused 2 units. Patient is tired this morning otherwise has no complaints Labs show stable WBC count hemoglobin of 8.8 this morning troponin was 0.09 slight worsening from previous repeat EKG done last night did not show any acute changes. Patient is transferred to PCU status given his persistent hemodynamic instability Patient had an upper endoscopy done yesterday, 2 clips were placed patient remains on IV PPI The patient again became hypotensive a little bit later after rounds, repeat hemoglobin showed hemoglobin of 7.3, it was 8.8 this morning. I reviewed the case with Dr. Chavez for consideration of a repeat upper endoscopy given ongoing blood loss and hemodynamic instability. Dr. Chavez advised that the patient would likely benefit more from any upper GI angiogram. This procedure is not done at this facility, I called and disc ussed with Dr. Casiano, who advised the patient be [facility]. I called Dr. Babin the adjunct professor of law at [facility] who graciously accepted the patient for transfer - Time Spent with Patient Total time spent providing and/or coordinating transfer services: Greater than 30 minutes Transfer Discharge Sum: Exam - Constitutional Vitals: Vital Signs Temp Pulse Pulse Resp BP BP Pulse Ox 01/28/19 11:24 81 24 H 98 01/28/19 11:16 80 22 122/72 92 01/28/19 11:11 75 16 94/72 97 01/28/19 10:52 80 24 H 106/54 95 01/28/19 10:41 85 27 H 104/47 95 01/28/19 10:34 94 H 18 103/54 96 01/28/19 10:01 97.2 F 83 19 171/58 94 01/28/19 09:01 88 18 135/60 95 01/28/19 08:01 84 21 119/67 93 01/28/19 08:00 95 01/28/19 07:01 72 17 115/64 97 01/28/19 06:48 97.0 F 15 123/62 98 01/28/19 06:01 68 17 131/65 98 01/28/19 05:01 71 16 131/58 99 01/28/19 04:14 76 16 144/61 100 01/28/19 04:01 98.4 F 75 15 145/68 100 01/28/19 03:01 72 18 127/66 100 01/28/19 02:41 74 16 137/64 100 01/28/19 02:28 82 17 135/63 100 01/28/19 02:01 85 20 137/59 100 01/28/19 01:06 84 18 130/57 100 01/28/19 01:01 87 18 127/57 99 01/28/19 00:56 81 20 133/55 100 01/28/19 00:51 85 23 H 124/59 99 01/28/19 00:46 85 19 131/56 99 01/28/19 00:41 78 20 123/63 99 01/28/19 00:36 83 19 96/51 100 01/28/19 00:31 84 19 107/53 99 01/28/19 00:26 80 18 105/55 99 01/28/19 00:21 86 21 125/50 97 01/28/19 00:16 127/50 01/28/19 00:11 19 112/52 01/28/19 00:06 20 99/48 01/28/19 00:01 79 20 93/49 99 01/27/19 23:59 80 21 89/50 100 01/27/19 23:53 14 82/46 01/27/19 23:50 82 23 H 76/42 97 01/27/19 23:48 86 74/42 97 01/27/19 23:47 90 86/42 97 01/27/19 23:42 89 29 H 93/69 99 01/27/19 23:38 97.7 F 91 H 26 H 93/69 99 01/27/19 23:01 84 21 116/64 95 01/27/19 22:01 78 12 123/58 100 01/27/19 21:01 74 15 145/69 99 01/27/19 20:31 76 14 134/76 99 01/27/19 20:03 71 19 98 01/27/19 20:01 98.7 F 85 34 H 156/69 99 01/27/19 19:37 98 01/27/19 19:31 65 17 153/76 92 01/27/19 19:16 64 14 144/64 94 01/27/19 19:12 99.0 F 65 16 132/65 100 01/27/19 19:11 64 24 H 153/63 94 01/27/19 19:06 61 15 149/68 92 01/27/19 19:01 67 17 156/67 100 01/27/19 18:56 65 25 H 150/70 95 01/27/19 18:51 65 12 152/65 99 01/27/19 18:46 61 17 154/75 99 01/27/19 18:41 64 18 149/69 98 01/27/19 18:35 82 21 128/68 100 01/27/19 18:33 98.0 F 84 18 130/64 100 01/27/19 18:31 78 13 135/63 100 01/27/19 18:26 80 19 161/68 100 01/27/19 18:22 77 24 H 161/72 100 01/27/19 18:16 78 18 125/66 100 01/27/19 18:11 64 17 142/59 100 01/27/19 18:06 71 17 140/59 95 01/27/19 18:04 82 43 H 151/80 99 01/27/19 18:03 98.0 F 80 19 128/68 100 01/27/19 17:21 98.9 F 78 17 100 01/27/19 16:28 131/64 Intake and Output 01/27/19 01/28/19 01/28/19 21:59 05:59 13:59 Intake Total 1103 2416 1015 Output Total 1325 200 750 Balance -222 2216 265 Intake: IV 1103 1552 1015 Sodium Chloride 0.9% 1,000 ml @ 500 Wide Open IV BOLUS ONE Rx#: [id number] Sodium Chloride 0.9% 250 ml @ 2 20 mls/hr IV .[id number] [facility] Rx#: [id number] Lactated Ringers 1,000 ml @ 150 965 mls/hr IV .[id number] [facility] Rx#: [id number] Zosyn 2.25 gm In Dextrose 5% in 38 50 Water 50 ml @ 100 mls/hr IV Q8H [facility] Rx#:[id number] Oral 200 Blood Product 664 Output: Gastric Drainage 250 Left Nare 250 Urine Catheter Amount 200 Void Amount 875 200 750 Other: Urine Appearance Clear Temp Probe Ward Clear Urine Color Bright Yellow Temp Probe Ward Pale Weight 157 lb 9.6 oz Additional comments: Constitutional; Afebrile, cooperative, drowsy, dizzy. Respiratory system: Air Entry equal on both sides, No crackles or wheezing, no rhonchi. CVS- Rate rhythm regular, S1,S2 heard, no gallop, no rub. Abdomen- Soft nontender abdomen, no organomegaly, no tenderness, no guarding or rigidity, SUBPOENA SERVER- AOOx3, moving all extremities, no gross focal deficit noted. Transfer Discharge Sum: Data Procedures and tests throughout hospitalization: Pending Orders 01/17/19 11:54 Case Management Referral .Routine Admit as Inpatient Routine Ambulate-Progressive PRN Blood Culture PRN PRN Condition Routine Video Production Assistant Referral .Routine Elevate head of bed .ROUTINE Intake and Output 0400,1600 Specialty Bed PRN Vital Signs Q4H Weight Monitoring QHS RD to Adjust Diet/Supplements as Needed Routine Occupational Therapy Eval & Tx DAILY Physical Therapy Eval & Tx QD-BID Incentive Spirometry Assess/Tx Q2HWA Oxygen Order .Routine 01/17/19 15:13 Consult to Infectious Disease [CONS] Routine Consult to Physician [CONS] Routine 01/17/19 19:57 Resuscitation Status Routine 01/18/19 11:12 Consult to Physician [CONS] Routine 01/21/19 10:57 Communication order PRN Midline Dressing Change PRN Midline Dressing Change WEEKLY Midline Insertion/Manangement QSHIFT 01/23/19 10:30 Wound Nurse Referral .Routine 01/24/19 20:00 Communication order ONCE 01/25/19 13:53 Heel Protectors/Off-loading .ROUTINE 01/27/19 05:14 Occult blood, stool, guaic poc NOW 01/27/19 07:00 Consult to Physician [CONS] Routine 01/27/19 23:58 Blood Product Documentation NOW 01/28/19 01:11 NPO Diet (NOW) 01/28/19 08:14 Ward [Indwelling Urinary Catheter] CONT 01/28/19 09:34 0.9 % Sodium Chloride [Sodium Chloride 0.9%] 250 ml IV 20 mls/hr Acetaminophen [Ofirmev] 650 mg in 65 ml IV Q6HP Dextrose 50% See Dose Instructions IV UD PRN Dextrose [Insta-Glucose] 15 gm PO PRN PRN LORazepam [Ativan] 0.5 mg PO BIDP PRN Melatonin [Melatonin 3Mg Tablet] 3 mg PO HSP PRN Ondansetron [Zofran] 4 mg IV Q4-6HP PRN Vancomycin Per Pharmacy 1 order IV UD guaiFENesin/CODEINE [Robitussin AC] 10 ml PO Q4HP PRN oxyCODONE HCL [Roxicodone] 5 - 10 mg PO Q4HP PRN 01/28/19 10:22 Blood Product Documentation NOW 01/28/19 10:32 EKG ONCE 01/28/19 11:30 Accu-Chek 1 each FS ACHS Insulin Lispro [HumaLOG] See Dose Instructions SQ ACHS 01/28/19 13:00 Nystatin 500,000 units SSW QID 01/28/19 14:00 0.9 % Sodium Chloride [Saline Flush] 10 ml IV Q8 Piperacillin Sodium/Tazobactam [Zosyn] 2.25 gm Dextrose 5% in Water 50 ml IV Q8H 01/28/19 15:00 Acetaminophen [Tylenol] 1,000 mg PO TID 01/28/19 16:00 Hemoglobin and Hematocrit Urgent 01/28/19 17:00 Esomeprazole [Nexium] 40 mg IV BIDAC 01/28/19 21:00 0.9 % Sodium Chloride [Saline Flush] 10 ml IV Q12 Docusate Sodium [Colace] 100 mg PO BID Heparin 5,000 unit SQ Q12 Heparin Flush 2 ml IV Q12 Insulin Glargine, Human [Lantus] 5 unit SQ HS Sennosides/Docusate Sodium [Senna Plus Tablet] 2 tab PO HS 01/29/19 04:00 Complete Blood Count DAILY Inpatient Panel DAILY 01/29/19 07:30 Levothyroxine [Synthroid] 50 mcg PO QAMAC 01/29/19 08:00 predniSONE 10 mg PO QAMCC 01/29/19 09:00 Folic Acid 1 mg PO DAILY Magnesium Oxide 400 mg PO DAILY Multivit,Ther Iron,Ca,FA & Min [Multivitamin W/Minerals] 1 tab PO DAILY Thiamine [Vitamin B1] 100 mg PO DAILY Vancomycin 500 mg 0.9 % Sodium Chloride [Sodium Chloride 0.9%] 100 ml IV DAILY 01/30/19 04:00 Complete Blood Count DAILY Inpatient Panel DAILY 01/31/19 04:00 Complete Blood Count DAILY Inpatient Panel DAILY 02/01/19 04:00 Complete Blood Count DAILY Inpatient Panel DAILY Transfer Discharge Sum: A/P - Plan Disposition: Xfer [facility] Quality Measure Queries - VTE Deep Vein Thrombosis/Pulmonary Embolism Present on Admission: No
[2019-01-28] MEDS ORDERED: 0.9 % SODIUM CHLORIDE 1,000 ML IV ONE ×2 (12:07→12:10)
[2019-01-28] MEDS ORDERED: NYSTATIN 500,000 UNITS/5 ML ORAL.SUSP SSW SCH (13:00)
[2019-01-28] MEDS ORDERED: PIPERACILLIN SODIUM/TAZOBACTAM 2.25 GM in DEXTROSE 5% IN WATER 50 ML IV SCH (14:00)
[2019-01-28] MEDS ORDERED: 0.9 % SODIUM CHLORIDE 10 ML SYRINGE IV SCH ×2 (14:00→21:00)
[2019-01-28] MEDS ORDERED: ACETAMINOPHEN 325 MG TABLET PO SCH (15:00)
[2019-01-28] MEDS ORDERED: ESOMEPRAZOLE 40 MG VIAL IV SCH (17:00)
[2019-01-28] MEDS ORDERED: SENNOSIDES/DOCUSATE SODIUM 1 TAB TABLET PO SCH (21:00)
[2019-01-28] MEDS ORDERED: HEPARIN 5,000 UNIT/ML VIAL SQ SCH (21:00)
[2019-01-28] MEDS ORDERED: DOCUSATE SODIUM 100 MG CAPSULE PO SCH (21:00)
[2019-01-28] MEDS ORDERED: INSULIN GLARGINE, HUMAN 1 UNIT/0.01 ML SQ SCH (21:00)
[2019-01-29] MEDS ORDERED: LEVOTHYROXINE 50 MCG TABLET PO SCH (07:30)
[2019-01-29] MEDS ORDERED: predniSONE 10 MG TABLET PO SCH (08:00)
[2019-01-29] MEDS ORDERED: VANCOMYCIN 500 MG in 0.9 % SODIUM CHLORIDE 100 ML IV SCH (09:00)
[2019-01-29] MEDS ORDERED: THIAMINE 100 MG TABLET PO SCH (09:00)
[2019-01-29] MEDS ORDERED: MULTIVIT,THER IRON,CA,FA & MIN 1 TABLET PO SCH (09:00)
[2019-01-29] MEDS ORDERED: MAGNESIUM OXIDE 400 MG TABLET PO SCH (09:00)
[2019-01-29] MEDS ORDERED: FOLIC ACID 1 MG TABLET PO SCH (09:00)
--- NOTE | 2019-01-29 12:09 | Surgical Pathology Report ---
HISTOLOGY SPECIMEN MICROSCOPIC DIAGNOSIS STOMACH, ANTRUM, BIOPSY: -- MILD CHRONIC GASTRITIS. -- NO HELICOBACTER SPECIES IDENTIFIED ON ALCIAN YELLOW STAIN (ADEQUATE TECHNICAL CONTROL). (EBD:tiffany) CLINICAL HISTORY Upper GI bleed. GROSS DESCRIPTION Received in formalin labeled gastric antrum biopsy, are four biswas-brown tissue fragments 0.2 to 0.6 cm. Totally submitted - one cassette. (STS:tiffany) Electronically Signed by: Nitza Dutta M.D.
== END 2019-01-28 13:08 | disposition short-term general hospital (02) | DRG 477 ==
LOC: ED 06:20 → ICU 11:45 → MEDSUR 01-19 12:23 → ICU 01-27 05:25
PROVIDERS: ADMIT Internal Medicine; ATTEND Internal Medicine

== ENCOUNTER 2019-11-27 19:20 | Inpatient (IN) ==
[2019-11-27] MEDS ORDERED: 0.9 % SODIUM CHLORIDE 1,000 ML IV ONE (21:06)
--- NOTE | 2019-11-27 21:07 | Emergency Department Note ---
Weakness HPI - General Chief complaint: Weakness Stated complaint: weakness chills Time Seen by Provider: 11/27/19 19:46 Mode of arrival: wheelchair - History of Present Illness HPI Narrative: This 84-year-old male is brought by his daughter in law, Dougie (who works at [employer] as a lead over one of the departments), to this emergency room due to weakness and chills. He is not on an antibiotic. He has an open wound to the left lower extremity that had been opened yesterday by Dr. jeffy condon. He had a chronic wound of the left posterior heel and then a higher up on the Achilles and it was widened and packed with an iodine packing. This was yesterday. He had a lot of pain during the night. He does take hydrocodone 10 mg. Today he became more sleepy and weak. He had poor appetite this evening and probably did not eat or drink well during the day as well. He seems to feel cold and has had some chills and shivers but no sweats are fever noted. He is some immune suppressed with prednisone 10 mg daily chronically due to rheumatoid arthritis, history of some renal disease with a creatinine 2.6 reported by Dougie done 2 to 3 weeks ago and he does follow-up with operations asst, Dr. Harmon. - Related Data Home Medications Medication Instructions Recorded Confirmed Levothyroxine [Synthroid] 50 mcg PO DAILY 01/18/17 11/27/19 Doxazosin [Cardura] 1 mg PO DAILY 01/17/19 11/28/19 acetaminophen 325 mg capsule 650 mg PO Q6H PRN 06/09/19 11/27/19 amlodipine 10 mg tablet 10 mg PO QDAY tab 06/09/19 11/28/19 atenolol 50 mg tablet 50 mg PO BID tab 08/20/19 11/28/19 atorvastatin 20 mg tablet 20 mg PO QDAY tab 08/20/19 11/27/19 clonidine HCl 0.1 mg tablet 0.1 mg PO BID tab 08/20/19 11/28/19 clopidogrel 75 mg tablet 75 mg PO QDAY tab 08/20/19 11/28/19 insulin aspart U-100 100 unit/mL unit SUB-Q .ac ml 08/20/19 08/20/19 (3 mL) subcutaneous pen insulin glargine 100 unit/mL (3 8 - 10 unit SUB-Q HS ml 08/20/19 08/20/19 mL) subcutaneous pen metformin 500 mg tablet 2,500 mg PO QDAY tab 08/20/19 11/28/19 pentoxifylline 400 mg 400 mg PO QDAY tab 08/20/19 11/28/19 tablet,extended release prednisone 5 mg tablet 10 mg PO QDAY tab 08/20/19 11/28/19 trandolapril 4 mg tablet 4 mg PO BID tab 08/20/19 11/28/19 HYDROcodone/ACETAMINOPHEN 1 each PO Q4-6HP PRN 11/27/19 [Hydrocodone-Acetamin 10-325 mg] Allergies Allergy/AdvReac Type Severity Reaction Status Date / Time naproxen AdvReac Intermediate Skin Martino Verified 11/28/19 01:05 niacin AdvReac Intermediate Burning Verified 11/28/19 01:05 Skin Review of Systems Review of Systems: Denies chest pain No shortness of breath or cough No abdominal pain nausea vomiting or diarrhea No lightheadedness or dizzy. Does feel somewhat weak. No anxiety or depression. Past Medical History - Past Medical History PMF Narrative: Full CODE: BUT TIME LIMITED, NOT PROLONGED. Discussed 11/27/2019. 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) Medical History (Last Updated 11/28/19 @ 06:40 by James Deleon DO) Immunosuppressed status (Chronic) shelter (current) use of opiate analgesic (Chronic) Peripheral arterial disease (Chronic) Rheumatoid arthritis (Chronic) Diabetes mellitus (Chronic) CKD (chronic kidney disease), stage IV (Chronic) Hypertension (Chronic) Benign hypertension with CKD (chronic kidney disease) stage IV (Chronic) Persistent proteinuria (Chronic) Hyperlipidemia (Chronic) 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) GERD (gastroesophageal reflux disease) (Chronic) Hypothyroidism (Chronic) Limp (Chronic) Total body pain (Chronic) Back pain (Chronic) Osteoarthritis (Chronic) Arthralgia (Chronic) Anxiety (Resolved) Hip pain, left (Resolved) Polyarthritis involving elbow (Resolved) Polymyalgia rheumatica (Resolved) Septic arthritis due to Streptococcus species (Resolved) Weight loss (Resolved) Past Surgical History (Last Updated 11/28/19 @ 06:41 by James Deleon DO) History of procedure for peripheral vascular disease (Acute) History of elbow surgery (Chronic) History of hip replacement (Chronic) Hx of toe surgery (Chronic) Family History (Last Reviewed 08/20/19 @ 09:39 by Debbie Saunders RN) Family/Other Colon cancer Stroke Medical history: Reports: arthritis, COPD, DM, hypertension. Denies: CVA, myocardial infarction, TIA Psychiatric history: Denies: anxiety, depression Surgical history ED: Reports: orthopedic, other - Social History smoking status: Former smoker (Quit 40 years ago) Alcohol use: Reports: None Drug use: Reports: none. Denies: marijuana Physical Exam Limitations: physical limitation General appearance: alert, in no apparent distress, malaise (moderate), nontoxic, thin Head: atraumatic, normocephalic Eye: Present: EOMI ENT: Present: mucous membranes dry Neck: Present: trachea midline. Absent: lymphadenopathy, thyromegaly Chest: Present: symmetric chest wall rise Respiratory: Present: normal lung sounds bilaterally. Absent: respiratory dis tress, wheezes, stridor, accessory muscle use, prolonged expiratory phase Cardiovascular: Present: regular rate, normal rhythm. Absent: systolic murmur, diastolic murmur Abdominal: Present: soft. Absent: distention, tenderness, guarding, rebound, r igidity, organomegaly, mass Extremities: Present: other (On the posterior left heel is a horizontal chronic ulcer that penetrates through the epidermis and dermis to the beginning of these subcutaneous layers. It appears to be old and has some whitish tissue but not a lot of discharge. It is several inches wide by may be three quarters of an inch in height. On the Achilles tendon area is a deeper wider larger open area packed with Xeroform and has necrotic material present with strands of biswas-soto soft material and slight odor. Subjectively he reports is quite tender around it but to palpation does not seem to wince or cry out. There is limited erythema around it. There is mild diffuse swelling around the left lower extremity.). Absent: pedal edema, pretibial edema, calf tenderness Neurological: Present: alert, oriented X3 Psychiatric: Present: flat affect, serious, polite, pleasant. Absent: depressed, agitated, anxious, poor eye contact Skin: Present: warm, dry. Absent: rash Course Vital Signs Temperature 98.8 F 11/27/19 19:20 Pulse Rate 68 11/27/19 19:20 Respiratory Rate 18 11/27/19 19:20 Blood Pressure 115/65 11/27/19 19:20 Pulse Oximetry (%) 95 11/27/19 19:20 Temperature 98.8 F 11/28/19 03:08 Pulse Rate 64 11/28/19 03:08 Respiratory Rate 20 11/28/19 03:08 Blood Pressure 154/81 11/28/19 03:08 Pulse Oximetry (%) 96 11/28/19 03:08 Weakness - MDM Narrative Medical decision making narrative: 7:51 PM - interviewed and examined. General assessment is possible sepsis or concern for such with weakness, chills, necrotic wound, immunosuppressed. We will do multiple labs. [id number], Dougie, adds that he did not eat breakfast. Ate some lunch, seemed to have a poor appetite this evening and so he probably has not ate and drank well today. He recently 2 to 3 weeks ago had a creatinine of 2.6. He is seeing Dr. Harmon in follow-up of these and has some history of chronic renal dysfunction. Will order a liter of IV fluids. He does take hydrocodone 10 mg twice daily most days because of his chronic arthritis type of pain. Labs demonstrate: No elevated WBC. Stable hemoglobin and hematocrit at 11.0/35.1 (slightly elevated from previously) Potassium is 6.1 BUN 86, creatinine 2.7 Glucose 185 CRP 5.2 Lactic acid 0.9. 11:01 PM - I spoke with patient's [id number] again. I suggested that inpatient is warranted Given his age, immune suppression, fragility etc. I will speak with hospitalist. 11:09 PM - spoke with hospitalist, Dr. Ayala, who is willing to accept this patient for inpatient care. He recommends repeating the POC Chem-8 and if potassium has not improved consider insulin and dextrose. He recommends 84 cc/h x 2 additional liters. We agreed to add a dose of vancomycin 1 g. Rocephin 1 g already given. NOTE (11/28/2019, 07:00 AM): * the repeat potassium from last evening on Chem 8 POC [address] was [address] noted by Dr. Deleon (came back again 6.1) and insulin and glucose was not administered. * An ECG had not been done in ER and Dr. Deleon ordered this AM. * An inpatient panel was also added for this morning's eval. * And a further chart review demonstrates osteomyelitis of the left heal from MRI September 2019; plain films of the left calcaneus ordered. - Lab Data Result diagrams: 11/27/19 20:23 11/27/19 20:22 Lab Results 11/27/19 11/27/19 11/27/19 Range/Units 20:22 20:23 20:44 WBC 12.4 H (4.50-11.00) K/mcL RBC 3.64 L (4.63-6.08) M/mcL Hgb 11.0 L (13.7-17.5) g/dL Hct 35.1 L (40.1-51.0) % POC Hct (41.0-55.0) % MCV 96.4 (80.0-100.0) fL MCH 30.2 (26.0-34.0) pg MCHC 31.3 (31.0-36.0) g/dL RDW 14.6 H (11.5-14.5) % Plt Count 370 (140-440) K/mcL MPV 11.0 H (7.4-10.4) fL Gran % 71.5 (38.0-78.0) % Lymph % (Auto) 10.3 L (15.5-49.0) % Maries % (Auto) 13.5 H (1.0-12.0) % Eos % (Auto) 4.1 (0.0-7.0) % Baso % (Auto) 0.6 (0.0-2.0) % Gran # 8.87 H (1.80-8.00) K/mcL Lymph # (Auto) 1.28 L (1.50-4.80) K/mcL Maries # (Auto) 1.68 H (0.10-0.90) K/mcL Eos # (Auto) 0.51 (0.00-0.70) K/mcL Baso # (Auto) 0.07 (0.00-0.30) K/mcL VBG Lactic Acid 0.9 (0.5-2.0) mmol/L POC Sodium (133-145) mmol/L Sodium 138 (133-145) mmol/L POC Potassium (3.3-5.1) mmol/L Potassium 6.1 H* (3.3-5.1) mmol/L POC Chloride (96-108) mmol/L Chloride 105 (96-108) mmol/L Carbon Dioxide 19 L (22-30) mmol/L POC Total CO2 (22-30) mmol/L Anion Gap 14.0 (8-16) POC BUN (8-23) mg/dl BUN 86 H (8-23) mg/dl Creatinine 2.7 H (0.7-1.2) mg/dl POC Creatinine (0.7-1.2) mg/dl GFR Calculation 21 Glucose 185 H (70-105) mg/dL POC Glucose (70-105) mg/dL Calcium 9.4 (8.6-10.4) mg/dl POC WB Ioniz Calcium (1.16-1.32) mmol/L Total Bilirubin 0.2 (0.0-1.0) mg/dL AST 19 (0-37) U/l ALT 14 (0-40) U/l Alkaline Phosphatase 75 (39-117) U/L C-Reactive Protein 5.2 H (0.0-0.8) mg/dl Total Protein 6.7 (5.9-8.4) gm/dL Albumin 3.5 (3.2-5.2) gm/dL Globulin 3.2 (2.2-3.7) gm/dL Albumin/Globulin Ratio 1.1 (1.0-2.3) 11/27/19 Range/Units 23:43 WBC (4.50-11.00) K/mcL RBC (4.63-6.08) M/mcL Hgb (13.7-17.5) g/dL Hct (40.1-51.0) % POC Hct 31.0 L (41.0-55.0) % MCV (80.0-100.0) fL MCH (26.0-34.0) pg MCHC (31.0-36.0) g/dL RDW (11.5-14.5) % Plt Count (140-440) K/mcL MPV (7.4-10.4) fL Gran % (38.0-78.0) % Lymph % (Auto) (15.5-49.0) % Maries % (Auto) (1.0-12.0) % Eos % (Auto) (0.0-7.0) % Baso % (Auto) (0.0-2.0) % Gran # (1.80-8.00) K/mcL Lymph # (Auto) (1.50-4.80) K/mcL Maries # (Auto) (0.10-0.90) K/mcL Eos # (Auto) (0.00-0.70) K/mcL Baso # (Auto) (0.00-0.30) K/mcL VBG Lactic Acid (0.5-2.0) mmol/L POC Sodium 137 (133-145) mmol/L Sodium (133-145) mmol/L POC Potassium 6.1 H* (3.3-5.1) mmol/L Potassium (3.3-5.1) mmol/L POC Chloride 114 H (96-108) mmol/L Chloride (96-108) mmol/L Carbon Dioxide (22-30) mmol/L POC Total CO2 20 L (22-30) mmol/L Anion Gap (8-16) POC BUN 87 H (8-23) mg/dl BUN (8-23) mg/dl Creatinine (0.7-1.2) mg/dl POC Creatinine 2.7 H (0.7-1.2) mg/dl GFR Calculation Glucose (70-105) mg/dL POC Glucose 164 H (70-105) mg/dL Calcium (8.6-10.4) mg/dl POC WB Ioniz Calcium 1.24 (1.16-1.32) mmol/L Total Bilirubin (0.0-1.0) mg/dL AST (0-37) U/l ALT (0-40) U/l Alkaline Phosphatase (39-117) U/L C-Reactive Protein (0.0-0.8) mg/dl Total Protein (5.9-8.4) gm/dL Albumin (3.2-5.2) gm/dL Globulin (2.2-3.7) gm/dL Albumin/Globulin Ratio (1.0-2.3) Disposition Pt seen by PHOTOSTAT OPERATOR/PA only: No Clinical Impression: Weakness, Chills (without fever), Hyperkalemia, Dehydration Acute on chronic renal failure Qualifiers: Acute renal failure type: unspecified Chronic kidney disease stage: stage 3 (moderate) Qualified Code(s): N17.9 - Acute kidney failure, unspecified; N18.3 - Chronic kidney disease, stage 3 (moderate) Chronic ulcer of leg Qualifiers: Laterality: left Non-pressure ulcer stage: with fat layer exposed Qualified Code(s): L97.922 - Non-pressure chronic ulcer of unspecified part of left lower leg with fat layer exposed Chronic foot ulcer Qualifiers: Laterality: left Non-pressure ulcer stage: with fat layer exposed Qualified Code(s): L97.522 - Non-pressure chronic ulcer of other part of left foot with fat layer exposed Summary: See MEDICAL DECISION MAKING above. Patient's vitals remained stable during the hospital stay. He did not demonstrate chills. Blood cultures were not obtained because of this. He did not have a temperature. Disposition: Xfer As Outpt/Obs ([facility]) Condition: Serious
[2019-11-27 21:16] LABS: Basophils # (Auto) 0.07 K/mcL (0.00-0.30); Basophils % (Auto) 0.6 % (0.0-2.0); Eosinophils # (Auto) 0.51 K/mcL (0.00-0.70); Eosinophils % (Auto) 4.1 % (0.0-7.0); Granulocytes % (Auto) 71.5 % (38.0-78.0); Hematocrit 35.1 % (40.1-51.0); Lymphocytes # (Auto) 1.28 K/mcL (1.50-4.80); Lymphocytes % (Auto) 10.3 % (15.5-49.0); Mean Cell Volume 96.4 fL (80.0-100.0); Mean Corpuscular HGB Conc 31.3 g/dL (31.0-36.0); Monocytes # (Auto) 1.68 K/mcL (0.10-0.90); Monocytes % (Auto) 13.5 % (1.0-12.0); Platelet Count 370 K/mcL (140-440); RBC 3.64 M/mcL (4.63-6.08); Red Cell Distribution Width 14.6 % (11.5-14.5); WBC 12.4 K/mcL (4.50-11.00)
[2019-11-27 22:06] LABS: ALT/SGPT 14 U/l (0-40); AST/SGOT 19 U/l (0-37); Albumin 3.5 gm/dL (3.2-5.2); Albumin/Globulin Ratio 1.1 (1.0-2.3); Alkaline Phosphatase 75 U/L (39-117); Bilirubin,Total 0.2 mg/dL (0.0-1.0); Blood Urea Nitrogen 86 mg/dl (8-23); C-Reactive Protein 5.2 mg/dl (0.0-0.8); Calcium 9.4 mg/dl (8.6-10.4); Carbon Dioxide 19 mmol/L (22-30); Chloride 105 mmol/L (96-108); Globulin 3.2 gm/dL (2.2-3.7); Glomerular Filtration Rate 21; Glucose 185 mg/dL (70-105)
[2019-11-27] MEDS ORDERED: HYDROmorphone 0.5 MG/0.5 ML SYRINGE IV ONE (22:56)
[2019-11-27] MEDS ORDERED: cefTRIAXone 1 GM VIAL IM ONE (23:05)
[2019-11-27] MEDS ORDERED: cefTRIAXone 1 GM VIAL IV ONE (23:09)
[2019-11-27] MEDS ORDERED: ONDANSETRON 4 MG/2 ML VIAL IV PRN (23:29)
[2019-11-27] MEDS ORDERED: VANCOMYCIN 1,000 MG in 0.9 % SODIUM CHLORIDE 250 ML IV ONE (23:35)
[2019-11-28] LABS: POC Blood Urea Nitrogen 87 mg/dl (8-23); POC Creatinine 2.7 mg/dl (0.7-1.2); POC Glucose, Random 164 mg/dL (70-105); POC Potassium 6.1 mmol/L (3.3-5.1); POC Sodium 137 mmol/L (133-145)
[2019-11-28 00:01] LABS: POC CO2 20 mmol/L (22-30); POC Calcium, Ionized 1.24 mmol/L (1.16-1.32); POC Chloride 114 mmol/L (96-108)
[2019-11-28] MEDS: 0.9 % SODIUM CHLORIDE 1,000 ML IV SCH ×3 (00:53→21:15)
[2019-11-28] MEDS: HYDROmorphone 0.5 MG/0.5 ML SYRINGE IV PRN ×2 (00:57→04:46)
[2019-11-28] MEDS ORDERED: LEVOTHYROXINE 50 MCG TABLET PO SCH (07:30)
--- NOTE | 2019-11-28 07:37 | Internal Med History&Physical ---
Medical - H&P: [facility] Patient information: Note initiated : 11/28/19 at 7:33 am Service Date, if different from initiated Date: [] Patient: Bebeto Bunn a 84 y/o M admitted on 11/28/19 for weakness chills. Chief Complaint: [] History of present illness: Mr. Bunn is a 84 year old M Patient presents to the ED with generalized weakness and chills. Patient also has left lower leg wounds and has been following with wound care clinic. He did have some debridement of it on Friday with wound packing. Should he was more lethargic and weak and poor appetite. Also been on immunosuppression for rheumatoid arthritis 10 mg daily. In the ED he was found to have an elevated creatinine above his baseline. Patient follows Dr. Harmon. Results found to have a mild leukocytosis and hyperkalemia. Lactate was okay. Patient started on antibiotics for concern for cellulitis around the wound. Imagining in September of the heel which showed small region of osteomyelitis along posterior border of calcaneus. Per patient family he woke up yesterday morning feeling all right but through the day he developed shaking chills became progressively weak and lethargic per family groggy. Also had decreased appetite. He complained more pain in his left lower extremity per family members seem to be a little bit more red. Review of Systems: Positives as above and headache. Denies fever/nausea/vomiting/chest or abdomina l pain/cough/dyspnea/diarrhea. Remaining 10 point review of system reviewed negative Medical - H&P: H Medical history: Medical History (Last Updated 11/28/19 @ 07:03 by James Deleon DO) Acute osteomyelitis of left calcaneus (Chronic ~09/2019) Chronic ulcer of leg (Chronic) Chronic foot ulcer (Chronic) Full code status (Chronic) Immunosuppressed status (Chronic) jail (current) use of opiate analgesic (Chronic) Peripheral arterial disease (Chronic) Rheumatoid arthritis (Chronic) Diabetes mellitus (Chronic) CKD (chronic kidney disease), stage IV (Chronic) Hypertension (Chronic) Benign hypertension with CKD (chronic kidney disease) stage IV (Chronic) Persistent proteinuria (Chronic) Hyperlipidemia (Chronic) 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) GERD (gastroesophageal reflux disease) (Chronic) Hypothyroidism (Chronic) Limp (Chronic) Total body pain (Chronic) Back pain (Chronic) Osteoarthritis (Chronic) Arthralgia (Chronic) Anxiety (Resolved) Hip pain, left (Resolved) Polyarthritis involving elbow (Resolved) Polymyalgia rheumatica (Resolved) Septic arthritis due to Streptococcus species (Resolved) Weight loss (Resolved) Past Surgical History (Last Updated 11/28/19 @ 06:41 by James Deleon DO) History of procedure for peripheral vascular disease (Acute) History of elbow surgery (Chronic) History of hip replacement (Chronic) Hx of toe surgery (Chronic) Family History (Last Reviewed 08/20/19 @ 09:39 by Debbie Saunders RN) Family/Other Colon cancer Stroke Social History (Last Updated 08/20/19 @ 10:10 by Luke Harmon MD) Former smoker distant past Rare alcohol Ambulates with a cane and wheelchair Lives at home with family Medical - H&P: Meds Home Medications Medication Instructions Recorded Confirmed Type Levothyroxine [Synthroid] 50 mcg PO DAILY 01/18/17 11/27/19 History Doxazosin [Cardura] 1 mg PO DAILY 01/17/19 11/28/19 History acetaminophen 325 mg capsule 650 mg PO Q6H PRN 06/09/19 11/27/19 History amlodipine 10 mg tablet 10 mg PO QDAY tab 06/09/19 11/28/19 History atenolol 50 mg tablet 50 mg PO BID tab 08/20/19 11/28/19 History atorvastatin 20 mg tablet 20 mg PO QDAY tab 08/20/19 11/27/19 History clonidine HCl 0.1 mg tablet 0.1 mg PO BID tab 08/20/19 11/28/19 History clopidogrel 75 mg tablet 75 mg PO QDAY tab 08/20/19 11/28/19 History insulin aspart U-100 100 unit/mL unit SUB-Q .ac ml 08/20/19 08/20/19 History (3 mL) subcutaneous pen insulin glargine 100 unit/mL (3 8 - 10 unit SUB-Q HS ml 08/20/19 08/20/19 History mL) subcutaneous pen metformin 500 mg tablet 2,500 mg PO QDAY tab 08/20/19 11/28/19 History pentoxifylline 400 mg 400 mg PO QDAY tab 08/20/19 11/28/19 History tablet,extended release prednisone 5 mg tablet 10 mg PO QDAY tab 08/20/19 11/28/19 History trandolapril 4 mg tablet 4 mg PO BID tab 08/20/19 11/28/19 History HYDROcodone/ACETAMINOPHEN 1 each PO Q4-6HP PRN 11/27/19 History [Hydrocodone-Acetamin 10-325 mg] Allergies Allergy/AdvReac Type Severity Reaction Status Date / Time naproxen AdvReac Intermediate Skin Martino Verified 11/28/19 01:05 niacin AdvReac Intermediate Burning Verified 11/28/19 01:05 Skin Medical - H&P: Exam - Constitutional Vitals: Temp Pulse Resp BP Pulse Ox 98.8 F 64 20 154/81 96 11/28/19 03:08 11/28/19 03:08 11/28/19 03:08 11/28/19 03:08 11/28/19 03:08 Exam: General: Drowsy but awakens, No acute Distress Eyes/N/T: EOMI, PERRL, dry MM Head/Neck: neck supple, normocephalic atraumatic CV: RRR, No murmurs, normal s1/s2 Pulm: Clear b/l, no wheezing/rhonchi/rales Abd: soft, nontender, +BS x4 Ext: no clubbing/cyanosis/edema to RLE. LLE and dressings and will remove dressings evaluate when Dr. Lion arrives Neuro: Alert, no focal deficits, moves all extremities, CN 2-12 grossly intact, symmetrical strength b/l upper, chronic decreased sensation in his lower extremities skin: warm/dry Medical - H&P: Reslt - Labs CBC & Chem 7: 11/27/19 20:23 11/28/19 06:58 Labs: Short CBC 11/27/19 Range/Units 20:23 WBC 12.4 H (4.50-11.00) K/mcL Hgb 11.0 L (13.7-17.5) g/dL Hct 35.1 L (40.1-51.0) % Plt Count 370 (140-440) K/mcL BMP 11/27/19 20:22 Sodium 138 Potassium 6.1 H* Chloride 105 Carbon Dioxide 19 L BUN 86 H Creatinine 2.7 H Glucose 185 H Calcium 9.4 Liver Function 11/27/19 Range/Units 20:22 Total Bilirubin 0.2 (0.0-1.0) mg/dL AST 19 (0-37) U/l ALT 14 (0-40) U/l Alkaline Phosphatase 75 (39-117) U/L Albumin 3.5 (3.2-5.2) gm/dL Medical - H&P: A/P - Narrative A/P Narrative: A: *LISANDRA on CKD IV: follows with Dr. Porter *Volume depletion: *Hyperkalemia (h/o same): *LLE wound w/concern for Cellulitis (h/o osteo): -leukocytosis *DM: *HTN: *Anemia, chronic: *RA/PMR: -Immunosuppressed on prednisone 10mg daily *PVD: Has seen Dr. Casiano in the past *Generalized weakness/deconditioning: *Hypothyroidism: * P: -Rocephin -IV antibiotics -Wound care consult, Dr. Lion -Follow-up potassium -Hold lisinopril for LISANDRA -cont plavix/pentox/statin -cont norvasc/atenolol/clonidine -basal and SSI; -d/c metformin given CKD -cont home prednisone -pt/ot -ppx: heparin DNR Medical - H&P: Qual - Stroke Symptom Onset Unknown: No - VTE Deep Vein Thrombosis/Pulmonary Embolism Present on Admission: No
[2019-11-28 08:04] LABS: ALT/SGPT 9 U/l (0-40); AST/SGOT 15 U/l (0-37); Albumin 2.9 gm/dL (3.2-5.2); Albumin/Globulin Ratio 1.1 (1.0-2.3); Alkaline Phosphatase 63 U/L (39-117); Bilirubin,Direct < 0.2 mg/dL (0.0-0.3); Bilirubin,Total 0.2 mg/dL (0.0-1.0); Blood Urea Nitrogen 76 mg/dl (8-23); Calcium 8.3 mg/dl (8.6-10.4); Carbon Dioxide 19 mmol/L (22-30); Chloride 104 mmol/L (96-108); Globulin 2.6 gm/dL (2.2-3.7); Glomerular Filtration Rate 24; Glucose 167 mg/dL (70-105); Lactate Dehydrogenase 189 U/L (94-250); Phosphorous 2.9 mg/dL (2.7-4.5); Triglycerides 240 mg/dl (<150); Uric Acid 6.1 mg/dL (2.5-8.0)
[2019-11-28] MEDS ORDERED: PENTOXIFYLLINE 400 MG TABLET PO SCH (09:00)
[2019-11-28] MEDS ORDERED: CLOPIDOGREL 75 MG TABLET PO SCH (09:00)
[2019-11-28] MEDS ORDERED: cloNIDine HCL 0.1 MG TABLET PO SCH (09:00)
[2019-11-28] MEDS ORDERED: DEXTROSE 5% IV ONE (10:00)
[2019-11-28] MEDS ORDERED: SODIUM BICARBONATE IV ONE (10:00)
[2019-11-28] MEDS ORDERED: WATER IV ONE (10:00)
[2019-11-28] MEDS ORDERED: POTASSIUM CHLORIDE 40 MEQ in DEXTROSE 5% IN WATER 500 ML IV PRN (10:07)
[2019-11-28] MEDS ORDERED: POTASSIUM CHLORIDE 20 MEQ TABLET PO PRN ×2 (10:07)
[2019-11-28] MEDS ORDERED: POLYETHYLENE GLYCOL 3350 17 GM PACKET PO PRN (10:07)
[2019-11-28] MEDS ORDERED: IPRATROPIUM/ALBUTEROL 3 ML AMPUL.NEB NEB PRN (10:07)
[2019-11-28] MEDS ORDERED: DEXTROSE 31 GM ORAL.SUSP PO PRN (10:07)
[2019-11-28] MEDS ORDERED: ACETAMINOPHEN 325 MG TABLET PO PRN (10:07)
[2019-11-28] MEDS ORDERED: MAGNESIUM SULFATE 2 GM/50 ML BAG IV PRN (10:07)
[2019-11-28] MEDS ORDERED: SENNOSIDES 1 TABLET PO PRN (10:07)
[2019-11-28] MEDS ORDERED: DEXTROSE 50% 50 ML VIAL IV PRN (10:07)
[2019-11-28] MEDS ORDERED: MAGNESIUM SULFATE 8.12 MEQ in DEXTROSE 5% IN WATER 50 ML IV ONE (11:00)
--- NOTE | 2019-11-28 11:16 | General Surgery Consult Note ---
History of Present Illness Patient information: Note initiated : 11/28/19 at 11:12 am Service Date, if different from initiated Date: [] Patient: Bebeto Bunn 84 y/o M admitted on 11/28/19 for weakness chills. Chief Complaint: [] Consult date: 11/28/19 Requesting physician: Quentin Ayala (Wound Management LEFT leg) History of present illness: I know this gentleman well. I saw him in room 111 with Dougie RHODES Situation discussed with nursing staff and Hospitalist physician Dr. Ayala. Patient admitted via ER yesterday with signs / symptoms of SEPSIS. Patient has an open chronically infected wound Posterior LEFT heel and lower leg. Multiple comorbid medial issues. Managed appropriately. Medications and Allergies Home Medications Medication Instructions Recorded Confirmed Type Doxazosin [Cardura] 1 mg PO DAILY 01/17/19 08/20/19 History acetaminophen 325 mg capsule 650 mg PO Q6H PRN 06/09/19 11/27/19 History amlodipine 10 mg tablet 10 mg PO QDAY tab 06/09/19 11/28/19 History atenolol 50 mg tablet 50 mg PO BID tab 08/20/19 11/28/19 History insulin aspart U-100 100 unit/mL See Protocol SUB-Q .ac ml 08/20/19 11/28/19 History (3 mL) subcutaneous pen insulin glargine 100 unit/mL (3 8 unit SUB-Q HS ml 08/20/19 11/28/19 History mL) subcutaneous pen prednisone 5 mg tablet 10 mg PO QDAY tab 08/20/19 11/28/19 History trandolapril 4 mg tablet 4 mg PO BID tab 08/20/19 11/28/19 History HYDROcodone/ACETAMINOPHEN 1 - 2 each PO QIDP PRN 11/27/19 11/28/19 History [Hydrocodone-Acetamin 10-325 mg] Hydrochlorothiazide [Oretic] 25 mg PO DAILY 11/28/19 11/28/19 History LORazepam [Lorazepam] 0.5 mg PO BIDP PRN 11/28/19 11/28/19 History Lansoprazole [Prevacid] 30 mg PO DAILY 11/28/19 11/28/19 History Levothyroxine [Synthroid] 75 mcg PO DAILY 11/28/19 11/28/19 History Magnesium Oxide [Magnesium] 250 mg PO DAILY 11/28/19 11/28/19 History Allergies Allergy/AdvReac Type Severity Reaction Status Date / Time naproxen AdvReac Intermediate Skin Martino Verified 11/28/19 01:05 niacin AdvReac Intermediate Burning Verified 11/28/19 01:05 Skin Exam Temp Pulse Resp BP Pulse Ox 99.1 F H 68 18 139/72 95 11/28/19 08:00 11/28/19 08:00 11/28/19 08:00 11/28/19 08:00 11/28/19 08:00 - General physical appearance moderate pain, cachectic, chronically ill, other (Extreme weakness. Hypothyroid and malnourished. ) - Eyes PERRL, normal ocular movement - ENT normal pinna, normal nares, normal mucosa, no congestion - Head Head exam IM: Present: atraumatic, normocephalic - Neck no masses, trachea midline, no venous distension - Cardiovascular Cardiovascular exam IM: Present: normal rate and rhythm - Respiratory normal respiratory effort, clear to auscultation - Abdomen Abdomen: Present: soft, non tender, bowel sounds - Integumentary Present: other (Pressure ulcer LEFT posterior heel Stage 4, OPEN infected WOUND LEFT posterior leg. Exposed tendon, muscle with purulence and necrotic tissue, Heme serous oozing, periwound inflammatory changes,) - Neurologic Present: other (No gross lateralizing neurological changes. Peripheral neuropathy. ) - Musculoskeletal Present: other ( NON ambulaatory) - Psychiatric Present: oriented to time, oriented to person, oriented to place, speech is normal, memory intact, other (Pleasant, cooperative. Wants to get well.) Results - Labs 11/27/19 20:23 11/28/19 06:58 Abnormal lab results 11/27/19 11/27/19 11/27/19 Range/Units 20:22 20:23 23:43 WBC 12.4 H (4.50-11.00) K/mcL RBC 3.64 L (4.63-6.08) M/mcL Hgb 11.0 L (13.7-17.5) g/dL Hct 35.1 L (40.1-51.0) % POC Hct 31.0 L (41.0-55.0) % RDW 14.6 H (11.5-14.5) % MPV 11.0 H (7.4-10.4) fL Lymph % (Auto) 10.3 L (15.5-49.0) % [place] % (Auto) 13.5 H (1.0-12.0) % Gran # 8.87 H (1.80-8.00) K/mcL Lymph # (Auto) 1.28 L (1.50-4.80) K/mcL [place] # (Auto) 1.68 H (0.10-0.90) K/mcL ESR (0-15) mm/hr POC Potassium 6.1 H* (3.3-5.1) mmol/L Potassium 6.1 H* (3.3-5.1) mmol/L POC Chloride 114 H (96-108) mmol/L Carbon Dioxide 19 L (22-30) mmol/L POC Total CO2 20 L (22-30) mmol/L POC BUN 87 H (8-23) mg/dl BUN 86 H (8-23) mg/dl Creatinine 2.7 H (0.7-1.2) mg/dl POC Creatinine 2.7 H (0.7-1.2) mg/dl Glucose 185 H (70-105) mg/dL POC Glucose 164 H (70-105) mg/dL Calcium (8.6-10.4) mg/dl Magnesium (1.6-2.5) mg/dL C-Reactive Protein 5.2 H (0.0-0.8) mg/dl Total Protein (5.9-8.4) gm/dL Albumin (3.2-5.2) gm/dL Triglycerides (<150) mg/dl 11/28/19 11/28/19 Range/Units 06:58 06:58 WBC (4.50-11.00) K/mcL RBC (4.63-6.08) M/mcL Hgb (13.7-17.5) g/dL Hct (40.1-51.0) % POC Hct (41.0-55.0) % RDW (11.5-14.5) % MPV (7.4-10.4) fL Lymph % (Auto) (15.5-49.0) % [place] % (Auto) (1.0-12.0) % Gran # (1.80-8.00) K/mcL Lymph # (Auto) (1.50-4.80) K/mcL [place] # (Auto) (0.10-0.90) K/mcL ESR 63 H (0-15) mm/hr POC Potassium (3.3-5.1) mmol/L Potassium 5.5 H (3.3-5.1) mmol/L POC Chloride (96-108) mmol/L Carbon Dioxide 19 L (22-30) mmol/L POC Total CO2 (22-30) mmol/L POC BUN (8-23) mg/dl BUN 76 H (8-23) mg/dl Creatinine 2.4 H (0.7-1.2) mg/dl POC Creatinine (0.7-1.2) mg/dl Glucose 167 H (70-105) mg/dL POC Glucose (70-105) mg/dL Calcium 8.3 L (8.6-10.4) mg/dl Magnesium 1.5 L (1.6-2.5) mg/dL C-Reactive Protein (0.0-0.8) mg/dl Total Protein 5.5 L (5.9-8.4) gm/dL Albumin 2.9 L (3.2-5.2) gm/dL Triglycerides 240 H (<150) mg/dl Diabetes panel 11/27/19 11/28/19 Range/Units 20:22 06:58 Sodium 138 133 (133-145) mmol/L Potassium 6.1 H* 5.5 H (3.3-5.1) mmol/L Chloride 105 104 (96-108) mmol/L Carbon Dioxide 19 L 19 L (22-30) mmol/L BUN 86 H 76 H (8-23) mg/dl Creatinine 2.7 H 2.4 H (0.7-1.2) mg/dl Glucose 185 H 167 H (70-105) mg/dL Calcium 9.4 8.3 L (8.6-10.4) mg/dl AST 19 15 (0-37) U/l ALT 14 9 (0-40) U/l Alkaline Phosphatase 75 63 (39-117) U/L Total Protein 6.7 5.5 L (5.9-8.4) gm/dL Albumin 3.5 2.9 L (3.2-5.2) gm/dL Triglycerides 240 H (<150) mg/dl Calcium panel 11/27/19 11/28/19 Range/Units 20:22 06:58 Calcium 9.4 8.3 L (8.6-10.4) mg/dl Phosphorus 2.9 (2.7-4.5) mg/dL Albumin 3.5 2.9 L (3.2-5.2) gm/dL Pituitary panel 11/27/19 11/28/19 Range/Units 20:22 06:58 Sodium 138 133 (133-145) mmol/L Potassium 6.1 H* 5.5 H (3.3-5.1) mmol/L Chloride 105 104 (96-108) mmol/L Carbon Dioxide 19 L 19 L (22-30) mmol/L BUN 86 H 76 H (8-23) mg/dl Creatinine 2.7 H 2.4 H (0.7-1.2) mg/dl Glucose 185 H 167 H (70-105) mg/dL Calcium 9.4 8.3 L (8.6-10.4) mg/dl Adrenal panel 11/27/19 11/28/19 Range/Units 20:22 06:58 Sodium 138 133 (133-145) mmol/L Potassium 6.1 H* 5.5 H (3.3-5.1) mmol/L Chloride 105 104 (96-108) mmol/L Carbon Dioxide 19 L 19 L (22-30) mmol/L BUN 86 H 76 H (8-23) mg/dl Creatinine 2.7 H 2.4 H (0.7-1.2) mg/dl Glucose 185 H 167 H (70-105) mg/dL Calcium 9.4 8.3 L (8.6-10.4) mg/dl Total Bilirubin 0.2 0.2 (0.0-1.0) mg/dL AST 19 15 (0-37) U/l ALT 14 9 (0-40) U/l Alkaline Phosphatase 75 63 (39-117) U/L Total Protein 6.7 5.5 L (5.9-8.4) gm/dL Albumin 3.5 2.9 L (3.2-5.2) gm/dL All other labs normal. Assessment and Plan (1) Sepsis Status: Chronic Priority: Medium Comment: NEEDS SURGICAL DEBRIDEMENT IN OPERATING ROOM AWAIT preoperative anesthesia evaluation . Post opoerative Infectious Disease consultation. Qualifiers: Sepsis type: sepsis due to unspecified organism (2) Weakness Status: Chronic Priority: Medium (3) Chills (without fever) Status: Acute Priority: Medium (4) Acute on chronic renal failure Status: Acute Priority: Medium Qualifiers: Acute renal failure type: unspecified Chronic kidney disease stage: stage 3 (moderate) Qualified Code(s): N17.9 - Acute kidney failure, unspecified; N18.3 - Chronic kidney disease, stage 3 (moderate) (5) Hyperkalemia Status: Acute Priority: Medium (6) Dehydration Status: Acute Priority: Medium (7) Chronic ulcer of leg Status: Chronic Priority: Medium Qualifiers: Laterality: left Non-pressure ulcer stage: with fat layer exposed Qualified Code(s): L97.922 - Non-pressure chronic ulcer of unspecified part of left lower leg with fat layer exposed (8) Chronic foot ulcer Status: Chronic Priority: Medium Qualifiers: Laterality: left Non-pressure ulcer stage: with fat layer exposed Qualified Code(s): L97.522 - Non-pressure chronic ulcer of other part of left foot with fat layer exposed
[2019-11-28] MEDS ORDERED: ACETAMINOPHEN 650 MG PO PRN (11:41)
--- NOTE | 2019-11-28 12:06 | XRay Report ---
CLINICAL INFORMATION: fevers, chills, weakness; hx osteomyelitis COMPARISON: None. FINDINGS: No plain film evidence of osteomyelitis. There is minor spurring from the dorsal cortex of the talar neck. The visualized talocalcaneal, ankle mortise and midfoot joints are unremarkable. Mild diffuse soft tissue swelling. IMPRESSION: Mild diffuse soft tissue swelling. No infiltrates evidence of osteomyelitis Interpreted and Authenticated by: Ivan Garcia 11/28/19
[2019-11-28] MEDS: INSULIN LISPRO 1 UNIT/0.01 ML UNIT SQ SCH ×3 (12:29→21:08)
[2019-11-28] MEDS: HYDROcodone/APAP 10/325MG TABLET PO PRN (12:40)
[2019-11-28] MEDS: DOXAZOSIN 1 MG TABLET PO SCH (12:40)
[2019-11-28] MEDS: amLODIPine 10 MG TABLET PO SCH (12:40)
[2019-11-28] MEDS: predniSONE 5 MG TABLET PO SCH (12:41)
[2019-11-28] MEDS: ATENOLOL 50 MG TABLET PO SCH ×2 (12:41→21:08)
[2019-11-28] MEDS: HEPARIN 5,000 UNIT/ML VIAL SQ SCH ×2 (12:41→21:08)
[2019-11-28] MEDS: LEVOTHYROXINE 75 MCG TABLET PO SCH (12:41)
[2019-11-28] MEDS: ATORVASTATIN 20 MG TABLET PO SCH (12:41)
[2019-11-28] MEDS: cefTRIAXone 2 GM in DEXTROSE 5% IN WATER 50 ML IV SCH (14:24)
[2019-11-28] MEDS: 0.9 % SODIUM CHLORIDE 10 ML SYRINGE IV SCH ×2 (14:30→21:09)
[2019-11-28] MEDS: INSULIN GLARGINE, HUMAN 1 UNIT/0.01 ML SQ SCH (21:08)
[2019-11-28] MEDS: DOCUSATE SODIUM 100 MG CAPSULE PO SCH (21:08)
[2019-11-28] MEDS: FAMOTIDINE 20 MG TABLET PO SCH (21:08)
[2019-11-28 21:59] LABS: Appearance,Urine CLEAR; Bacteria,Urine 0 /hpf (0); Bilirubin,Urine NEG (NEG); Color,Urine YELLOW; Culture Indicated,Urine NO; Glucose,Urine (UA) 150 mg/dL (NEG); Ketones,Urine NEG (NEG); Leukocyte Esterase,Urine NEG /uL (NEG); Mucus,Urine FEW /hpf (0); Nitrate,Urine NEG (NEG); Protein,Urine 30 mg/dL (NEG); Specific Gravity,Urine 1.016 (1.000-1.035); Urine Blood NEG mg/dL (<0.03); Urine RBC 1 /hpf (0-1); Urine Squamous Epithelial Cell 0 /hpf (0-4); Urine Transitional Epi Cells < 1 /hpf (0-2); Urine WBC < 1 /hpf (0-4); Urobilinogen,Urine NEG (NEG)
[2019-11-28] MEDS: LORazepam 0.5 MG TABLET PO PRN (23:02)
[2019-11-29] MEDS: HYDROmorphone 0.5 MG/0.5 ML SYRINGE IV PRN ×6 (02:56→22:05)
[2019-11-29] MEDS: 0.9 % SODIUM CHLORIDE 10 ML SYRINGE IV SCH ×3 (05:27→20:32)
[2019-11-29 06:07] LABS: Basophils # (Auto) 0.04 K/mcL (0.00-0.30); Basophils % (Auto) 0.4 % (0.0-2.0); Eosinophils # (Auto) 0.19 K/mcL (0.00-0.70); Eosinophils % (Auto) 2.1 % (0.0-7.0); Granulocytes % (Auto) 77.7 % (38.0-78.0); Hematocrit 27.3 % (40.1-51.0); Hemoglobin 8.7 g/dL (13.7-17.5); Lymphocytes # (Auto) 0.86 K/mcL (1.50-4.80); Lymphocytes % (Auto) 9.5 % (15.5-49.0); Mean Cell Volume 95.8 fL (80.0-100.0); Mean Corpuscular HGB Conc 31.9 g/dL (31.0-36.0); Mean Platelet Volume 11.1 fL (7.4-10.4); Monocytes # (Auto) 0.94 K/mcL (0.10-0.90); Monocytes % (Auto) 10.3 % (1.0-12.0); Platelet Count 287 K/mcL (140-440); RBC 2.85 M/mcL (4.63-6.08); Red Cell Distribution Width 14.2 % (11.5-14.5); WBC 9.1 K/mcL (4.50-11.00)
[2019-11-29 06:21] LABS: Estimated Average Glucose(eAG) 194 mg/dL; Hemoglobin A1C 8.4 % HGB (4.0-6.0)
[2019-11-29 06:26] LABS: Prealbumin 19.1 mg/dl (20-40)
[2019-11-29 06:39] LABS: ALT/SGPT 7 U/l (0-40); AST/SGOT 13 U/l (0-37); Albumin 2.7 gm/dL (3.2-5.2); Albumin/Globulin Ratio 1.1 (1.0-2.3); Alkaline Phosphatase 55 U/L (39-117); Bilirubin,Direct < 0.2 mg/dL (0.0-0.3); Bilirubin,Total 0.2 mg/dL (0.0-1.0); Blood Urea Nitrogen 64 mg/dl (8-23); C-Reactive Protein 14.4 mg/dl (0.0-0.8); Chloride 108 mmol/L (96-108); Globulin 2.4 gm/dL (2.2-3.7); Glomerular Filtration Rate 28; Glucose 101 mg/dL (70-105); Lactate Dehydrogenase 186 U/L (94-250); Phosphorous 2.4 mg/dL (2.7-4.5); Thyroid Stimulating Hormone 12.09 uIU/ml (0.27-5.01); Triglycerides 120 mg/dl (<150)
[2019-11-29 06:41] LABS: Carbon Dioxide 23 mmol/L (22-30)
[2019-11-29] MEDS: LEVOTHYROXINE 75 MCG TABLET PO SCH ×2 (06:52→13:18)
[2019-11-29] MEDS: INSULIN LISPRO 1 UNIT/0.01 ML UNIT SQ SCH ×4 (07:12→20:32)
--- NOTE | 2019-11-29 08:06 | Internal Med Progress Note ---
Medical - PN: Subj Patient information: Note initiated : 11/29/19 at 7:56 am Service Date, if different from initiated Date: [] Patient: Bebeto Bunn a 84 y/o M admitted on 11/28/19 for weakness chills. Chief Complaint: [] Interval history: Mr. Bunn is a 84 year old M Patient presents to the ED with generalized weakness and chills. Patient also has left lower leg wounds and has been following with wound care clinic. He did have some debridement of it on Friday with wound packing. Should he was more lethargic and weak and poor appetite. Also been on immunosuppression for rheumatoid arthritis 10 mg daily. In the ED he was found to have an elevated creatinine above his baseline. Patient follows Dr. Harmon. Results found to have a mild leukocytosis and hyperkalemia. Lactate was okay. Patient started on antibiotics for concern for cellulitis around the wound. Imagining in September of the heel which showed small region of osteomyelitis along posterior border of calcaneus. Per patient family he woke up yesterday morning feeling all right but through the day he developed shaking chills became progressively weak and lethargic per family groggy. Also had decreased appetite. He complained more pain in his left lower extremity per family members seem to be a little bit more red. 11/28 Patient states he did not sleep very well. But otherwise no new complaints overnight events. Demonstrate improved. Planning for surgical debridement of the left lower extremity today in the OR. Patient feels less weak today. Review of Systems: denies headache/fever/chills/nausea/vomiting/chest or abdominal pain/cough/dyspnea/diarrhea. Otherwise see above. - Constitutional Vitals: Vital Signs Temp Pulse Resp BP Pulse Ox 98.8 F 49 L 20 145/75 96 11/29/19 06:30 11/29/19 02:59 11/29/19 06:30 11/29/19 06:30 11/29/19 06:30 Period Temp Pulse Resp BP Sys/Dupree Pulse Ox Last 24 Hr 97.8 F-99.1 F 49-68 16-22 121-158/61-90 93-99 Intake and Output 11/28/19 11/29/19 11/29/19 21:59 05:59 13:59 Intake Total 702 400 Output Total 475 525 Balance 227 -125 Weight 61.235 kg Intake & Output: Intake & Output 11/28/19 11/29/19 11/29/19 21:59 05:59 13:59 Intake Total 702 400 Output Total 475 525 Balance 227 -125 Weight 61.235 kg Intake: IV 702 Magnesium Sulfate 8.12 Meq In 52 Dextrose 5% in Water 50 ml @ 52 mls/hr IV ONCE ONE Rx#: [id number] Sodium Bicarbonate Vial 150 Meq 650 In Dextrose 5% in Water 500 ml @ 100 mls/hr IV ONCE ONE Rx#: [id number] Oral 400 Output: Void Amount 475 525 Other: Urine Appearance Clear Clear Urine Color Pale Pale Urine Odor Normal Normal Stool Size Large Stool Color Brown Stool Consistency Formed # Voids 1 # Bowel Movements 1 Exam: General: alert and awake, No acute Distress Eyes/N/T: EOMI, Head/Neck: neck supple, CV: RRR, No murmurs, Pulm: Clear b/l, no wheezing/rhonchi/rales Abd: soft, nontender, +BS x4 Ext: no clubbing/cyanosis/edema to RLE. LLE in dressings Neuro: Alert, no focal deficits, moves all extremities, skin: warm/dry Medical - PN: Obj Da - Labs CBC & Chem 7: 11/29/19 04:45 11/29/19 04:45 Labs: Abnormal Lab Results 11/29/19 11/29/19 11/28/19 04:45 04:45 20:28 WBC RBC 2.85 L Hgb 8.7 L Hct 27.3 L POC Hct RDW MPV 11.1 H Lymph % (Auto) 9.5 L [place] % (Auto) Gran # Lymph # (Auto) 0.86 L [place] # (Auto) 0.94 H ESR POC Potassium Potassium POC Chloride Carbon Dioxide POC Total CO2 POC BUN BUN 64 H Creatinine 2.1 H POC Creatinine Glucose POC Glucose Hemoglobin A1c 8.4 H Calcium 8.0 L Phosphorus 2.4 L Magnesium C-Reactive Protein 14.4 H Total Protein 5.1 L Albumin 2.7 L Prealbumin 19.1 L Triglycerides TSH 12.09 H Urine Protein 30 A Urine Glucose (UA) 150 A 11/28/19 11/28/19 11/27/19 06:58 06:58 23:43 WBC RBC Hgb Hct POC Hct 31.0 L RDW MPV Lymph % (Auto) [place] % (Auto) Gran # Lymph # (Auto) [place] # (Auto) ESR 63 H POC Potassium 6.1 H* Potassium 5.5 H POC Chloride 114 H Carbon Dioxide 19 L POC Total CO2 20 L POC BUN 87 H BUN 76 H Creatinine 2.4 H POC Creatinine 2.7 H Glucose 167 H POC Glucose 164 H Hemoglobin A1c Calcium 8.3 L Phosphorus Magnesium 1.5 L C-Reactive Protein Total Protein 5.5 L Albumin 2.9 L Prealbumin Triglycerides 240 H TSH Urine Protein Urine Glucose (UA) 11/27/19 11/27/19 20:23 20:22 WBC 12.4 H RBC 3.64 L Hgb 11.0 L Hct 35.1 L POC Hct RDW 14.6 H MPV 11.0 H Lymph % (Auto) 10.3 L [place] % (Auto) 13.5 H Gran # 8.87 H Lymph # (Auto) 1.28 L [place] # (Auto) 1.68 H ESR POC Potassium Potassium 6.1 H* POC Chloride Carbon Dioxide 19 L POC Total CO2 POC BUN BUN 86 H Creatinine 2.7 H POC Creatinine Glucose 185 H POC Glucose Hemoglobin A1c Calcium Phosphorus Magnesium C-Reactive Protein 5.2 H Total Protein Albumin Prealbumin Triglycerides TSH Urine Protein Urine Glucose (UA) Meds: Medications Acetaminophen (Tylenol) 650 mg PO Q6HP PRN PRN Reason: PAIN/FEVER > 101 Hydrocodone Bitart/Acetaminophen ([place] 10/325mg) 1 tab PO Q4-6HP PRN; Protocol PRN Reason: Pain Last Admin: 11/28/19 12:40 Dose: 1 tab Documented by: Albuterol/Ipratropium (Duoneb) 3 ml NEB Q4HP PRN PRN Reason: Shortness Of Breath Amlodipine Besylate (Norvasc) 10 mg PO QDAY [facility] Last Admin: 11/28/19 12:40 Dose: 10 mg Documented by: Atenolol (Tenormin) 50 mg PO BID [facility] Last Admin: 11/28/19 21:08 Dose: 50 mg Documented by: Atorvastatin Calcium (Lipitor) 20 mg PO QDAY [facility] Last Admin: 11/28/19 12:41 Dose: 20 mg Documented by: Dextrose (Dextrose 50%) 0 ml IV UD PRN PRN Reason: Hypoglycemia Diagnostic Test (Pha) (Accu-Chek) 1 each FS ACHS [facility] Last Admin: 11/29/19 07:12 Dose: 1 each Documented by: Docusate Sodium (Colace) 100 mg PO BID [facility] Last Admin: 11/28/19 21:08 Dose: 100 mg Documented by: Doxazosin Mesylate (Cardura) 1 mg PO DAILY [facility] Last Admin: 11/28/19 12:40 Dose: 1 mg Documented by: Famotidine (Pepcid) 20 mg PO HS [facility] Last Admin: 11/28/19 21:08 Dose: 20 mg Documented by: Glucose (Insta-Glucose) 15 gm PO PRN PRN PRN Reason: Hypoglycemia Heparin Sodium (Porcine) (Heparin) 5,000 unit SQ Q12 [facility] Last Admin: 11/28/19 21:08 Dose: 5,000 unit Documented by: Hydromorphone HCl (Dilaudid) 0.5 mg IV Q2HP PRN; Protocol PRN Reason: Per Pain Protocol Last Admin: 11/29/19 05:06 Dose: 0.5 mg Documented by: Potassium Chloride 40 meq/ (Dextrose) 520 mls @ 130 mls/hr IV UD PRN PRN Reason: Potassium < 3 Magnesium Sulfate (Magnesium Sulfate) 2 gm in 50 mls @ 50 mls/hr IV UD PRN PRN Reason: Magnesium </= 1.6 Ceftriaxone Sodium 2 gm/ (Dextrose) 50 mls @ 100 mls/hr IV DAILY [facility]; Protocol Last Admin: 11/28/19 14:24 Dose: 100 mls/hr Documented by: Insulin Glargine (Lantus) 8 unit SQ [facility] Last Admin: 11/28/19 21:08 Dose: 8 unit Documented by: Insulin Human Lispro (Humalog) 0 unit SQ [facility]; Protocol Last Admin: 11/29/19 07:12 Dose: Not Given Documented by: Levothyroxine Sodium (Synthroid) 75 mcg PO ACB [facility] Last Admin: 11/29/19 06:52 Dose: Not Given Documented by: Lorazepam (Ativan) 0.5 mg PO BIDP PRN PRN Reason: ANXIETY AND/OR INSOMNIA Last Admin: 11/28/19 23:02 Dose: 0.5 mg Documented by: Magnesium Oxide (Magnesium Oxide) 400 mg PO DAILY [facility] Ondansetron HCl (Zofran) 4 mg IV Q4HP PRN PRN Reason: Nausea And Vomiting Polyethylene Glycol (Miralax) 17 gm PO DAILYP PRN PRN Reason: Constipation Potassium Chloride (Kdur) 40 meq PO UD PRN PRN Reason: Potssium is 3-3.5 Potassium Chloride (Kdur) 40 meq PO UD PRN PRN Reason: Potassium < 3 Prednisone (Prednisone) 10 mg PO QAC [facility] Last Admin: 11/28/19 12:41 Dose: 10 mg Documented by: Scopolamine (Transderm-Scop) 1 patch TOPICAL PREOP PRN PRN Reason: Nausea And Vomiting Stop: 11/29/19 14:00 Senna (Senokot) 2 tab PO DAILYP PRN PRN Reason: Constipation Sodium Chloride (Saline Flush) 10 ml IV Q8 [facility] Last Admin: 11/29/19 05:27 Dose: Not Given Documented by: Medical - PN: A/P - Time Spent With Patient Total time spent is greater than 50% in coordination of care (as documented) at patient's floor/unit and/or counseling patient: - Narrative A/P Narrative: A: *LISANDRA on CKD IV: follows with Dr. 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 Casiano in the past *Generalized weakness/deconditioning: *Hypothyroidism: TSH 12, pending T4 *Anxiety: home ativan *GERD: P: -Rocephin -IV antibiotics -Wound care consult, Dr. Lion for I&D -Hold lisinopril/HCTZ for LISANDRA -cont cont statin -cont norvasc/atenolol -basal and SSI -cont home prednisone -cont levothyroxine (has been increased outpt) -pt/ot -ppx: heparin/home ppi DNR Medical - PN: Qual - Stroke Symptom Onset Unknown: No - VTE Deep Vein Thrombosis/Pulmonary Embolism Present on Admission: No
[2019-11-29] MEDS ORDERED: 0.45 % SODIUM CHLORIDE 500 ML IV SCH (08:15)
[2019-11-29] MEDS: amLODIPine 10 MG TABLET PO SCH (08:49)
[2019-11-29] MEDS ORDERED: SCOPOLAMINE 1 PATCH PATCH TOPICAL PRN (09:00)
[2019-11-29 09:16] LABS: Free T4 (Free Thyroxine) 0.47 ng/dl (0.7-1.7)
[2019-11-29] MEDS: cefTRIAXone 2 GM in DEXTROSE 5% IN WATER 50 ML IV SCH (09:57)
[2019-11-29] MEDS: HEPARIN 5,000 UNIT/ML VIAL SQ SCH ×2 (10:11→20:32)
[2019-11-29] MEDS ORDERED: METOPROLOL TARTRATE 5 MG/5 ML VIAL IV PRN (10:36)
[2019-11-29] MEDS ORDERED: NALOXONE HCL 0.4 MG/ML VIAL IV PRN (10:36)
[2019-11-29] MEDS ORDERED: FLUMAZENIL 0.1 MG/ML ML IV PRN (10:36)
[2019-11-29] MEDS ORDERED: ACETAMINOPHEN 1,000 MG/100 ML BOTTLE IV ONE (10:36)
[2019-11-29] MEDS ORDERED: LABETALOL 5 MG/ML ML IV PRN (10:36)
[2019-11-29] MEDS ORDERED: IPRATROPIUM/ALBUTEROL 3 ML AMPUL.NEB NEB PRN (10:36)
[2019-11-29] MEDS ORDERED: LACTATED RINGERS 250 ML IV PRN (10:36)
[2019-11-29] MEDS ORDERED: METHOCARBAMOL 1,000 MG/10 ML VIAL IV PRN (10:36)
[2019-11-29] MEDS ORDERED: BENZOCAINE/MENTHOL 1 LOZENGE PO PRN (10:36)
[2019-11-29] MEDS ORDERED: KETAMINE 100 MG/ML ML IV ONE (10:40)
[2019-11-29] MEDS ORDERED: GLYCOPYRROLATE 0.2 MG/ML VIAL IV ONE (10:40)
[2019-11-29] MEDS ORDERED: LIDOCAINE HCL/PF 100 MG/5 ML SYRINGE IV ONE (10:40)
[2019-11-29] MEDS ORDERED: fentaNYL 100 MCG/2 ML VIAL IV ONE (10:40)
[2019-11-29] MEDS ORDERED: PROPOFOL 200 MG/20 ML VIAL IV ONE (10:40)
[2019-11-29] MEDS ORDERED: ONDANSETRON 4 MG/2 ML VIAL IV ONE (10:40)
[2019-11-29] MEDS ORDERED: PHENYLEPHRINE 10 MG/ML VIAL IV ONE (10:40)
[2019-11-29] MEDS ORDERED: ePHEDrine 50 MG/ML AMPUL IV ONE (10:40)
[2019-11-29] MEDS ORDERED: LACTATED RINGERS 1,000 ML IV SCH (10:45)
[2019-11-29] MEDS ORDERED: GENTAMICIN SULFATE 800 MG/20 ML VIAL IR ONE (11:04)
--- NOTE | 2019-11-29 11:35 | Brief Operative Note ---
Date of procedure: 11/29/19 Pre-op diagnosis: Sepsis: Open infected wound Stage 4 LEFT posterior lower leg and heel Post-op diagnosis: same Procedure: Excision debridement, Tendon for c/s Open packing. PULSE LAVAGE irrigation 3 Liters NS with 800 mg Gentamicin Tendon specimen for c/s 6 x 2 x 2.5 Cm Left posterior leg Undermining @ 12 5 CM Undermining @ 6 1 CM Undermining @ 3 3 CM Undermining @ 9 2 CM 4 2 x 0.5 CM Left posterior heel EBL 35 ml. Grafts/Implants: No Anesthesia: GLMA Findings: See above Stage 4 open infected wound LEFT posterior lower leg Open wound Posterior heel 4 x 1 x 0.5 M Complications: none Surgeon: Shaheed Lion Estimated blood loss (cc): 35 Specimens Removed/Pathology: other Condition: stable Disposition: PACU (Operation well tolerated.)
[2019-11-29] MEDS: fentaNYL 100 MCG/2 ML VIAL IV PRN ×2 (11:56→12:01)
[2019-11-29] MEDS: predniSONE 5 MG TABLET PO SCH (13:17)
[2019-11-29] MEDS: MAGNESIUM OXIDE 400 MG TABLET PO SCH (13:17)
[2019-11-29] MEDS: DOCUSATE SODIUM 100 MG CAPSULE PO SCH ×2 (13:18→20:31)
[2019-11-29] MEDS: ATENOLOL 50 MG TABLET PO SCH ×2 (13:18→20:31)
[2019-11-29] MEDS: DOXAZOSIN 1 MG TABLET PO SCH (13:21)
[2019-11-29] MEDS: ATORVASTATIN 20 MG TABLET PO SCH (13:21)
[2019-11-29] MEDS: HYDROcodone/APAP 10/325MG TABLET PO PRN ×3 (15:05→22:49)
--- NOTE | 2019-11-29 15:47 | XRay Report ---
HISTORY: Preop FINDINGS: There is mild pulmonary fibrosis, most apparent in the right upper lobe and left lung base. The severe diffuse infiltrates seen in both lungs on the prior chest x-ray done at [facility] on 02/18/19 have resolved. The heart size is normal. There is no pleural effusion. The aorta is mildly tortuous. No adenopathy is detected. There are multiple old posterolateral left-sided rib fractures. IMPRESSION: Mild pulmonary fibrosis and no acute abnormality Interpreted and Authenticated by: Prabhu Mosqueda 11/29/19
[2019-11-29] MEDS: LORazepam 0.5 MG TABLET PO PRN (20:32)
[2019-11-29] MEDS: INSULIN GLARGINE, HUMAN 1 UNIT/0.01 ML SQ SCH (20:32)
[2019-11-29] MEDS: FAMOTIDINE 20 MG TABLET PO SCH (20:32)
[2019-11-30] MEDS: HYDROcodone/APAP 10/325MG TABLET PO PRN ×6 (02:51→23:23)
[2019-11-30 06:17] LABS: Basophils # (Auto) 0.01 K/mcL (0.00-0.30); Basophils % (Auto) 0.1 % (0.0-2.0); Eosinophils # (Auto) 0 K/mcL (0.00-0.70); Eosinophils % (Auto) 0 % (0.0-7.0); Granulocytes % (Auto) 86.8 % (38.0-78.0); Hematocrit 27.9 % (40.1-51.0); Hemoglobin 8.8 g/dL (13.7-17.5); Lymphocytes # (Auto) 0.63 K/mcL (1.50-4.80); Lymphocytes % (Auto) 5.8 % (15.5-49.0); Mean Cell Volume 94.9 fL (80.0-100.0); Mean Corpuscular HGB Conc 31.5 g/dL (31.0-36.0); Mean Platelet Volume 11.4 fL (7.4-10.4); Monocytes # (Auto) 0.79 K/mcL (0.10-0.90); Monocytes % (Auto) 7.3 % (1.0-12.0); Platelet Count 290 K/mcL (140-440); RBC 2.94 M/mcL (4.63-6.08); WBC 10.8 K/mcL (4.50-11.00)
[2019-11-30] MEDS: 0.9 % SODIUM CHLORIDE 10 ML SYRINGE IV SCH ×3 (06:52→22:11)
[2019-11-30 07:00] LABS: C-Reactive Protein 8.6 mg/dl (0.0-0.8)
[2019-11-30 07:02] LABS: ALT/SGPT 12 U/l (0-40); AST/SGOT 16 U/l (0-37); Albumin 2.6 gm/dL (3.2-5.2); Albumin/Globulin Ratio 0.9 (1.0-2.3); Alkaline Phosphatase 59 U/L (39-117); Bilirubin,Direct < 0.2 mg/dL (0.0-0.3); Bilirubin,Total 0.2 mg/dL (0.0-1.0); Blood Urea Nitrogen 57 mg/dl (8-23); Calcium 7.9 mg/dl (8.6-10.4); Carbon Dioxide 22 mmol/L (22-30); Chloride 102 mmol/L (96-108); Globulin 2.9 gm/dL (2.2-3.7); Glomerular Filtration Rate 26; Glucose 270 mg/dL (70-105); Lactate Dehydrogenase 206 U/L (94-250); Phosphorous 2.5 mg/dL (2.7-4.5); Triglycerides 121 mg/dl (<150); Uric Acid 6.2 mg/dL (2.5-8.0)
[2019-11-30] MEDS: INSULIN LISPRO 1 UNIT/0.01 ML UNIT SQ SCH ×4 (07:28→22:10)
[2019-11-30] MEDS: HYDROmorphone 0.5 MG/0.5 ML SYRINGE IV PRN (07:34)
[2019-11-30] MEDS: predniSONE 5 MG TABLET PO SCH (07:40)
[2019-11-30] MEDS: LEVOTHYROXINE 75 MCG TABLET PO SCH (07:41)
[2019-11-30] MEDS ORDERED: INSULIN REGULAR, HUMAN 1 UNIT/0.01 ML UNIT SQ ONE (07:45)
--- NOTE | 2019-11-30 07:50 | Internal Med Progress Note ---
Medical - PN: Subj Patient information: Note initiated : 11/30/19 at 7:37 am Service Date, if different from initiated Date: [] Patient: Bebeto Bunn 84 y/o M admitted on 11/28/19 for weakness chills. Chief Complaint: [] Interval history: Mr. Bunn is a 84 year old M Patient presents to the ED with generalized weakness and chills. Patient also has left lower leg wounds and has been following with wound care clinic. He did have some debridement of it on Friday with wound packing. Should he was more lethargic and weak and poor appetite. Also been on immunosuppression for rheumatoid arthritis 10 mg daily. In the ED he was found to have an elevated creatinine above his baseline. Patient follows Dr. Harmon. Results found to have a mild leukocytosis and hyperkalemia. Lactate was okay. Patient started on antibiotics for concern for cellulitis around the wound. Imagining in September of the heel which showed small region of osteomyelitis along posterior border of calcaneus. Per patient family he woke up yesterday morning feeling all right but through the day he developed shaking chills became progressively weak and lethargic per family groggy. Also had decreased appetite. He complained more pain in his left lower extremity per family members seem to be a little bit more red. 11/28 Patient states he did not sleep very well. But otherwise no new complaints overnight events. Demonstrate improved. Planning for surgical debridement of the left lower extremity today in the OR. Patient feels less weak today. 11/29 Poor sleep but otherwise feeling better overall. Feeling increased energy. Had debridement yesterday. No new complaints. Potassium elevated today but blood glucose has been running high as well. Review of Systems: denies headache/fever/chills/nausea/vomiting/chest or abdominal pain/cough/dyspnea/diarrhea. Otherwise see above. - Constitutional Vitals: Vital Signs Temp Pulse Resp BP Pulse Ox 98.2 F 44 L 20 132/69 94 11/30/19 06:44 11/30/19 06:44 11/30/19 06:44 11/30/19 06:44 11/30/19 06:44 Period Temp Pulse Resp BP Sys/Dupree Pulse Ox Last 24 Hr 97.2 F-98.3 F 43-74 11-22 115-164/52-85 91-100 Intake and Output 11/29/19 11/30/19 11/30/19 21:59 05:59 13:59 Intake Total 480 400 Output Total 475 200 Balance 5 200 Weight 63.73 kg Intake & Output: Intake & Output 11/29/19 11/30/19 11/30/19 21:59 05:59 13:59 Intake Total 480 400 Output Total 475 200 Balance 5 200 Weight 63.73 kg Intake: Oral 480 400 Output: Void Amount 475 200 Other: Meal Dinner Percent of Meal Consumed 100% Urine Appearance Clear Urine Color Bright Yellow Urine Odor Normal Exam: General: alert and awake, No acute Distress Eyes/N/T: EOMI, Head/Neck: neck supple, CV: RRR, No murmurs, Pulm: Clear b/l, no wheezing/rhonchi/rales Abd: soft, nontender, +BS x4 Ext: no clubbing/cyanosis/edema to RLE. LLE in dressings Neuro: Alert, no focal deficits, moves all extremities, skin: warm/dry Medical - PN: Obj Da - Labs CBC & Chem 7: 11/30/19 05:07 11/30/19 05:07 Labs: Abnormal Lab Results 11/30/19 11/30/19 11/30/19 05:07 05:07 05:07 WBC RBC 2.94 L Hgb 8.8 L Hct 27.9 L POC Hct RDW MPV 11.4 H Gran % 86.8 H Lymph % (Auto) 5.8 L [place] % (Auto) Gran # 9.39 H Lymph # (Auto) 0.63 L [place] # (Auto) ESR POC Potassium Potassium 6.0 H* POC Chloride Carbon Dioxide POC Total CO2 POC BUN BUN 57 H Creatinine 2.2 H POC Creatinine Glucose 270 H POC Glucose Hemoglobin A1c Calcium 7.9 L Phosphorus 2.5 L Magnesium C-Reactive Protein 8.6 H Total Protein 5.5 L Albumin 2.6 L Albumin/Globulin Ratio 0.9 L Prealbumin Triglycerides TSH Free T4 Urine Protein Urine Glucose (UA) 11/29/19 11/29/19 11/29/19 08:15 04:45 04:45 WBC RBC 2.85 L Hgb 8.7 L Hct 27.3 L POC Hct RDW MPV 11.1 H Gran % Lymph % (Auto) 9.5 L [place] % (Auto) Gran # Lymph # (Auto) 0.86 L [place] # (Auto) 0.94 H ESR POC Potassium Potassium POC Chloride Carbon Dioxide POC Total CO2 POC BUN BUN 64 H Creatinine 2.1 H POC Creatinine Glucose POC Glucose Hemoglobin A1c 8.4 H Calcium 8.0 L Phosphorus 2.4 L Magnesium C-Reactive Protein 14.4 H Total Protein 5.1 L Albumin 2.7 L Albumin/Globulin Ratio Prealbumin 19.1 L Triglycerides TSH 12.09 H Free T4 0.47 L Urine Protein Urine Glucose (UA) 11/28/19 11/28/19 11/28/19 20:28 06:58 06:58 WBC RBC Hgb Hct POC Hct RDW MPV Gran % Lymph % (Auto) [place] % (Auto) Gran # Lymph # (Auto) [place] # (Auto) ESR 63 H POC Potassium Potassium 5.5 H POC Chloride Carbon Dioxide 19 L POC Total CO2 POC BUN BUN 76 H Creatinine 2.4 H POC Creatinine Glucose 167 H POC Glucose Hemoglobin A1c Calcium 8.3 L Phosphorus Magnesium 1.5 L C-Reactive Protein Total Protein 5.5 L Albumin 2.9 L Albumin/Globulin Ratio Prealbumin Triglycerides 240 H TSH Free T4 Urine Protein 30 A Urine Glucose (UA) 150 A 11/27/19 11/27/19 11/27/19 23:43 20:23 20:22 WBC 12.4 H RBC 3.64 L Hgb 11.0 L Hct 35.1 L POC Hct 31.0 L RDW 14.6 H MPV 11.0 H Gran % Lymph % (Auto) 10.3 L [place] % (Auto) 13.5 H Gran # 8.87 H Lymph # (Auto) 1.28 L [place] # (Auto) 1.68 H ESR POC Potassium 6.1 H* Potassium 6.1 H* POC Chloride 114 H Carbon Dioxide 19 L POC Total CO2 20 L POC BUN 87 H BUN 86 H Creatinine 2.7 H POC Creatinine 2.7 H Glucose 185 H POC Glucose 164 H Hemoglobin A1c Calcium Phosphorus Magnesium C-Reactive Protein 5.2 H Total Protein Albumin Albumin/Globulin Ratio Prealbumin Triglycerides TSH Free T4 Urine Protein Urine Glucose (UA) Meds: Medications Acetaminophen (Tylenol) 650 mg PO Q6HP PRN PRN Reason: PAIN/FEVER > 101 Hydrocodone Bitart/Acetaminophen ([place] 10/325mg) 1 tab PO Q4-6HP PRN; Protocol PRN Reason: Pain Last Admin: 11/30/19 06:49 Dose: 1 tab Documented by: Albuterol/Ipratropium (Duoneb) 3 ml NEB Q4HP PRN PRN Reason: Shortness Of Breath Amlodipine Besylate (Norvasc) 10 mg PO QDAY [facility] Last Admin: 11/29/19 08:49 Dose: 10 mg Documented by: Atenolol (Tenormin) 50 mg PO BID [facility] Last Admin: 11/29/19 20:31 Dose: 50 mg Documented by: Atorvastatin Calcium (Lipitor) 20 mg PO QDAY [facility] Last Admin: 11/29/19 13:21 Dose: Not Given Documented by: Dextrose (Dextrose 50%) 0 ml IV UD PRN PRN Reason: Hypoglycemia Diagnostic Test (Pha) (Accu-Chek) 1 each FS ACHS [facility] Last Admin: 11/30/19 07:28 Dose: 1 each Documented by: Docusate Sodium (Colace) 100 mg PO BID [facility] Last Admin: 11/29/19 20:31 Dose: 100 mg Documented by: Doxazosin Mesylate (Cardura) 1 mg PO DAILY [facility] Last Admin: 11/29/19 13:21 Dose: Not Given Documented by: Famotidine (Pepcid) 20 mg PO HS [facility] Last Admin: 11/29/19 20:32 Dose: 20 mg Documented by: Glucose (Insta-Glucose) 15 gm PO PRN PRN PRN Reason: Hypoglycemia Heparin Sodium (Porcine) (Heparin) 5,000 unit SQ Q12 [facility] Last Admin: 11/29/19 20:32 Dose: 5,000 unit Documented by: Hydromorphone HCl (Dilaudid) 0.5 mg IV Q2HP PRN; Protocol PRN Reason: Per Pain Protocol Last Admin: 11/30/19 07:34 Dose: 0.5 mg Documented by: Potassium Chloride 40 meq/ (Dextrose) 520 mls @ 130 mls/hr IV UD PRN PRN Reason: Potassium < 3 Magnesium Sulfate (Magnesium Sulfate) 2 gm in 50 mls @ 50 mls/hr IV UD PRN PRN Reason: Magnesium </= 1.6 Ceftriaxone Sodium 2 gm/ (Dextrose) 50 mls @ 100 mls/hr IV DAILY [facility]; Protocol Last Infusion: 11/29/19 10:27 Dose: Infused Documented by: Insulin Glargine (Lantus) 8 unit SQ HS [facility] Last Admin: 11/29/19 20:32 Dose: 8 unit Documented by: Insulin Human Lispro (Humalog) 0 unit SQ [facility]; Protocol Last Admin: 11/30/19 07:28 Dose: 6 units Documented by: Levothyroxine Sodium (Synthroid) 75 mcg PO ACB [facility] Last Admin: 11/29/19 13:18 Dose: 75 mcg Documented by: Lorazepam (Ativan) 0.5 mg PO BIDP PRN PRN Reason: ANXIETY AND/OR INSOMNIA Last Admin: 11/29/19 20:32 Dose: 0.5 mg Documented by: Magnesium Oxide (Magnesium Oxide) 400 mg PO DAILY [facility] Last Admin: 11/29/19 13:17 Dose: 400 mg Documented by: Ondansetron HCl (Zofran) 4 mg IV Q4HP PRN PRN Reason: Nausea And Vomiting Polyethylene Glycol (Miralax) 17 gm PO DAILYP PRN PRN Reason: Constipation Potassium Chloride (Kdur) 40 meq PO UD PRN PRN Reason: Potssium is 3-3.5 Potassium Chloride (Kdur) 40 meq PO UD PRN PRN Reason: Potassium < 3 Prednisone (Prednisone) 10 mg [facility] Last Admin: 11/29/19 13:17 Dose: 10 mg Documented by: Senna (Senokot) 2 tab PO DAILYP PRN PRN Reason: Constipation Sodium Chloride (Saline Flush) 10 ml IV Q8 [facility] Last Admin: 11/30/19 06:52 Dose: 10 ml Documented by: Medical - PN: A/P - Time Spent With Patient Total time spent is greater than 50% in coordination of care (as documented) at patient's floor/unit and/or counseling patient: - Narrative A/P Narrative: A: *LISANDRA on CKD IV: follows with Dr. Porter -improved *Volume depletion: improved *Hyperkalemia (h/o same): resolved, elevated again this AM *LLE wound w/Cellulitis: s/p I&D (11/28) -leukocytosis *DM:A1c 8.4 *HTN: *Anemia, chronic: *RA/PMR: -Immunosuppressed on prednisone 10mg daily *PVD: Has seen Dr. Casiano in the past *Generalized weakness/deconditioning: *Hypothyroidism: TSH 12, low T4 *Anxiety: home ativan *GERD: P: -Rocephin -Wound care, Dr. Lion -Hold lisinopril/HCTZ for LISANDRA and hyperkalemia -f/u potassium -cont cont statin -cont home norvasc/atenolol -basal (increase) and SSI -cont home prednisone -cont levothyroxine (has been increased outpt) -pt/ot -ppx: heparin/home ppi DNR Medical - PN: Qual - Stroke Symptom Onset Unknown: No - VTE Deep Vein Thrombosis/Pulmonary Embolism Present on Admission: No
[2019-11-30] MEDS ORDERED: INSULIN REGULAR, HUMAN 1 UNIT/0.01 ML UNIT ONE (08:11)
[2019-11-30] MEDS: DOCUSATE SODIUM 100 MG CAPSULE PO SCH ×2 (08:13→22:09)
[2019-11-30] MEDS: MAGNESIUM OXIDE 400 MG TABLET PO SCH (08:13)
[2019-11-30] MEDS: amLODIPine 10 MG TABLET PO SCH (08:13)
[2019-11-30] MEDS: ATORVASTATIN 20 MG TABLET PO SCH (08:14)
[2019-11-30] MEDS: HEPARIN 5,000 UNIT/ML VIAL SQ SCH ×2 (08:14→22:10)
[2019-11-30] MEDS: ATENOLOL 50 MG TABLET PO SCH (08:16)
[2019-11-30] MEDS: DOXAZOSIN 1 MG TABLET PO SCH ×2 (08:16→23:23)
[2019-11-30] MEDS ORDERED: LEVOTHYROXINE 25 MCG TABLET PO ONE (09:01)
--- NOTE | 2019-11-30 09:30 | Infectious Disease Consult ---
History of Present Illness Patient information: Note initiated : 11/30/19 at 9:21 am Service Date, if different from initiated Date: [] Patient: Bebeto Bunn 84 y/o M admitted on 11/28/19 for weakness chills. Chief Complaint: [] Consult date: 11/30/19 Requesting Physician: Quentin Ayala Reason for Consult: skin soft tissue infection of left heel Chief complaint: i have an ulcer on the back of left foot History of present illness: Patient has difficulty remembering all the details and therefore HPI was obtai carmen from chart review and patient. 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 Patient fully recovered from that syndrome. He has past medical history of chronic rheumatoid arthritis [on prednisone 10 mg daily], type 2 diabetes with neuropathy, nephropathy and peripheral arterial disease. Is known to have decubitus ulcers over his sacrum and both his feet for which she has been followed up with wound care [Dr. Lion]. Last Friday, patient underwent debridement of left heel wound in wound care clinic. He was found to develop chills and complaint of weakness for a day subsequently. Also did not eat his meals and was more sleepy. Was brought to the ED on evening of 26 November by his [id number]. In the ER: VS: Temperature 98.8 F, heart rate 68, blood pressure 115/65, satting 95% on room air, respirate 18 Labs: WBC 12 point 4K, creatinine 2.7, blood sugar 185, venous lactate 0.9, CRP 5.2. Foot x-ray revealed: Mild diffuse soft tissue swelling. No infiltrates evidence of osteomyelitis. Patient was admitted given concerns for wound infection, frailty. He underwent surgical debridement by Dr. Lion on 28 November.Operative details as follows: "Excision debridement, Tendon for c/s Open packing. PULSE LAVAGE irrigation 3 Liters NS with 800 mg Gentamicin. Tendon specimen for c/s The wound dimensions after surgery were: 6 x 2 x 2.5 Cm Left posterior leg Undermining @ 12 5 CM Undermining @ 6 1 CM Undermining @ 3 3 CM Undermining @ 9 2 CM 4.2 x 0.5 CM Left posterior heel " Patient was started on IV ceftriaxone 2 g every 24 hours. MRSA nasal PCR and 2 sets of blood cultures were sent at admission. Operative cultures were sent on 28 November. At time of visit, patient confirms part of above history. Mentions that he does not remember all the details. Says that [place] recently when he was staying with his son and [id number]. Mentions that he had multiple falls when he was living by himself which could have caused some of his wounds. Is wheelchair-bound. Denies any fever, nausea, vomiting, diarrhea. Endorses chills around admission but not currently. Mentions that his appetite is better. Review of Systems All systems PM: reviewed and no additional remarkable complaints except as stated Constitutional: as per HPI Past History Past medical history: Chronic ulcer of leg (Chronic) Chronic foot ulcer (Chronic) Full code status (Chronic) Immunosuppressed status (Chronic) long term (current) use of opiate analgesic (Chronic) Peripheral arterial disease (Chronic) Rheumatoid arthritis (Chronic) Diabetes mellitus (Chronic) CKD (chronic kidney disease), stage IV (Chronic) Hypertension (Chronic) Benign hypertension with CKD (chronic kidney disease) stage IV (Chronic) Persistent proteinuria (Chronic) Hyperlipidemia (Chronic) 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) GERD (gastroesophageal reflux disease) (Chronic) Hypothyroidism (Chronic) Limp (Chronic) Total body pain (Chronic) Back pain (Chronic) Osteoarthritis (Chronic) Arthralgia (Chronic) Past surgical history: History of procedure for peripheral vascular disease (Acute) History of elbow surgery (Chronic) History of hip replacement (Chronic) Hx of toe surgery (Chronic) Medications and Allergies Home Medications Medication Instructions Recorded Confirmed Type acetaminophen 325 mg capsule 650 mg PO Q6H PRN 06/09/19 11/27/19 History amlodipine 10 mg tablet 10 mg PO QDAY tab 06/09/19 11/28/19 History atenolol 50 mg tablet 50 mg PO BID tab 08/20/19 11/28/19 History insulin aspart U-100 100 unit/mL See Protocol SUB-Q .ac ml 08/20/19 11/28/19 History (3 mL) subcutaneous pen insulin glargine 100 unit/mL (3 8 unit SUB-Q HS ml 08/20/19 11/28/19 History mL) subcutaneous pen prednisone 5 mg tablet 10 mg PO QDAY tab 08/20/19 11/28/19 History trandolapril 4 mg tablet 4 mg PO BID tab 08/20/19 11/28/19 History HYDROcodone/ACETAMINOPHEN 1 - 2 each PO QIDP PRN 11/27/19 11/28/19 History [Hydrocodone-Acetamin 10-325 mg] Hydrochlorothiazide [Oretic] 25 mg PO DAILY 11/28/19 11/28/19 History LORazepam [Lorazepam] 0.5 mg PO BIDP PRN 11/28/19 11/28/19 History Lansoprazole [Prevacid] 30 mg PO DAILY 11/28/19 11/28/19 History Levothyroxine [Synthroid] 75 mcg PO DAILY 11/28/19 11/28/19 History Magnesium Oxide [Magnesium] 250 mg PO DAILY 11/28/19 11/28/19 History Allergies Allergy/AdvReac Type Severity Reaction Status Date / Time naproxen AdvReac Intermediate Skin Martino Verified 11/28/19 01:05 niacin AdvReac Intermediate Burning Verified 11/28/19 01:05 Skin Physical Examination Vital signs: Temp Pulse Resp BP Pulse Ox 36.8 C 44 L 20 132/69 94 11/30/19 06:44 11/30/19 06:44 11/30/19 06:44 11/30/19 06:44 11/30/19 06:44 General appearance: no acute distress Eyes pulmonary: nonicteric ENT: oropharynx moist Auscultation: bilateral: diminished breath sounds (at bases), other (no respiratory distress) Cardiovascular: other (irregular heart beat, loud s1, normal s2) Gastrointestinal: normoactive bowel sounds, soft Extremities: other (has a deep linear ulcer over the left heel extending to lower 1/5 of the leg. The base consists of underlying muscle, bleeds to touch. There is an area of brownish exudate and necrotic tissue on the proximal edge. No foul odor or spontaneous pus drainage. periheral pulses difficult to palpate. No discoloration of left foot. No redness/swelling of left leg or foot othert than around the ulcer.) Results - Laboratory Findings CBC and BMP: 11/30/19 05:07 11/30/19 05:07 Abnormal lab findings: Abnormal Labs 11/27/19 11/27/19 11/27/19 20:22 20:23 23:43 WBC 12.4 H RBC 3.64 L Hgb 11.0 L Hct 35.1 L POC Hct 31.0 L RDW 14.6 H MPV 11.0 H Gran % Lymph % (Auto) 10.3 L [place] % (Auto) 13.5 H Gran # 8.87 H Lymph # (Auto) 1.28 L [place] # (Auto) 1.68 H ESR POC Potassium 6.1 H* Potassium 6.1 H* POC Chloride 114 H Carbon Dioxide 19 L POC Total CO2 20 L POC BUN 87 H BUN 86 H Creatinine 2.7 H POC Creatinine 2.7 H Glucose 185 H POC Glucose 164 H Hemoglobin A1c Calcium Phosphorus Magnesium C-Reactive Protein 5.2 H Total Protein Albumin Albumin/Globulin Ratio Prealbumin Triglycerides TSH Free T4 Urine Protein Urine Glucose (UA) 11/28/19 11/28/19 11/28/19 06:58 06:58 20:28 WBC RBC Hgb Hct POC Hct RDW MPV Gran % Lymph % (Auto) [place] % (Auto) Gran # Lymph # (Auto) [place] # (Auto) ESR 63 H POC Potassium Potassium 5.5 H POC Chloride Carbon Dioxide 19 L POC Total CO2 POC BUN BUN 76 H Creatinine 2.4 H POC Creatinine Glucose 167 H POC Glucose Hemoglobin A1c Calcium 8.3 L Phosphorus Magnesium 1.5 L C-Reactive Protein Total Protein 5.5 L Albumin 2.9 L Albumin/Globulin Ratio Prealbumin Triglycerides 240 H TSH Free T4 Urine Protein 30 A Urine Glucose (UA) 150 A 11/29/19 11/29/19 11/29/19 04:45 04:45 08:15 WBC RBC 2.85 L Hgb 8.7 L Hct 27.3 L POC Hct RDW MPV 11.1 H Gran % Lymph % (Auto) 9.5 L [place] % (Auto) Gran # Lymph # (Auto) 0.86 L [place] # (Auto) 0.94 H ESR POC Potassium Potassium POC Chloride Carbon Dioxide POC Total CO2 POC BUN BUN 64 H Creatinine 2.1 H POC Creatinine Glucose POC Glucose Hemoglobin A1c 8.4 H Calcium 8.0 L Phosphorus 2.4 L Magnesium C-Reactive Protein 14.4 H Total Protein 5.1 L Albumin 2.7 L Albumin/Globulin Ratio Prealbumin 19.1 L Triglycerides TSH 12.09 H Free T4 0.47 L Urine Protein Urine Glucose (UA) 11/30/19 11/30/19 11/30/19 05:07 05:07 05:07 WBC RBC 2.94 L Hgb 8.8 L Hct 27.9 L POC Hct RDW MPV 11.4 H Gran % 86.8 H Lymph % (Auto) 5.8 L [place] % (Auto) Gran # 9.39 H Lymph # (Auto) 0.63 L [place] # (Auto) ESR POC Potassium Potassium 6.0 H* POC Chloride Carbon Dioxide POC Total CO2 POC BUN BUN 57 H Creatinine 2.2 H POC Creatinine Glucose 270 H POC Glucose Hemoglobin A1c Calcium 7.9 L Phosphorus 2.5 L Magnesium C-Reactive Protein 8.6 H Total Protein 5.5 L Albumin 2.6 L Albumin/Globulin Ratio 0.9 L Prealbumin Triglycerides TSH Free T4 Urine Protein Urine Glucose (UA) Microbiology: Microbiology 11/29/19 12:51 Wound - Not Given Gram Stain - Final 11/29/19 12:51 Wound - Not Given Gram Stain - Final 11/29/19 12:51 Wound - Not Given Gram Stain - Final 11/29/19 12:51 Wound - Not Given Wound Culture - Preliminary 11/28/19 10:22 Blood Blood Culture - Preliminary 11/28/19 10:25 Blood Blood Culture - Preliminary 11/28/19 10:10 Nose MRSA (PCR) - Final Assessment and Plan - Narrative A/P Narrative: A: 1. Complicated skin-soft tissue infection of right heel: probably sec to pressure necrosis given underlying neuropathy and limited ambulation - cultures pending - MRSA nasal PCR neg - no signs or symptoms of systemic infection currently [ normal lactic acid, afebrile] 2. DM2 with neuropathy 3. Peripheral arterial ds 4. Frailty Recommendations: - Continue IV Ceftriaxone 2 gm q24 hrs, day 2 - Start PO Doxycycline 100 mg bid. Space with dairy products and calcium/magnesium supplements by taking Doxy 2 hrs prior. - Midline placement - wound off loading and care per Dr Lion - pt counseled to continue to work on optimizing his nutrition - will plan for an initial 2-week course of antibiotics, with stop date of 12/13/2019 and ID clinic f/u around that time. will decide then if he needs further antibiotic therapy Mohsen Calix MD Infectious diseases
[2019-11-30] MEDS: cefTRIAXone 2 GM in DEXTROSE 5% IN WATER 50 ML IV SCH (09:33)
--- NOTE | 2019-11-30 10:20 | General Surgery Progress Note ---
Subjective Patient reports: other (Uneventful night. Infectious Disease consult appreciated.. Thyroid medication adjusted by Dr. Ayala.) Narrative: Note initiated : 11/30/19 at 10:18 am Service Date, if different from initiated Date: [] Patient: Bebeto Bunn 84 y/o M admitted on 11/28/19 for weakness chills. Chief Complaint: [] Objective Temp Pulse Resp BP Pulse Ox 98.2 F 44 L 20 132/69 94 11/30/19 06:44 11/30/19 06:44 11/30/19 06:44 11/30/19 06:44 11/30/19 06:44 AVSS No changes ALL. L/E: Wounds clean. Will treat with dressings See wound care orders. VASHE / GCB - Additional Data Intake & Output - Last 24 hours: Intake & Output 11/28/19 11/29/19 11/30/19 12/01/19 05:59 05:59 05:59 05:59 Intake Total 1450 2152 2930 Output Total 750 1600 710 Balance 326 972 5748 Weight 130 lb 135 lb 140 lb 8 oz - Labs 11/30/19 05:07 11/30/19 05:07 Diabetes panel 11/30/19 Range/Units 05:07 Sodium 135 (133-145) mmol/L Potassium 6.0 H* (3.3-5.1) mmol/L Chloride 102 (96-108) mmol/L Carbon Dioxide 22 (22-30) mmol/L BUN 57 H (8-23) mg/dl Creatinine 2.2 H (0.7-1.2) mg/dl Glucose 270 H (70-105) mg/dL Calcium 7.9 L (8.6-10.4) mg/dl AST 16 (0-37) U/l ALT 12 (0-40) U/l Alkaline Phosphatase 59 (39-117) U/L Total Protein 5.5 L (5.9-8.4) gm/dL Albumin 2.6 L (3.2-5.2) gm/dL Triglycerides 121 (<150) mg/dl Calcium panel 11/30/19 Range/Units 05:07 Calcium 7.9 L (8.6-10.4) mg/dl Phosphorus 2.5 L (2.7-4.5) mg/dL Albumin 2.6 L (3.2-5.2) gm/dL Pituitary panel 11/30/19 Range/Units 05:07 Sodium 135 (133-145) mmol/L Potassium 6.0 H* (3.3-5.1) mmol/L Chloride 102 (96-108) mmol/L Carbon Dioxide 22 (22-30) mmol/L BUN 57 H (8-23) mg/dl Creatinine 2.2 H (0.7-1.2) mg/dl Glucose 270 H (70-105) mg/dL Calcium 7.9 L (8.6-10.4) mg/dl Adrenal panel 11/30/19 Range/Units 05:07 Sodium 135 (133-145) mmol/L Potassium 6.0 H* (3.3-5.1) mmol/L Chloride 102 (96-108) mmol/L Carbon Dioxide 22 (22-30) mmol/L BUN 57 H (8-23) mg/dl Creatinine 2.2 H (0.7-1.2) mg/dl Glucose 270 H (70-105) mg/dL Calcium 7.9 L (8.6-10.4) mg/dl Total Bilirubin 0.2 (0.0-1.0) mg/dL AST 16 (0-37) U/l ALT 12 (0-40) U/l Alkaline Phosphatase 59 (39-117) U/L Total Protein 5.5 L (5.9-8.4) gm/dL Albumin 2.6 L (3.2-5.2) gm/dL Assessment and Plan (1) Sepsis Problem details: NEEDS SURGICAL DEBRIDEMENT IN OPERATING ROOM AWAIT preoperative anesthesia evaluation . Post opoerative Infectious Disease consultation. Status: Chronic Current Visit: Yes (2) Weakness Status: Chronic Current Visit: Yes (3) Chills (without fever) Status: Acute Current Visit: Yes (4) Acute on chronic renal failure Status: Acute Current Visit: Yes (5) Hyperkalemia Status: Acute Current Visit: Yes (6) Dehydration Status: Acute Current Visit: Yes (7) Chronic ulcer of leg Status: Chronic Current Visit: Yes (8) Chronic foot ulcer Status: Chronic Current Visit: Yes - Narrative A/P Narrative: Assessment: Satisfactory post surgical progress: Plan: See wound care orders. WOUNDS seen with Elyssa RHODES. - Time Spent With Patient Total time spent is greater than 50% in coordination of care (as documented) at patient's floor/unit and/or counseling patient: 15 - 24 minutes
[2019-11-30] MEDS ORDERED: GENTAMICIN SULFATE 40 MG, CLINDAMYCIN 300 MG, BACITRACIN 25,000 UNIT in SODIUM CHLORIDE... IRR SCH (10:30)
[2019-11-30] MEDS: GENTAMICIN SULFATE 40 MG, CLINDAMYCIN 300 MG, BACITRACIN 25,000 UNIT in SODIUM CHLORIDE... IRR SCH ×2 (11:02→22:11)
--- NOTE | 2019-11-30 11:11 | Operative Note ---
DATE OF OPERATION: 11/29/2019 PREOPERATIVE DIAGNOSES: 1. Sepsis. 2. Open infected wound, stage IV, left lower leg and heel. POSTOPERATIVE DIAGNOSES: 1. Sepsis. 2. Open infected wound, stage IV, left lower leg and heel. OPERATION: Excision, debridement of the tendon. Tissue for culture and sensitivities. Open biopsy. Surgical debridement of the wound. Pulse lavage irrigation with 3 liters of normal saline with 800 mg of gentamicin. SURGEON: Shaheed Lion M.D. ANESTHESIA: General laryngeal mask airway. YACHT MASTER: Stephen Hall CRNA. WOUND DIMENSIONS: Left posterior le x 4 x 2.5 cm. Undermining at 12 o'clock for 5 cm, undermining at 6 o'clock for 1 cm, undermining at 3 o'clock for 3 cm, and undermining at 9 o'clock for 2 cm. Left posterior heel wound: 4.2 x 0.5 cm. ESTIMATED BLOOD LOSS: 35 mL.. INDICATIONS: This is a patient with multiple comorbid medical problems and significant peripheral artery disease below the knee. He was deemed non-suitable for interventional radiology management ( Angioplasty / stent ) Over the last 48 to 72 hours, there was change in his condition with increased drainage and odor from the wounds on the back of his heel and leg. Additionally, a new wound had opened up which was debrided in the clinic before he was emergently admitted via ER to the floor. PROCEDURE NOTE IN DETAIL: After obtaining informed consent, patient was taken to the OR and anesthetized uneventfully in supine position using laryngeal mask airway. Timeout was called. He was placed in right lateral decubitus position with the head in Trendelenburg position. Timeout was called. Preoperative photograph taken. The left lower extremity was widely cleaned, prepped, and draped in the standard fashion. First, digital exploration of the open wound was carried out. Later, the wound was extended superiorly for about 2 cm, and using a Raquel pickup and Boyd scissors, the extruding tendon debris was sharply excised. A nutrition representative sample was taken for culture and sensitivity. Copious irrigation of this wound was carried out with pulse lavage irrigation system. Three liters of normal saline was mixed with 800 mg of gentamicin solution. All the pockets were unroofed. The wound margins and depth was carefully debrided with #7 debrider. Copious irrigation was carried out with antibiotic-containing saline solution. The posterior heel ulcer was debrided. The wounds were covered with Xeroform gauze and packed open with 4 x 4 gauze and reinforced with 4 x 4 gauze, Kerlix, ABD, Coban and Flaquito bandages respectively. He recovered from operation uneventfully. He was taken to in stable condition. VD:joel Job ID: [id number] Doc ID: [id number] Shaheed SKY
[2019-11-30] MEDS ORDERED: INSULIN REGULAR, HUMAN 1 UNIT/0.01 ML UNIT IV ONE (14:40)
[2019-11-30] MEDS ORDERED: DEXTROSE 50% 50 ML VIAL IV PRN (14:52)
--- NOTE | 2019-11-30 18:32 | Nephrology Consult Note ---
History of Present Illness - Reason for Consult Patient information: Note initiated : 11/30/19 at 6:30 pm Service Date, if different from initiated Date: [] Patient: Bebeto Bunn 84 y/o M admitted on 11/28/19 for weakness chills. Chief Complaint: [] hyperkalemia (Episodic hyperkalemia in the setting of SONY inhibitor and beta- teresa therapy) Requesting physician: Quentin Ayala - Chief Complaint Soft tissue infection for ABx and surgical debridement - History of Present Illness Patient presents to the ED with generalized weakness and chills. Patient also has left lower leg wounds and has been following with wound care clinic. He did have some debridement of it on Friday with wound packing. Should he was more lethargic and weak and poor appetite. Also been on immunosuppression for rheumatoid arthritis 10 mg daily. In the ED he was found to have an elevated creatinine above his baseline. Patient follows Dr. Harmon. Results found to have a mild leukocytosis and hyperkalemia. Lactate was okay. Patient started on antibiotics for concern for cellulitis around the wound. Imagining in September of the heel which showed small region of osteomyelitis along posterior border of calcaneus. As shown on the lab review below, this patient is no stranger to periodic low grade hyperkalemia in the setting of DM, HTN, small vessel disease, and ACEi therapy and B-teresa therapy. However, his renal disease may be secondary to NSAIDs in the past resulting a chronic Interstitisl nephritis making him at risk for hyuperkalemia, especially whern on an ACEi. The combination of infection and prehospitalization SONY inhibitor therapy may well have contributed to a significant decrease in his GFR and the inability to excrete potassium which could take up to 72 hours to reverse following disc ontinuation of the SONY inhibitor therapy. In addition volume contraction must be corrected as a low ECF volume leads to decreased tubular flow rate and increased time to reabsorb potassium. Certainly beta adrenergicly mediated potassium uptake by muscle fat and liver is inhibited by the high dose of atenolol and this could be a contributing factor. Finally we need to exclude obstruction in any male with acute worsening of his renal function and hyperkalemia. 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 analgesic (Chronic) Peripheral arterial disease (Chronic) Rheumatoid arthritis (Chronic) Diabetes mellitus (Chronic) CKD (chronic kidney disease), stage IV (Chronic) Hypertension (Chronic) Benign hypertension with CKD (chronic kidney disease) stage IV (Chronic) Persistent proteinuria (Chronic) Hyperlipidemia (Chronic) 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) GERD (gastroesophageal reflux disease) (Chronic) Hypothyroidism (Chronic) Limp (Chronic) Total body pain (Chronic) Back pain (Chronic) Osteoarthritis (Chronic) Arthralgia (Chronic) Anxiety (Resolved) Hip pain, left (Resolved) Polyarthritis involving elbow (Resolved) Polymyalgia rheumatica (Resolved) Septic arthritis due to Streptococcus species (Resolved) Weight loss (Resolved) Past Surgical History (Last Updated 11/28/19 @ 06:41 by James Deleon DO) History of procedure for peripheral vascular disease (Acute) History of elbow surgery (Chronic) History of hip replacement (Chronic) Hx of toe surgery (Chronic) Family History (Last Reviewed 08/20/19 @ 09:39 by Debbie Saunders RN) Family/Other Colon cancer Stroke Social History (Last Updated 08/20/19 @ 10:10 by Luke Harmon MD) Former smoker distant past Rare alcohol Ambulates with a cane and wheelchair Lives at home with family Medical - H&P: Meds Home Medications Medication Instructions Recorded Confirmed Type Levothyroxine [Synthroid] 50 mcg PO DAILY 01/18/17 11/27/19 History Doxazosin [Cardura] 1 mg PO DAILY 01/17/19 11/28/19 History acetaminophen 325 mg capsule 650 mg PO Q6H PRN 06/09/19 11/27/19 History amlodipine 10 mg tablet 10 mg PO QDAY tab 06/09/19 11/28/19 History atenolol 50 mg tablet 50 mg PO BID tab 08/20/19 11/28/19 History atorvastatin 20 mg tablet 20 mg PO QDAY tab 08/20/19 11/27/19 History clonidine HCl 0.1 mg tablet 0.1 mg PO BID tab 08/20/19 11/28/19 History clopidogrel 75 mg tablet 75 mg PO QDAY tab 08/20/19 11/28/19 History insulin aspart U-100 100 unit/mL unit SUB-Q .ac ml 08/20/19 08/20/19 History (3 mL) subcutaneous pen insulin glargine 100 unit/mL (3 8 - 10 unit SUB-Q HS ml 08/20/19 08/20/19 History mL) subcutaneous pen metformin 500 mg tablet 2,500 mg PO QDAY tab 08/20/19 11/28/19 History pentoxifylline 400 mg 400 mg PO QDAY tab 08/20/19 11/28/19 History tablet,extended release prednisone 5 mg tablet 10 mg PO QDAY tab 08/20/19 11/28/19 History trandolapril 4 mg tablet 4 mg PO BID tab 08/20/19 11/28/19 History HYDROcodone/ACETAMINOPHEN 1 each PO Q4-6HP PRN 11/27/19 History [Hydrocodone-Acetamin 10-325 mg] Allergies Allergy/AdvReac Type Severity Reaction Status Date / Time naproxen AdvReac Intermediate Skin Martino Verified 11/28/19 01:05 niacin AdvReac Intermediate Burning Verified 11/28/19 01:05 Skin Medications and Allergies Home Medications Medication Instructions Recorded Confirmed Type acetaminophen 325 mg capsule 650 mg PO Q6H PRN 06/09/19 11/27/19 History amlodipine 10 mg tablet 10 mg PO QDAY tab 06/09/19 11/28/19 History atenolol 50 mg tablet 50 mg PO BID tab 08/20/19 11/28/19 History insulin aspart U-100 100 unit/mL See Protocol SUB-Q .ac ml 08/20/19 11/28/19 History (3 mL) subcutaneous pen insulin glargine 100 unit/mL (3 8 unit SUB-Q HS ml 08/20/19 11/28/19 History mL) subcutaneous pen prednisone 5 mg tablet 10 mg PO QDAY tab 08/20/19 11/28/19 History trandolapril 4 mg tablet 4 mg PO BID tab 08/20/19 11/28/19 History HYDROcodone/ACETAMINOPHEN 1 - 2 each PO QIDP PRN 11/27/19 11/28/19 History [Hydrocodone-Acetamin 10-325 mg] Hydrochlorothiazide [Oretic] 25 mg PO DAILY 11/28/19 11/28/19 History LORazepam [Lorazepam] 0.5 mg PO BIDP PRN 11/28/19 11/28/19 History Lansoprazole [Prevacid] 30 mg PO DAILY 11/28/19 11/28/19 History Levothyroxine [Synthroid] 75 mcg PO DAILY 11/28/19 11/28/19 History Magnesium Oxide [Magnesium] 250 mg PO DAILY 11/28/19 11/28/19 History Allergies Allergy/AdvReac Type Severity Reaction Status Date / Time naproxen AdvReac Intermediate Skin Martino Verified 11/28/19 01:05 niacin AdvReac Intermediate Burning Verified 11/28/19 01:05 Skin Exam - Vital Signs Vital signs: Temp Pulse Resp BP Pulse Ox 36.9 C 44 L 20 150/73 94 11/30/19 15:45 11/30/19 06:44 11/30/19 15:45 11/30/19 15:45 11/30/19 15:45 - General Appearance General appearance: appears started age, chronically ill EENT: ATNC, mucous membranes dry, vision intact Neck: no JVD, no thyromegaly, no carotid bruit Respiratory: kyphosis, clear Cardiology: no murmurs, no edema, normal S1, normal S2 Gastrointestinal: normoactive bowel sounds Integumentary: no rash, warm and dry Neurologic: no asterixis, alert and oriented x3 Musculoskeletal: deformities (OA chanmges in hands and fingers), no erythema, no cyanosis Psychiatric: mood/affect appropriate Results - Lab Results 11/30/19 05:07 11/30/19 12:59 Most recent lab results Calcium 7.9 mg/dl (8.6-10.4) L 11/30/19 05:07 Phosphorus 2.5 mg/dL (2.7-4.5) L 11/30/19 05:07 Magnesium 1.6 mg/dL (1.6-2.5) 11/30/19 05:07 Assessment and Plan (1) Acute on chronic renal failure 1. Avoid ACEi 2. Hydrate 3. Avoid all NSAIDs (Ibuprofen, Motrin, Naprosyn, Aleve). Only acetaminophen (Tylenol) is safe to use with kidney disease and hypertension. 4. As he has no proteinuria, I recommend alpha 1 antagonists and lower dosed of B-teresa to control HTN w/o increasing K level, Status: Acute Priority: Medium Comment: While he has DM and HTN, thewre is no proteinuria to speak of so DM nephropathy is unlikely. 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 Low K diet 2. Hydrate 3. No ACEi or NSAIDs. 4. Patiromer 8.4 mg po per day Status: Chronic Priority: High Comment: Tubulointerstial nephritis with associated decreased K handeling, along with ACEi therapy => chronicly intreased total body stores of potassion. Then dehydration leads to acute on chronic elevation of his K level (3) Dehydration 1. Hydrate with NS at 125 cc/hr x 16 hr Status: Acute Priority: Medium
[2019-11-30] MEDS ORDERED: MELATONIN 3 MG TABLET PO PRN (21:00)
[2019-11-30] MEDS ORDERED: DOXYCYCLINE HYCLATE 100 MG TABLET.ORL PO SCH (21:00)
[2019-11-30] MEDS ORDERED: INSULIN GLARGINE, HUMAN 1 UNIT/0.01 ML SQ SCH (21:00)
[2019-11-30] MEDS ORDERED: 0.9 % SODIUM CHLORIDE 2,000 ML IV SCH (22:30)
[2019-11-30] MEDS ORDERED: SODIUM POLYSTYRENE SULFONATE 15 GM/60 ML SUSPENSION PO ONE (22:32)
[2019-11-30] MEDS ORDERED: SODIUM POLYSTYRENE SULFONATE 15 GM/60 ML SUSPENSION ONE (23:08)
[2019-11-30] MEDS: 0.9 % SODIUM CHLORIDE 1,000 ML IV SCH (23:22)
[2019-11-30] MEDS: FAMOTIDINE 20 MG TABLET PO SCH (23:23)
[2019-12-01] MEDS: 0.9 % SODIUM CHLORIDE 10 ML SYRINGE IV SCH ×3 (04:04→20:39)
[2019-12-01 06:16] LABS: Hematocrit 27.9 % (40.1-51.0); Hemoglobin 8.9 g/dL (13.7-17.5)
[2019-12-01 06:45] LABS: ALT/SGPT 12 U/l (0-40); AST/SGOT 18 U/l (0-37); Albumin 2.8 gm/dL (3.2-5.2); Albumin/Globulin Ratio 1.1 (1.0-2.3); Alkaline Phosphatase 58 U/L (39-117); Bilirubin,Direct < 0.2 mg/dL (0.0-0.3); Bilirubin,Total 0.2 mg/dL (0.0-1.0); Blood Urea Nitrogen 53 mg/dl (8-23); Carbon Dioxide 23 mmol/L (22-30); Chloride 105 mmol/L (96-108); Globulin 2.5 gm/dL (2.2-3.7); Glomerular Filtration Rate 28; Glucose 62 mg/dL (70-105); Lactate Dehydrogenase 199 U/L (94-250); Triglycerides 85 mg/dl (<150); Uric Acid 6.4 mg/dL (2.5-8.0)
[2019-12-01] MEDS: LEVOTHYROXINE 88 MCG TABLET PO SCH (06:52)
[2019-12-01] MEDS: DOXYCYCLINE HYCLATE 100 MG TABLET.ORL PO SCH ×2 (06:53→18:31)
[2019-12-01] MEDS: INSULIN LISPRO 1 UNIT/0.01 ML UNIT SQ SCH ×4 (06:58→20:34)
[2019-12-01] MEDS: 0.9 % SODIUM CHLORIDE 1,000 ML IV SCH (07:01)
--- NOTE | 2019-12-01 07:43 | Internal Med Progress Note ---
Medical - PN: Subj Patient information: Note initiated : 12/01/19 at 7:37 am Service Date, if different from initiated Date: [] Patient: Bebeto Bunn 84 y/o M admitted on 11/28/19 for weakness chills. Chief Complaint: [] Interval history: Mr. Bunn is a 84 year old M Patient presents to the ED with generalized weakness and chills. Patient also has left lower leg wounds and has been following with wound care clinic. He did have some debridement of it on Friday with wound packing. Should he was more lethargic and weak and poor appetite. Also been on immunosuppression for rheumatoid arthritis 10 mg daily. In the ED he was found to have an elevated creatinine above his baseline. Patient follows Dr. Harmon. Results found to have a mild leukocytosis and hyperkalemia. Lactate was okay. Patient started on antibiotics for concern for cellulitis around the wound. Imagining in September of the heel which showed small region of osteomyelitis along posterior border of calcaneus. Per patient family he woke up yesterday morning feeling all right but through the day he developed shaking chills became progressively weak and lethargic per family groggy. Also had decreased appetite. He complained more pain in his left lower extremity per family members seem to be a little bit more red. 11/28 Patient states he did not sleep very well. But otherwise no new complaints overnight events. Demonstrate improved. Planning for surgical debridement of the left lower extremity today in the OR. Patient feels less weak today. 11/29 Poor sleep but otherwise feeling better overall. Feeling increased energy. Had debridement yesterday. No new complaints. Potassium elevated today but blood glucose has been running high as well. 11/30 Poor sleep last night. Resting in bed this morning. Potassium improved. Headache. Review of Systems: denies fever/chills/nausea/vomiting/chest or abdominal pain/ cough/dyspnea/diarrhea. Otherwise see above. - Constitutional Vitals: Vital Signs Temp Pulse Resp BP Pulse Ox 97.8 F 42 L 16 156/71 95 12/01/19 06:55 12/01/19 06:55 12/01/19 06:55 12/01/19 06:55 12/01/19 06:55 Period Temp Pulse Resp BP Sys/Dupree Pulse Ox Last 24 Hr 97.7 F-98.4 F 42-45 16-20 126-156/67-81 92-98 Intake and Output 11/30/19 12/01/19 12/01/19 21:59 05:59 13:59 Intake Total 1000 250 956 Output Total 400 1125 Balance 600 -875 956 Weight 65.317 kg Intake & Output: Intake & Output 11/30/19 12/01/19 12/01/19 21:59 05:59 13:59 Intake Total 1000 250 956 Output Total 400 1125 Balance 600 -875 956 Weight 65.317 kg Intake: IV 956 Sodium Chloride 0.9% 1,000 ml @ 956 125 mls/hr IV .Q8H [facility] Rx#: [id number] Oral 1000 250 Output: Void Amount 400 1125 Other: Urine Appearance Clear Clear Urine Color Bright Yellow Pale Exam: General: alert and awake, No acute Distress Eyes/N/T: EOMI, Head/Neck: neck supple, CV: RRR, No murmurs, Pulm: Clear b/l, no wheezing/rhonchi/rales Abd: soft, nontender, +BS x4 Ext: no clubbing/cyanosis/edema to RLE. LLE in dressings Neuro: Alert, no focal deficits, moves all extremities, skin: warm/dry Medical - PN: Obj Da - Labs CBC & Chem 7: 12/01/19 05:15 12/01/19 05:15 Labs: Abnormal Lab Results 12/01/19 12/01/19 12/01/19 05:15 05:15 05:15 RBC Hgb 8.9 L Hct 27.9 L MPV Gran % Lymph % (Auto) Gran # Lymph # (Auto) [place] # (Auto) ESR Potassium Carbon Dioxide BUN 53 H Creatinine 2.1 H Glucose 62 L Hemoglobin A1c Osmolality 308 H Calcium 8.0 L Phosphorus Magnesium 1.5 L C-Reactive Protein Total Protein 5.3 L Albumin 2.8 L Albumin/Globulin Ratio Prealbumin Triglycerides TSH Free T4 Urine Protein Urine Glucose (UA) 11/30/19 11/30/19 11/30/19 12:59 05:07 05:07 RBC Hgb Hct MPV Gran % Lymph % (Auto) Gran # Lymph # (Auto) [place] # (Auto) ESR Potassium 6.1 H* 6.0 H* Carbon Dioxide BUN 57 H Creatinine 2.2 H Glucose 270 H Hemoglobin A1c Osmolality Calcium 7.9 L Phosphorus 2.5 L Magnesium C-Reactive Protein 8.6 H Total Protein 5.5 L Albumin 2.6 L Albumin/Globulin Ratio 0.9 L Prealbumin Triglycerides TSH Free T4 Urine Protein Urine Glucose (UA) 11/30/19 11/29/19 11/29/19 05:07 08:15 04:45 RBC 2.94 L 2.85 L Hgb 8.8 L 8.7 L Hct 27.9 L 27.3 L MPV 11.4 H 11.1 H Gran % 86.8 H Lymph % (Auto) 5.8 L 9.5 L Gran # 9.39 H Lymph # (Auto) 0.63 L 0.86 L [place] # (Auto) 0.94 H ESR Potassium Carbon Dioxide BUN Creatinine Glucose Hemoglobin A1c Osmolality Calcium Phosphorus Magnesium C-Reactive Protein Total Protein Albumin Albumin/Globulin Ratio Prealbumin Triglycerides TSH Free T4 0.47 L Urine Protein Urine Glucose (UA) 11/29/19 11/28/19 11/28/19 04:45 20:28 06:58 RBC Hgb Hct MPV Gran % Lymph % (Auto) Gran # Lymph # (Auto) [place] # (Auto) ESR 63 H Potassium Carbon Dioxide BUN 64 H Creatinine 2.1 H Glucose Hemoglobin A1c 8.4 H Osmolality Calcium 8.0 L Phosphorus 2.4 L Magnesium C-Reactive Protein 14.4 H Total Protein 5.1 L Albumin 2.7 L Albumin/Globulin Ratio Prealbumin 19.1 L Triglycerides TSH 12.09 H Free T4 Urine Protein 30 A Urine Glucose (UA) 150 A 11/28/19 06:58 RBC Hgb Hct MPV Gran % Lymph % (Auto) Gran # Lymph # (Auto) [place] # (Auto) ESR Potassium 5.5 H Carbon Dioxide 19 L BUN 76 H Creatinine 2.4 H Glucose 167 H Hemoglobin A1c Osmolality Calcium 8.3 L Phosphorus Magnesium 1.5 L C-Reactive Protein Total Protein 5.5 L Albumin 2.9 L Albumin/Globulin Ratio Prealbumin Triglycerides 240 H TSH Free T4 Urine Protein Urine Glucose (UA) Meds: Medications Acetaminophen (Tylenol) 650 mg PO Q6HP PRN PRN Reason: PAIN/FEVER > 101 Hydrocodone Bitart/Acetaminophen (Sinclair 10/325mg) 1 - 2 tab PO Q4HP PRN; Protocol PRN Reason: Pain Last Admin: 11/30/19 23:23 Dose: 2 tab Documented by: Albuterol/Ipratropium (Duoneb) 3 ml NEB Q4HP PRN PRN Reason: Shortness Of Breath Amlodipine Besylate (Norvasc) 10 mg PO QDAY [facility] Last Admin: 11/30/19 08:13 Dose: 10 mg Documented by: Atorvastatin Calcium (Lipitor) 20 mg PO QDAY [facility] Last Admin: 11/30/19 08:14 Dose: Not Given Documented by: Dextrose (Dextrose 50%) 50 ml IV UD PRN PRN Reason: Hypoglycemia Last Admin: 11/30/19 15:11 Dose: 50 ml Documented by: Diagnostic Test (Pha) (Accu-Chek) 1 each FS ACHS [facility] Last Admin: 12/01/19 06:53 Dose: 1 each Documented by: Docusate Sodium (Colace) 100 mg PO BID [facility] Last Admin: 11/30/19 22:09 Dose: 100 mg Documented by: Doxazosin Mesylate (Cardura) 1 mg PO [facility] Last Admin: 11/30/19 23:23 Dose: 1 mg Documented by: Doxycycline Hyclate (Doxycycline Hyclate) 100 mg PO BID@0700,1900 [facility]; Protocol Last Admin: 12/01/19 06:53 Dose: 100 mg Documented by: Famotidine (Pepcid) 20 mg PO [facility] Last Admin: 11/30/19 23:23 Dose: 20 mg Documented by: Glucose (Insta-Glucose) 15 gm PO PRN PRN PRN Reason: Hypoglycemia Heparin Sodium (Porcine) (Heparin) 5,000 unit SQ Q12 [facility] Last Admin: 11/30/19 22:10 Dose: 5,000 unit Documented by: Hydromorphone HCl (Dilaudid) 0.5 mg IV Q2HP PRN; Protocol PRN Reason: Per Pain Protocol Last Admin: 11/30/19 07:34 Dose: 0.5 mg Documented by: Magnesium Sulfate (Magnesium Sulfate) 2 gm in 50 mls @ 50 mls/hr IV UD PRN PRN Reason: Magnesium </= 1.6 Ceftriaxone Sodium 2 gm/ (Dextrose) 50 mls @ 100 mls/hr IV DAILY [facility]; Protocol Last Infusion: 11/30/19 10:05 Dose: Infused Documented by: Gentamicin Sulfate 40 mg/Clindamycin Phosphate 300 mg/Bacitracin 25,000 unit/ Sodium Chloride 503 mls @ 5 mls/hr IRR BID [facility] Last Admin: 11/30/19 22:11 Dose: 5 mls/hr Documented by: Sodium Chloride (Sodium Chloride 0.9%) 1,000 mls @ 125 mls/hr IV .Q8H [facility] Stop: 12/01/19 14:59 Last Admin: 12/01/19 07:01 Dose: 125 mls/hr Documented by: Insulin Glargine (Lantus) 12 unit SQ HS [facility] Last Admin: 11/30/19 22:10 Dose: 12 units Documented by: Insulin Human Lispro (Humalog) 0 unit SQ [facility]; Protocol Last Admin: 12/01/19 06:58 Dose: Not Given Documented by: Levothy[facility]ine [facility] ([facility]throid) [facility] Last Admin: 12/01/19 06:52 Dose: 88 mcg Documented by: Lorazepam (Ativan) 0.5 mg PO BIDP PRN PRN Reason: ANXIETY AND/OR INSOMNIA Last Admin: 11/29/19 20:32 Dose: 0.5 mg Documented by: Magnesium Oxide (Magnesium Oxide) 400 mg PO DAILY [facility] Last Admin: 11/30/19 08:13 Dose: 400 mg Documented by: Melatonin (Melatonin 3mg Tablet) 3 mg PO HSP PRN PRN Reason: Insomnia Ondansetron HCl (Zofran) 4 mg IV Q4HP PRN PRN Reason: Nausea And Vomiting Polyethylene Glycol (Miralax) 17 gm PO DAILYP PRN PRN Reason: Constipation Pred[facility] (Pred[facility]one) [facility] Last Admin: 11/30/19 07:40 Dose: 10 mg Documented by: Senna (Senokot) 2 tab PO DAILYP PRN PRN Reason: Constipation Sodium Chloride (Saline Flush) 10 ml IV Q8 [facility] Last Admin: 12/01/19 04:04 Dose: Not Given Documented by: Medical - PN: A/P - Time Spent With Patient Total time spent is greater than 50% in coordination of care (as documented) at patient's floor/unit and/or counseling patient: - Narrative A/P Narrative: A: *LISANDRA on CKD IV: follows with Dr. Porter -improved *Volume depletion: improved *Hyperkalemia (h/o same): resolved *LLE wound w/Cellulitis: s/p I&D (11/28) -leukocytosis resolved *DM:A1c 8.4 *HTN: *Anemia, chronic: *RA/PMR: -Immunosuppressed on prednisone 10mg daily *PVD: Has seen Dr. Casiano in the past *Generalized weakness/deconditioning: *Hypothyroidism: TSH 12, low T4 *Anxiety: home ativan *GERD: P: -Rocephin -Wound care, Dr. Lion -Hold lisinopril/HCTZ for LISANDRA and hyperkalemia -nephrology following -cont statin -cont home norvasc, atenolol d/c'd -basal (10 units) and SSI -cont home prednisone -cont levothyroxine (was increased outpt at least several months ago), increase to 88mcg now but likely needs 100mcg - f/u with PCP. -pt/ot -ppx: heparin/home ppi DNR Medical - PN: Qual - Stroke Symptom Onset Unknown: No - VTE Deep Vein Thrombosis/Pulmonary Embolism Present on Admission: No
[2019-12-01] MEDS: predniSONE 5 MG TABLET PO SCH (08:05)
[2019-12-01] MEDS: HYDROcodone/APAP 10/325MG TABLET PO PRN ×4 (08:05→23:49)
--- NOTE | 2019-12-01 08:14 | Ultrasound Report ---
History: Acute on chronic chronic kidney disease, evaluate for urinary tract obstruction FINDINGS: Right kidney measures 4.9 x 5.2 x 11.5 cm left measures 5.1 x 5.1 x 11.2 cm. The cortex of both kidneys is slightly echogenic due to chronic medical renal disease. The cortex the right kidney is 1.5 cm in thickness and the left measures 1.7 cm. There are few scattered simple cysts in both kidneys. The largest is in the upper pole the left kidney and measures 3.6 x 4.4 x 4.9 cm. The largest cyst in the right kidney is located inferiorly and measures 1.3 x 1.3 x 1.4 cm. No solid mass is seen in either kidney. There is no kidney stone or hydronephrosis. Doppler shows flow urine through both ureters into the bladder. Before voiding the bladder has a smooth contour and contains 620 cc of urine. After voiding there is 188 cc residual urine. Comparison with the prior ultrasound done on 06/09/17 shows little change. IMPRESSION: Mildly echogenic renal cortex bilaterally due to chronic medical renal disease. Stable cysts in both kidneys No kidney stone or ureteral obstruction Large postvoid residual in the bladder Interpreted and Authenticated by: Prabhu Mosqueda 12/01/19
[2019-12-01] MEDS: HEPARIN 5,000 UNIT/ML VIAL SQ SCH ×2 (09:36→20:33)
[2019-12-01] MEDS: cefTRIAXone 2 GM in DEXTROSE 5% IN WATER 50 ML IV SCH (09:36)
[2019-12-01] MEDS: amLODIPine 10 MG TABLET PO SCH (09:36)
[2019-12-01] MEDS: MAGNESIUM OXIDE 400 MG TABLET PO SCH (09:36)
[2019-12-01] MEDS: DOCUSATE SODIUM 100 MG CAPSULE PO SCH ×2 (09:36→20:34)
[2019-12-01] MEDS: GENTAMICIN SULFATE 40 MG, CLINDAMYCIN 300 MG, BACITRACIN 25,000 UNIT in SODIUM CHLORIDE... IRR SCH ×2 (09:37→20:34)
[2019-12-01] MEDS: ATORVASTATIN 20 MG TABLET PO SCH (09:38)
[2019-12-01] MEDS: HYDROmorphone 0.5 MG/0.5 ML SYRINGE IV PRN (10:04)
--- NOTE | 2019-12-01 10:14 | Infectious Disease Prog Note ---
Subjective Patient information: Note initiated : 12/01/19 at 10:11 am Service Date, if different from initiated Date: [] Patient: Bebeto Bunn 84 y/o M admitted on 11/28/19 for weakness chills. Chief Complaint: [] Interval history: Pt feels slightly better. Denied any fever, chills, n/v, diarrhea. Endorses some discomfort in the left lower leg. Objective Objective Narrative: ao x 3, in nad no thrush left leg and foot: the lower leg ulcer has necrotic, black tissue loosely attached to the proximal aspect of the wound. No pus drainage/redness/swelling around it. Tender to touch. The base of ulcer has areas of yellow slough. No discoloration of distal foot. Peripheral pulses could not be palpated. Skin: multiple bruises in both upper extremities - Vital Signs Vital signs: Vital Signs Temp Pulse Resp BP BP Pulse Ox 12/01/19 06:55 36.6 C 42 L 16 156/71 95 12/01/19 03:49 36.8 C 45 L 20 156/81 92 11/30/19 23:02 36.6 C 43 L 20 137/69 96 11/30/19 19:05 36.5 C 45 L 20 126/67 94 11/30/19 15:45 36.9 C 20 150/73 94 11/30/19 11:29 36.9 C 20 139/70 98 Intake and Output 11/30/19 12/01/19 12/01/19 21:59 05:59 13:59 Intake Total 6694 097 1278 Output Total 400 1125 325 Balance 600 -875 1051 Intake: IV 956 Sodium Chloride 0.9% 1,000 ml @ 956 125 mls/hr IV .Q8H [facility] Rx#: [id number] Oral 1000 250 420 Output: Void Amount 400 1125 325 Other: Meal Breakfast Percent of Meal Consumed 75% Feeding Ability Independent Urine Appearance Clear Clear Clear Urine Color Bright Yellow Pale Pale Stool Size Moderate Stool Color Brown Stool Consistency Formed # Bowel Movements 1 Weight 65.317 kg Intake & Output: Intake & Output 11/30/19 12/01/19 12/01/19 21:59 05:59 13:59 Intake Total 4736 601 2398 Output Total 400 1125 325 Balance 600 -875 1051 Weight 65.317 kg Intake: IV 956 Sodium Chloride 0.9% 1,000 ml @ 956 125 mls/hr IV .Q8H [facility] Rx#: [id number] Oral 1000 250 420 Output: Void Amount 400 1125 325 Other: Meal Breakfast Percent of Meal Consumed 75% Feeding Ability Independent Urine Appearance Clear Clear Clear Urine Color Bright Yellow Pale Pale Stool Size Moderate Stool Color Brown Stool Consistency Formed # Bowel Movements 1 - Lab 12/01/19 05:15 12/01/19 05:15 Most recent lab results Calcium 8.0 mg/dl (8.6-10.4) L 12/01/19 05:15 Phosphorus 3.0 mg/dL (2.7-4.5) 12/01/19 05:15 Magnesium 1.5 mg/dL (1.6-2.5) L 12/01/19 05:15 Microbiology 11/29/19 12:51 Wound - Not Given Gram Stain - Final 11/29/19 12:51 Wound - Not Given Gram Stain - Final 11/29/19 12:51 Wound - Not Given Anaerobic Culture - Preliminary 11/29/19 12:51 Wound - Not Given Gram Stain - Final 11/29/19 12:51 Wound - Not Given Wound Culture - Preliminary 11/28/19 10:22 Blood Blood Culture - Preliminary 11/28/19 10:25 Blood Blood Culture - Preliminary 11/28/19 10:10 Nose MRSA (PCR) - Final Medications Active Medications: Acetaminophen (Tylenol) 650 mg PO Q6HP PRN PRN Reason: PAIN/FEVER > 101 Hydrocodone Bitart/Acetaminophen ([place] 10/325mg) 1 - 2 tab PO Q4HP PRN; Protocol PRN Reason: Pain Last Admin: 12/01/19 08:05 Dose: 2 tab Documented by: Admin: 11/30/19 23:23 Dose: 2 tab Documented by: Admin: 11/30/19 19:07 Dose: 2 tab Documented by: Admin: 11/30/19 15:12 Dose: 2 tab Documented by: Admin: 11/30/19 10:26 Dose: 2 tab Documented by: NEGRO Albuterol/Ipratropium (Duoneb) 3 ml NEB Q4HP PRN PRN Reason: Shortness Of Breath Amlodipine Besylate (Norvasc) 10 mg PO QDAY [facility] Last Admin: 12/01/19 09:36 Dose: 10 mg Documented by: Admin: 11/30/19 08:13 Dose: 10 mg Documented by: Admin: 11/29/19 08:49 Dose: 10 mg Documented by: Admin: 11/28/19 12:40 Dose: 10 mg Documented by: NEGRO Atorvastatin Calcium (Lipitor) 20 mg PO QDAY [facility] Admin: 12/01/19 09:38 Dose: Not Given Documented by: JOSE Non-Admin Reason: no longer takes Admin: 11/30/19 08:14 Dose: Not Given Documented by: NEGRO Non-Admin Reason: pt doesnt take anymore Admin: 11/29/19 13:21 Dose: Not Given Documented by: NEGRO Non-Admin Reason: pt no longer takes Admin: 11/28/19 12:41 Dose: 20 mg Documented by: NEGRO Dextrose (Dextrose 50%) 50 ml IV UD PRN PRN Reason: Hypoglycemia Last Admin: 11/30/19 15:11 Dose: 50 ml Documented by: NEGRO Diagnostic Test (Pha) (Accu-Chek) 1 each FS ACHS [facility] Admin: 12/01/19 06:53 Dose: 1 each Documented by: Admin: 11/30/19 22:11 Dose: 1 each Documented by: Admin: 11/30/19 17:03 Dose: 1 each Documented by: Admin: 11/30/19 11:33 Dose: 1 each Documented by: Admin: 11/30/19 07:28 Dose: 1 each Documented by: Admin: 11/29/19 20:33 Dose: 1 each Documented by: Admin: 11/29/19 16:30 Dose: 1 each Documented by: Admin: 11/29/19 13:21 Dose: 1 each Documented by: Admin: 11/29/19 07:12 Dose: 1 each Documented by: Admin: 11/28/19 21:07 Dose: 1 each Documented by: Admin: 11/28/19 17:11 Dose: 1 each Documented by: Admin: 11/28/19 12:28 Dose: 1 each Documented by: NEGRO Docusate Sodium (Colace) 100 mg PO BID [facility] Last Admin: 12/01/19 09:36 Dose: 100 mg Documented by: Admin: 11/30/19 22:09 Dose: 100 mg Documented by: Admin: 11/30/19 08:13 Dose: 100 mg Documented by: Admin: 11/29/19 20:31 Dose: 100 mg Documented by: Admin: 11/29/19 13:18 Dose: 100 mg Documented by: Admin: 11/28/19 21:08 Dose: 100 mg Documented by: GEORGES Doxazosin Mesylate (Cardura) 1 mg PO [facility] Last Admin: 11/30/19 23:23 Dose: 1 mg Documented by: ROE Doxycycline Hyclate (Doxycycline Hyclate) 100 mg PO BID@0700,1900 [facility]; Protocol Last Admin: 12/01/19 06:53 Dose: 100 mg Documented by: JOSE Famotidine (Pepcid) 20 mg PO [facility] Last Admin: 11/30/19 23:23 Dose: 20 mg Documented by: Admin: 11/29/19 20:32 Dose: 20 mg Documented by: Admin: 11/28/19 21:08 Dose: 20 mg Documented by: GEORGES Glucose (Insta-Glucose) 15 gm PO PRN PRN PRN Reason: Hypoglycemia Heparin Sodium (Porcine) (Heparin) 5,000 unit SQ Q12 [facility] Last Admin: 12/01/19 09:36 Dose: 5,000 unit Documented by: Admin: 11/30/19 22:10 Dose: 5,000 unit Documented by: Admin: 11/30/19 08:14 Dose: 5,000 unit Documented by: Admin: 11/29/19 20:32 Dose: 5,000 unit Documented by: Admin: 11/29/19 10:11 Dose: Not Given Documented by: NEGRO Non-Admin Reason: holding today d/t surgery Admin: 11/28/19 21:08 Dose: 5,000 unit Documented by: Admin: 11/28/19 12:41 Dose: 5,000 unit Documented by: NEGRO Hydromorphone HCl (Dilaudid) 0.5 mg IV Q2HP PRN; Protocol PRN Reason: Per Pain Protocol Last Admin: 12/01/19 10:04 Dose: 0.5 mg Documented by: Admin: 11/30/19 07:34 Dose: 0.5 mg Documented by: Admin: 11/29/19 22:05 Dose: 0.5 mg Documented by: Admin: 11/29/19 17:55 Dose: 0.5 mg Documented by: Admin: 11/29/19 13:03 Dose: 0.5 mg Documented by: Admin: 11/29/19 09:14 Dose: 0.5 mg Documented by: Admin: 11/29/19 05:06 Dose: 0.5 mg Documented by: Admin: 11/29/19 02:56 Dose: 0.5 mg Documented by: Admin: 11/28/19 04:46 Dose: 0.5 mg Documented by: Admin: 11/28/19 00:57 Dose: 0.5 mg Documented by: GEORGES Magnesium Sulfate (Magnesium Sulfate) 2 gm in 50 mls @ 50 mls/hr IV UD PRN PRN Reason: Magnesium </= 1.6 Ceftriaxone Sodium 2 gm/ (Dextrose) 50 mls @ 100 mls/hr IV DAILY [facility]; Protocol Last Admin: 12/01/19 09:36 Dose: 100 mls/hr Documented by: Infusion: 11/30/19 10:05 Dose: 0 mls/hr Documented by: Admin: 11/30/19 09:33 Dose: 100 mls/hr Documented by: Infusion: 11/29/19 10:27 Dose: 100 mls/hr Documented by: Admin: 11/29/19 09:57 Dose: 100 mls/hr Documented by: Infusion: 11/28/19 14:54 Dose: 100 mls/hr Documented by: Admin: 11/28/19 14:24 Dose: 100 mls/hr Documented by: NEGRO Gentamicin Sulfate 40 mg/Clindamycin Phosphate 300 mg/Bacitracin 25,000 unit/ Sodium Chloride 503 mls @ 5 mls/hr IRR BID [facility] Last Admin: 12/01/19 09:37 Dose: 5 mls/hr Documented by: Admin: 11/30/19 22:11 Dose: 5 mls/hr Documented by: Admin: 11/30/19 11:02 Dose: Not Given Documented by: NEGRO Non-Admin Reason: not used for this dressing change. Sodium Chloride (Sodium Chloride 0.9%) 1,000 mls @ 125 mls/hr IV .Q8H [facility] Stop: 12/01/19 14:59 Last Admin: 12/01/19 07:01 Dose: 125 mls/hr Documented by: Infusion: 12/01/19 07:01 Dose: 125 mls/hr Documented by: Admin: 11/30/19 23:22 Dose: 125 mls/hr Documented by: ROE Insulin Glargine (Lantus) 10 unit SQ HS [facility] Insulin Human Lispro (Humalog) 0 unit SQ ACHS [facility]; Protocol Last Admin: 12/01/19 06:58 Dose: Not Given Documented by: JOSE Non-Admin Reason: No Coverage Needed Comments: 4 oz. juice given Admin: 11/30/19 22:10 Dose: 8 units Documented by: Admin: 11/30/19 17:04 Dose: Not Given Documented by: NEGRO Non-Admin Reason: No Coverage Needed Admin: 11/30/19 11:34 Dose: 4 units Documented by: Admin: 11/30/19 07:28 Dose: 6 units Documented by: Admin: 11/29/19 20:32 Dose: 8 units Documented by: Admin: 11/29/19 16:41 Dose: 6 units Documented by: Admin: 11/29/19 13:21 Dose: Not Given Documented by: NEGRO Non-Admin Reason: No Coverage Needed Admin: 11/29/19 07:12 Dose: Not Given Documented by: NEGRO Non-Admin Reason: No Coverage Needed Admin: 11/28/19 21:08 Dose: 10 units Documented by: Admin: 11/28/19 17:11 Dose: Not Given Documented by: NEGRO Non-Admin Reason: No Coverage Needed Admin: 11/28/19 12:29 Dose: 8 units Documented by: NEGRO [facility]ine [facility] ([facility]throid) [facility] Last Admin: 12/01/19 06:52 Dose: 88 mcg Documented by: JOSE Lorazepam (Ativan) 0.5 mg PO BIDP PRN PRN Reason: ANXIETY AND/OR INSOMNIA Last Admin: 11/29/19 20:32 Dose: 0.5 mg Documented by: Admin: 11/28/19 23:02 Dose: 0.5 mg Documented by: GEORGES Magnesium Oxide (Magnesium Oxide) 400 mg PO DAILY [facility] Last Admin: 12/01/19 09:36 Dose: 400 mg Documented by: Admin: 11/30/19 08:13 Dose: 400 mg Documented by: Admin: 11/29/19 13:17 Dose: 400 mg Documented by: NEGRO Melatonin (Melatonin 3mg Tablet) 3 mg PO [facility] Ondansetron HCl (Zofran) 4 mg IV Q4HP PRN PRN Reason: Nausea And Vomiting Polyethylene Glycol (Miralax) 17 gm PO DAILYP PRN PRN Reason: Constipation Prednisone (Prednisone) 10 mg PO [facility] Last Admin: 12/01/19 08:05 Dose: 10 mg Documented by: Admin: 11/30/19 07:40 Dose: 10 mg Documented by: Admin: 11/29/19 13:17 Dose: 10 mg Documented by: Admin: 11/28/19 12:41 Dose: 10 mg Documented by: NEGRO Senna (Senokot) 2 tab PO DAILYP PRN PRN Reason: Constipation Sodium Chloride (Saline Flush) 10 ml IV Q8 [facility] Last Admin: 12/01/19 04:04 Dose: Not Given Documented by: ROE Non-Admin Reason: Continuous IV Admin: 11/30/19 22:11 Dose: 10 ml Documented by: Admin: 11/30/19 15:11 Dose: 10 ml Documented by: Admin: 11/30/19 06:52 Dose: 10 ml Documented by: Admin: 11/29/19 20:32 Dose: 10 ml Documented by: Admin: 11/29/19 16:30 Dose: 10 ml Documented by: Admin: 11/29/19 05:27 Dose: Not Given Documented by: GEORGES Non-Admin Reason: Bag Still Infusing Admin: 11/28/19 21:09 Dose: Not Given Documented by: GEORGES Non-Admin Reason: Bag Still Infusing Admin: 11/28/19 14:30 Dose: Not Given Documented by: NEGRO Non-Admin Reason: Continuous IV Assessment and Plan - Narrative A/P Narrative: A: 1. Complicated skin-soft tissue infection of right heel: probably sec to pressure necrosis given underlying neuropathy and limited ambulation - cultures pending. GS with GPB, GPC in pairs, chains and clusters - MRSA nasal PCR neg - no signs or symptoms of systemic infection currently [ normal lactic acid, afebrile] 2. DM2 with neuropathy 3. Peripheral arterial ds 4. Frailty Recommendations: - Continue IV Ceftriaxone 2 gm q24 hrs, day 3/14 - Continue PO Doxycycline 100 mg bid. Space with dairy products and calcium/magnesium supplements by taking Doxy 2 hrs prior. - Midline placement for OPAT [would comfort him as well given multiple skin bruises from peripheral sticks] - recommend debridement of necrotic tissue in the proximal aspect of the lower left leg ulcer and yellow slough on the base of ulcer. Wound off loading and care per Dr Lion - pt counseled to continue to work on optimizing his nutrition - will plan for an initial 2-week course of antibiotics, with stop date of 12/13/2019 and ID clinic f/u around that time. will decide then if he needs further antibiotic therapy Mohsen Calix MD Infectious diseases
--- NOTE | 2019-12-01 17:42 | General Surgery Progress Note ---
Subjective Narrative: Note initiated : 12/01/19 at 5:38 pm Service Date, if different from initiated Date: [] Patient: Bebeto Bunn 84 y/o M admitted on 11/28/19 for weakness chills. Chief Complaint: [] Patient seen on rounds with Nisreen RHODES, In patient wound care nurse. Case discussed with Dr. Calix, Infectious Diseases. Objective Temp Pulse Resp BP Pulse Ox 98.1 F 52 L 18 155/83 98 12/01/19 16:00 12/01/19 16:00 12/01/19 16:00 12/01/19 16:00 12/01/19 16:00 AVSS No changes ALL L/E: Further evolving soft tissue necrosis of proximal tendon site. Surrounding skin and subcutaneous tissue is pink and granular. Posterior heel wound is unchanged, Tolerating MIST therapy, local wound care and GCB dressings. Will continue same for now and MONITOR. Likely will need further debridement. Non palpable pedal pulses. - Additional Data Intake & Output - Last 24 hours: Intake & Output 11/29/19 11/30/19 12/01/19 12/02/19 05:59 05:59 05:59 05:59 Intake Total 2152 2930 2270 1896 Output Total 2136 666 7167 1225 Balance 552 2220 545 671 Weight 135 lb 140 lb 8 oz 144 lb - Labs 12/01/19 05:15 12/01/19 05:15 Diabetes panel 12/01/19 Range/Units 05:15 Sodium 139 (133-145) mmol/L Potassium 4.4 (3.3-5.1) mmol/L Chloride 105 (96-108) mmol/L Carbon Dioxide 23 (22-30) mmol/L BUN 53 H (8-23) mg/dl Creatinine 2.1 H (0.7-1.2) mg/dl Glucose 62 L (70-105) mg/dL Calcium 8.0 L (8.6-10.4) mg/dl AST 18 (0-37) U/l ALT 12 (0-40) U/l Alkaline Phosphatase 58 (39-117) U/L Total Protein 5.3 L (5.9-8.4) gm/dL Albumin 2.8 L (3.2-5.2) gm/dL Triglycerides 85 (<150) mg/dl Calcium panel 12/01/19 Range/Units 05:15 Calcium 8.0 L (8.6-10.4) mg/dl Phosphorus 3.0 (2.7-4.5) mg/dL Albumin 2.8 L (3.2-5.2) gm/dL Pituitary panel 12/01/19 Range/Units 05:15 Sodium 139 (133-145) mmol/L Potassium 4.4 (3.3-5.1) mmol/L Chloride 105 (96-108) mmol/L Carbon Dioxide 23 (22-30) mmol/L BUN 53 H (8-23) mg/dl Creatinine 2.1 H (0.7-1.2) mg/dl Glucose 62 L (70-105) mg/dL Calcium 8.0 L (8.6-10.4) mg/dl Adrenal panel 12/01/19 Range/Units 05:15 Sodium 139 (133-145) mmol/L Potassium 4.4 (3.3-5.1) mmol/L Chloride 105 (96-108) mmol/L Carbon Dioxide 23 (22-30) mmol/L BUN 53 H (8-23) mg/dl Creatinine 2.1 H (0.7-1.2) mg/dl Glucose 62 L (70-105) mg/dL Calcium 8.0 L (8.6-10.4) mg/dl Total Bilirubin 0.2 (0.0-1.0) mg/dL AST 18 (0-37) U/l ALT 12 (0-40) U/l Alkaline Phosphatase 58 (39-117) U/L Total Protein 5.3 L (5.9-8.4) gm/dL Albumin 2.8 L (3.2-5.2) gm/dL Assessment and Plan (1) Sepsis Problem details: NEEDS SURGICAL DEBRIDEMENT IN OPERATING ROOM AWAIT preoperative anesthesia evaluation . Post opoerative Infectious Disease consultation. Status: Chronic Current Visit: Yes (2) Weakness Status: Chronic Current Visit: Yes (3) Chills (without fever) Status: Acute Current Visit: Yes (4) Acute on chronic renal failure Problem details: While he has DM and HTN, thewre is no proteinuria to speak of so DM nephropathy is unlikely. 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 Then dehydration leads to acute on chronic elevation of his K level Status: Chronic Current Visit: Yes (6) Dehydration Status: Acute Current Visit: Yes (7) Chronic ulcer of leg Status: Chronic Current Visit: Yes (8) Chronic foot ulcer Status: Chronic Current Visit: Yes - Time Spent With Patient Total time spent is greater than 50% in coordination of care (as documented) at patient's floor/unit and/or counseling patient: Assessment: No changed ALL. Status quo. Appreciate input from ID/ Nephrology. Reviewed progress report hospitalist. Spoke with Dougie Bunn RN Family member Plan: Continue ongoing wound care. Reassess in AM for further debridement. 15 - 24 minutes
--- NOTE | 2019-12-01 19:15 | Nephrology Progress Note ---
Subjective Patient information: Note initiated : 12/01/19 at 7:12 pm Service Date, if different from initiated Date: [] Patient: Bebeto Bunn 84 y/o M admitted on 11/28/19 for weakness chills. Chief Complaint: [] Principal diagnosis: Hyperkalemia in the setting of probable chronic interstitial nephritis Interval history: Patient was seen and evaluated on evening rounds. Received 1 dose of Kayexalate and 2 L of normal saline. His SONY inhibitor's have been discontinued since admission and yesterday was his last dose of a long-acting beta-teresa to completely eliminate the possibility that medications are at least in part increasing his serum creatinine and to reverse dehydration which would worsen his GFR and his renal excretion of potassium leading to hyperkalemia as seen in this patient. Selected Entries 12/01/19 12:00 12/01/19 16:00 12/01/19 18:31 Temperature 36.6 C 36.7 C Pulse Rate [Monitor Reading] 50 L 52 L Blood Pressure [Left Arm] 147/85 Blood Pressure [Right Wrist] 155/83 Pulse Oximetry (%) 94 98 Oxygen Delivery Method Room Air Room Air Pain Intensity 8 Laboratory Tests 11/30/19 12/01/19 12/01/19 05:07 05:15 05:15 WBC 10.8 Hgb 8.8 L Hct 27.9 L Plt Count 290 Sodium 139 Potassium 4.4 Chloride 105 Carbon Dioxide 23 Anion Gap 11.0 BUN 53 H Creatinine 2.1 H GFR Calculation 28 Osmolality 308 H Uric Acid 6.4 Calcium 8.0 L Phosphorus 3.0 Magnesium 1.5 L Total Bilirubin 0.2 Total Protein 5.3 L Albumin 2.8 L Urine Osmolality 339 Ur Random Potassium 17.5 TTKG 0.26 Renal U/S: IMPRESSION: Mildly echogenic renal cortex bilaterally due to chronic medical renal disease. Stable cysts in both kidneys No kidney stone or ureteral obstruction Large postvoid residual in the bladder Pertinent ROS: Heavy NSAIDs previously Additional PMFSH (Level 3 Only): N/A Objective - Vital Signs Vital signs: Vital Signs Temp Pulse Resp BP BP Pulse Ox 12/01/19 16:00 36.7 C 52 L 18 155/83 98 12/01/19 12:00 36.6 C 50 L 16 147/85 94 12/01/19 06:55 36.6 C 42 L 16 156/71 95 12/01/19 03:49 36.8 C 45 L 20 156/81 92 11/30/19 23:02 36.6 C 43 L 20 137/69 96 Intake and Output 12/01/19 12/01/19 12/01/19 05:59 13:59 21:59 Intake Total 250 1896 Output Total 1125 625 600 Balance -875 1271 -600 Intake: IV 1056 Sodium Chloride 0.9% 1,000 ml @ 956 125 mls/hr IV .Q8H [facility] Rx#: [id number] Rocephin 2 gm In Dextrose 5% in 50 Water 50 ml @ 100 mls/hr IV DAILY [facility] Rx#:[id number] Oral 250 840 Output: Void Amount 1125 625 600 Other: Meal Lunch Percent of Meal Consumed 75% Feeding Ability Independent Urine Appearance Clear Clear Clear Urine Color Pale Bright Yellow Pale Stool Size Moderate Large Stool Color Brown Brown Stool Consistency Formed Formed # Bowel Movements 1 1 Intake & Output: Intake & Output 12/01/19 12/01/19 12/01/19 05:59 13:59 21:59 Intake Total 250 1896 Output Total 1125 625 600 Balance -875 1271 -600 Intake: IV 1056 Sodium Chloride 0.9% 1,000 ml @ 956 125 mls/hr IV .Q8H [facility] Rx#: [id number] Rocephin 2 gm In Dextrose 5% in 50 Water 50 ml @ 100 mls/hr IV DAILY [facility] Rx#:[id number] Oral 250 840 Output: Void Amount 1125 625 600 Other: Meal Lunch Percent of Meal Consumed 75% Feeding Ability Independent Urine Appearance Clear Clear Clear Urine Color Pale Bright Yellow Pale Stool Size Moderate Large Stool Color Brown Brown Stool Consistency Formed Formed # Bowel Movements 1 1 - General Appearance General appearance: cachectic, chronically ill, frail EENT: PERRL, mucous membranes dry Neck: no JVD Respiratory: kyphosis Cardiology: no murmurs, edema, regular rate, normal S1, normal S2 Gastrointestinal: normoactive bowel sounds Integumentary: no rash Neurologic: strength 5/5 (weak with strength 3+/5) Musculoskeletal: deformities, no cyanosis, no clubbing Psychiatric: mood/affect appropriate - Lab 12/01/19 05:15 12/01/19 05:15 Most recent lab results Calcium 8.0 mg/dl (8.6-10.4) L 12/01/19 05:15 Phosphorus 3.0 mg/dL (2.7-4.5) 12/01/19 05:15 Magnesium 1.5 mg/dL (1.6-2.5) L 12/01/19 05:15 - Imaging Kidney/bladder ultrasound: report reviewed (increased PVRV w/o obstrection. Small chogenic kidneys) Assessment and Plan (1) Acute on chronic renal failure 1. 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 Patrimer as an outpatient 3. Low potassium diet 4. Monitor and correct non-anion gap metabolic acidosis as needed 5. Keep volume expanded Status: Chronic Priority: High Comment: Tubulointerstial nephritis with associated decreased K handeling, along with ACEi therapy => chronicly intreased total body stores of potassion. Then dehydration leads to acute on chronic elevation of his K level (3) Dehydration Avoid diuretic therapy and keep hydrated to the top of fluid curve Status: Acute Priority: Medium (4) BPH (benign prostatic hyperplasia) Doxazosin started and will titrate upward using this and metoprolol for blood pressure control Status: Acute Priority: Medium Comment: Increased PVR of 2 to 300 cc without symptoms Qualifiers: Lower urinary tract symptom detail: incomplete bladder emptying
[2019-12-01] MEDS: DOXAZOSIN 1 MG TABLET PO SCH (20:33)
[2019-12-01] MEDS: LORazepam 0.5 MG TABLET PO PRN (20:33)
[2019-12-01] MEDS: MELATONIN 3 MG TABLET PO SCH (20:34)
[2019-12-01] MEDS: FAMOTIDINE 20 MG TABLET PO SCH (20:38)
[2019-12-01] MEDS ORDERED: DOXAZOSIN 1 MG TABLET PO SCH (21:00)
[2019-12-01] MEDS ORDERED: INSULIN GLARGINE, HUMAN 1 UNIT/0.01 ML SQ SCH (21:00)
[2019-12-02] MEDS: HYDROcodone/APAP 10/325MG TABLET PO PRN ×5 (04:14→21:30)
[2019-12-02] MEDS: 0.9 % SODIUM CHLORIDE 10 ML SYRINGE IV SCH ×3 (05:01→21:29)
[2019-12-02 06:36] LABS: ALT/SGPT 11 U/l (0-40); AST/SGOT 15 U/l (0-37); Albumin 2.7 gm/dL (3.2-5.2); Alkaline Phosphatase 54 U/L (39-117); Bilirubin,Direct < 0.2 mg/dL (0.0-0.3); Bilirubin,Total < 0.2 mg/dL (0.0-1.0); Calcium 7.8 mg/dl (8.6-10.4); Carbon Dioxide 24 mmol/L (22-30); Chloride 107 mmol/L (96-108); Globulin 2.6 gm/dL (2.2-3.7); Glomerular Filtration Rate 31; Glucose 54 mg/dL (70-105); Lactate Dehydrogenase 204 U/L (94-250); Phosphorous 2.8 mg/dL (2.7-4.5); Triglycerides 97 mg/dl (<150); Uric Acid 5.6 mg/dL (2.5-8.0)
[2019-12-02 06:38] LABS: Blood Urea Nitrogen 42 mg/dl (8-23)
[2019-12-02] MEDS: INSULIN LISPRO 1 UNIT/0.01 ML UNIT SQ SCH ×4 (07:24→21:29)
[2019-12-02] MEDS: DOXYCYCLINE HYCLATE 100 MG TABLET.ORL PO SCH ×2 (07:36→18:43)
[2019-12-02] MEDS: LEVOTHYROXINE 88 MCG TABLET PO SCH (07:36)
[2019-12-02] MEDS ORDERED: cefTRIAXone 2 GM VIAL ONE (08:58)
[2019-12-02] MEDS: cefTRIAXone 2 GM in DEXTROSE 5% IN WATER 50 ML IV SCH (09:02)
[2019-12-02] MEDS: ATORVASTATIN 20 MG TABLET PO SCH (09:15)
[2019-12-02] MEDS: amLODIPine 10 MG TABLET PO SCH (09:16)
[2019-12-02] MEDS: predniSONE 5 MG TABLET PO SCH (09:16)
[2019-12-02] MEDS: DOCUSATE SODIUM 100 MG CAPSULE PO SCH ×2 (09:16→21:30)
[2019-12-02] MEDS: DOXAZOSIN 1 MG TABLET PO SCH ×2 (09:16→21:30)
[2019-12-02] MEDS: MAGNESIUM OXIDE 400 MG TABLET PO SCH (09:17)
[2019-12-02] MEDS: HEPARIN 5,000 UNIT/ML VIAL SQ SCH ×2 (09:17→21:30)
[2019-12-02] MEDS: GENTAMICIN SULFATE 40 MG, CLINDAMYCIN 300 MG, BACITRACIN 25,000 UNIT in SODIUM CHLORIDE... IRR SCH ×2 (11:37→19:30)
--- NOTE | 2019-12-02 13:09 | Internal Med Progress Note ---
Medical - PN: Subj Patient information: Note initiated : 12/02/19 at 1:01 pm Service Date, if different from initiated Date: [] Patient: Bebeto Bunn a 84 y/o M admitted on 11/28/19 for weakness chills. Chief Complaint: [] Interval history: Mr. Bunn is a 84 year old M Patient presents to the ED with generalized weakness and chills. Patient also has left lower leg wounds and has been following with wound care clinic. He did have some debridement of it on Friday with wound packing. Should he was more lethargic and weak and poor appetite. Also been on immunosuppression for rheumatoid arthritis 10 mg daily. In the ED he was found to have an elevated creatinine above his baseline. Patient follows Dr. Harmon. Results found to have a mild leukocytosis and hyperkalemia. Lactate was okay. Patient started on antibiotics for concern for cellulitis around the wound. Imagining in September of the heel which showed small region of osteomyelitis along posterior border of calcaneus. Per patient family he woke up yesterday morning feeling all right but through the day he developed shaking chills became progressively weak and lethargic per family groggy. Also had decreased appetite. He complained more pain in his left lower extremity per family members seem to be a little bit more red. 11/28 Patient states he did not sleep very well. But otherwise no new complaints overnight events. Demonstrate improved. Planning for surgical debridement of the left lower extremity today in the OR. Patient feels less weak today. 11/29 Poor sleep but otherwise feeling better overall. Feeling increased energy. Had debridement yesterday. No new complaints. Potassium elevated today but blood glucose has been running high as well. 11/30 Poor sleep last night. Resting in bed this morning. Potassium improved. Headache. 12/01 Pt does not have any new complaints. Denies fever, chills, nausea, or vomiting His blood glucose levels 50+ and 60+ Discussed with ID Dr. Calix, who suggested ceftriaxone IV 2 g daily and doxycycline for [address] Calix would like to see him in 2 weeks in office. Today 12:30pm, Dr. Lion, RNs, CM and I met pt in his room, his condition was explained to him. Dr. Lion believes that he needs to see a vascular specialist. His PAD needs to be fixed. Otherwise his wound would have a low chance to heal up. But pt would like to think about the plan. Creatinine 1.9 today Decreased lantus to 8 units from 10units. Review of Systems: denies fever/chills/nausea/vomiting/chest or abdominal pain/cough/dyspnea/diarrhea. Otherwise see above. - Constitutional Vitals: Vital Signs Temp Pulse Resp BP Pulse Ox 97.3 F 44 L 20 167/75 97 12/02/19 08:00 12/02/19 08:00 12/02/19 08:00 12/02/19 08:00 12/02/19 08:00 Period Temp Pulse Resp BP Sys/Dupree Pulse Ox Last 24 Hr 97.3 F-98.3 F 44-52 18-20 144-167/68-83 92-98 Intake and Output 12/01/19 12/02/19 12/02/19 21:59 05:59 13:59 Intake Total 480 400 290 Output Total 750 950 290 Balance -270 -550 0 Weight 65.998 kg Intake & Output: Intake & Output 12/01/19 12/02/19 12/02/19 21:59 05:59 13:59 Intake Total 480 400 290 Output Total 750 950 290 Balance -270 -550 0 Weight 65.998 kg Intake: IV 50 Rocephin 2 gm In Dextrose 5% in 50 Water 50 ml @ 100 mls/hr IV DAILY [facility] Rx#:[id number] Oral 480 400 240 Output: Void Amount 750 950 290 Other: Meal Dinner Breakfast Percent of Meal Consumed 100% 100% Feeding Ability Independent Assist with Tray Set Up Urine Appearance Clear Clear Urine Color Bright Yellow Bright Yellow Stool Size Large Stool Color Brown Stool Consistency Formed # Bowel Movements 1 - Additional findings Additional findings: General: alert and awake, No acute Distress Eyes/N/T: EOMI, Head/Neck: neck supple, CV: RRR, No murmurs, Pulm: Clear b/l, no wheezing/rhonchi/rales Abd: soft, nontender, +BS x4 Ext: no clubbing/cyanosis/edema to RLE. LLE open wound, in dressings Neuro: Alert, no focal deficits, moves all extremities, Skin: warm/dry Psych: normal Medical - PN: Obj Da - Labs CBC & Chem 7: 12/01/19 05:15 12/02/19 05:00 Labs: Abnormal Lab Results 12/02/19 12/01/19 12/01/19 05:00 05:15 05:15 RBC Hgb Hct MPV Gran % Lymph % (Auto) Gran # Lymph # (Auto) Potassium BUN 42 H 53 H Creatinine 1.9 H 2.1 H Glucose 54 L 62 L Osmolality 308 H Calcium 7.8 L 8.0 L Phosphorus Magnesium 1.5 L C-Reactive Protein Total Protein 5.3 L 5.3 L Albumin 2.7 L 2.8 L Albumin/Globulin Ratio 12/01/19 11/30/19 11/30/19 05:15 12:59 05:07 RBC Hgb 8.9 L Hct 27.9 L MPV Gran % Lymph % (Auto) Gran # Lymph # (Auto) Potassium 6.1 H* 6.0 H* BUN 57 H Creatinine 2.2 H Glucose 270 H Osmolality Calcium 7.9 L Phosphorus 2.5 L Magnesium C-Reactive Protein Total Protein 5.5 L Albumin 2.6 L Albumin/Globulin Ratio 0.9 L 11/30/19 11/30/19 05:07 05:07 RBC 2.94 L Hgb 8.8 L Hct 27.9 L MPV 11.4 H Gran % 86.8 H Lymph % (Auto) 5.8 L Gran # 9.39 H Lymph # (Auto) 0.63 L Potassium BUN Creatinine Glucose Osmolality Calcium Phosphorus Magnesium C-Reactive Protein 8.6 H Total Protein Albumin Albumin/Globulin Ratio Meds: Medications Acetaminophen (Tylenol) 650 mg PO Q6HP PRN PRN Reason: PAIN/FEVER > 101 Hydrocodone Bitart/Acetaminophen ([place] 10/325mg) 1 - 2 tab PO Q4HP PRN; Protocol PRN Reason: Pain Last Admin: 12/02/19 09:20 Dose: 2 tab Documented by: Albuterol/Ipratropium (Duoneb) 3 ml NEB Q4HP PRN PRN Reason: Shortness Of Breath Amlodipine Besylate (Norvasc) 10 mg PO QDAY [facility] Last Admin: 12/02/19 09:16 Dose: 10 mg Documented by: Atorvastatin Calcium (Lipitor) 20 mg PO QDAY [facility] Last Admin: 12/02/19 09:15 Dose: 20 mg Documented by: Dextrose (Dextrose 50%) 50 ml IV UD PRN PRN Reason: Hypoglycemia Last Admin: 11/30/19 15:11 Dose: 50 ml Documented by: Diagnostic Test (Pha) (Accu-Chek) 1 each FS ACHS [facility] Last Admin: 12/02/19 12:13 Dose: 1 each Documented by: Docusate Sodium (Colace) 100 mg PO BID [facility] Last Admin: 12/02/19 09:16 Dose: Not Given Documented by: Doxazosin Mesylate (Cardura) 1 mg PO BID [facility] Last Admin: 12/02/19 09:16 Dose: 1 mg Documented by: Doxycycline Hyclate (Doxycycline Hyclate) 100 mg PO BID@0700,1900 [facility]; Protocol Last Admin: 12/02/19 07:36 Dose: 100 mg Documented by: Famotidine (Pepcid) 20 mg PO HS [facility] Last Admin: 12/01/19 20:38 Dose: 20 mg Documented by: Glucose (Insta-Glucose) 15 gm PO PRN PRN PRN Reason: Hypoglycemia Heparin Sodium (Porcine) (Heparin) 5,000 unit SQ Q12 [facility] Last Admin: 12/02/19 09:17 Dose: 5,000 unit Documented by: Hydromorphone HCl (Dilaudid) 0.5 mg IV Q2HP PRN; Protocol PRN Reason: Per Pain Protocol Last Admin: 12/01/19 10:04 Dose: 0.5 mg Documented by: Magnesium Sulfate (Magnesium Sulfate) 2 gm in 50 mls @ 50 mls/hr IV UD PRN PRN Reason: Magnesium </= 1.6 Last Infusion: 12/01/19 11:51 Dose: Infused Documented by: Ceftriaxone Sodium 2 gm/ (Dextrose) 50 mls @ 100 mls/hr IV DAILY [facility]; Protocol Last Infusion: 12/02/19 09:32 Dose: Infused Documented by: Gentamicin Sulfate 40 mg/Clindamycin Phosphate 300 mg/Bacitracin 25,000 unit/ Sodium Chloride 503 mls @ 5 mls/hr IRR BID [facility] Last Admin: 12/02/19 11:37 Dose: 5 mls/hr Documented by: Insulin Glargine (Lantus) 8 unit SQ HS [facility] Insulin Human Lispro (Humalog) 0 unit SQ ACHS [facility]; Protocol Last Admin: 12/02/19 12:22 Dose: 2 units Documented by: [facility]) [facility] Last Admin: 12/02/19 07:36 Dose: 88 mcg Documented by: Lorazepam (Ativan) 0.5 mg PO BIDP PRN PRN Reason: ANXIETY AND/OR INSOMNIA Last Admin: 12/01/19 20:33 Dose: 0.5 mg Documented by: Magnesium Oxide (Magnesium Oxide) 400 mg PO DAILY [facility] Last Admin: 12/02/19 09:17 Dose: 400 mg Documented by: Melatonin (Melatonin 3mg Tablet) 3 mg PO HS [facility] Last Admin: 12/01/19 20:34 Dose: Not Given Documented by: Ondansetron HCl (Zofran) 4 mg IV Q4HP PRN PRN Reason: Nausea And Vomiting Polyethylene Glycol (Miralax) 17 gm PO DAILYP PRN PRN Reason: Constipation [facility] Last Admin: 12/02/19 09:16 Dose: 10 mg Documented by: Senna (Senokot) 2 tab PO DAILYP PRN PRN Reason: Constipation Sodium Chloride (Saline Flush) 10 ml IV Q8 [facility] Last Admin: 12/02/19 05:01 Dose: 10 ml Documented by: Medical - PN: A/P - Time Spent With Patient Total time spent is greater than 50% in coordination of care (as documented) at patient's floor/unit and/or counseling patient: - Narrative A/P Narrative: A/P Narrative: A: *LISANDRA on CKD IV: follows with Dr. Porter -improved *Volume depletion: improved *Hyperkalemia (h/o same): resolved *LLE wound w/Cellulitis: s/p I&D (11/28) -leukocytosis resolved *DM:A1c 8.4 *HTN: *Anemia, chronic: *RA/PMR: -Immunosuppressed on prednisone 10mg daily *PAD: Has seen Dr. Casiano in the past *Generalized weakness/deconditioning: *Hypothyroidism: TSH 12, low T4 *Anxiety: home ativan *GERD: P: -Rocephin and doxycycline -Wound care, Dr. Lion -Discussed with ID Dr. Calix, who suggested ceftriaxone IV 2 g daily and doxycycline for [address] Calix would like to see him in [address] Lion, RNs, CM and I met pt in his room, his condition was explained to him. Dr. Lion believes that he needs to see a vascular specialist. His PAD needs to be fixed. Otherwise his wound would have a low chance to heal up. But pt would like to think about the plan. -Hold lisinopril/HCTZ for LISANDRA -nephrology following -cont statin -cont home norvasc, atenolol d/c'd -lantus 8units daily and SSI -cont home prednisone -cont levothyroxine (was increased outpt at least several months ago), increase to 88mcg now but likely needs 100mcg - f/u with PCP. -pt/ot -ppx: heparin/home ppi DNR Medical - PN: Qual - Stroke Symptom Onset Unknown: No - VTE Deep Vein Thrombosis/Pulmonary Embolism Present on Admission: No
--- NOTE | 2019-12-02 14:41 | General Surgery Progress Note ---
Subjective Patient reports: afebrile Narrative: Note initiated : 12/02/19 at 2:38 pm Service Date, if different from initiated Date: [] Patient: Bebeto Bunn 84 y/o M admitted on 11/28/19 for weakness chills. Chief Complaint: [] Uneventful night. NO acute events. Wounds examined during MIST treatment. Labs reviewed. Later attended a Bedside conference with Patient, WAYNE RHODES, Nisreen COBB and Dr Cottrell Events thus far and progress reviewed. Further OPTIONS discussed . Objective Temp Pulse Resp BP Pulse Ox 98.5 F 47 L 18 150/71 96 12/02/19 12:00 12/02/19 12:00 12/02/19 12:00 12/02/19 12:00 12/02/19 12:00 AVSS, No changes ALL. LUCID and AAO x 3. Appetite improved. Soft BMS. LOCAL EXAMINATION: Exposed tendon is dry and demarcating well. Wound base is pink with granulation base. NO drainage, NO odor, NO purulence. Periwound skin and sub q texture is improved. Renal functions K and Cr are improving. - Additional Data Intake & Output - Last 24 hours: Intake & Output 11/30/19 12/01/19 12/02/19 12/03/19 05:59 05:59 05:59 05:59 Intake Total 2930 2270 2776 290 Output Total 710 1725 2325 290 Balance 2220 545 451 0 Weight 140 lb 8 oz 144 lb 145 lb 8 oz - Labs 12/01/19 05:15 12/02/19 05:00 Diabetes panel 12/02/19 Range/Units 05:00 Sodium 142 (133-145) mmol/L Potassium 4.5 (3.3-5.1) mmol/L Chloride 107 (96-108) mmol/L Carbon Dioxide 24 (22-30) mmol/L BUN 42 H (8-23) mg/dl Creatinine 1.9 H (0.7-1.2) mg/dl Glucose 54 L (70-105) mg/dL Calcium 7.8 L (8.6-10.4) mg/dl AST 15 (0-37) U/l ALT 11 (0-40) U/l Alkaline Phosphatase 54 (39-117) U/L Total Protein 5.3 L (5.9-8.4) gm/dL Albumin 2.7 L (3.2-5.2) gm/dL Triglycerides 97 (<150) mg/dl Calcium panel 12/02/19 Range/Units 05:00 Calcium 7.8 L (8.6-10.4) mg/dl Phosphorus 2.8 (2.7-4.5) mg/dL Albumin 2.7 L (3.2-5.2) gm/dL Pituitary panel 12/02/19 Range/Units 05:00 Sodium 142 (133-145) mmol/L Potassium 4.5 (3.3-5.1) mmol/L Chloride 107 (96-108) mmol/L Carbon Dioxide 24 (22-30) mmol/L BUN 42 H (8-23) mg/dl Creatinine 1.9 H (0.7-1.2) mg/dl Glucose 54 L (70-105) mg/dL Calcium 7.8 L (8.6-10.4) mg/dl Adrenal panel 12/02/19 Range/Units 05:00 Sodium 142 (133-145) mmol/L Potassium 4.5 (3.3-5.1) mmol/L Chloride 107 (96-108) mmol/L Carbon Dioxide 24 (22-30) mmol/L BUN 42 H (8-23) mg/dl Creatinine 1.9 H (0.7-1.2) mg/dl Glucose 54 L (70-105) mg/dL Calcium 7.8 L (8.6-10.4) mg/dl Total Bilirubin < 0.2 (0.0-1.0) mg/dL AST 15 (0-37) U/l ALT 11 (0-40) U/l Alkaline Phosphatase 54 (39-117) U/L Total Protein 5.3 L (5.9-8.4) gm/dL Albumin 2.7 L (3.2-5.2) gm/dL Assessment and Plan (1) Sepsis Problem details: NEEDS SURGICAL DEBRIDEMENT IN OPERATING ROOM AWAIT preoperative anesthesia evaluation . Post opoerative Infectious Disease consultation. Status: Chronic Current Visit: Yes (2) Weakness Status: Chronic Current Visit: Yes (3) Chills (without fever) Status: Acute Current Visit: Yes (4) Acute on chronic renal failure Problem details: While he has DM and HTN, thewre is no proteinuria to speak of so DM nephropathy is unlikely. 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 Then dehydration leads to acute on chronic elevation of his K level Status: Chronic Current Visit: Yes (6) Dehydration Status: Acute Current Visit: Yes (7) Chronic ulcer of leg Status: Chronic Current Visit: Yes (8) Chronic foot ulcer Status: Chronic Current Visit: Yes - Narrative A/P Narrative: Assessment: Patient is stable and continues to be on IV abx and local wound care. Both are helping him at this time. He has a window of opportunity, to be evaluated by vascular surgeon. This has been put on hold or postponed at various times in past. Patient can assess his situation and think about the options he has. In the interim his ongoing care will continue. I will NOT recommend him to be discharged home to self care now. Plan: Continue present care / treatment. Following patient daily. - Time Spent With Patient Total time spent is greater than 50% in coordination of care (as documented) at patient's floor/unit and/or counseling patient: Greater than 35 minutes
--- NOTE | 2019-12-02 16:23 | Nephrology Progress Note ---
Subjective Patient information: Note initiated : 12/02/19 at 4:21 pm Service Date, if different from initiated Date: [] Patient: Bebeto Bunn 84 y/o M admitted on 11/28/19 for weakness chills. Chief Complaint: [] Principal diagnosis: Hyperkalemia in the setting of probable chronic interstitial nephritis Interval history: Seen and evaluated on afternoon rounds. Persistent bradycardia with blood pressure around 150/70. His long-acting beta-teresa has been discontinued along with the SONY inhibitor that was stopped on admission. He was given 2 L of IVF and his serum creatinine is improved to 1.9 mg/dL definitely within his usual range of values. Potassium has improved with discontinuing of SONY inhibitor, beta-teresa, hydration, and 1 dose of Kayexalate. Ultrasound showed enlarged prostate and elevated postvoid residual volume/urinary retention. Ross and has been added for its antihypertensive effects and improving urinary flow. Selected Entries 12/02/19 12:00 Temperature 36.9 C Pulse Rate [Monitor Reading] 47 L Respiratory Rate 18 Blood Pressure [Right Wrist] 150/71 Blood Pressure Mean [Right Wrist] 97 Pulse Oximetry (%) 96 Oxygen Delivery Method Room Air Laboratory Tests 11/29/19 11/29/19 12/02/19 04:45 08:15 05:00 Sodium 142 Potassium 4.5 Chloride 107 Carbon Dioxide 24 Anion Gap 11.0 BUN 42 H Creatinine 1.9 H GFR Calculation 31 Glucose 54 L Uric Acid 5.6 Calcium 7.8 L Phosphorus 2.8 Magnesium 1.9 Total Bilirubin < 0.2 Albumin 2.7 L TSH 12.09 H Free T4 0.47 L Note: T4 recently increased from 75 to 88 ug per day so mo changes for 2-4 weeks. Objective - Vital Signs Vital signs: Vital Signs Temp Pulse Resp BP BP Pulse Ox 12/02/19 12:00 36.9 C 47 L 18 150/71 96 12/02/19 08:00 36.3 C 44 L 20 167/75 97 12/02/19 04:59 36.6 C 47 L 20 144/68 96 12/01/19 23:51 36.7 C 49 L 20 147/70 92 12/01/19 19:37 36.8 C 51 L 20 154/75 96 Intake and Output 12/02/19 12/02/19 12/02/19 05:59 13:59 21:59 Intake Total 400 290 240 Output Total 950 290 Balance -550 0 240 Intake: IV 50 Rocephin 2 gm In Dextrose 5% in 50 Water 50 ml @ 100 mls/hr IV DAILY [facility] Rx#:[id number] Oral 400 240 240 Output: Void Amount 950 290 Other: Meal Breakfast Percent of Meal Consumed 100% Feeding Ability Assist with Tray Set Up Urine Appearance Clear Urine Color Bright Yellow Weight 65.998 kg Patient Weight 12/03/19 05:59 Weight 65.998 kg Intake & Output: Intake & Output 12/02/19 12/02/19 12/02/19 05:59 13:59 21:59 Intake Total 400 290 240 Output Total 950 290 Balance -550 0 240 Weight 65.998 kg Intake: IV 50 Rocephin 2 gm In Dextrose 5% in 50 Water 50 ml @ 100 mls/hr IV DAILY [facility] Rx#:[id number] Oral 400 240 240 Output: Void Amount 950 290 Other: Meal Breakfast Percent of Meal Consumed 100% Feeding Ability Assist with Tray Set Up Urine Appearance Clear Urine Color Bright Yellow - General Appearance General appearance: cachectic, chronically ill EENT: ATNC, mucous membranes moist Neck: no JVD, no carotid bruit Respiratory: kyphosis Cardiology: no murmurs, no edema, regular rate, regular rhythm (Bradycardia) Gastrointestinal: normoactive bowel sounds, no masses Integumentary: warm and dry Neurologic: no focal deficit, alert and oriented x3, strength 5/5 (3+/5 motor) Musculoskeletal: deformities, no clubbing Psychiatric: mood/affect appropriate - Lab 12/01/19 05:15 12/02/19 05:00 Most recent lab results Calcium 7.8 mg/dl (8.6-10.4) L 12/02/19 05:00 Phosphorus 2.8 mg/dL (2.7-4.5) 12/02/19 05:00 Magnesium 1.9 mg/dL (1.6-2.5) 12/02/19 05:00 Assessment and Plan (1) Acute on chronic renal failure 1. 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 Basically, back to baseline Status: Acute Priority: Medium Comment: While he has DM and HTN, thewre is no proteinuria to speak of so DM nephropathy is unlikely. 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 Patrimer as an outpatient prn 3. Low potassium diet 4. Monitor and correct non-anion gap metabolic acidosis as needed 5. Keep volume expanded Status: Chronic Priority: High Comment: Tubulointerstial nephritis with associated decreased K handeling, along with ACEi therapy => chronicly intreased total body stores of potassion. Then dehydration leads to acute on chronic elevation of his K level (3) Dehydration Avoid diuretic therapy and keep hydrated to the top of fluid curve Resolved Status: Resolved Priority: Medium (4) BPH (benign prostatic hyperplasia) Doxazosin started and will titrate upward using this and metoprolol for blood pressure control Increase tomorrow to 2 mg po BID Status: Acute Priority: Medium Comment: Increased PVR of 2 to 300 cc without symptoms Qualifiers: Lower urinary tract symptom detail: incomplete bladder emptying
[2019-12-02] MEDS ORDERED: INSULIN GLARGINE, HUMAN 1 UNIT/0.01 ML SQ SCH (21:00)
[2019-12-02] MEDS: MELATONIN 3 MG TABLET PO SCH (21:30)
[2019-12-02] MEDS: LORazepam 0.5 MG TABLET PO PRN (21:30)
[2019-12-02] MEDS: FAMOTIDINE 20 MG TABLET PO SCH (21:30)
[2019-12-03] MEDS: HYDROcodone/APAP 10/325MG TABLET PO PRN ×4 (02:53→12:37)
[2019-12-03] MEDS: 0.9 % SODIUM CHLORIDE 10 ML SYRINGE IV SCH ×2 (03:00→14:40)
[2019-12-03] MEDS: DOXYCYCLINE HYCLATE 100 MG TABLET.ORL PO SCH (07:29)
[2019-12-03] MEDS: LEVOTHYROXINE 88 MCG TABLET PO SCH (07:29)
[2019-12-03] MEDS: INSULIN LISPRO 1 UNIT/0.01 ML UNIT SQ SCH ×2 (08:46→12:03)
[2019-12-03] MEDS ORDERED: cefTRIAXone 2 GM VIAL ONE (08:46)
[2019-12-03] MEDS: ATORVASTATIN 20 MG TABLET PO SCH (08:49)
[2019-12-03] MEDS: DOXAZOSIN 1 MG TABLET PO SCH (08:49)
[2019-12-03] MEDS: amLODIPine 10 MG TABLET PO SCH (08:49)
[2019-12-03] MEDS: MAGNESIUM OXIDE 400 MG TABLET PO SCH (08:49)
[2019-12-03] MEDS: DOCUSATE SODIUM 100 MG CAPSULE PO SCH (08:50)
[2019-12-03] MEDS: HEPARIN 5,000 UNIT/ML VIAL SQ SCH (08:50)
[2019-12-03] MEDS: predniSONE 5 MG TABLET PO SCH (08:50)
[2019-12-03] MEDS: cefTRIAXone 2 GM in DEXTROSE 5% IN WATER 50 ML IV SCH (10:17)
--- NOTE | 2019-12-03 11:08 | Discharge Summary ---
Medical - DS: Prov Patient information: Note initiated : 12/03/19 at 11:05 am Service Date, if different from initiated Date: [] Patient: Bebeto Bunn a 84 y/o M admitted on 11/28/19 for weakness chills. Chief Complaint: [] Refer to H&P by Quentin Wray on 11/28/19 Mr. Bunn is a 84 year old M Patient presents to the ED with generalized weakness and chills. Patient also has left lower leg wounds and has been following with wound care clinic. He did have some debridement of it on Friday with wound packing. Should he was more lethargic and weak and poor appetite. Also been on immunosuppression for rheumatoid arthritis 10 mg daily. In the ED he was found to have an elevated creatinine above his baseline. Patient follows Dr. Harmon. Results found to have a mild leukocytosis and hyperkalemia. Lactate was okay. Patient started on antibiotics for concern for cellulitis around the wound. Imagining in September of the heel which showed small region of osteomyelitis along posterior border of calcaneus. Per patient family he woke up yesterday morning feeling all right but through the day he developed shaking chills became progressively weak and lethargic per family groggy. Also had decreased appetite. He complained more pain in his left lower extremity per family members seem to be a little bit more red. 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 Consulting Provider: Anesthesiology Reason For Exam: Physician to Consult 11/30/19 08:27 Consult to Physician [CONS] Routine Comment: Consulting Provider: Mohsen Calix Reason For Exam: Antibiotioc management 11/30/19 14:42 Consult to Physician [CONS] Routine Comment: hyperkalemia Consulting Provider: Alex Tsai Reason For Exam: Physician to Consult Medical - DS: Meds - Discharge Medications Active and Home Medications: Home Medications acetaminophen 325 mg capsule 650 mg PO Q6H PRN 06/09/19 [History Confirmed 11/27/19 Last Taken Unknown] amlodipine 10 mg tablet 10 mg PO QDAY tab 06/09/19 [History Confirmed 11/28/19 Last Taken 11/27/19 09:30] atenolol 50 mg tablet 50 mg PO BID tab 08/20/19 [History Confirmed 11/28/19 Last Taken 11/27/19 09:30] insulin aspart U-100 100 unit/mL (3 mL) subcutaneous pen See Protocol SUB-Q .ac ml 08/20/19 [History Confirmed 11/28/19 Last Taken Unknown] insulin glargine 100 unit/mL (3 mL) subcutaneous pen 8 unit SUB-Q HS ml 08/20/19 [History Confirmed 11/28/19 Last Taken Unknown] prednisone 5 mg tablet 10 mg PO QDAY tab 08/20/19 [History Confirmed 11/28/19 Last Taken 11/27/19 09:30] trandolapril 4 mg tablet 4 mg PO BID tab 08/20/19 [History Confirmed 11/28/19 Last Taken Unknown] HYDROcodone/ACETAMINOPHEN [Hydrocodone-Acetamin 10-325 mg] 1 - 2 each PO QIDP PRN 11/27/19 [History Confirmed 11/28/19 Last Taken 11/27/19 0930] Hydrochlorothiazide [Oretic] 25 mg PO DAILY 11/28/19 [History Confirmed 11/28/19 Last Taken Unknown] LORazepam [Lorazepam] 0.5 mg PO BIDP PRN 11/28/19 [History Confirmed 11/28/19 Last Taken Unknown] Lansoprazole [Prevacid] 30 mg PO DAILY 11/28/19 [History Confirmed 11/28/19 Last Taken Unknown] Levothyroxine [Synthroid] 75 mcg PO DAILY 11/28/19 [History Confirmed 11/28/19 Last Taken Unknown] Magnesium Oxide [Magnesium] 250 mg PO DAILY 11/28/19 [History Confirmed 11/28/19 Last Taken Unknown] Medical - DS: Hosp Hospital Course: Assessment: 1. Severe PAD -S/p stenting, left superficial femoral artery, popliteal artery occlusion. 2. LLE wound w/Cellulitis: s/p I&D (11/28) -leukocytosis resolved -ID Dr. Calix is on board, continue ceftriaxone 2 g daily and doxycycline p.o. 100 mg twice daily -continue wound care, Dr. Lion is on board. 3. LISANDRA on CKD IV: follows with Dr. 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 Tsai is on board 4. Volume depletion: resolved 5. Hyperkalemia (h/o same): resolved 6. DM:A1c 8.4 7. HTN: 8. Anemia, chronic: 9. RA/PMR: -Immunosuppressed on prednisone 10mg daily 10. Generalized weakness/deconditionin. Hypothyroidism: TSH 12, low T4 12. Anxiety: home ativan 13. GERD: Plan: 1. As per Ayad, patient would benefit from further work-up and treatment by vascular surgeon. Lipitor 40 mg daily and aspirin 81 mg daily 2. Continue wound care, Dr. Lion 3. Rocephin and doxycycline Discussed with ID Dr. Calix, who suggested ceftriaxone IV 2 g daily and doxycycline for [address] Calix would like to see him in 2 weeks in office. 4. Hold lisinopril/HCTZ for LISANDRA. Amlodipine 10mg daily 5. Avoid NSAIDs. nephrology following 6. lantus 8units daily and SSI 7. Cont home prednisone 10 mg daily for RA/PMR 8. cont levothyroxine (was increased outpt at least several months ago), increase to 88mcg now but likely needs 100mcg - f/u with PCP. 9. pt/ot 10. ppx: heparin/home ppi Interval history: Mr. Bunn is a 84 year old M Patient presents to the ED with generalized weakness and chills. Patient also has left lower leg wounds and has been following with wound care clinic. He did have some debridement of it on Friday with wound packing. Should he was more lethargic and weak and poor appetite. Also been on immunosuppression for rheumatoid arthritis 10 mg daily. In the ED he was found to have an elevated creatinine above his baseline. Patient follows Dr. Harmon. Results found to have a mild leukocytosis and hyperkalemia. Lactate was okay. Patient started on antibiotics for concern for cellulitis around the wound. Imagining in September of the heel which showed small region of osteomyelitis along posterior border of calcaneus. Per patient family he woke up yesterday morning feeling all right but through the day he developed shaking chills became progressively weak and lethargic per family groggy. Also had decreased appetite. He complained more pain in his left lower extremity per family members seem to be a little bit more red. 11/28 Patient states he did not sleep very well. But otherwise no new complaints overnight events. Demonstrate improved. Planning for surgical debridement of the left lower extremity today in the OR. Patient feels less weak today. 11/29 Poor sleep but otherwise feeling better overall. Feeling increased energy. Had debridement yesterday. No new complaints. Potassium elevated today but blood glucose has been running high as well. 11/30 Poor sleep last night. Resting in bed this morning. Potassium improved. H eadache. 12/01 Pt does not have any new complaints. Denies fever, chills, nausea, or vomiting His blood glucose levels 50+ and 60+ Discussed with ID Dr. Calix, who suggested ceftriaxone IV 2 g daily and doxycycline for [address] Calix would like to see him in 2 weeks in office. Today 12:30pm, Dr. Lion, RNs, CM and I met pt in his room, his condition was explained to him. Dr. Lion believes that he needs to see a vascular specialist. His PAD needs to be fixed. Otherwise his wound would have a low chance to heal up. But pt would like to think about the plan. Creatinine 1.9 today Decreased lantus to 8 units from 10units. 5. 12/02 Today patient does not have any new complaints. He feels fine. Vital signs are stable and acceptable. Discussed with vascular surgeon Dr. Vera and hospitalist Dr. Llamas at [facility]. They accepted this patient for further work-up and treatment. Discussed with patient who agreed with the plan. He will be transferred to [facility] today for further work-up and treatment. Discharge diagnosis: LLE wound w/Cellulitis - Time Spent with Patient Total time spent providing and/or coordinating discharge services: Greater than 30 minutes Medical - DS: Exam - Constitutional Vitals: Vital Signs Temp Pulse Pulse Resp BP BP Pulse Ox 12/03/19 08:00 97.6 F 63 16 141/84 96 12/03/19 03:00 98.1 F 53 L 16 163/73 94 12/02/19 23:00 98.3 F 63 14 154/79 98 12/02/19 21:54 61 18 12/02/19 19:26 98.5 F 64 18 151/77 95 12/02/19 16:00 98.0 F 45 L 18 157/78 97 12/02/19 12:00 98.5 F 47 L 18 150/71 96 Intake and Output 12/02/19 12/03/19 12/03/19 21:59 05:59 13:59 Intake Total 240 1525 240 Output Total 1250 1100 Balance -1010 425 240 Intake: Nourishment/Supplement quantity 240 (ml) Oral 240 1525 Output: Void Amount 1250 1100 Other: Meal Nourishment/Supplement Percent of Meal Consumed 100% Nourishment/Supplement name Ensure Urine Appearance Clear Urine Color Bright Yellow Bright Yellow Stool Size Smear Stool Color Brown Stool Consistency Dry and Hard Kimberley Weight 67.222 kg - Other Additional findings: General: alert and awake, No acute Distress Eyes/N/T: EOMI, Head/Neck: neck supple, CV: RRR, No murmurs, Pulm: Clear b/l, no wheezing/rhonchi/rales Abd: soft, nontender, +BS x4 Ext: no clubbing/cyanosis/edema to RLE. LLE open wound, in dressings Neuro: Alert, no focal deficits, moves all extremities, Skin: warm/dry Psych: normal Medical - DS: Data Labs on day of discharge: Preliminary micro results at discharge 11/29/19 12:51 Anaerobic Culture - Preliminary Wound - Not Given Medical - DS: A/P - Patient/Caregiver Discharge Instructions Activity: increase activity as tolerated Diet: Renal/Consistent Carbs - Follow up Plan Follow up with: Mohsen Calix MD [Physician] - (Follow up in 2 weeks. ) Sandhya Francisco MD [Primary Care Provider] - Dr. Lion [Other] Disposition: [facility] Prognosis: Fair Rehab Potential: Fair Medical - DS: Qual - VTE Deep Vein Thrombosis/Pulmonary Embolism Present on Admission: No
[2019-12-03] MEDS: GENTAMICIN SULFATE 40 MG, CLINDAMYCIN 300 MG, BACITRACIN 25,000 UNIT in SODIUM CHLORIDE... IRR SCH (11:58)
[2019-12-03] MEDS: LORazepam 0.5 MG TABLET PO PRN (13:27)
--- NOTE | 2019-12-03 13:55 | Nephrology Progress Note ---
Subjective Patient information: Note initiated : 12/03/19 at 1:52 pm Service Date, if different from initiated Date: [] Patient: Bebeto Bunn 84 y/o M admitted on 11/28/19 for weakness chills. Chief Complaint: [] Principal diagnosis: Hyperkalemia in the setting of probable chronic interstitial nephritis Interval history: Tranjsferring for higher level of care...needs angio and revascularization to maximize wound healing. Selected Entries 12/03/19 12:00 Temperature 36.6 C Pulse Rate [Monitor Reading] 58 L Respiratory Rate 16 Blood Pressure [Right Wrist] 130/75 Pulse Oximetry (%) 92 Oxygen Delivery Method Room Air TTKG = 3.4 eGFR 30 cc/min Minimal proteinuria Underlying cause of CKD 3/4 is Tubulointerstitial nephritis from heavy NSAID use in the past No proteinuria to suggest DM nephrosclerosis Has urinary retention w/o obstruction due to BPH => Alpha1 antagonist started for inproving bladder Fx and BP control. Recommend: AVOID NSAIDs and ARBs No NSAIDs Low risk for contrast nephrtopathy Hydrate pre and post contrast load Minimal dye load Hyperkalemia better by stopping ACEi and B-teresa and hydration. Patiromer could be used if hyperkalemia reoccurs but I think stopping ACEi and B-teresa is working Objective - Vital Signs Vital signs: Vital Signs Temp Pulse Pulse Resp BP BP Pulse Ox 12/03/19 12:00 36.6 C 58 L 16 130/75 92 12/03/19 08:00 36.4 C 63 16 141/84 96 12/03/19 03:00 36.7 C 53 L 16 163/73 94 12/02/19 23:00 36.8 C 63 14 154/79 98 12/02/19 21:54 61 18 12/02/19 19:26 36.9 C 64 18 151/77 95 12/02/19 16:00 36.7 C 45 L 18 157/78 97 Intake and Output 12/02/19 12/03/19 12/03/19 21:59 05:59 13:59 Intake Total 240 1525 240 Output Total 1250 1100 Balance -1010 425 240 Intake: Nourishment/Supplement quantity 240 (ml) Oral 240 1525 Output: Void Amount 1250 1100 Other: Meal Nourishment/Supplement Percent of Meal Consumed 100% Nourishment/Supplement name Ensure Urine Appearance Clear Urine Color Bright Yellow Bright Yellow Stool Size Smear Stool Color Brown Stool Consistency Dry and Hard Kimberley Weight 67.222 kg Intake & Output: Intake & Output 12/02/19 12/03/19 12/03/19 21:59 05:59 13:59 Intake Total 240 1525 240 Output Total 1250 1100 Balance -1010 425 240 Weight 67.222 kg Intake: Nourishment/Supplement quantity 240 (ml) Oral 240 1525 Output: Void Amount 1250 1100 Other: Meal Nourishment/Supplement Percent of Meal Consumed 100% Nourishment/Supplement name Ensure Urine Appearance Clear Urine Color Bright Yellow Bright Yellow Stool Size Smear Stool Color Brown Stool Consistency Dry and Hard Kimberley - General Appearance General appearance: cachectic, chronically ill, anxious EENT: PERRL, mucous membranes moist Neck: no JVD, no thyromegaly, no carotid bruit, supple Respiratory: kyphosis, rhonchi Cardiology: no murmurs, no rub, no gallops, no edema, regular rate, regular rhythm, normal S1, normal S2 Gastrointestinal: normoactive bowel sounds, no guarding, no organomegaly Integumentary: no rash, warm and dry Neurologic: no asterixis, alert and oriented x3, strength 5/5 (Motor 3+/5 bilaterally) Musculoskeletal: no deformities, no cyanosis, no clubbing Psychiatric: mood/affect appropriate - Lab 12/01/19 05:15 12/02/19 05:00 Most recent lab results Calcium 7.8 mg/dl (8.6-10.4) L 12/02/19 05:00 Phosphorus 2.8 mg/dL (2.7-4.5) 12/02/19 05:00 Magnesium 1.9 mg/dL (1.6-2.5) 12/02/19 05:00 Assessment and Plan (1) Acute on chronic renal failure 1. 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 Basically, back to baseline Status: Acute Priority: Medium Comment: While he has DM and HTN, thewre is no proteinuria to speak of so DM nephropathy is unlikely. 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 Patrimer as an outpatient prn 3. Low potassium diet 4. Monitor and correct non-anion gap metabolic acidosis as needed 5. Keep volume expanded Status: Chronic Priority: High Comment: Tubulointerstial nephritis with associated decreased K handeling, along with ACEi therapy => chronicly intreased total body stores of potassion. Then dehydration leads to acute on chronic elevation of his K level (3) Dehydration Avoid diuretic therapy and keep hydrated to the top of fluid curve Resolved Status: Resolved Priority: Medium (4) BPH (benign prostatic hyperplasia) Doxazosin started and will titrate upward using this and metoprolol for blood pressure control Increase tomorrow to 2 mg po BID Status: Acute Priority: Medium Comment: Increased PVR of 2 to 300 cc without symptoms Qualifiers: Lower urinary tract symptom detail: incomplete bladder emptying - Narrative A/P Narrative: Summary: TTKG = 3.4 eGFR 30 cc/min Minimal proteinuria Underlying cause of CKD 3/4 is Tubulointerstitial nephritis from heavy NSAID use in the past No proteinuria to suggest DM nephrosclerosis Has urinary retention w/o obstruction due to BPH => Alpha1 antagonist started for inproving bladder Fx and BP control. Recommend: AVOID NSAIDs and ARBs No NSAIDs Low risk for contrast nephrtopathy Hydrate pre and post contrast load Minimal dye load Hyperkalemia better by stopping ACEi and B-teresa and hydration. Patiromer could be used if hyperkalemia reoccurs but I think stopping ACEi and B-teresa is working
[2019-12-03] MEDS ORDERED: ATORVASTATIN 40 MG TABLET PO SCH (21:00)
[2019-12-04] MEDS ORDERED: ASPIRIN 81 MG TAB.CHEW PO SCH (09:00)
== END 2019-12-03 14:55 | disposition short-term general hospital (02) | DRG 981 ==
LOC: ED 19:20 → MEDSUR 11-28 00:24
PROVIDERS: ADMIT Internal Medicine; ATTEND Internal Medicine

== ENCOUNTER 2020-02-17 18:08 | Inpatient (IN) ==
[2020-02-17] MEDS ORDERED: 0.9 % SODIUM CHLORIDE 500 ML IV ONE (18:35)
[2020-02-17] MEDS ORDERED: ONDANSETRON 4 MG/2 ML VIAL IV ONE (18:35)
[2020-02-17] MEDS ORDERED: ACETAMINOPHEN 325 MG TABLET PO ONE (18:35)
--- NOTE | 2020-02-17 18:40 | Emergency Department Note ---
Nausea/Vomiting/Diarrhea HPI General Chief complaint: Nausea/Vomiting/Diarrhea Stated complaint: Diarrhea x3-4 days Time Seen by Provider: 02/17/20 18:10 Source: patient and family Mode of arrival: wheelchair Limitations: no limitations History of Present Illness HPI Narrative: Narrative: 84-year-old male patient brought to the emergency department by his adult son with chief complaint of worsening diarrhea and ge neralized malaise. Patient's son tells me that his father became ill with nausea and diarrhea on Friday. The diarrhea has persisted daily. He is unsure how many times to use the restroom today. He denies any gross blood or hematochezia. He does mention he was feeling slightly better yesterday. However, when he returned from work he found his father on the toilet too weak to stand up. When questioned directly, patient admits to feeling ill. He is vague on his complaints. He does mention that he is having persistent the pain to his extremities but this is not new for him. ROS: This was performed with mostly the adult sons input. Unsure about fever, sweats, or chills. Patient is febrile in triage at 102.2. Denies headaches, tinnitus, or vision changes. Denies runny nose, sinus congestion, or cough. Denies shortness of breath. Denies retrosternal chest pain or palpitations. Admits to mild nausea but no vomiting. Denies overt abdominal pain. Denies dysuria, hematuria, urinary frequency, or urinary urgency. Admits to generalized weakness. Denies focal weakness Related Data Home Medications Medication Instructions Recorded Confirmed amlodipine 10 mg tablet 10 mg PO QDAY tab 06/09/19 02/17/20 insulin glargine 100 unit/mL (3 8 unit SUB-Q HS ml 08/20/19 02/17/20 mL) subcutaneous pen prednisone 5 mg tablet 10 mg PO QDAY tab 08/20/19 02/17/20 levothyroxine 150 mcg PO DAILY 11/28/19 02/17/20 lorazepam 0.5 mg PO BIDP PRN 11/28/19 02/17/20 atenolol 50 mg tablet 50 mg PO BID tab 01/28/20 01/28/20 clonidine HCl 0.1 mg tablet 0.1 mg PO BID 01/28/20 01/28/20 insulin aspart U-100 100 unit/mL 6 - 7 unit SUB-Q .ac ml 01/28/20 02/17/20 (3 mL) subcutaneous pen metformin 1,000 mg 24 hr 2,500 mg PO QDAY tab 01/28/20 01/28/20 tablet,extended release oxaprozin 600 mg tablet 600 mg PO QDAY 01/28/20 01/28/20 trandolapril 4 mg tablet 4 mg PO BID tab 01/28/20 02/17/20 aspirin 81 mg PO DAILY 02/17/20 02/17/20 atorvastatin 40 mg PO QHS 02/17/20 02/17/20 famotidine 20 mg PO BID 02/17/20 02/17/20 hydrochlorothiazide 25 mg PO DAILY 02/17/20 02/17/20 hydrocodone-acetaminophen 1 - 2 tab PO Q6H PRN 02/17/20 02/17/20 lansoprazole 30 mg PO DAILY 02/17/20 02/17/20 magnesium oxide 250 mg PO DAILY 02/17/20 02/17/20 polyethylene glycol 3350 17 g PO PRN PRN 02/17/20 02/17/20 Previous Rx's Medication Instructions Recorded sodium zirconium cyclosilicate 5 5 g PO QDAY #30 each 01/28/20 gram oral powder packet Allergies Allergy/AdvReac Type Severity Reaction Status Date / Time naproxen AdvReac Intermediate Skin Martino Verified 01/28/20 11:04 niacin AdvReac Intermediate Burning Verified 01/28/20 11:04 Skin Review of Systems ROS ROS Narrative: Narrative: All systems ED: reviewed and negative except as stated. 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 analgesic (Chronic) Peripheral arterial disease (Chronic) Rheumatoid arthritis (Chronic) Diabetes mellitus (Chronic) CKD (chronic kidney disease), stage IV (Chronic) Hypertension (Chronic) Benign hypertension with CKD (chronic kidney disease) stage IV (Chronic) Persistent proteinuria (Chronic) Hyperlipidemia (Chronic) 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) GERD (gastroesophageal reflux disease) (Chronic) Hypothyroidism (Chronic) Limp (Chronic) Total body pain (Chronic) Back pain (Chronic) Osteoarthritis (Chronic) Arthralgia (Chronic) Medical History 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 Discussed 11/27/2019. GERD (gastroesophageal reflux disease) (Chronic) Hip pain, left (Resolved) Hyperlipidemia (Chronic) Hypertension (Chronic) Hypothyroidism (Chronic) Immunosuppressed status (Chronic) chronic prednisone 10 mg daily (for RA) Limp (Chronic) [facility] (current) use of opiate analgesic (Chronic) Hydrocodone 10 mg twice daily for chronic pain related to rheumatoid arthritis. Osteoarthritis (Chronic) Peripheral arterial disease (Chronic) Status post [address] Casiano. Being referred to vascular surgeon (Dr. Albert Baker____, and/or Ortho consideration for amputation] -- 11/27/2019 Persistent proteinuria (Chronic) Polyarthritis involving elbow (Resolved) Polymyalgia rheumatica (Resolved) Rheumatoid arthritis (Chronic) Septic arthritis due to Streptococcus species (Resolved) Total body pain (Chronic) Weight loss (Resolved) Surgical History History of elbow surgery (Chronic) right and left History of hip replacement (Chronic) History of procedure for peripheral vascular disease (Acute) twice, Dr. Casiano, [facility], unsuccessful (LLE PAD) Hx of toe surgery (Chronic) right great toe Family History Family/Other Colon cancer Stroke Social History Smoking Status: Former smoker Alcohol Intake Frequency: does not drink Substance Use: does not use Exam Narrative Narrative: Narrative: General Limitations: no limitations General appearance: other (Well-developed cachectic and acutely ill-appearing 84-year-old male patient laying semirecumbent on the emergency room rney hunched forward. He has a very kyphotic upper spine causing him to crawl forw dariel. No acute respiratory distress.) Head Head: atraumatic and normocephalic Eye Eye: Present normal appearance, PERRL and EOMI; Absent scleral icterus and conjunctival injection ENT ENT: Present normal oropharynx and mucous membranes moist Neck Neck: Present trachea midline; Absent lymphadenopathy Chest Chest: Present symmetric chest wall rise Respiratory Respiratory: Present decreased breath sounds (Decreased breath sounds throughout the chest with poor inspiratory effort. No adventitious sounds heard.); Absent normal lung sounds bilaterally, respiratory distress, wheezes, stridor, accessory muscle use and prolonged expiratory phase Cardiovascular Cardiovascular: Present regular rate and normal rhythm; Absent systolic murmur and diastolic murmur Adbominal Abdominal: Present soft and hyperactive bowel sounds; Absent distention, tenderness, guarding, rebound, rigidity, organomegaly and mass Extremities Extremities: Present tenderness (Multiple areas of the upper extremities are somewhat tender to palpation. No focal findings. No) and other; Absent normal inspection (Very thin appearing extremities with multiple deformities of the phalanges.), full ROM, normal capillary refill (3 seconds.) and pedal edema Back Back: Absent full ROM Neurological Neurological: Present alert, oriented X3, motor sensory deficit and reflexes normal Expanded Neurological Patient oriented to: Present person, place and time Speech: Present other (Patient answers most questions with yes or no syrup. He is somewhat slow to respond but is not slurred or garbled in his speech.) CRANIAL NERVES: EOM function (II, III, IV, ): Normal, facial sensation (V): Normal, facial palsy (VII): Normal, gag reflex (IX): Normal, spinal accessory function (XI): Normal and tongue deviation (XII): Normal Motor strength - LUE: 3/5 Motor strength - RUE: 3/5 Motor strength - LLE: 4/5 Motor strength - RLE: 4/5 SENSORY EXAM UPPER EXTREMITY: Normal: light touch SENSORY EXAM LOWER EXTREMITY: Normal: light touch Coma Scale Eye Opening: Spontaneous Coma Scale Motor Response: Obeys Commands Coma Scale Verbal Response: Oriented Coma Scale Total: 15 Psychiatric Psychiatric: Present depressed and flat affect Skin Skin: Present warm, dry and pallor Course Course Course Narrative: Patient is alert and does answer my questions. However he is slumped forward and very weak. He is febrile 102.2 in triage heart rate of 96. Both these meet SIRS criteria. With this in mind, screening blood work, blood cultures, and urinalysis. Patient has known skin wounds to his left lower extremity is required skin grafting. He is currently followed by wound care. I am going to obtain a wound culture if possible. Patient has known history of chronic kidney disease I am going to order rapid creatinine prior to antibiotics. I discussed the case briefly my collaborating physician (Dr. Boston agustin) and at this time he mentioned not waiting for the rapid creatinine and to order IV antibiotics cell cover sepsis. He also recommended ordering a stool sample for C. difficile. Vancomycin 1000 mg and Zosyn 3.337g were ordered for the patient. Reevaluation(s) Reevaluation #1: A review of his diagnostics show the following: CBC WBC 15.9, RBC 4.04, hemoglobin 12.3, hematocrit 39.6, platelets 319. Lactic acid 2.4. CMP potassium 5.2, anion gap 17, BUN 64, creatinine 2.8, glucose 245, alkaline phosphatase 121, all others in normal limits. Procalcitonin 0.61. Portable chest x-ray reviewed by myself showing multiple non-rib fractures to bilateral upper chest. No acute pulmonary infiltrates were noted. This will be over read by radiologist next 12-24 hours. A catheter urine sample was obtained and sent to the lab for microscopic evaluation. However, a urine dip was obtained in the emergency department that did not show evidence of infection. After reviewing all the data I discussed these findings with my collaborating physician (Dr. Arora) at this time patient meets sepsis criteria with leukocytosis, elevated lactic, elevated procalcitonin, and suspected source of infection within his abdomen. With this in mind, I reached out to our hospitalist (Dr. Ayala) and discussed the case with him. At this time Dr. Ayala has requested a CT scan without contrast of data/pelvis. He also recommended repeat normal saline bolus of 500 mL. He requested to be contacted after the additional testing was ob tained. Time: 20:45 Reevaluation #2: Patient is complaining of worsening left hip pain. She has chronic arthritis to multiple joints including his hips. He has prescribed hydrocodone at home but not with him. We are going to write him two hydrocodone/APAP 5-325 mg tablets. Time: 21:14 Reevaluation #3: Noncontrast CT scan of the abdomen/pelvis was read by radiologist is circumferential thickening and inflammation of the entire colon suggestive of pancolitis possibly C. difficile. Knowing this, I contacted the hospitalist once again to discuss the case. At this time Dr. Ayala mentioned giving the patient oral vancomycin. He has consented to admit the patient here to the facility. All further treatment decisions, modalities, and ultimate pa tient disposition will be carried out by Dr. Ayala. Time: 22:14 Vital Signs Vital signs: Vital Signs Temperature 102.2 F H 02/17/20 18:09 Pulse Rate 96 H 02/17/20 18:09 Respiratory Rate 18 02/17/20 18:09 Blood Pressure 169/96 02/17/20 18:09 Pulse Oximetry (%) 97 02/17/20 18:09 Temperature 99.6 F H 02/17/20 20:27 Pulse Rate 73 02/17/20 22:00 Respiratory Rate 18 02/17/20 18:09 Blood Pressure 150/74 02/17/20 22:00 Pulse Oximetry (%) 97 02/17/20 22:00 [facility] [place] MDM Narrative Medical decision making narrative: Narrative: Lab Data Lab results reviewed: Yes I reviewed the patient's lab results. Result diagrams: 02/17/20 19:04 02/17/20 19:04 Labs: Lab Results 02/17/20 02/17/20 02/17/20 Range/Units 19:04 19:04 19:04 WBC 15.9 H (4.50-11.00) K/mcL RBC 4.04 L (4.63-6.08) M/mcL Hgb 12.3 L (13.7-17.5) g/dL Hct 39.6 L (40.1-51.0) % MCV 98.0 (80.0-100.0) fL MCH 30.4 (26.0-34.0) pg MCHC 31.1 (31.0-36.0) g/dL RDW 14.1 (11.5-14.5) % Plt Count 319 (140-440) K/mcL MPV 11.0 H (7.4-10.4) fL Gran % 83.7 H (38.0-78.0) % Lymph % (Auto) 4.7 L (15.5-49.0) % [place] % (Auto) 9.2 (1.0-12.0) % Eos % (Auto) 1.8 (0.0-7.0) % Baso % (Auto) 0.6 (0.0-2.0) % Gran # 13.28 H (1.80-8.00) K/mcL Lymph # (Auto) 0.74 L (1.50-4.80) K/mcL [place] # (Auto) 1.46 H (0.10-0.90) K/mcL Eos # (Auto) 0.29 (0.00-0.70) K/mcL Baso # (Auto) 0.09 (0.00-0.30) K/mcL VBG Lactic Acid 2.4 H (0.5-2.0) mmol/L Sodium 136 (133-145) mmol/L Potassium 5.2 H (3.3-5.1) mmol/L Chloride 103 (96-108) mmol/L Carbon Dioxide 16 L (22-30) mmol/L Anion Gap 17.0 H (8-16) BUN 64 H (8-23) mg/dl Creatinine 2.8 H (0.7-1.2) mg/dl POC Creatinine (0.7-1.2) mg/dl GFR Calculation 20 Glucose 245 H (70-105) mg/dL Calcium 9.0 (8.6-10.4) mg/dl Total Bilirubin 0.4 (0.0-1.0) mg/dL AST 28 (0-37) U/l ALT 21 (0-40) U/l Alkaline Phosphatase 121 H (39-117) U/L Total Protein 6.9 (5.9-8.4) gm/dL Albumin 3.7 (3.2-5.2) gm/dL Globulin 3.2 (2.2-3.7) gm/dL Albumin/Globulin Ratio 1.2 (1.0-2.3) Procalcitonin (<0.10) ng/mL Urine Color Urine Appearance Urine pH (5.0-9.0) Ur Specific [place] (1.000-1.035) Urine Protein (NEG) mg/dL Urine Glucose (UA) (NEG) mg/dL Urine Ketones (NEG) mg/dL Urine Occult Blood (<0.03) mg/dL Urine Nitrate (NEG) Urine Bilirubin (NEG) mg/dL Urine Urobilinogen (NEG) mg/dL Ur Leukocyte Esterase (NEG) /uL Urine RBC (0-1) /hpf Urine WBC (0-4) /hpf Ur Squamous Epith Cells (0-4) /hpf Urine Bacteria (0) /hpf Urine Mucus (0) /hpf Ur Culture Indicated? 02/17/20 02/17/20 02/17/20 Range/Units 19:04 19:31 20:21 WBC (4.50-11.00) K/mcL RBC (4.63-6.08) M/mcL Hgb (13.7-17.5) g/dL Hct (40.1-51.0) % MCV (80.0-100.0) fL MCH (26.0-34.0) pg MCHC (31.0-36.0) g/dL RDW (11.5-14.5) % Plt Count (140-440) K/mcL MPV (7.4-10.4) fL Gran % (38.0-78.0) % Lymph % (Auto) (15.5-49.0) % [place] % (Auto) (1.0-12.0) % Eos % (Auto) (0.0-7.0) % Baso % (Auto) (0.0-2.0) % Gran # (1.80-8.00) K/mcL Lymph # (Auto) (1.50-4.80) K/mcL [place] # (Auto) (0.10-0.90) K/mcL Eos # (Auto) (0.00-0.70) K/mcL Baso # (Auto) (0.00-0.30) K/mcL VBG Lactic Acid (0.5-2.0) mmol/L Sodium (133-145) mmol/L Potassium (3.3-5.1) mmol/L Chloride (96-108) mmol/L Carbon Dioxide (22-30) mmol/L Anion Gap (8-16) BUN (8-23) mg/dl Creatinine (0.7-1.2) mg/dl POC Creatinine 2.9 H (0.7-1.2) mg/dl GFR Calculation Glucose (70-105) mg/dL Calcium (8.6-10.4) mg/dl Total Bilirubin (0.0-1.0) mg/dL AST (0-37) U/l ALT (0-40) U/l Alkaline Phosphatase (39-117) U/L Total Protein (5.9-8.4) gm/dL Albumin (3.2-5.2) gm/dL Globulin (2.2-3.7) gm/dL Albumin/Globulin Ratio (1.0-2.3) Procalcitonin 0.61 (<0.10) ng/mL Urine Color Yellow Urine Appearance Clear Urine pH 5.0 (5.0-9.0) Ur Specific [place] 1.017 (1.000-1.035) Urine Protein 100 A (NEG) mg/dL Urine Glucose (UA) Negative (NEG) mg/dL Urine Ketones Neg (NEG) mg/dL Urine Occult Blood Neg (<0.03) mg/dL Urine Nitrate Neg (NEG) Urine Bilirubin Neg (NEG) mg/dL Urine Urobilinogen Neg (NEG) mg/dL Ur Leukocyte Esterase Neg (NEG) /uL Urine RBC 1 (0-1) /hpf Urine WBC 1 (0-4) /hpf Ur Squamous Epith Cells 0 (0-4) /hpf Urine Bacteria 0 (0) /hpf Urine Mucus Few (0) /hpf Ur Culture Indicated? No Radiology Data Radiology results reviewed: Yes I reviewed the patient's radiology results. Radiology results narrative: Noncontrast abdominal/pelvic CT scan read by the radiologist as circumferential wall thickening of the entire colon was associated mostly colonic inflammation suggesting pancolitis such as C. difficile. He requested clinical correlation. Discharge Plan Patient/Caregiver Discharge Instructions Pt seen by PERSONAL CARE ASSISTANT/PA only: Yes Clinical Impression: Pancolitis, Sepsis, Chronic ulcer of leg, CKD (chronic kidney disease), stage IV Patient Disposition: Xfer As Inpt ([facility]) Condition: Serious Follow up with: Sandhya Francisco MD [Primary Care Provider] - Prescriptions: No Action amlodipine 10 mg tablet 10 mg PO QDAY RF: 0 insulin glargine 100 unit/mL (3 mL) insulin pen 8 unit SUB-Q HS RF: 0 prednisone 5 mg tablet 10 mg PO QDAY RF: 0 atenolol 50 mg tablet 50 mg PO BID RF: 0 insulin aspart U-100 100 unit/mL (3 mL) insulin pen 6 - 7 unit SUB-Q .ac RF: 0 metformin 1,000 mg tablet,ER cathy.retention 24 hr 2,500 mg PO QDAY RF: 0 trandolapril 4 mg tablet 4 mg PO BID RF: 0 clonidine HCl 0.1 mg tablet 0.1 mg PO BID RF: 0 oxaprozin 600 mg tablet 600 mg PO QDAY RF: 0 Lokelma 5 gram powder in packet 5 g PO QDAY Qty: 30 RF: 12 lorazepam 0.5 MG tablet 0.5 mg PO BIDP PRN (Reason: Sleep) RF: 0 levothyroxine 75 MCG tablet 150 mcg PO DAILY RF: 0 atorvastatin 40 mg tablet 40 mg PO QHS RF: 0 hydrocodone-acetaminophen 10-325 mg tablet 1 - 2 tab PO Q6H PRN (Reason: Pain) RF: 0 polyethylene glycol 3350 17 gram powder in packet 17 g PO PRN PRN (Reason: Constipation) RF: 0 famotidine 40 mg tablet 20 mg PO BID RF: 0 lansoprazole 30 mg capsule,delayed release(DR/EC) 30 mg PO DAILY RF: 0 aspirin 81 mg Tablet,Chewable 81 mg PO DAILY RF: 0 hydrochlorothiazide 25 mg tablet 25 mg PO DAILY RF: 0 magnesium oxide 250 mg magnesium tablet 250 mg PO DAILY RF: 0
[2020-02-17 19:32] LABS: Basophils # (Auto) 0.09 K/mcL (0.00-0.30); Basophils % (Auto) 0.6 % (0.0-2.0); Eosinophils # (Auto) 0.29 K/mcL (0.00-0.70); Eosinophils % (Auto) 1.8 % (0.0-7.0); Granulocytes % (Auto) 83.7 % (38.0-78.0); Hematocrit 39.6 % (40.1-51.0); Hemoglobin 12.3 g/dL (13.7-17.5); Lymphocytes # (Auto) 0.74 K/mcL (1.50-4.80); Lymphocytes % (Auto) 4.7 % (15.5-49.0); Mean Corpuscular HGB Conc 31.1 g/dL (31.0-36.0); Monocytes # (Auto) 1.46 K/mcL (0.10-0.90); Monocytes % (Auto) 9.2 % (1.0-12.0); Platelet Count 319 K/mcL (140-440); RBC 4.04 M/mcL (4.63-6.08); Red Cell Distribution Width 14.1 % (11.5-14.5); WBC 15.9 K/mcL (4.50-11.00)
[2020-02-17 19:37] LABS: POC Creatinine 2.9 mg/dl (0.7-1.2)
[2020-02-17] MEDS ORDERED: VANCOMYCIN 1,000 MG in 0.9 % SODIUM CHLORIDE 250 ML IV ONE (19:39)
[2020-02-17] MEDS ORDERED: PIPERACILLIN SODIUM/TAZOBACTAM 3.375 GM in DEXTROSE 5% IN WATER 50 ML IV ONE (19:39)
[2020-02-17 19:46] LABS: ALT/SGPT 21 U/l (0-40); AST/SGOT 28 U/l (0-37); Albumin 3.7 gm/dL (3.2-5.2); Albumin/Globulin Ratio 1.2 (1.0-2.3); Alkaline Phosphatase 121 U/L (39-117); Bilirubin,Total 0.4 mg/dL (0.0-1.0); Blood Urea Nitrogen 64 mg/dl (8-23); Carbon Dioxide 16 mmol/L (22-30); Chloride 103 mmol/L (96-108); Globulin 3.2 gm/dL (2.2-3.7); Glomerular Filtration Rate 20; Glucose 245 mg/dL (70-105)
[2020-02-17] MEDS ORDERED: HYDROcodone/APAP 5/325MG TABLET PO ONE (21:11)
[2020-02-17 21:23] LABS: Appearance,Urine CLEAR; Bacteria,Urine 0 /hpf (0); Bilirubin,Urine NEG (NEG); Color,Urine YELLOW; Culture Indicated,Urine NO; Glucose,Urine (UA) NEGATIVE (NEG); Ketones,Urine NEG (NEG); Leukocyte Esterase,Urine NEG /uL (NEG); Mucus,Urine FEW /hpf (0); Nitrate,Urine NEG (NEG); Protein,Urine 100 mg/dL (NEG); Specific Gravity,Urine 1.017 (1.000-1.035); Urine Blood NEG mg/dL (<0.03); Urine RBC 1 /hpf (0-1); Urine Squamous Epithelial Cell 0 /hpf (0-4); Urine WBC 1 /hpf (0-4); Urobilinogen,Urine NEG (NEG)
[2020-02-17] MEDS: 0.9 % SODIUM CHLORIDE 500 ML IV ONE ×2 (21:38→23:03)
--- NOTE | 2020-02-17 22:03 | Internal Med History&Physical ---
HPI History of Present Illness Patient information: Note initiated : 02/17/20 at 9:58 pm Service Date, if different from initiated Date: [] Patient: Bebeto Bunn 84 y/o M admitted on for Diarrhea x3-4 days. Chief Complaint: [] History of present illness: Mr. Bunn is a 84 year old M Brought in the ED for diarrhea since friday, and severe weakness. Is febrile in triage. Patient denies any hematochezia or hematemesis or melena. The son f ound his father on toilet too weak to stand up today. Patient states that he felt fine earlier in the day on Friday but in the evening start developing diarrhea. This continued for 8-10 episodes per day watery yellow and finally improved a little bit yesterday but then worsened again today. Denies any recent sick contacts or abnormal foods. Work-up in the ED showed temperature of 102 with a pulse in the 90s. Other vital signs stable. Leukocytosis of 16. Lactate was mildly elevated 2.4 and mildly elevated pro-Xavier. Urine analysis and chest x-ray were unremarkable. Previously treated ulcer and cellulitis of the leg appeared without infection. Review of Systems: Pertinent positives as above. Denies headache/chest or abdominal pain/cough/dyspnea. 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 Discussed 11/27/2019. 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 Osteoarthritis (Chronic) Peripheral arterial disease (Chronic) Status post [address] Casiano. Being referred to vascular surgeon (Dr. Renetta Baker.____, and/or Ortho consideration for amputation] -- 11/27/2019 Persistent proteinuria (Chronic) Polyarthritis involving elbow (Resolved) Polymyalgia rheumatica (Resolved) Rheumatoid arthritis (Chronic) Septic arthritis due to Streptococcus species (Resolved) Total body pain (Chronic) Weight loss (Resolved) Surgical History History of elbow surgery (Chronic) right and left History of hip replacement (Chronic) History of procedure for peripheral vascular disease (Acute) twice, Dr. Casiano, [facility], unsuccessful ([facility]) Hx of toe surgery (Chronic) right great toe Family History Family/Other Colon cancer Stroke Social History (Updated 08/20/19 @ 10:10 by Luke Harmon MD) marital status: occupational status: retired smoking status: Former smoker alcohol intake frequency: does not drink substance use type: does not use MEDS/ALLERGIES Home Medications and Allergies Home Medications Medication Instructions Recorded Confirmed Type amlodipine 10 mg tablet 10 mg PO QDAY tab 06/09/19 02/17/20 History insulin glargine 100 unit/mL (3 8 unit SUB-Q HS ml 08/20/19 02/17/20 History mL) subcutaneous pen prednisone 5 mg tablet 10 mg PO QDAY tab 08/20/19 02/17/20 History levothyroxine 150 mcg PO DAILY 11/28/19 02/17/20 History lorazepam 0.5 mg PO BIDP PRN 11/28/19 02/17/20 History atenolol 50 mg tablet 50 mg PO BID tab 01/28/20 01/28/20 History clonidine HCl 0.1 mg tablet 0.1 mg PO BID 01/28/20 01/28/20 History insulin aspart U-100 100 unit/mL 6 - 7 unit SUB-Q .ac ml 01/28/20 02/17/20 History (3 mL) subcutaneous pen metformin 1,000 mg 24 hr 2,500 mg PO QDAY tab 01/28/20 01/28/20 History tablet,extended release oxaprozin 600 mg tablet 600 mg PO QDAY 01/28/20 01/28/20 History sodium zirconium cyclosilicate 5 5 g PO QDAY #30 each 01/28/20 01/28/20 Rx gram oral powder packet trandolapril 4 mg tablet 4 mg PO BID tab 01/28/20 02/17/20 History aspirin 81 mg PO DAILY 02/17/20 02/17/20 History atorvastatin 40 mg PO QHS 02/17/20 02/17/20 History famotidine 20 mg PO BID 02/17/20 02/17/20 History hydrochlorothiazide 25 mg PO DAILY 02/17/20 02/17/20 History hydrocodone-acetaminophen 1 - 2 tab PO Q6H PRN 02/17/20 02/17/20 History lansoprazole 30 mg PO DAILY 02/17/20 02/17/20 History magnesium oxide 250 mg PO DAILY 02/17/20 02/17/20 History polyethylene glycol 3350 17 g PO PRN PRN 02/17/20 02/17/20 History Allergies Allergy/AdvReac Type Severity Reaction Status Date / Time naproxen AdvReac Intermediate Skin Martino Verified 01/28/20 11:04 niacin AdvReac Intermediate Burning Verified 01/28/20 11:04 Skin EXAM Constitutional Vitals: Temp Pulse Resp BP Pulse Ox 99.6 F H 84 18 133/72 95 02/17/20 20:27 02/17/20 21:16 02/17/20 18:09 02/17/20 21:16 02/17/20 21:16 Exam: General: Drowsy, No acute Distress Eyes/N/T: EOMI, PERRL, dry MM Head/Neck: neck supple, normocephalic atraumatic CV: RRR, No murmurs, normal s1/s2 Pulm: Clear b/l, no wheezing/rhonchi/rales Abd: soft, nontender, +BS x4 Ext: no clubbing/cyanosis/edema Neuro: drowsy, no focal deficits, moves all extremities, CN 2-12 grossly intact, symmetrical strength b/l upper, chronic decreased sensation in his lower extremities skin: warm/dry DATA Data Completed and Pending Labs on day of discharge: Labs from last 24 hours 02/17/20 02/17/2020 20:21 19:31 19:04 WBC RBC Hgb Hct MCV MCH MCHC RDW Plt Count MPV Gran % Lymph % (Auto) [place] % (Auto) Eos % (Auto) Baso % (Auto) Gran # Lymph # (Auto) [place] # (Auto) Eos # (Auto) Baso # (Auto) VBG Lactic Acid Sodium Potassium Chloride Carbon Dioxide Anion Gap BUN Creatinine POC Creatinine 2.9 H GFR Calculation Glucose Calcium Total Bilirubin AST ALT Alkaline Phosphatase Total Protein Albumin Globulin Albumin/Globulin Ratio Procalcitonin TSH Pending Free T4 Pending Urine Color Yellow Urine Appearance Clear Urine pH 5.0 Ur Specific Trevor 1.017 Urine Protein 100 A Urine Glucose (UA) Negative Urine Ketones Neg Urine Occult Blood Neg Urine Nitrate Neg Urine Bilirubin Neg Urine Urobilinogen Neg Ur Leukocyte Esterase Neg Urine RBC 1 Urine WBC 1 Ur Squamous Epith Cells 0 Urine Bacteria 0 Urine Mucus Few Ur Culture Indicated? No 02/17/20 02/17/20 02/17/20 19:04 19:04 19:04 WBC RBC Hgb Hct MCV MCH MCHC RDW Plt Count MPV Gran % Lymph % (Auto) [place] % (Auto) Eos % (Auto) Baso % (Auto) Gran # Lymph # (Auto) [place] # (Auto) Eos # (Auto) Baso # (Auto) VBG Lactic Acid 2.4 H Sodium 136 Potassium 5.2 H Chloride 103 Carbon Dioxide 16 L Anion Gap 17.0 H BUN 64 H Creatinine 2.8 H POC Creatinine GFR Calculation 20 Glucose 245 H Calcium 9.0 Total Bilirubin 0.4 AST 28 ALT 21 Alkaline Phosphatase 121 H Total Protein 6.9 Albumin 3.7 Globulin 3.2 Albumin/Globulin Ratio 1.2 Procalcitonin 0.61 TSH Free T4 Urine Color Urine Appearance Urine pH Ur Specific Trevor Urine Protein Urine Glucose (UA) Urine Ketones Urine Occult Blood Urine Nitrate Urine Bilirubin Urine Urobilinogen Ur Leukocyte Esterase Urine RBC Urine WBC Ur Squamous Epith Cells Urine Bacteria Urine Mucus Ur Culture Indicated? 02/17/20 19:04 WBC 15.9 H RBC 4.04 L Hgb 12.3 L Hct 39.6 L MCV 98.0 MCH 30.4 MCHC 31.1 RDW 14.1 Plt Count 319 MPV 11.0 H Gran % 83.7 H Lymph % (Auto) 4.7 L [place] % (Auto) 9.2 Eos % (Auto) 1.8 Baso % (Auto) 0.6 Gran # 13.28 H Lymph # (Auto) 0.74 L [place] # (Auto) 1.46 H Eos # (Auto) 0.29 Baso # (Auto) 0.09 VBG Lactic Acid Sodium Potassium Chloride Carbon Dioxide Anion Gap BUN Creatinine POC Creatinine GFR Calculation Glucose Calcium Total Bilirubin AST ALT Alkaline Phosphatase Total Protein Albumin Globulin Albumin/Globulin Ratio Procalcitonin TSH Free T4 Urine Color Urine Appearance Urine pH Ur Specific Trevor Urine Protein Urine Glucose (UA) Urine Ketones Urine Occult Blood Urine Nitrate Urine Bilirubin Urine Urobilinogen Ur Leukocyte Esterase Urine RBC Urine WBC Ur Squamous Epith Cells Urine Bacteria Urine Mucus Ur Culture Indicated? A/P Narrative A/P Narrative: A: *Diarrhea: 2/2 colitis, concern for c. diff colitis -CT showing pancolitis *Sepsis: source GI -CXR/UA unremarkable *Generalized weakness/deconditioning: *Volume depletion: *Hyperkalemia, chronic: on Sodium zirconium cyclosilicate *CKD IV: follows with Dr. Porter *Anemia, chronic: *RA/PMR: -Immunosuppressed on prednisone 10mg daily *PVD: Has seen Dr. Casiano in the past, is on statin and ?antiplatelet *h/o LLE wound/Cellulitis: appears without infection *DM:A1c 7.8 *HTN: on Norvasc/atenolol(was stopped in November Admit for [facility])/ACEI/clonidine/hctz @home *Hypothyroidism: recently increased in early january for high TSH and low T4 *Anxiety: home ativan *GERD: P: -stool cx/fecal wbc/c. diff pending -abx, BC/SC pending -Hold lisinopril/hctz for now with volume depletion and mild hyperkalemia -cont home Norvasc/clonidine -basal and SSI, d/c metformin given renal fxn -cont home prednisone -cont statin/antiplatelet -cont home levothyroxine -clarify home meds -pt/ot -ppx: heparin/home ppi DNR Time Spent With Patient Time: Total time spent is greater than 50% in coordination of care (as documented) at patient's floor/unit and/or counseling patient:
[2020-02-17] MEDS ORDERED: metroNIDAZOLE 500 MG TABLET PO ONE ×2 (22:16→23:48)
[2020-02-17] MEDS ORDERED: 0.9 % SODIUM CHLORIDE 1,000 ML IV ONE (23:01)
[2020-02-17 23:33] LABS: Free T4 (Free Thyroxine) 0.63 ng/dl (0.7-1.7); Thyroid Stimulating Hormone 13.34 uIU/ml (0.27-5.01)
[2020-02-17] MEDS ORDERED: ONDANSETRON 4 MG/2 ML VIAL IV PRN (23:48)
[2020-02-17] MEDS ORDERED: MAGNESIUM SULFATE 2 GM/50 ML BAG IV PRN (23:48)
[2020-02-17] MEDS ORDERED: ACETAMINOPHEN 325 MG TABLET PO PRN (23:48)
[2020-02-17] MEDS ORDERED: DEXTROSE 31 GM ORAL.SUSP PO PRN (23:48)
[2020-02-17] MEDS ORDERED: POTASSIUM CHLORIDE 40 MEQ in DEXTROSE 5% IN WATER 500 ML IV PRN (23:48)
[2020-02-17] MEDS ORDERED: POTASSIUM CHLORIDE 20 MEQ TABLET PO PRN ×2 (23:48)
[2020-02-17] MEDS ORDERED: DEXTROSE 50% 50 ML VIAL IV PRN (23:48)
[2020-02-17] MEDS ORDERED: IPRATROPIUM/ALBUTEROL 3 ML AMPUL.NEB NEB PRN (23:48)
[2020-02-18] MEDS ORDERED: LORazepam 0.5 MG TABLET ONE (00:10)
[2020-02-18] MEDS: 0.9 % SODIUM CHLORIDE 1,000 ML IV SCH ×3 (00:14→16:31)
[2020-02-18] MEDS: PIPERACILLIN SODIUM/TAZOBACTAM 3.375 GM in DEXTROSE 5% IN WATER 50 ML IV SCH ×2 (02:15→06:59)
[2020-02-18] MEDS: 0.9 % SODIUM CHLORIDE 10 ML SYRINGE IV SCH ×3 (06:14→21:01)
[2020-02-18 06:34] LABS: Hematocrit 33.9 % (40.1-51.0); Hemoglobin 10.4 g/dL (13.7-17.5); Mean Cell Volume 99.4 fL (80.0-100.0); Mean Corpuscular HGB Conc 30.7 g/dL (31.0-36.0); Mean Platelet Volume 11.1 fL (7.4-10.4); Platelet Count 273 K/mcL (140-440); RBC 3.41 M/mcL (4.63-6.08); Red Cell Distribution Width 14.1 % (11.5-14.5); WBC 20.1 K/mcL (4.50-11.00)
[2020-02-18 06:58] LABS: ALT/SGPT 15 U/l (0-40); AST/SGOT 21 U/l (0-37); Albumin 2.9 gm/dL (3.2-5.2); Albumin/Globulin Ratio 1.2 (1.0-2.3); Alkaline Phosphatase 93 U/L (39-117); Bilirubin,Direct < 0.2 mg/dL (0.0-0.3); Bilirubin,Total 0.4 mg/dL (0.0-1.0); Blood Urea Nitrogen 54 mg/dl (8-23); Calcium 7.8 mg/dl (8.6-10.4); Carbon Dioxide 17 mmol/L (22-30); Chloride 108 mmol/L (96-108); Globulin 2.5 gm/dL (2.2-3.7); Glomerular Filtration Rate 21; Glucose 207 mg/dL (70-105); Lactate Dehydrogenase 228 U/L (94-250); Phosphorous 3.8 mg/dL (2.7-4.5); Triglycerides 137 mg/dl (<150); Uric Acid 8.1 mg/dL (2.5-8.0)
[2020-02-18] MEDS: LEVOTHYROXINE 150 MCG TABLET PO SCH (07:17)
[2020-02-18] MEDS ORDERED: MAGNESIUM SULFATE 8.12 MEQ in DEXTROSE 5% IN WATER 50 ML IV ONE (07:37)
--- NOTE | 2020-02-18 07:37 | Internal Med Progress Note ---
SUBJECTIVE Subjective Patient information: Note initiated : 02/18/20 at 7:34 am Service Date, if different from initiated Date: [] Patient: Bebeto Bunn 84 y/o M admitted on 02/17/20 for Diarrhea x3-4 days. Chief Complaint: [] Interval history: Mr. Bunn is a 84 year old M Brought in the ED for diarrhea since friday, and severe weakness. Is febrile in triage. Patient denies any hematochezia or hematemesis or melena. The son found his father on toilet too weak to stand up today. Patient states that he felt fine earlier in the day on Friday but in the evening start developing diarrhea. This continued for 8-10 episodes per day watery yellow and finally improved a little bit yesterday but then worsened again today. Denies any recent sick contacts or abnormal foods. Work-up in the ED showed temperature of 102 with a pulse in the 90s. Other vital signs stable. Leukocytosis of 16. Lactate was mildly elevated 2.4 and mildly elevated pro-Xavier. Urine analysis and chest x-ray were unremarkable. Previously treated ulcer and cellulitis of the leg appeared without infection. 02/17 Patient tired this morning sounds like he did not sleep well last night. Did have several loose bowel movements yesterday. Fecal WBCs positive, C. difficile testing indeterminate and retesting ordered. Afebrile overnight. Review of Systems: denies headache/fever/chills/nausea/vomiting/chest or abdominal pain/cough/dyspnea. Otherwise see above. Constitutional Vitals: Vital Signs Temp Pulse Resp BP Pulse Ox 97.7 F 76 20 142/78 94 02/18/20 07:10 02/18/20 04:51 02/18/20 07:10 02/18/20 07:10 02/18/20 07:10 Period Temp Pulse Resp BP Sys/Dupree Pulse Ox Last 24 Hr 97.7 F-102.2 F 73-96 16- 130-172/65-97 91-99 Intake and Output 02/17/20 02/18/20 02/18/20 21:59 05:59 13:59 Intake Total 800 1050 Output Total 225 Balance 800 825 Weight 56.79 kg 56.699 kg Intake & Output: Intake & Output 02/17/20 02/18/20 02/18/20 21:59 05:59 13:59 Intake Total 800 1050 Output Total 225 Balance 800 825 Weight 56.79 kg 56.699 kg Intake: IV 800 1050 Sodium Chloride 0.9% 1,000 ml @ 1000 Wide Open IV BOLUS ONE Rx#: [id number] Sodium Chloride 0.9% 500 ml @ 500 Wide Open IV BOLUS ONE Rx#: [id number] Zosyn 3.375 gm In Dextrose 5% 50 50 in Water 50 ml @ 100 mls/hr IV Q6H [facility] Rx#:[id number] Vancomycin 1,000 mg In Sodium 250 Chloride 0.9% 250 ml @ 250 mls/ hr IV ONCE ONE Rx#:[id number] Output: Void Amount 225 Other: Urine Appearance Clear Straight Clear Urine Color Bright Yellow Straight Light Gely Stool Size Moderate Stool Color Brown Yellow Green Stool Consistency Liquid Loose Exam: General: tired, No acute Distress Eyes/N/T: EOMI, Head/Neck: neck supple, normocephalic atraumatic CV: RRR, No murmurs, normal s1/s2 Pulm: Clear b/l, no wheezing/rhonchi/rales Abd: soft, nontender, +BS x4 Ext: no clubbing/cyanosis/edema Neuro: sleeping but arousable, no focal deficits, moves all extremities, skin: warm/dry OBJ DATA Labs CBC & Chem 7: 02/18/20 05:37 02/18/20 05:37 Labs: Abnormal Lab Results 02/18/20 02/18/20 02/17/20 05:37 05:37 20:21 WBC 20.1 H RBC 3.41 L Hgb 10.4 L Hct 33.9 L MCHC 30.7 L MPV 11.1 H Gran % Lymph % (Auto) Gran # Lymph # (Auto) [place] # (Auto) VBG Lactic Acid Potassium Carbon Dioxide 17 L Anion Gap BUN 54 H Creatinine 2.7 H POC Creatinine Glucose 207 H Uric Acid 8.1 H Calcium 7.8 L Magnesium 1.5 L Alkaline Phosphatase Total Protein 5.4 L Albumin 2.9 L TSH Free T4 Urine Protein 100 A 02/17/20 02/17/20 02/17/20 19:31 19:04 19:04 WBC RBC Hgb Hct MCHC MPV Gran % Lymph % (Auto) Gran # Lymph # (Auto) [place] # (Auto) VBG Lactic Acid 2.4 H Potassium Carbon Dioxide Anion Gap BUN Creatinine POC Creatinine 2.9 H Glucose Uric Acid Calcium Magnesium Alkaline Phosphatase Total Protein Albumin TSH 13.34 H Free T4 0.63 L Urine Protein 02/17/20 02/17/20 19:04 19:04 WBC 15.9 H RBC 4.04 L Hgb 12.3 L Hct 39.6 L MCHC MPV 11.0 H Gran % 83.7 H Lymph % (Auto) 4.7 L Gran # 13.28 H Lymph # (Auto) 0.74 L [place] # (Auto) 1.46 H VBG Lactic Acid Potassium 5.2 H Carbon Dioxide 16 L Anion Gap 17.0 H BUN 64 H Creatinine 2.8 H POC Creatinine Glucose 245 H Uric Acid Calcium Magnesium Alkaline Phosphatase 121 H Total Protein Albumin TSH Free T4 Urine Protein Meds: Medications Acetaminophen (Tylenol) 650 mg PO Q6HP PRN PRN Reason: PAIN/FEVER > 101 Last Admin: 02/18/20 07:17 Dose: 650 mg Documented by: Hydrocodone Bitart/Acetaminophen ([place] 10/325mg) 1 - 2 tab PO Q6HP PRN; Protocol PRN Reason: Pain Albuterol/Ipratropium (Duoneb) 3 ml NEB Q4HP PRN PRN Reason: Shortness Of Breath Amlodipine Besylate (Norvasc) 10 mg PO QDAY [facility] Aspirin (Aspirin) 81 mg PO DAILY [facility] Atorvastatin Calcium (Lipitor) 40 mg PO QHS [facility] Dextrose (Dextrose 50%) 0 ml IV UD PRN PRN Reason: Hypoglycemia Diagnostic Test (Pha) (Accu-Chek) 1 each FS ACHS [facility] Last Admin: 02/18/20 07:21 Dose: 1 each Documented by: Famotidine (Pepcid) 20 mg PO BID [facility]EEK Glucose (Insta-Glucose) 15 gm PO PRN PRN PRN Reason: Hypoglycemia Heparin Sodium (Porcine) (Heparin) 5,000 unit SQ Q12 [facility] Potassium Chloride 40 meq/ (Dextrose) 520 mls @ 130 mls/hr IV UD PRN PRN Reason: Potassium < 3 Magnesium Sulfate (Magnesium Sulfate) 2 gm in 50 mls @ 50 mls/hr IV UD PRN PRN Reason: Magnesium </= 1.6 Sodium Chloride (Sodium Chloride 0.9%) 1,000 mls @ 75 mls/hr IV .[id number] [facility]EEK Stop: 02/19/20 02:27 Last Admin: 02/18/20 00:14 Dose: 75 mls/hr Documented by: Piperacillin Sod/Tazobactam (Sod 2.25 gm/ Dextrose) 50 mls @ 100 mls/hr IV Q8H [facility] Insulin Glargine (Lantus) 8 unit SQ HS [facility]EEK Insulin Human Lispro (Humalog) 0 unit SQ ACHS [facility]; Protocol Levothyroxine Sodium (Synthroid) 150 mcg PO QAMAC [facility] Last Admin: 02/18/20 07:17 Dose: 150 mcg Documented by: Lorazepam (Ativan) 0.5 mg PO BIDP PRN PRN Reason: Sleep Ondansetron HCl (Zofran) 4 mg IV Q4HP PRN PRN Reason: Nausea And Vomiting Potassium Chloride (Kdur) 40 meq PO UD PRN PRN Reason: Potssium is 3-3.5 Potassium Chloride (Kdur) 40 meq PO UD PRN PRN Reason: Potassium < 3 Prednisone (Prednisone) 10 mg PO QAC [facility] Sodium Chloride (Saline Flush) 10 ml IV Q8 [facility] Last Admin: 02/18/20 06:14 Dose: Not Given Documented by: Vancomycin HCl (Vancomycin Oral Rita) 125 mg PO QID [facility]; Protocol A/P Narrative A/P Narrative: A: *Diarrhea: 2/2 colitis, concern for c. diff colitis -CT showing colitis *Sepsis: source GI -CXR/UA unremarkable *Generalized weakness/deconditioning: *Volume depletion: *Hyperkalemia, chronic: on Sodium zirconium cyclosilicate *CKD IV: follows with Dr. Porter *Anemia, chronic: *RA/PMR: -Immunosuppressed on prednisone 10mg daily *PVD: Has seen Dr. 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 diff pending -PO [facility] pending -Hold lisinopril/hctz for now with volume depletion and mild hyperkalemia -cont home Norvasc/clonidine -basal and SSI, d/c metformin given renal fxn -cont home prednisone -cont statin/antiplatelet -cont home levothyroxine -clarify home meds -pt/ot -ppx: heparin/home ppi DNR Time Spent With Patient Time: Total time spent is greater than 50% in coordination of care (as documented) at patient's floor/unit and/or counseling patient:
--- NOTE | 2020-02-18 07:44 | XRay Report ---
HISTORY: Fever and increasing rhonchi FINDINGS: There is chronic scar tissue in the left lung base. A nodular density is seen in the central portion of the right lung which measures approximately 1.4 x 2.6 cm. It appears calcified and maintains a fixed relationship with the costochondral junction of the right anterior third rib compared with prior studies on 11/29/2019 and 01/13/2020. I suspect this probably calcification in the cartilage related to prior chest injuries rather than a lung nodule. There are several subacute healing right-sided rib fractures with callus forming. Multiple old healed left-sided rib fractures are also present. No new fracture is identified. There is no evidence of pneumonia, congestive heart failure or pleural effusion. The heart size is normal. IMPRESSION: No acute abnormality Interpreted and Authenticated by: Prabhu Mosqueda 02/18/20
[2020-02-18 08:04] LABS: Band Neutrophils % 8 % (0-10); Eosinophils % (Manual) 3 % (0-7); Lymphocytes % 4 % (15-49); Monocytes % (Manual) 6 % (1-12); Platelet Estimate NORMAL (NORMAL); RBC Morphology NORMAL (NORMAL); Segmented Neutrophils % 79 % (38-78)
--- NOTE | 2020-02-18 08:05 | Cat Scan Report ---
History: Diarrhea, febrile, elevated white count and sepsis TECHNIQUE: The patient was imaged without oral or intravenous contrast scanning from the lung bases through the symphysis pubis. Sagittal and coronal reformats were created. Radiation exposure was limited using dose reduction technology. FINDINGS: There is pulmonary fibrosis in both lung bases with associated traction bronchiectasis. A well-circumscribed subpleural 7 x 9 mm nodule is present in the lateral basal segment left lower lobe. A nodular infiltrate was seen in the same location on the prior CT done on 01/27/19. The acute inflammatory changes seen previously in both lung bases have since resolved. Evaluation of the abdominal organs without contrast is limited. Patient also is very thin and there is a lack of intraperitoneal fat. Bilateral hip prosthesis are present within the pelvis creating significant beam hardening artifact. The liver and spleen appear normal in size and homogeneous. The gallbladder and bile ducts are normal. There are few punctate calcifications in or adjacent to the head of the pancreas. This may be from prior episode of pancreatitis. There is no evidence of acute pancreatitis and no gross mass is seen in the vicinity of the pancreas. A 3.5 cm cyst medially in the upper pole left kidney. In the lower pole the right kidney there is a 1.4 cm cyst. Along the medial aspect of the lower pole the right kidney there is an exophytic 1 cm nodular structure which has higher attenuation than the above mentioned cysts. It measured 8 mm on 01/27/19. No kidney stone or hydronephrosis are present on either side. The stomach is decompressed. There are multiple loops of nondilated fluid-filled loops of small intestine throughout the abdomen and pelvis. The colon contains a large amount liquefied stool. The fat surrounding the colon is a generalized strandiness to it. Is no evidence of an abscess or ascites. No diverticular present. Wall of the transverse colon may be mildly thickened. No free intraperitoneal air is present. Bladder is obscured by the artifact created by the hip prosthesis. Severe atherosclerosis is present throughout the abdomen and pelvis. There are old compression fractures with the greatest deformity at L2. IMPRESSION: Mild thickening and strandiness of the wall of the colon and adjacent fat. This is a nonspecific finding but may be due to colitis. Nonspecific small bowel pattern 1 cm nodule located medially in the lower pole of the right kidney. This could be a complex cyst or small neoplasm. Pulmonary fibrosis and traction bronchiectasis Left lower lobe nodule with benign features Interpreted and Authenticated by: Prabhu Mosqueda 02/18/20
[2020-02-18] MEDS ORDERED: amLODIPine 10 MG TABLET PO SCH (09:00)
[2020-02-18] MEDS: INSULIN LISPRO 1 UNIT/0.01 ML UNIT SQ SCH ×4 (09:14→21:00)
[2020-02-18] MEDS: HEPARIN 5,000 UNIT/ML VIAL SQ SCH ×2 (09:28→21:00)
[2020-02-18] MEDS: PIPERACILLIN SODIUM/TAZOBACTAM 2.25 GM in DEXTROSE 5% IN WATER 50 ML IV SCH ×3 (09:28→22:40)
[2020-02-18] MEDS: ASPIRIN 81 MG TAB.CHEW PO SCH (09:29)
[2020-02-18] MEDS: FAMOTIDINE 20 MG TABLET PO SCH ×2 (09:29→20:59)
[2020-02-18] MEDS: predniSONE 5 MG TABLET PO SCH (09:30)
[2020-02-18] MEDS: SODIUM BICARBONATE 650 MG TABLET PO SCH ×3 (09:30→20:59)
[2020-02-18] MEDS: VANCOMYCIN ORAL SOL 1,000 MG/10 ML BOTTLE PO SCH ×4 (10:21→21:09)
[2020-02-18] MEDS: HYDROcodone/APAP 10/325MG TABLET PO PRN ×3 (12:14→18:58)
[2020-02-18] MEDS ORDERED: ATIVAN 0.5 MG PO PRN (15:19)
[2020-02-18] MEDS ORDERED: POLYETHYLENE GLYCOL 3350 17 GM PACKET PO PRN (15:19)
[2020-02-18] MEDS: ATORVASTATIN 40 MG TABLET PO SCH (20:58)
[2020-02-18] MEDS: INSULIN GLARGINE, HUMAN 1 UNIT/0.01 ML SQ SCH (20:59)
[2020-02-18] MEDS ORDERED: ATENOLOL 50 MG TABLET PO SCH (21:00)
[2020-02-19] MEDS: HYDROcodone/APAP 10/325MG TABLET PO PRN ×4 (01:19→20:20)
[2020-02-19] MEDS: 0.9 % SODIUM CHLORIDE 10 ML SYRINGE IV SCH ×3 (05:09→21:39)
[2020-02-19 06:17] LABS: Basophils # (Auto) 0.04 K/mcL (0.00-0.30); Basophils % (Auto) 0.2 % (0.0-2.0); Eosinophils % (Auto) 1.2 % (0.0-7.0); Granulocytes % (Auto) 84.4 % (38.0-78.0); Hemoglobin 8.4 g/dL (13.7-17.5); Lymphocytes # (Auto) 0.79 K/mcL (1.50-4.80); Lymphocytes % (Auto) 4.9 % (15.5-49.0); Mean Cell Volume 99.3 fL (80.0-100.0); Mean Corpuscular HGB Conc 31.1 g/dL (31.0-36.0); Mean Platelet Volume 11.4 fL (7.4-10.4); Monocytes # (Auto) 1.49 K/mcL (0.10-0.90); Monocytes % (Auto) 9.3 % (1.0-12.0); Platelet Count 250 K/mcL (140-440); RBC 2.72 M/mcL (4.63-6.08)
[2020-02-19 06:36] LABS: ALT/SGPT 14 U/l (0-40); AST/SGOT 18 U/l (0-37); Albumin 2.5 gm/dL (3.2-5.2); Albumin/Globulin Ratio 1.1 (1.0-2.3); Alkaline Phosphatase 83 U/L (39-117); Bilirubin,Direct < 0.2 mg/dL (0.0-0.3); Bilirubin,Total 0.2 mg/dL (0.0-1.0); Blood Urea Nitrogen 49 mg/dl (8-23); Calcium 7.8 mg/dl (8.6-10.4); Carbon Dioxide 18 mmol/L (22-30); Globulin 2.3 gm/dL (2.2-3.7); Glomerular Filtration Rate 21; Glucose 130 mg/dL (70-105); Lactate Dehydrogenase 228 U/L (94-250); Phosphorous 2.8 mg/dL (2.7-4.5); Triglycerides 70 mg/dl (<150); Uric Acid 7.4 mg/dL (2.5-8.0)
[2020-02-19 06:39] LABS: Chloride 110 mmol/L (96-108)
[2020-02-19] MEDS: PIPERACILLIN SODIUM/TAZOBACTAM 2.25 GM in DEXTROSE 5% IN WATER 50 ML IV SCH (06:40)
[2020-02-19] MEDS: INSULIN LISPRO 1 UNIT/0.01 ML UNIT SQ SCH ×4 (07:34→21:35)
[2020-02-19] MEDS: PANTOPRAZOLE 40 MG TABLET PO SCH (07:40)
[2020-02-19] MEDS: LEVOTHYROXINE 150 MCG TABLET PO SCH (07:41)
[2020-02-19] MEDS: predniSONE 5 MG TABLET PO SCH (07:41)
--- NOTE | 2020-02-19 08:06 | Internal Med Progress Note ---
SUBJECTIVE Subjective Patient information: Note initiated : 02/19/20 at 8:04 am Service Date, if different from initiated Date: [] Patient: Bebeto Bunn 84 y/o M admitted on 02/17/20 for Diarrhea x3-4 days. Chief Complaint: [] Interval history: Mr. Bunn is a 84 year old M Brought in the ED for diarrhea since friday, and severe weakness. Is febrile in triage. Patient denies any hematochezia or hematemesis or melena. The son found his father on toilet too weak to stand up today. Patient states that he felt fine earlier in the day on Friday but in the evening start developing diarrhea. This continued for 8-10 episodes per day watery yellow and finally improved a little bit yesterday but then worsened again today. Denies any recent sick contacts or abnormal foods. Work-up in the ED showed temperature of 102 with a pulse in the 90s. Other vital signs stable. Leukocytosis of 16. Lactate was mildly elevated 2.4 and mildly elevated pro-Xavier. Urine analysis and chest x-ray were unremarkable. Previously treated ulcer and cellulitis of the leg appeared without infection. 02/17 Patient tired this morning sounds like he did not sleep well last night. Did have several loose bowel movements yesterday. Fecal WBCs positive, C. difficile testing indeterminate and retesting ordered. Afebrile overnight. 11/18 Patient slept well. No new complaints other than the continued diarrhea which seems to be less frequent but explosive at times. Review of Systems: denies headache/fever/chills/nausea/vomiting/chest or abdominal pain/ cough/dyspnea. Otherwise see above. Constitutional Vitals: Vital Signs Temp Pulse Resp BP Pulse Ox 98.5 F 61 16 145/72 94 02/19/20 03:43 02/19/20 03:43 02/19/20 03:43 02/19/20 03:43 02/19/20 03:43 Period Temp Pulse Resp BP Sys/Dupree Pulse Ox Last 24 Hr 98.3 F-99.3 F 57-63 14-18 98-145/64-72 93-97 Intake and Output 02/18/20 02/19/20 02/19/20 21:59 05:59 13:59 Intake Total 3492 995 4845 Output Total 400 550 225 Balance 1390 -50 775 Weight 56.427 kg Intake & Output: Intake & Output 02/18/20 02/19/20 02/19/20 21:59 05:59 13:59 Intake Total 5745 386 7990 Output Total 400 550 225 Balance 1390 -50 775 Weight 56.427 kg Intake: Nourishment/Supplement quantity 240 (ml) IV 1050 50 1000 Sodium Chloride 0.9% 1,000 ml @ 1000 1000 75 mls/hr IV .[id number] [facility] Rx#: [id number] Zosyn 2.25 gm In Dextrose 5% in 50 50 Water 50 ml @ 100 mls/hr IV Q8H [facility] Rx#:[id number] Oral 500 450 Output: Void Amount 400 550 225 Other: Meal Dinner Percent of Meal Consumed 100% Feeding Ability Assist with Tray Set Up Nourishment/Supplement name Ensure Urine Appearance Clear Clear Clear Urine Color Dark Yellow Dark Yellow Bright Yellow Urine Odor Normal Normal Stool Size Small Large Moderate Stool Color Brown Brown Brown Yellow Green Stool Consistency Soft Loose Liquid Loose Watery Loose # Bowel Movements 1 1 # of times incontinent of 1 Bowels Exam: General: alert and awake, No acute Distress Eyes/N/T: EOMI, Head/Neck: neck supple, normocephalic atraumatic CV: RRR, No murmurs, normal s1/s2 Pulm: Clear b/l, no wheezing/rhonchi/rales Abd: soft, nontender, +BS x4 Ext: no clubbing/cyanosis/edema Neuro: alert and awake, no focal deficits, moves all extremities, skin: warm/dry OBJ DATA Labs CBC & Chem 7: 02/19/20 04:53 02/19/20 04:53 Labs: Abnormal Lab Results 02/19/20 02/19/20 02/18/20 04:53 04:53 05:37 WBC 16.0 H RBC 2.72 L Hgb 8.4 L Hct 27.0 L MCHC MPV 11.4 H Gran % 84.4 H Lymph % (Auto) 4.9 L Gran # 13.49 H Lymph # (Auto) 0.79 L [place] # (Auto) 1.49 H Seg Neutrophils % Lymphocytes % VBG Lactic Acid Potassium Chloride 110 H Carbon Dioxide 18 L 17 L Anion Gap BUN 49 H 54 H Creatinine 2.7 H 2.7 H POC Creatinine Glucose 130 H 207 H Uric Acid 8.1 H Calcium 7.8 L 7.8 L Magnesium 1.5 L Alkaline Phosphatase Total Protein 4.8 L 5.4 L Albumin 2.5 L 2.9 L TSH Free T4 Urine Protein 02/18/20 02/17/20 02/17/20 05:37 20:21 19:31 WBC 20.1 H RBC 3.41 L Hgb 10.4 L Hct 33.9 L MCHC 30.7 L MPV 11.1 H Gran % Lymph % (Auto) Gran # Lymph # (Auto) [place] # (Auto) Seg Neutrophils % 79 H Lymphocytes % 4 L VBG Lactic Acid Potassium Chloride Carbon Dioxide Anion Gap BUN Creatinine POC Creatinine 2.9 H Glucose Uric Acid Calcium Magnesium Alkaline Phosphatase Total Protein Albumin TSH Free T4 Urine Protein 100 A 02/17/20 02/17/20 02/17/20 19:04 19:04 19:04 WBC RBC Hgb Hct MCHC MPV Gran % Lymph % (Auto) Gran # Lymph # (Auto) [place] # (Auto) Seg Neutrophils % Lymphocytes % VBG Lactic Acid 2.4 H Potassium 5.2 H Chloride Carbon Dioxide 16 L Anion Gap 17.0 H BUN 64 H Creatinine 2.8 H POC Creatinine Glucose 245 H Uric Acid Calcium Magnesium Alkaline Phosphatase 121 H Total Protein Albumin TSH 13.34 H Free T4 0.63 L Urine Protein 02/17/20 19:04 WBC 15.9 H RBC 4.04 L Hgb 12.3 L Hct 39.6 L MCHC MPV 11.0 H Gran % 83.7 H Lymph % (Auto) 4.7 L Gran # 13.28 H Lymph # (Auto) 0.74 L [place] # (Auto) 1.46 H Seg Neutrophils % Lymphocytes % VBG Lactic Acid Potassium Chloride Carbon Dioxide Anion Gap BUN Creatinine POC Creatinine Glucose Uric Acid Calcium Magnesium Alkaline Phosphatase Total Protein Albumin TSH Free T4 Urine Protein Meds: Medications Acetaminophen (Tylenol) 650 mg PO Q6HP PRN PRN Reason: PAIN/FEVER > 101 Last Admin: 02/18/20 07:17 Dose: 650 mg Documented by: Hydrocodone Bitart/Acetaminophen ([place] 10/325mg) 1 - 2 tab PO Q6HP PRN; Protocol PRN Reason: Pain Last Admin: 02/19/20 07:43 Dose: 2 tab Documented by: Albuterol/Ipratropium (Duoneb) 3 ml NEB Q4HP PRN PRN Reason: Shortness Of Breath Amlodipine Besylate (Norvasc) 5 mg PO DAILY [facility] Aspirin (Aspirin) 81 mg PO DAILY [facility] Last Admin: 02/18/20 09:29 Dose: 81 mg Documented by: Atenolol (Tenormin) 50 mg PO BID [facility] Last Admin: 02/18/20 21:01 Dose: Not Given Documented by: Atorvastatin Calcium (Lipitor) 40 mg PO QHS [facility] Last Admin: 02/18/20 20:58 Dose: 40 mg Documented by: Dextrose (Dextrose 50%) 0 ml IV UD PRN PRN Reason: Hypoglycemia Diagnostic Test (Pha) (Accu-Chek) 1 each FS ACHS [facility] Last Admin: 02/19/20 07:33 Dose: 1 each Documented by: Famotidine (Pepcid) 20 mg PO BID [facility] Last Admin: 02/18/20 20:59 Dose: 20 mg Documented by: Glucose (Insta-Glucose) 15 gm PO PRN PRN PRN Reason: Hypoglycemia Heparin Sodium (Porcine) (Heparin) 5,000 unit SQ Q12 [facility] Last Admin: 02/18/20 21:00 Dose: 5,000 unit Documented by: Magnesium Sulfate (Magnesium Sulfate) 2 gm in 50 mls @ 50 mls/hr IV UD PRN PRN Reason: Magnesium </= 1.6 Last Infusion: 02/18/20 12:38 Dose: Infused Documented by: Piperacillin Sod/Tazobactam (Sod 2.25 gm/ Dextrose) 50 mls @ 100 mls/hr IV Q8H [facility] Last Admin: 02/19/20 06:40 Dose: 100 mls/hr Documented by: Insulin Glargine (Lantus) 8 unit SQ HS [facility] Last Admin: 02/18/20 20:59 Dose: 8 units Documented by: Insulin Human Lispro (Humalog) 0 unit SQ ACHS [facility]; Protocol Last Admin: 02/19/20 07:34 Dose: Not Given Documented by: Levothyroxine Sodium (Synthroid) 150 mcg PO QAMAC [facility] Last Admin: 02/19/20 07:41 Dose: 150 mcg Documented by: Lorazepam (Ativan) 0.5 mg PO BIDP PRN PRN Reason: Sleep Magnesium Oxide (Magnesium Oxide) 400 mg PO DAILY [facility] Ondansetron HCl (Zofran) 4 mg IV Q4HP PRN PRN Reason: Nausea And Vomiting Pantoprazole Sodium (Protonix) 40 mg PO QAMAC [facility] Last Admin: 02/19/20 07:40 Dose: 40 mg Documented by: Sodium Zirconium Cyclosilicate [ Lokelma] 5 G Packet 1 dose PO DAILY [facility] Polyethylene Glycol (Miralax) 17 gm PO DAILYP PRN PRN Reason: Constipation Prednisone (Prednisone) 10 mg PO QAC [facility] Last Admin: 02/19/20 07:41 Dose: 10 mg Documented by: Sodium Chloride (Saline Flush) 10 ml IV Q8 [facility] Last Admin: 02/19/20 05:09 Dose: Not Given Documented by: Vancomycin HCl (Vancomycin Oral Rita) 125 mg PO QID [facility]; Protocol Last Admin: 02/18/20 21:09 Dose: 1.25 ml Documented by: A/P Narrative A/P Narrative: A: *C. difficile colitis: *Sepsis: source GI *Generalized weakness/deconditioning: *Volume depletion: resolved *Hyperkalemia, chronic: on Sodium zirconium cyclosilicate *CKD IV: follows with Dr. Porter *Anemia, chronic: *RA/PMR: -Immunosuppressed on prednisone 10mg daily *PVD: Has seen Dr. Casiano in the past, is on statin and ?antiplatelet *h/o LLE wound/Cellulitis: appears without infection *DM:A1c 7.8 *HTN: on Norvasc/atenolol(was stopped in November Admit for [place]) @home *Hypothyroidism: recently increased in early january for high TSH and low T4 *Anxiety: home ativan *GERD: *Pulmonary Fibrosis/Traction Bronchiectasis: incidental finding on CT P: -PO Vanco -cont home Norvasc/BB -basal and SSI, -cont home prednisone -cont statin/antiplatelet -cont home levothyroxine -pt/ot -ppx: heparin/home ppi DNR Time Spent With Patient Time: Total time spent is greater than 50% in coordination of care (as documented) at patient's floor/unit and/or counseling patient:
[2020-02-19] MEDS ORDERED: amLODIPine 5 MG TABLET PO SCH (09:00)
[2020-02-19] MEDS: HEPARIN 5,000 UNIT/ML VIAL SQ SCH ×2 (09:49→21:36)
[2020-02-19] MEDS: VANCOMYCIN ORAL SOL 1,000 MG/10 ML BOTTLE PO SCH ×4 (09:49→21:31)
[2020-02-19] MEDS: ASPIRIN 81 MG TAB.CHEW PO SCH (09:49)
[2020-02-19] MEDS: FAMOTIDINE 20 MG TABLET PO SCH ×2 (09:50→21:36)
[2020-02-19] MEDS: MAGNESIUM OXIDE 400 MG TABLET PO SCH (09:50)
[2020-02-19] MEDS: amLODIPine 5 MG TABLET PO SCH (09:56)
[2020-02-19] MEDS: ATENOLOL 50 MG TABLET PO SCH ×2 (09:57→21:38)
[2020-02-19] MEDS: SODIUM ZIRCONIUM CYCLOSILICATE 5 GM PO SCH ×2 (09:57→12:06)
[2020-02-19] MEDS: SODIUM ZIRCONIUM CYCLOSILICATE 10 GM PO SCH (11:35)
[2020-02-19] MEDS: INSULIN GLARGINE, HUMAN 1 UNIT/0.01 ML SQ SCH (21:35)
[2020-02-19] MEDS: ATORVASTATIN 40 MG TABLET PO SCH (21:36)
[2020-02-20] MEDS: HYDROcodone/APAP 10/325MG TABLET PO PRN ×4 (02:02→22:17)
[2020-02-20] MEDS: 0.9 % SODIUM CHLORIDE 10 ML SYRINGE IV SCH ×3 (06:06→20:37)
[2020-02-20 06:37] LABS: Basophils # (Auto) 0.03 K/mcL (0.00-0.30); Basophils % (Auto) 0.2 % (0.0-2.0); Eosinophils # (Auto) 0.37 K/mcL (0.00-0.70); Eosinophils % (Auto) 2.8 % (0.0-7.0); Hematocrit 28.3 % (40.1-51.0); Hemoglobin 8.9 g/dL (13.7-17.5); Lymphocytes # (Auto) 0.98 K/mcL (1.50-4.80); Lymphocytes % (Auto) 7.5 % (15.5-49.0); Mean Cell Volume 97.6 fL (80.0-100.0); Mean Corpuscular HGB Conc 31.4 g/dL (31.0-36.0); Mean Platelet Volume 11.4 fL (7.4-10.4); Monocytes # (Auto) 1.25 K/mcL (0.10-0.90); Monocytes % (Auto) 9.5 % (1.0-12.0); Platelet Count 254 K/mcL (140-440); Red Cell Distribution Width 14.1 % (11.5-14.5); WBC 13.2 K/mcL (4.50-11.00)
[2020-02-20 07:00] LABS: Blood Urea Nitrogen 53 mg/dl (8-23); Calcium 7.7 mg/dl (8.6-10.4); Carbon Dioxide 19 mmol/L (22-30); Chloride 105 mmol/L (96-108); Glomerular Filtration Rate 22; Glucose 108 mg/dL (70-105)
[2020-02-20] MEDS: INSULIN LISPRO 1 UNIT/0.01 ML UNIT SQ SCH ×4 (08:15→20:36)
[2020-02-20] MEDS: PANTOPRAZOLE 40 MG TABLET PO SCH (09:21)
[2020-02-20] MEDS: ASPIRIN 81 MG TAB.CHEW PO SCH (09:22)
[2020-02-20] MEDS: predniSONE 5 MG TABLET PO SCH (09:22)
[2020-02-20] MEDS: MAGNESIUM OXIDE 400 MG TABLET PO SCH (09:23)
[2020-02-20] MEDS: HEPARIN 5,000 UNIT/ML VIAL SQ SCH ×2 (09:23→20:36)
[2020-02-20] MEDS: LEVOTHYROXINE 150 MCG TABLET PO SCH (09:23)
[2020-02-20] MEDS: FAMOTIDINE 20 MG TABLET PO SCH ×2 (09:24→20:38)
[2020-02-20] MEDS: SODIUM ZIRCONIUM CYCLOSILICATE 10 GM PO SCH (09:24)
[2020-02-20] MEDS: ATENOLOL 50 MG TABLET PO SCH (09:32)
[2020-02-20] MEDS: amLODIPine 5 MG TABLET PO SCH (09:32)
[2020-02-20] MEDS: VANCOMYCIN ORAL SOL 1,000 MG/10 ML BOTTLE PO SCH ×4 (10:21→20:37)
--- NOTE | 2020-02-20 15:47 | Internal Med Progress Note ---
SUBJECTIVE Subjective Patient information: Note initiated : 02/20/20 at 3:47 pm Service Date, if different from initiated Date: [] Patient: Bebeto Bunn 84 y/o M admitted on 02/17/20 for Diarrhea x3-4 days. Chief Complaint: [] Interval history: Mr. Bunn is a 84 year old M Brought in the ED for diarrhea since friday, and severe weakness. Is febrile in triage. Patient denies any hematochezia or hematemesis or melena. The son found his father on toilet too weak to stand up today. Patient states that he felt fine earlier in the day on Friday but in the evening start developing diarrhea. This continued for 8-10 episodes per day watery yellow and finally improved a little bit yesterday but then worsened again today. Denies any recent sick contacts or abnormal foods. Work-up in the ED showed temperature of 102 with a pulse in the 90s. Other vital signs stable. Leukocytosis of 16. Lactate was mildly elevated 2.4 and mildly elevated pro-Xavier. Urine analysis and chest x-ray were unremarkable. Previously treated ulcer and cellulitis of the leg appeared without infection. 02/17 Patient tired this morning sounds like he did not sleep well last night. Did have several loose bowel movements yesterday. Fecal WBCs positive, C. difficile testing indeterminate and retesting ordered. Afebrile overnight. 02/18 Patient slept well. No new complaints other than the continued diarrhea which seems to be less frequent but explosive at times. 02/19 When I saw this patient this morning, he was lying in bed with no acute distress. He feels fine and does not have any complaints. His diarrhea improving. He had BM x 1 this morning. I discussed with him that his heart rate is low and blood pressure is not well controlled. His blood culture came back, showing positive for bacteria. I will adjusted his blood pressure and heart rate medications. Positive blood culture could be due to contamination. So we need to repeat blood culture. He was very happy with the plan. Review of Systems: denies headache/fever/chills/nausea/vomiting/chest or abdominal pain/cough/dyspnea. Otherwise see above. Constitutional Vitals: Vital Signs Temp Pulse Resp BP Pulse Ox 98.8 F 51 L 18 134/80 97 02/20/20 12:50 02/20/20 12:50 02/20/20 12:50 02/20/20 12:50 02/20/20 12:50 Period Temp Pulse Resp BP Sys/Dupree Pulse Ox Last 24 Hr 98.1 F-98.8 F 49-62 16-18 127-144/63-80 93-97 Intake and Output 02/20/20 02/20/20 02/20/20 05:59 13:59 21:59 Intake Total 500 420 Output Total 400 250 100 Balance 100 170 -100 Intake & Output: Intake & Output 02/20/20 02/20/20 02/20/20 05:59 13:59 21:59 Intake Total 500 420 Output Total 400 250 100 Balance 100 170 -100 Intake: Nourishment/Supplement quantity 240 (ml) Oral 500 180 Output: Void Amount 400 250 100 Other: Meal Lunch Percent of Meal Consumed 100% Feeding Ability Assist with Tray Set Up Nourishment/Supplement name Ensure Urine Appearance Clear Clear Clear Urine Color Dark Yellow Bright Yellow Dark Yellow Stool Size Moderate Stool Color Brown Stool Consistency Soft # Bowel Movements 1 Additional findings Additional findings: General: alert and awake, No acute Distress, thin and frail. Eyes/N/T: EOMI, Head/Neck: neck supple, normocephalic atraumatic CV: RRR, No murmurs, normal s1/s2 Pulm: Clear b/l, no wheezing/rhonchi/rales Abd: soft, nontender, +BS x4 Ext: no clubbing/cyanosis/edema Neuro: alert and awake, no focal deficits, moves all extremities, skin: warm/dry OBJ DATA Labs CBC & Chem 7: 02/20/20 05:13 02/20/20 05:13 Labs: Abnormal Lab Results 02/20/20 02/20/20 02/19/20 05:13 05:13 04:53 WBC 13.2 H RBC 2.90 L Hgb 8.9 L Hct 28.3 L MCHC MPV 11.4 H Gran % 80.0 H Lymph % (Auto) 7.5 L Gran # 10.52 H Lymph # (Auto) 0.98 L [place] # (Auto) 1.25 H Seg Neutrophils % Lymphocytes % VBG Lactic Acid Potassium Chloride 110 H Carbon Dioxide 19 L 18 L Anion Gap BUN 53 H 49 H Creatinine 2.6 H 2.7 H POC Creatinine Glucose 108 H 130 H Uric Acid Calcium 7.7 L 7.8 L Magnesium Alkaline Phosphatase Total Protein 4.8 L Albumin 2.5 L TSH Free T4 Urine Protein 02/19/20 02/18/20 02/18/20 04:53 05:37 05:37 WBC 16.0 H 20.1 H RBC 2.72 L 3.41 L Hgb 8.4 L 10.4 L Hct 27.0 L 33.9 L MCHC 30.7 L MPV 11.4 H 11.1 H Gran % 84.4 H Lymph % (Auto) 4.9 L Gran # 13.49 H Lymph # (Auto) 0.79 L [place] # (Auto) 1.49 H Seg Neutrophils % 79 H Lymphocytes % 4 L VBG Lactic Acid Potassium Chloride Carbon Dioxide 17 L Anion Gap BUN 54 H Creatinine 2.7 H POC Creatinine Glucose 207 H Uric Acid 8.1 H Calcium 7.8 L Magnesium 1.5 L Alkaline Phosphatase Total Protein 5.4 L Albumin 2.9 L TSH Free T4 Urine Protein 02/17/20 02/17/20 02/17/20 20:21 19:31 19:04 WBC RBC Hgb Hct MCHC MPV Gran % Lymph % (Auto) Gran # Lymph # (Auto) [place] # (Auto) Seg Neutrophils % Lymphocytes % VBG Lactic Acid Potassium Chloride Carbon Dioxide Anion Gap BUN Creatinine POC Creatinine 2.9 H Glucose Uric Acid Calcium Magnesium Alkaline Phosphatase Total Protein Albumin TSH 13.34 H Free T4 0.63 L Urine Protein 100 A 02/17/20 02/17/20 02/17/20 19:04 19:04 19:04 WBC 15.9 H RBC 4.04 L Hgb 12.3 L Hct 39.6 L MCHC MPV 11.0 H Gran % 83.7 H Lymph % (Auto) 4.7 L Gran # 13.28 H Lymph # (Auto) 0.74 L [place] # (Auto) 1.46 H Seg Neutrophils % Lymphocytes % VBG Lactic Acid 2.4 H Potassium 5.2 H Chloride Carbon Dioxide 16 L Anion Gap 17.0 H BUN 64 H Creatinine 2.8 H POC Creatinine Glucose 245 H Uric Acid Calcium Magnesium Alkaline Phosphatase 121 H Total Protein Albumin TSH Free T4 Urine Protein Meds: Medications Acetaminophen (Tylenol) 650 mg PO Q6HP PRN PRN Reason: PAIN/FEVER > 101 Last Admin: 02/18/20 07:17 Dose: 650 mg Documented by: Hydrocodone Bitart/Acetaminophen ([place] 10/325mg) 1 - 2 tab PO Q6HP PRN; Protocol PRN Reason: Pain Last Admin: 02/20/20 10:20 Dose: 2 tab Documented by: Albuterol/Ipratropium (Duoneb) 3 ml NEB Q4HP PRN PRN Reason: Shortness Of Breath Amlodipine Besylate (Norvasc) 7.5 mg PO DAILY [facility] Aspirin (Aspirin) 81 mg PO DAILY [facility] Last Admin: 02/20/20 09:22 Dose: 81 mg Documented by: Atenolol (Tenormin) 25 mg PO DAILY [facility] Atorvastatin Calcium (Lipitor) 40 mg PO QHS [facility] Last Admin: 02/19/20 21:36 Dose: 40 mg Documented by: Dextrose (Dextrose 50%) 0 ml IV UD PRN PRN Reason: Hypoglycemia Diagnostic Test (Pha) (Accu-Chek) 1 each FS ACHS [facility] Last Admin: 02/20/20 12:22 Dose: 1 each Documented by: Famotidine (Pepcid) 20 mg PO BID [facility] Last Admin: 02/20/20 09:24 Dose: 20 mg Documented by: Glucose (Insta-Glucose) 15 gm PO PRN PRN PRN Reason: Hypoglycemia Heparin Sodium (Porcine) (Heparin) 5,000 unit SQ Q12 [facility] Last Admin: 02/20/20 09:23 Dose: 5,000 unit Documented by: Magnesium Sulfate (Magnesium Sulfate) 2 gm in 50 mls @ 50 mls/hr IV UD PRN PRN Reason: Magnesium </= 1.6 Last Infusion: 02/18/20 12:38 Dose: Infused Documented by: Insulin Glargine (Lantus) 8 unit SQ HS [facility] Last Admin: 02/19/20 21:35 Dose: 8 units Documented by: Insulin Human Lispro (Humalog) 0 unit SQ [facility]; Protocol Last Admin: 02/20/20 12:22 Dose: 6 unit Documented by: Levothyroxine Sodium (Synthroid) 150 mcg PO QAMAC [facility] Last Admin: 02/20/20 09:23 Dose: 150 mcg Documented by: Lorazepam (Ativan) 0.5 mg PO BIDP PRN PRN Reason: Sleep Magnesium Oxide (Magnesium Oxide) 400 mg PO DAILY [facility] Last Admin: 02/20/20 09:23 Dose: 400 mg Documented by: Ondansetron HCl (Zofran) 4 mg IV Q4HP PRN PRN Reason: Nausea And Vomiting Pantoprazole Sodium (Protonix) 40 mg PO [facility] Last Admin: 02/20/20 09:21 Dose: 40 mg Documented by: Sodium Zirconium Cyclosilicate [ Lokelma] 10 G Packet 0.5 dose PO DAILY [facility] Last Admin: 02/20/20 09:24 Dose: 0.5 dose Documented by: Polyethylene Glycol (Miralax) 17 gm PO DAILYP PRN PRN Reason: Constipation Prednisone (Prednisone) 10 mg PO [facility] Last Admin: 02/20/20 09:22 Dose: 10 mg Documented by: Sodium Chloride (Saline Flush) 10 ml IV Q8 [facility] Last Admin: 02/20/20 13:02 Dose: 10 ml Documented by: Vancomycin HCl (Vancomycin Oral Rita) 125 mg PO QID [facility]; Protocol Last Admin: 02/20/20 13:00 Dose: 1.25 ml Documented by: A/P Narrative A/P Narrative: 1. C. difficile colitis, improving 2. Sepsis: source GI, resolved 3. Generalized weakness/deconditionin. Volume depletion: resolved 5. Hyperkalemia, chronic: on Sodium zirconium cyclosilicate 6. 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 Anemia, chronic: 8. RA/PMR: -Immunosuppressed on prednisone 10mg daily 9. PVD: Has seen Dr. Casiano in the past, is on statin and ?antiplatelet 10. h/o LLE wound/Cellulitis: appears without infection 11. DM:A1c 7.8 12. HTN: 13. Bradycardia 14. Hypothyroidism: recently increased in early january for high TSH and low T4 15. Anxiety: home ativan 16. GERD: 17. Pulmonary Fibrosis/Traction Bronchiectasis: incidental finding on CT 18. Kidney nodule, right 19. Blood culture - positive for GPB P: -PO Vanco x 10 days in total -Added amlodipine to 5mg daily. Decreased atenolol to 25mg daily from 50mg bid. -basal and SSI, -cont home prednisone -cont statin/antiplatelet -cont home levothyroxine -pt/ot -Discussed with ID Dr. Calix, the positive blood culture could be due to contamination. Repeat blood culture. -Follow with urologist Dr. Adams for kidney nodule -f/u nephrology for CKD IV -ppx: heparin/home ppi DNR Time Spent With Patient Time: Total time spent is greater than 50% in coordination of care (as documented) at patient's floor/unit and/or counseling patient:
[2020-02-20] MEDS: INSULIN GLARGINE, HUMAN 1 UNIT/0.01 ML SQ SCH (20:36)
[2020-02-20] MEDS: ATORVASTATIN 40 MG TABLET PO SCH (20:38)
[2020-02-20] MEDS: LORazepam 0.5 MG TABLET PO PRN (20:38)
[2020-02-21] MEDS: 0.9 % SODIUM CHLORIDE 10 ML SYRINGE IV SCH ×3 (05:16→21:14)
[2020-02-21] MEDS: HYDROcodone/APAP 10/325MG TABLET PO PRN ×3 (05:16→21:04)
[2020-02-21] MEDS ORDERED: hydrALAZINE 20 MG/ML VIAL IV PRN (05:43)
[2020-02-21] MEDS ORDERED: hydrALAZINE 20 MG/ML VIAL ONE (05:52)
[2020-02-21] MEDS: PANTOPRAZOLE 40 MG TABLET PO SCH (07:16)
[2020-02-21] MEDS: LEVOTHYROXINE 150 MCG TABLET PO SCH (07:16)
[2020-02-21] MEDS: predniSONE 5 MG TABLET PO SCH (07:16)
[2020-02-21] MEDS: INSULIN LISPRO 1 UNIT/0.01 ML UNIT SQ SCH ×4 (07:39→21:05)
[2020-02-21 08:35] LABS: Basophils # (Auto) 0.04 K/mcL (0.00-0.30); Basophils % (Auto) 0.5 % (0.0-2.0); Eosinophils # (Auto) 0.43 K/mcL (0.00-0.70); Eosinophils % (Auto) 5.8 % (0.0-7.0); Granulocytes % (Auto) 61.4 % (38.0-78.0); Hemoglobin 10.2 g/dL (13.7-17.5); Lymphocytes # (Auto) 1.37 K/mcL (1.50-4.80); Lymphocytes % (Auto) 18.5 % (15.5-49.0); Mean Cell Volume 95.8 fL (80.0-100.0); Mean Corpuscular HGB Conc 31.9 g/dL (31.0-36.0); Mean Platelet Volume 11.5 fL (7.4-10.4); Monocytes # (Auto) 1.02 K/mcL (0.10-0.90); Monocytes % (Auto) 13.8 % (1.0-12.0); Platelet Count 286 K/mcL (140-440); RBC 3.34 M/mcL (4.63-6.08); Red Cell Distribution Width 13.9 % (11.5-14.5); WBC 7.4 K/mcL (4.50-11.00)
[2020-02-21 08:57] LABS: ALT/SGPT 16 U/l (0-40); AST/SGOT 20 U/l (0-37); Albumin 3.2 gm/dL (3.2-5.2); Albumin/Globulin Ratio 1.3 (1.0-2.3); Alkaline Phosphatase 97 U/L (39-117); Bilirubin,Total 0.3 mg/dL (0.0-1.0); Blood Urea Nitrogen 49 mg/dl (8-23); Calcium 8.7 mg/dl (8.6-10.4); Carbon Dioxide 20 mmol/L (22-30); Chloride 107 mmol/L (96-108); Globulin 2.4 gm/dL (2.2-3.7); Glomerular Filtration Rate 24; Glucose 90 mg/dL (70-105)
[2020-02-21] MEDS ORDERED: ATENOLOL 50 MG TABLET PO SCH (09:00)
[2020-02-21] MEDS ORDERED: amLODIPine 5 MG TABLET PO SCH (09:00)
[2020-02-21] MEDS: SODIUM ZIRCONIUM CYCLOSILICATE 10 GM PO SCH (09:15)
[2020-02-21] MEDS: HEPARIN 5,000 UNIT/ML VIAL SQ SCH ×2 (09:15→21:04)
[2020-02-21] MEDS: VANCOMYCIN ORAL SOL 1,000 MG/10 ML BOTTLE PO SCH ×4 (09:15→21:10)
[2020-02-21] MEDS: MAGNESIUM OXIDE 400 MG TABLET PO SCH (09:16)
[2020-02-21] MEDS: FAMOTIDINE 20 MG TABLET PO SCH ×2 (09:16→21:04)
[2020-02-21] MEDS: ASPIRIN 81 MG TAB.CHEW PO SCH (09:17)
--- NOTE | 2020-02-21 12:13 | Internal Med Progress Note ---
SUBJECTIVE Subjective Patient information: Note initiated : 02/21/20 at 12:03 pm Service Date, if different from initiated Date: [] Patient: Bebeto Bunn 84 y/o M admitted on 02/17/20 for Diarrhea x3-4 days. Chief Complaint: [] Interval history: Mr. Bunn is a 84 year old M Brought in the ED for diarrhea since friday, and severe weakness. Is febrile in triage. Patient denies any hematochezia or hematemesis or melena. The son found his father on toilet too weak to stand up today. Patient states that he felt fine earlier in the day on Friday but in the evening start developing diarrhea. This continued for 8-10 episodes per day watery yellow and finally improved a little bit yesterday but then worsened again today. Denies any recent sick contacts or abnormal foods. Work-up in the ED showed temperature of 102 with a pulse in the 90s. Other vital signs stable. Leukocytosis of 16. Lactate was mildly elevated 2.4 and mildly elevated pro-Xavier. Urine analysis and chest x-ray were unremarkable. Previously treated ulcer and cellulitis of the leg appeared without infection. 02/17 Patient tired this morning sounds like he did not sleep well last night. Did have several loose bowel movements yesterday. Fecal WBCs positive, C. difficile testing indeterminate and retesting ordered. Afebrile overnight. 02/18 Patient slept well. No new complaints other than the continued diarrhea which seems to be less frequent but explosive at times. 02/19 When I saw this patient this morning, he was lying in bed with no acute distress. He feels fine and does not have any complaints. His diarrhea improving. He had BM x 1 this morning. I discussed with him that his heart rate is low and blood pressure is not well controlled. His blood culture came back, showing positive for bacteria. I will adjusted his blood pressure and heart rate medications. Positive blood culture could be due to contamination. So we need to repeat blood culture. He was very happy with the plan. 02/20 When I saw this patient this morning, he was sitting in chair. He told me that he is fine and does not have any new complaints. Denies fever, chills, nausea, vomiting, or dysuria. He had bowel movement x1 yesterday and today so far. His blood pressure is not stable and the heart rate went up to 83. Leukocytosis resolved today. Review of Systems: denies headache/fever/chills/nausea/vomiting/chest or abdominal pain/cough/dyspnea. Otherwise see above. Constitutional Vitals: Vital Signs Temp Pulse Resp BP Pulse Ox 99.3 F H 68 16 147/69 97 02/21/20 11:19 02/21/20 11:19 02/21/20 11:19 02/21/20 11:19 02/21/20 11:19 Period Temp Pulse Resp BP Sys/Dupree Pulse Ox Last 24 Hr 98 F-99.3 F 51-83 14-18 124-171/66-85 93-98 Intake and Output 02/20/20 02/21/20 02/21/20 21:59 05:59 13:59 Intake Total 240 480 Output Total 225 250 225 Balance -225 -10 255 Weight 61.054 kg Intake & Output: Intake & Output 02/20/20 02/21/20 02/21/20 21:59 05:59 13:59 Intake Total 240 480 Output Total 225 250 225 Balance -225 -10 255 Weight 61.054 kg Intake: Oral 240 480 Output: Void Amount 225 250 225 Other: Meal Breakfast Percent of Meal Consumed 100% Urine Appearance Clear Clear Urine Color Dark Yellow Dark Yellow Dark Yellow Stool Size Moderate Stool Color Brown Stool Consistency Loose # of times incontinent of 1 Bowels Additional findings Additional findings: General: alert and awake, No acute Distress, thin and frail. Eyes/N/T: EOMI, Head/Neck: neck supple, normocephalic atraumatic CV: RRR, No murmurs, normal s1/s2 Pulm: Clear b/l, no wheezing/rhonchi/rales Abd: soft, nontender, +BS x4 Ext: no clubbing/cyanosis/edema. wound over left leg dry, surrounding skin eryt celia. Neuro: alert and awake, no focal deficits, moves all extremities, skin: warm/dry OBJ DATA Labs CBC & Chem 7: 02/21/20 07:45 02/21/20 07:45 Labs: Abnormal Lab Results 02/21/20 02/21/20 02/20/20 07:45 07:45 05:13 WBC RBC 3.34 L Hgb 10.2 L Hct 32.0 L MPV 11.5 H Gran % Lymph % (Auto) [place] % (Auto) 13.8 H Gran # Lymph # (Auto) 1.37 L [place] # (Auto) 1.02 H Chloride Carbon Dioxide 20 L 19 L BUN 49 H 53 H Creatinine 2.4 H 2.6 H Glucose 108 H Calcium 7.7 L Total Protein 5.6 L Albumin 02/20/20 02/19/20 02/19/20 05:13 04:53 04:53 WBC 13.2 H 16.0 H RBC 2.90 L 2.72 L Hgb 8.9 L 8.4 L Hct 28.3 L 27.0 L MPV 11.4 H 11.4 H Gran % 80.0 H 84.4 H Lymph % (Auto) 7.5 L 4.9 L [place] % (Auto) Gran # 10.52 H 13.49 H Lymph # (Auto) 0.98 L 0.79 L [place] # (Auto) 1.25 H 1.49 H Chloride 110 H Carbon Dioxide 18 L BUN 49 H Creatinine 2.7 H Glucose 130 H Calcium 7.8 L Total Protein 4.8 L Albumin 2.5 L Meds: Medications Acetaminophen (Tylenol) 650 mg PO Q6HP PRN PRN Reason: PAIN/FEVER > 101 Last Admin: 02/18/20 07:17 Dose: 650 mg Documented by: Hydrocodone Bitart/Acetaminophen ([place] 10/325mg) 1 - 2 tab PO Q6HP PRN; Protocol PRN Reason: Pain Last Admin: 02/21/20 05:16 Dose: 2 tab Documented by: Albuterol/Ipratropium (Duoneb) 3 ml NEB Q4HP PRN PRN Reason: Shortness Of Breath Amlodipine Besylate (Norvasc) 7.5 mg PO DAILY [facility] Last Admin: 02/21/20 09:17 Dose: 7.5 mg Documented by: Aspirin (Aspirin) 81 mg PO DAILY [facility] Last Admin: 02/21/20 09:17 Dose: 81 mg Documented by: Atenolol (Tenormin) 12.5 mg PO DAILY [facility] Atorvastatin Calcium (Lipitor) 40 mg PO QHS [facility] Last Admin: 02/20/20 20:38 Dose: 40 mg Documented by: Dextrose (Dextrose 50%) 0 ml IV UD PRN PRN Reason: Hypoglycemia Diagnostic Test (Pha) (Accu-Chek) 1 each FS [facility] Last Admin: 02/21/20 11:31 Dose: 1 each Documented by: Famotidine (Pepcid) 20 mg PO BID [facility] Last Admin: 02/21/20 09:16 Dose: 20 mg Documented by: Glucose (Insta-Glucose) 15 gm PO PRN PRN PRN Reason: Hypoglycemia Heparin Sodium (Porcine) (Heparin) 5,000 unit SQ Q12 [facility] Last Admin: 02/21/20 09:15 Dose: 5,000 unit Documented by: Hydralazine HCl (Apresoline) 10 mg IV Q4-6HP PRN PRN Reason: Hypertension Magnesium Sulfate (Magnesium Sulfate) 2 gm in 50 mls @ 50 mls/hr IV UD PRN PRN Reason: Magnesium </= 1.6 Last Infusion: 02/18/20 12:38 Dose: Infused Documented by: Insulin Glargine (Lantus) 8 unit SQ [facility] Last Admin: 02/20/20 20:36 Dose: 8 units Documented by: Insulin Human Lispro (Humalog) 0 unit SQ [facility]; Protocol Last Admin: 02/21/20 11:43 Dose: 8 unit Documented by: [facility]) [facility] Last Admin: 02/21/20 07:16 Dose: 150 mcg Documented by: Lorazepam (Ativan) 0.5 mg PO BIDP PRN PRN Reason: Sleep Last Admin: 02/20/20 20:38 Dose: 0.5 mg Documented by: Magnesium Oxide (Magnesium Oxide) 400 mg PO DAILY [facility] Last Admin: 02/21/20 09:16 Dose: 400 mg Documented by: Ondansetron HCl (Zofran) 4 mg IV Q4HP PRN PRN Reason: Nausea And Vomiting Pantoprazole Sodium (Protonix) 40 mg PO [facility] Last Admin: 02/21/20 07:16 Dose: 40 mg Documented by: Sodium Zirconium Cyclosilicate [ Lokelma] 10 G Packet 0.5 dose PO DAILY [facility] Last Admin: 02/21/20 09:15 Dose: 0.5 dose Documented by: Polyethylene Glycol (Miralax) 17 gm PO DAILYP PRN PRN Reason: Constipation Prednisone (Prednisone) 10 mg PO [facility] Last Admin: 02/21/20 07:16 Dose: 10 mg Documented by: Sodium Chloride (Saline Flush) 10 ml IV Q8 [facility] Last Admin: 02/21/20 05:16 Dose: 10 ml Documented by: Vancomycin HCl (Vancomycin Oral Rita) 125 mg PO QID [facility]; Protocol Last Admin: 02/21/20 09:15 Dose: 1.25 ml Documented by: A/P Katherine A/P Narrative: 1. C. difficile colitis, improving 2. Sepsis: source GI, resolved 3. Generalized weakness/deconditionin. Volume depletion: resolved 5. Hyperkalemia, chronic: on Sodium zirconium cyclosilicate 6. 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 Anemia, chronic: 8. RA/PMR: -Immunosuppressed on prednisone 10mg daily 9. PVD: Has seen Dr. Casiano in the past, is on statin and ?antiplatelet 10. h/o LLE wound/Cellulitis: has been following with Dr. Lion. Not on abx. 11. DM:A1c 7.8 12. HTN: 13. Bradycardia 14. Hypothyroidism: recently increased in early january for high TSH and low T4 15. Anxiety: home ativan 16. GERD: 17. Pulmonary Fibrosis/Traction Bronchiectasis: incidental finding on CT 18. Kidney nodule, right 19. Blood culture - positive for GPB P: -PO Vanco x 10 days in total -Added amlodipine to 7.5 mg daily. Decreased atenolol to 12.5mg daily. -basal and SSI, -cont home prednisone -cont statin/antiplatelet -cont home levothyroxine -pt/ot -Discussed with ID Dr. Calix, the positive blood culture could be due to contamination. Repeat blood culture. No clinical evidence of infection. -Follow with urologist for kidney nodule -Wound care Dr. Lion saw pt today and cleared to discharge him. Dr. Lion will see pt in office in one week. -f/u nephrology for CKD IV -ppx: heparin/home ppi DNR Time Spent With Patient Time: Total time spent is greater than 50% in coordination of care (as documented) at patient's floor/unit and/or counseling patient:
--- NOTE | 2020-02-21 15:43 | General Surgery Consult Note ---
HPI Data of Consult Primary Care Provider: Sandhya Francisco Consult Narrative Patient Information: Note initiated : 02/21/20 at 3:33 pm Service Date, if different from initiated Date: [] Patient: Bebeto Bunn 84 y/o M admitted on 02/17/20 for Diarrhea x3-4 days. Chief Complaint: [] cc:: CC: Quentin Ayala I saw Mr. Bunn along with Nisreen RN Inpatient wound care nurse this morning. Admitted to the hospital with symptomatic C Dif pancolitis ( CT scan finding ) This has responded to medical management. WBC is normal He had a well formed BM. Tolerating regular diet. ALL is at his base line. His LLE wounds are healing well. Local wound care and protective foam bordered dressings to continue . [facility] Medical History 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 Discussed 11/27/2019. 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 Osteoarthritis (Chronic) Peripheral arterial disease (Chronic) Status post [address] attempts [address] Casiano. Being referred to vascular surgeon (Dr. Albert Baker____, and/or Ortho consideration for amputation] -- 11/27/2019 Persistent proteinuria (Chronic) Polyarthritis involving elbow (Resolved) Polymyalgia rheumatica (Resolved) Rheumatoid arthritis (Chronic) Septic arthritis due to Streptococcus species (Resolved) Total body pain (Chronic) Weight loss (Resolved) Surgical History History of elbow surgery (Chronic) right and left History of hip replacement (Chronic) History of procedure for peripheral vascular disease (Acute) twice, Dr. Casiano, [facility], unsuccessful (LLE PAD) Hx of toe surgery (Chronic) right great toe Family History Family/Other Colon cancer Stroke Social History (Updated 08/20/19 @ 10:10 by Luke Harmon MD) marital status: occupational status: retired smoking status: Former smoker alcohol intake frequency: does not drink substance use type: does not use MEDS/ALLERGIES Home Medications and Allergies Home Medications Medication Instructions Recorded Confirmed Type insulin glargine 100 unit/mL (3 8 unit SUB-Q HS ml 08/20/19 02/17/20 History mL) subcutaneous pen prednisone 5 mg tablet 10 mg PO QDAY tab 08/20/19 02/17/20 History levothyroxine 150 mcg PO DAILY 11/28/19 02/18/20 History atenolol 50 mg tablet 50 mg PO BID tab 01/28/20 02/18/20 History insulin aspart U-100 100 unit/mL 2 unit SUBCUT AC ml 01/28/20 02/18/20 History (3 mL) subcutaneous pen sodium zirconium cyclosilicate 5 5 g PO QDAY #30 each 01/28/20 02/18/20 Rx gram oral powder packet aspirin 81 mg PO DAILY 02/17/20 02/17/20 History atorvastatin 40 mg PO QHS 02/17/20 02/17/20 History hydrocodone-acetaminophen 1 - 2 tab PO Q4HP PRN 02/17/20 02/18/20 History lansoprazole 30 mg PO DAILY 02/17/20 02/17/20 History magnesium oxide 250 mg PO DAILY 02/17/20 02/17/20 History polyethylene glycol 3350 17 g PO QDP PRN 02/17/20 02/18/20 History Ativan 0.5 mg PO HSP PRN 02/18/20 02/18/20 History Daily Multivitamin 1 tab PO QDAY 02/18/20 02/18/20 History Vitamin C 500 mg PO QDAY 02/18/20 02/18/20 History amlodipine 5 mg PO QDAY 02/18/20 02/18/20 History Allergies Allergy/AdvReac Type Severity Reaction Status Date / Time naproxen AdvReac Intermediate Skin Martino Verified 01/28/20 11:04 niacin AdvReac Intermediate Burning Verified 01/28/20 11:04 Skin Physical Examination Vital Signs Vital signs: Temp Pulse Resp BP Pulse Ox 99.3 F H 68 16 147/69 97 02/21/20 11:19 02/21/20 11:19 02/21/20 11:19 02/21/20 11:19 02/21/20 11:19 General physical appearance General physical exam: no distress, no pain and chronically ill Eyes Eye exam: PERRL and normal ocular movement ENT ENT exam: normal pinna, normal nares, normal mucosa and no congestion Head Head exam IM: Present atraumatic and normal inspection Neck Neck exam: no masses, trachea midline and no venous distension Cardiovascular Cardiovascular exam IM: Present normal rate and rhythm Respiratory Respiratory exam: normal respiratory effort and clear to auscultation Abdomen Abdomen: Present soft, non tender and bowel sounds Integumentary Integumentary: Present other (Left thigh donor skin graft site wound has healed. Left posterior lower leg and heel wounds are dry , clean and stable . NO interval changes or signs of acute infection or inflammation. ) Musculoskeletal Musculoskeletal: Present other (Needs cane for ambulation. ) Psychiatric Psychiatric: Present oriented to time, oriented to person, oriented to place, speech is normal and memory intact Results Labs Result diagrams: 02/21/20 07:45 02/21/20 07:45 Labs: Abnormal lab results 02/21/20 02/21/20 Range/Units 07:45 07:45 RBC 3.34 L (4.63-6.08) M/mcL Hgb 10.2 L (13.7-17.5) g/dL Hct 32.0 L (40.1-51.0) % MPV 11.5 H (7.4-10.4) fL [place] % (Auto) 13.8 H (1.0-12.0) % Lymph # (Auto) 1.37 L (1.50-4.80) K/mcL [place] # (Auto) 1.02 H (0.10-0.90) K/mcL Carbon Dioxide 20 L (22-30) mmol/L BUN 49 H (8-23) mg/dl Creatinine 2.4 H (0.7-1.2) mg/dl Total Protein 5.6 L (5.9-8.4) gm/dL Diabetes panel 02/21/20 Range/Units 07:45 Sodium 139 (133-145) mmol/L Potassium 4.8 (3.3-5.1) mmol/L Chloride 107 (96-108) mmol/L Carbon Dioxide 20 L (22-30) mmol/L BUN 49 H (8-23) mg/dl Creatinine 2.4 H (0.7-1.2) mg/dl Glucose 90 (70-105) mg/dL Calcium 8.7 (8.6-10.4) mg/dl AST 20 (0-37) U/l ALT 16 (0-40) U/l Alkaline Phosphatase 97 (39-117) U/L Total Protein 5.6 L (5.9-8.4) gm/dL Albumin 3.2 (3.2-5.2) gm/dL Calcium panel 02/21/20 Range/Units 07:45 Calcium 8.7 (8.6-10.4) mg/dl Albumin 3.2 (3.2-5.2) gm/dL Pituitary panel 02/21/20 Range/Units 07:45 Sodium 139 (133-145) mmol/L Potassium 4.8 (3.3-5.1) mmol/L Chloride 107 (96-108) mmol/L Carbon Dioxide 20 L (22-30) mmol/L BUN 49 H (8-23) mg/dl Creatinine 2.4 H (0.7-1.2) mg/dl Glucose 90 (70-105) mg/dL Calcium 8.7 (8.6-10.4) mg/dl Adrenal panel 02/21/20 Range/Units 07:45 Sodium 139 (133-145) mmol/L Potassium 4.8 (3.3-5.1) mmol/L Chloride 107 (96-108) mmol/L Carbon Dioxide 20 L (22-30) mmol/L BUN 49 H (8-23) mg/dl Creatinine 2.4 H (0.7-1.2) mg/dl Glucose 90 (70-105) mg/dL Calcium 8.7 (8.6-10.4) mg/dl Total Bilirubin 0.3 (0.0-1.0) mg/dL AST 20 (0-37) U/l ALT 16 (0-40) U/l Alkaline Phosphatase 97 (39-117) U/L Total Protein 5.6 L (5.9-8.4) gm/dL Albumin 3.2 (3.2-5.2) gm/dL All other labs normal. A/P Narrative A/P Narrative: Assessment: Admitted with colitis. Treated for C. Diff. Improved. LEFT LE thigh posterior leg and heel wounds are healing well. Plan: Continue on going wound care. Will follow at wound care center after discharge. Time Spent With Patient Time: Total time spent is greater than 50% in coordination of care (as documented) at patient's floor/unit and/or counseling patient: Total time spent with greater than 50% in coordination of care (as documented) at patient's floor/unit and/or counseling patient:: 15 - 24 minutes
[2020-02-21] MEDS: LORazepam 0.5 MG TABLET PO PRN (21:04)
[2020-02-21] MEDS: ATORVASTATIN 40 MG TABLET PO SCH (21:04)
[2020-02-21] MEDS: INSULIN GLARGINE, HUMAN 1 UNIT/0.01 ML SQ SCH (21:05)
[2020-02-22] MEDS: HYDROcodone/APAP 10/325MG TABLET PO PRN ×3 (03:59→16:13)
[2020-02-22] MEDS: 0.9 % SODIUM CHLORIDE 10 ML SYRINGE IV SCH ×2 (04:00→14:11)
[2020-02-22 07:02] LABS: Basophils # (Auto) 0.03 K/mcL (0.00-0.30); Basophils % (Auto) 0.4 % (0.0-2.0); Eosinophils # (Auto) 0.49 K/mcL (0.00-0.70); Eosinophils % (Auto) 6.5 % (0.0-7.0); Granulocytes % (Auto) 55.3 % (38.0-78.0); Hematocrit 29.4 % (40.1-51.0); Hemoglobin 9.4 g/dL (13.7-17.5); Lymphocytes # (Auto) 1.51 K/mcL (1.50-4.80); Lymphocytes % (Auto) 20.1 % (15.5-49.0); Mean Cell Volume 95.1 fL (80.0-100.0); Mean Platelet Volume 11.4 fL (7.4-10.4); Monocytes # (Auto) 1.33 K/mcL (0.10-0.90); Monocytes % (Auto) 17.7 % (1.0-12.0); Platelet Count 281 K/mcL (140-440); RBC 3.09 M/mcL (4.63-6.08); Red Cell Distribution Width 14.2 % (11.5-14.5); WBC 7.5 K/mcL (4.50-11.00)
[2020-02-22] MEDS: PANTOPRAZOLE 40 MG TABLET PO SCH (07:22)
[2020-02-22] MEDS: LEVOTHYROXINE 150 MCG TABLET PO SCH (07:23)
[2020-02-22] MEDS: INSULIN LISPRO 1 UNIT/0.01 ML UNIT SQ SCH ×2 (07:26→12:17)
[2020-02-22 07:30] LABS: ALT/SGPT 17 U/l (0-40); AST/SGOT 22 U/l (0-37); Albumin 3.2 gm/dL (3.2-5.2); Albumin/Globulin Ratio 1.4 (1.0-2.3); Alkaline Phosphatase 84 U/L (39-117); Bilirubin,Total 0.2 mg/dL (0.0-1.0); Blood Urea Nitrogen 52 mg/dl (8-23); Calcium 8.8 mg/dl (8.6-10.4); Carbon Dioxide 22 mmol/L (22-30); Chloride 105 mmol/L (96-108); Globulin 2.3 gm/dL (2.2-3.7); Glomerular Filtration Rate 24; Glucose 110 mg/dL (70-105)
[2020-02-22] MEDS ORDERED: SODIUM POLYSTYRENE SULFONATE 15 GM/60 ML SUSPENSION PO ONE (08:12)
[2020-02-22] MEDS ORDERED: amLODIPine 10 MG TABLET PO SCH (09:00)
[2020-02-22] MEDS ORDERED: ATENOLOL 25 MG TABLET PO SCH (09:00)
[2020-02-22] MEDS: ASPIRIN 81 MG TAB.CHEW PO SCH (09:21)
[2020-02-22] MEDS: predniSONE 5 MG TABLET PO SCH (09:23)
[2020-02-22] MEDS: FAMOTIDINE 20 MG TABLET PO SCH (09:23)
[2020-02-22] MEDS: MAGNESIUM OXIDE 400 MG TABLET PO SCH (09:23)
[2020-02-22] MEDS: FUROSEMIDE 20 MG/2 ML VIAL IV SCH ×2 (09:24→11:15)
[2020-02-22] MEDS: HEPARIN 5,000 UNIT/ML VIAL SQ SCH (09:25)
[2020-02-22] MEDS: VANCOMYCIN ORAL SOL 1,000 MG/10 ML BOTTLE PO SCH ×3 (09:25→17:22)
[2020-02-22] MEDS: SODIUM ZIRCONIUM CYCLOSILICATE 10 GM PO SCH (09:26)
[2020-02-22 15:41] LABS: Blood Urea Nitrogen 52 mg/dl (8-23); Calcium 9.2 mg/dl (8.6-10.4); Carbon Dioxide 24 mmol/L (22-30); Chloride 104 mmol/L (96-108); Glomerular Filtration Rate 22; Glucose 154 mg/dL (70-105)
--- NOTE | 2020-02-22 16:51 | Discharge Summary ---
Discharge Provider Provider Patient information: Note initiated : 02/22/20 at 4:31 pm Service Date, if different from initiated Date: [] Patient: Bebeto Bunn 84 y/o M admitted on 02/17/20 for Diarrhea x3-4 days. Chief Complaint: [] Date of admission: 02/17/20 23:13 Discharge date: 02/22/20 Primary care physician: Sandhya Francisco Consults: 02/17/20 Consult to Physician [CONS] Stat Comment: Consulting Provider: Quentin Ayala Reason For Exam: Physician to Consult 02/21/20 10:14 Consult to Physician [CONS] Routine Comment: Consulting Provider: Shaheed Lion Reason For Exam: Physician to Consult Discharge Meds Discharge Medications Home Medications insulin glargine 100 unit/mL (3 mL) subcutaneous pen 8 unit SUB-Q HS ml 08/20/19 [History Confirmed 02/17/20 Last Taken Unknown] prednisone 5 mg tablet 10 mg PO QDAY tab 08/20/19 [History Confirmed 02/17/20 Last Taken 11/27/19 09:30] levothyroxine 150 mcg PO DAILY 11/28/19 [History Confirmed 02/18/20 Last Taken Unknown] sodium zirconium cyclosilicate 5 gram oral powder packet 5 g PO QDAY #30 each 01/28/20 [Rx Confirmed 02/18/20 Last Taken Unknown] aspirin 81 mg PO DAILY 02/17/20 [History Confirmed 02/17/20 Last Taken Unknown] atorvastatin 40 mg PO QHS 02/17/20 [History Confirmed 02/17/20 Last Taken Unknown] hydrocodone-acetaminophen 1 - 2 tab PO Q4HP PRN 02/17/20 [History Confirmed 02/18/20 Last Taken Unknown] lansoprazole 30 mg PO DAILY 02/17/20 [History Confirmed 02/17/20 Last Taken Unknown] magnesium oxide 250 mg PO DAILY 02/17/20 [History Confirmed 02/17/20 Last Taken Unknown] polyethylene glycol 3350 17 g PO QDP PRN 02/17/20 [History Confirmed 02/18/20 Last Taken Unknown] Ativan 0.5 mg PO HSP PRN 02/18/20 [History Confirmed 02/18/20 Last Taken Unknown] Daily Multivitamin 1 tab PO QDAY 02/18/20 [History Confirmed 02/18/20 Last Taken Unknown] amlodipine 10 mg PO DAILY #30 tab 02/22/20 [Rx Last Taken Unknown] atenolol 12.5 mg PO DAILY #30 tab 02/22/20 [Rx Last Taken Unknown] vancomycin 125 mg PO QID 6 Days #3 each 02/22/20 [Rx Last Taken Unknown] COURSE Hospital Course Hospital course: 1. C. difficile colitis, improving Continue oral Vanco x 10 days in total until 02/27 2. Sepsis: source GI, resolved 3. Generalized weakness/deconditioning: nutrition consult and wound benefit from PT. 4. Volume depletion: resolved 5. Hyperkalemia, chronic: on Lokelma. Today his K 5.2. Discussed with Dr Altamirano who felt fine to discharge and will see him on Friday in office. I will give him lasix 20mg oral daily. Repeat BMP in 2 days. If K> 5.4, call PCP/Dr. Harmon or go to ER immediately. 6. 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 Anemia, chronic: 8. RA/PMR: -Immunosuppressed on prednisone 10mg daily 9. PVD: Has seen Dr. Casiano in the past, is on statin and ?antiplatelet 10. h/o LLE wound/Cellulitis: has been following with Dr. Lion. Not on abx. 11. DM:A1c 7.8 12. HTN: amlodipine 10mg daily 13. Bradycardia, improved. Will discharge him on atenolol 12.5mg daily. 14. Hypothyroidism: recently increased in early january for high TSH and low T4 15. Anxiety: home ativan 16. GERD: 17. Pulmonary Fibrosis/Traction Bronchiectasis: incidental finding on CT 18. Kidney nodule, right --Follow with urologist for kidney nodule 19. Blood culture - positive for GPB -Discussed with ID Dr. Calix, the positive blood culture could be due to cont amination. Repeat blood culture negative so far. No clinical evidence of infection. Interval history: Mr. Bunn is a 84 year old M Brought in the ED for diarrhea since friday, and severe weakness. Is febrile in triage. Patient denies any hematochezia or hematemesis or melena. The son found his father on toilet too weak to stand up today. Patient states that he felt fine earlier in the day on Friday but in the evening start developing diarrhea. This continued for 8-10 episodes per day watery yellow and finally improved a little bit yesterday but then worsened again today. Denies any recent sick contacts or abnormal foods. Work-up in the ED showed temperature of 102 with a pulse in the 90s. Other vital signs stable. Leukocytosis of 16. Lactate was mildly elevated 2.4 and mildly elevated pro-Xavier. Urine analysis and chest x-ray were unremarkable. Previously treated ulcer and cellulitis of the leg appeared without infection. 02/17 Patient tired this morning sounds like he did not sleep well last night. Did have several loose bowel movements yesterday. Fecal WBCs positive, C. difficile testing indeterminate and retesting ordered. Afebrile overnight. 02/18 Patient slept well. No new complaints other than the continued diarrhea which seems to be less frequent but explosive at times. 02/19 When I saw this patient this morning, he was lying in bed with no acute distr ess. He feels fine and does not have any complaints. His diarrhea improving. He had BM x 1 this morning. I discussed with him that his heart rate is low and blood pressure is not well controlled. His blood culture came back, showing positive for bacteria. I will adjusted his blood pressure and heart rate medications. Positive blood culture could be due to contamination. So we need to repeat blood culture. He was very happy with the plan. 02/20 When I saw this patient this morning, he was sitting in chair. He told me that he is fine and does not have any new complaints. Denies fever, chills, nausea, vomiting, or dysuria. He had bowel movement x1 yesterday and today so far. His blood pressure is not stable and the heart rate went up to 83. Leukocytosis resolved today. 02/21 Patient is fine and does not have any complaints. Blood pressure and heart rate are better controlled. She is now on amlodipine 10 mg and atenolol 12.5 mg daily. He refused SNF or home health. He has good support from family. He will be discharged home today. He needs to follow with PCP in 3 days, nephrology Dr. Harmon on Friday (02/24), Dr. Lion in one week and urology cary. Repeat electrolytes in 2 days. Continue oral vancomycin 02/27. call PCP for medical issues. Discharge diagnosis: C. difficile colitis Time Spent with Patient Time attestation: Total time spent providing and/or coordinating discharge services: EXAM Constitutional Vitals: Temp Pulse Resp BP Pulse Ox 97.6 F 62 16 143/78 97 02/22/20 12:00 02/22/20 12:00 02/22/20 12:00 02/22/20 12:00 02/22/20 12:00 Additional findings Additional findings: General: alert and awake, No acute Distress, thin and frail. Eyes/N/T: EOMI, Head/Neck: neck supple, normocephalic atraumatic CV: RRR, No murmurs, normal s1/s2 Pulm: Clear b/l, no wheezing/rhonchi/rales Abd: soft, nontender, +BS x4 Ext: no clubbing/cyanosis/edema. wound over left leg dry, surrounding skin erythema. Neuro: alert and awake, no focal deficits, moves all extremities, skin: warm/dry Discharge Data Data Completed and Pending Labs on day of discharge: Labs from last 24 hours 02/22/20 02/22/20 02/22/20 14:20 05:50 05:50 WBC 7.5 RBC 3.09 L Hgb 9.4 L Hct 29.4 L MCV 95.1 MCH 30.4 MCHC 32.0 RDW 14.2 Plt Count 281 MPV 11.4 H Gran % 55.3 Lymph % (Auto) 20.1 Davison % (Auto) 17.7 H Eos % (Auto) 6.5 Baso % (Auto) 0.4 Gran # 4.14 Lymph # (Auto) 1.51 Davison # (Auto) 1.33 H Eos # (Auto) 0.49 Baso # (Auto) 0.03 Sodium 141 139 Potassium 5.2 H 5.3 H Chloride 104 105 Carbon Dioxide 24 22 Anion Gap 13.0 12.0 BUN 52 H 52 H Creatinine 2.6 H 2.4 H GFR Calculation 22 24 Glucose 154 H 110 H Calcium 9.2 8.8 Total Bilirubin 0.2 AST 22 ALT 17 Alkaline Phosphatase 84 Total Protein 5.5 L Albumin 3.2 Globulin 2.3 Albumin/Globulin Ratio 1.4 Preliminary micro results at discharge 02/20/20 09:42 Blood Culture - Preliminary Blood 02/20/20 09:30 Blood Culture - Preliminary Blood 02/17/20 19:00 Blood Culture - Preliminary Blood Actinomyces Elise 02/17/20 18:33 Blood Culture - Preliminary Blood Discharge Plan Patient/Caregiver Discharge Instructions Activity: increase activity as tolerated Diet: Renal/Consistent Carbs Prescriptions: New atenolol 25 mg Tablet 12.5 mg PO DAILY Qty: 30 RF: 0 vancomycin 1,000 mg Recon Soln 125 mg PO QID 6 Days Qty: 3 RF: 0 amlodipine 10 mg Tablet 10 mg PO DAILY Qty: 30 RF: 0 Continued insulin glargine 100 unit/mL (3 mL) insulin pen 8 unit SUB-Q HS RF: 0 prednisone 5 mg tablet 10 mg PO QDAY RF: 0 Lokelma 5 gram powder in packet 5 g PO QDAY Qty: 30 RF: 12 levothyroxine 75 MCG tablet 150 mcg PO DAILY RF: 0 atorvastatin 40 mg tablet 40 mg PO QHS RF: 0 hydrocodone-acetaminophen 10-325 mg tablet 1 - 2 tab PO Q4HP PRN (Reason: Pain) RF: 0 polyethylene glycol 3350 17 gram powder in packet 17 g PO QDP PRN (Reason: Constipation) RF: 0 lansoprazole 30 mg capsule,delayed release(DR/EC) 30 mg PO DAILY RF: 0 aspirin 81 mg Tablet,Chewable 81 mg PO DAILY RF: 0 magnesium oxide 250 mg magnesium tablet 250 mg PO DAILY RF: 0 Ativan 0.5 mg PO HSP PRN (Reason: Anxiety) RF: 0 Daily Multivitamin 1 tab PO QDAY RF: 0 Discontinued atenolol 50 mg tablet 50 mg PO BID RF: 0 insulin aspart U-100 [Novolog Flexpen U-100 Insulin] 100 unit/mL (3 mL) insulin pen 2 unit subcut AC RF: 0 Vitamin C 500 mg PO QDAY RF: 0 amlodipine 5 mg PO QDAY RF: 0 Other Ambulatory Orders: Comprehensive Metabolic Panel (Routine) Timeframe: 2 Days Facility: [facility] - Location: Laboratory Ordered By: Avni Cottrell Magnesium (Routine) Timeframe: 2 Days Facility: [facility] - Location: Laboratory Ordered By: Avni Cottrell Follow Up Plan Follow up with: Shaheed Lion MD [Physician] - (1 week) Sandhya Francisco MD [Primary Care Provider] - Unknown [Outside] (PCP in 3 days and urology cary. ) Luke Harmon MD [Physician] - 02/25/20 Patient Disposition: Home, Self-Care Prognosis: Serious Discharge Orders: Discharge Order (Routine); Ordered 02/22/20 Ordered By: Avni Cottrell
== END 2020-02-22 17:15 | disposition home or self-care (01) | DRG 872 ==
LOC: ED 18:08 → MEDSUR 23:13
PROVIDERS: ADMIT Internal Medicine; ATTEND Internal Medicine